=== PATIENT | female | born 1975 | race Caucasian/White ===

== ENCOUNTER 2023-05-22 07:33 | Outpatient (OUT) | payer OTHER, SELFPAY ==
[2023-05-22 07:58] LABS: Estimated Average Glucose 100 mg/dL; Glycohemoglobin A1C 5.1 % (4.5-6.2)
[2023-05-22 08:07] LABS: Basophils Absolute Auto 0.1 10^3/uL (0.0-0.1); Basophils Percent Auto 0.8 % (0.2-2.0); Eosinophils Absolute Auto 0.2 10^3/uL (0.0-0.7); Eosinophils Percent Auto 2.7 % (0.9-7.0); Hematocrit 44.3 % (36.0-48.0); Hemoglobin 14.6 g/dL (12.0-16.0); Immature Granulocytes Abs Auto 0.02 10^3/uL (0.00-0.03); Immature Granulocytes Pct Auto 0.3 % (0.0-0.5); Lymphocytes Absolute Auto 1.6 10^3/uL (1.2-3.8); Lymphocytes Percent Auto 25.7 % (20.5-60.0); Mean Corpuscular Hemoglobin 28.1 pg (26.7-34.0); Mean Corpuscular Volume 85.4 fL (81.0-99.0); Mean Platelet Volume 10.5 fL (9.5-13.5); Monocytes Absolute Auto 0.5 10^3/uL (0.3-0.8); Monocytes Percent Auto 8.1 % (1.7-12.0); Neutrophils Absolute Auto 3.8 10^3/uL (1.4-6.5); Neutrophils Percent Auto 62.4 % (43.0-75.0); Platelet Count 256 10^3/uL (150-450); Red Blood Count 5.19 10^6/uL (4.20-5.40); Red Cell Distribution Width 13.1 % (11.0-15.0)
[2023-05-22 08:21] LABS: Alanine Aminotransferase 18 U/L (14-59); Albumin Globulin Ratio 1.1; Albumin Level 3.7 g/dL (3.4-5.0); Alkaline Phosphatase 66 U/L (46-116); Anion Gap 11.2; Aspartate Amino Transferase 11 U/L (15-37); BUN Creatinine Ratio 17.8; Bilirubin Total 0.5 mg/dL (0.2-1.0); Calcium 8.6 mg/dL (8.5-10.1); Chloride 102 mmol/L (98-107); Estimated GFR (African America >60 (>=60); Estimated GFR (Non-African Ame >60 (>=60); Free T3 2.89 pg/mL (2.18-3.98); Globulin 3.4 g/dL; Glucose 102 mg/dL (74-106); Potassium 4.2 mmol/L (3.5-5.1); Sodium 139 mmol/L (136-145); Thyroid Stimulating Hormone 1.684 uIU/mL (0.358-3.740); Total Protein 7.1 g/dL (6.4-8.2)
== END 2023-05-22 07:34 | disposition home or self-care (01) ==
LOC: LAB 07:36
PROVIDERS: PCP Family Medicine; Visit Provider Family Medicine
DX: R53.83 Other fatigue (principal)
CPT/HCPCS: 36415; 80053; 83036; 84436; 84443; 84481; 85025

== ENCOUNTER 2024-07-08 16:03 | Outpatient (OUT) | payer OTHER, SELFPAY ==
[2024-07-08 16:20] LABS: Basophils Absolute Auto 0.1 10^3/uL (0.0-0.1); Basophils Percent Auto 1.1 % (0.2-2.0); Eosinophils Absolute Auto 0.1 10^3/uL (0.0-0.7); Eosinophils Percent Auto 1.4 % (0.9-7.0); Hematocrit 42.7 % (36.0-48.0); Immature Granulocytes Abs Auto 0.01 10^3/uL (0.00-0.03); Immature Granulocytes Pct Auto 0.2 % (0.0-0.5); Lymphocytes Absolute Auto 1.6 10^3/uL (1.2-3.8); Lymphocytes Percent Auto 24.3 % (20.5-60.0); Mean Corpuscular HGB Conc 32.8 g/dL (29.9-35.2); Mean Corpuscular Hemoglobin 28.9 pg (26.7-34.0); Mean Platelet Volume 10.8 fL (9.5-13.5); Monocytes Absolute Auto 0.4 10^3/uL (0.3-0.8); Monocytes Percent Auto 6.7 % (1.7-12.0); Neutrophils Absolute Auto 4.3 10^3/uL (1.4-6.5); Neutrophils Percent Auto 66.3 % (43.0-75.0); Platelet Count 267 10^3/uL (150-450); Red Blood Count 4.85 10^6/uL (4.20-5.40); Red Cell Distribution Width 13.1 % (11.0-15.0); White Blood Count 6.5 10^3/uL (4.0-11.0)
[2024-07-08 16:47] LABS: Free T3 2.04 pg/mL (2.18-3.98); Thyroid Stimulating Hormone 1.233 uIU/mL (0.358-3.740)
== END 2024-07-08 16:04 | disposition home or self-care (01) ==
LOC: LAB 16:03
PROVIDERS: PCP Family Medicine; Visit Provider Family Medicine
DX: R53.83 Other fatigue (principal)
CPT/HCPCS: 36415; 83540; 84436; 84443; 84481; 85025

== ENCOUNTER 2024-07-09 15:58 | Outpatient (OUT) | payer OTHER, SELFPAY ==
--- NOTE | 2024-07-09 16:04 | US_ITS ---
The [address] [address] Patient Name: NATALIIA RAY MRN: [id number] date: 1975 Sex: F Assigned Patient Location: US Current Patient Location: US Accession/Order Number: [id number] Exam Date: 07/09/2024 16:10 Report Date: 07/09/2024 17:10 At the request of: ISIDORO TRUJILLO Procedure: US venous doppler UE LT GI EXAM: US venous doppler UE LT HISTORY: LEFT ARM PAIN M79.602 COMPARISON: None. TECHNIQUE: Sonographic evaluation of the deep venous system of the left upper extremity was performed utilizing B-mode, color Doppler, and spectral imaging. FINDINGS: The internal jugular vein shows normal flow without filling defects. Normal cardiac pulsations are seen. The subclavian vein also showed normal flow and respiratory phasicity. No filling defects are identified. The axillary, brachial, basilic, and cephalic veins all appear patent and are normally compressible. The ulnar and radial veins also showed normal flow and compressibility. Additional findings: None. US/US venous doppler UE LT IMPRESSION: No evidence of deep venous thrombosis of the left upper extremity. Electronically authenticated by: EPHRAIM ROBLES Date: 07/09/2024 17:10
== END 2024-07-09 15:59 | disposition home or self-care (01) ==
LOC: US 15:58
PROVIDERS: PCP Family Medicine; Visit Provider Family Medicine
DX: M79.602 Pain in left arm (principal)
CPT/HCPCS: 93971

== ENCOUNTER 2024-08-05 10:35 | Outpatient (OUT) | payer OTHER, SELFPAY ==
--- OUTSIDE RECORDS SUMMARY | 2024-08-05 10:58 | XMS_ITS | CCD ---
Author Organization [facility] Care Team Providers Care Moving Worker Name Role Phone HARVEY VICTOR Unavailable Unavailable HOY ., DR CHAUDHRY Attending Unavailable HOY ., DR CHAUDHRY Admitting Unavailable HOY ., DR CHAUDHRY Primary Care Unavailable HOY ., DR CHAUDHRY Consulting Unavailable HOY ., DR CHAUDHRY Attending Unavailable HOY ., DR CHAUDHRY Admitting Unavailable HOY ., DR CHAUDHRY Primary Care Unavailable HOY ., DR CHAUDHRY Consulting Unavailable HOY ., DR CHAUDHRY Admitting Unavailable HOY ., DR CHAUDHRY Primary Care Unavailable HOY ., DR CHAUDHRY Attending Unavailable HOY ., DR CHAUDHRY Consulting Unavailable HOY ., DR CHAUDHRY Admitting Unavailable HOY ., DR CHAUDHRY Primary Care Unavailable HOY ., DR CHAUDHRY Consulting Unavailable HOY ., DR CHAUDHRY Attending Unavailable NAYE OCONNOR Consulting Unavailable HOY ., DR CHAUDHRY Admitting Unavailable HOY ., DR CHAUDHRY Primary Care Unavailable HOY ., DR CHAUDHRY Attending Unavailable HOY ., DR CHAUDHRY Consulting Unavailable HOY ., DR CHUADHRY Consulting Unavailable HOY ., DR CHAUDHRY Admitting Unavailable HOY ., DR CHAUDHRY Primary Care Unavailable HOY ., DR CHAUDHRY Attending Unavailable ALLI WEST Consulting Unavailable Isidoro Rojas Primary Care Physician Kati Cobb Unavailable Unavailable ANANT BRANDON Admitting Unavailable ANANT BRANDON Attending Unavailable MD Isidoro Rojas Primary Care Provider [phone] DO Karyn Johnson Attending Provider DO Bryson Robbins Attending Provider [phone] MD Isidoro Rojas Primary Care Provider [phone] DO Bryson Robbins Attending Provider MD Isidoro Rojas Primary Care Provider [phone] DO Bryson Robbins Attending Provider [phone] Bozena, Bryson Attending Unavailable Itzkowitz, Bryson Admitting Unavailable Hoy, Isidoro M Primary Care Unavailable Itzkowitz, Bryson Attending Unavailable Itzkowitz, Bryson Admitting Unavailable Hoy, Isidoro M Primary Care Unavailable Itzkowitz, Bryson Attending Unavailable Itzkowitz, Bryson Admitting Unavailable Hoy, Isidoro M Primary Care Unavailable Itzkowitz, Bryson Attending Unavailable Hoy, Isidoro M Primary Care Unavailable Itzkowitz, Bryson Admitting Unavailable Hoy, Isidoro M Primary Care Unavailable Itzkomiles, Bryson Attending Unavailable Itzkowitz, Bryson Admitting Unavailable Hoy, Isidoro M Primary Care Unavailable Alex Karyn Admitting Unavailable Karyn Johnson Attending Unavailable Hoy, Isidoro M Primary Care Unavailable Itzkowitz, Bryson Attending Unavailable Itzkowitz, Bryson Admitting Unavailable Hoy, Isidoro M Primary Care Unavailable Itzkomiles, Bryson Attending Unavailable Itzkomarissatz, Bryson Admitting Unavailable ITZLLOYD, BRYSON H Attending Unavailable TELLO CHURCH Attending Unavailable TELLO CHURCH Attending Unavailable KARYN JOHNSON E Attending Unavailable ITZLLOYD, BRYSON H Attending Unavailable Allergies Allergy Classification Reported Allergen(s) Allergy Type Date of Onset Reaction(s) Facility (8 sources) SUMAtriptan; Translations: [SUMATRIPTAN] Drug Allergy 1 AOF, SOB, Trouble breathing [facility] (2 sources) Plasmin; Translations: [Imitrex] Drug Allergy [facility] Medications Current Medications Medication Drug Class(es) Dates Sig (Normalized) Sig (Original) acetaminophen 325 mg / butalbital 50 mg / caffeine 40 mg oral capsule (7 sources) Barbiturate, Central Nervous System Stimulant, Methylxanthine Start: 10-02-2018 take 1 tablet by mouth three times daily Butalbital-Acetam inophen-Caff Active 1 TAB PO Three times daily October 02, 2018 1:00am cetirizine hydrochloride 10 mg oral tablet (1 source) Histamine-1 Receptor Antagonist Start: 02-24-2016 take 10 mg by mouth once daily Zyrtec 10 mg, Oral, Daily, Refills(s) 0, Allergy symptoms Start Date: 02/24/16 Status: Ordered cycloSPORINE 0.5 mg/ml ophthalmic suspension (4 sources) Calcineurin Inhibitor Immunosuppressant Start: 10-02-2018 take 1 drop(s) into the eye(s) every twelve hours Cyclosporine (Restasis) 0.05 % Dropperette Active 1 DROPS EYE-BOTH October 02, 2018 1:00am Start: 02-24-2016 take 1 drop(s) into the eye(s) twice daily Restasis 1 drop(s), Eye-Both, BID, Refill(s) 0, Dry eyes Start Date: 02/24/16 Status: Ordered Cyclosporine (Restasis) 0.05 % Dropperette (4 sources) Start: 10-02-2018 take 1 drop(s) into the eye(s) every twelve hours Cyclosporine (Restasis) 0.05 % Dropperette Active 1 DROPS EYE-BOTH October 02, 2018 12:00am Start: 10-02-2018 take 1 drop(s) into the eye(s) every twelve hours Cyclosporine (Restasis) 0.05 % Dropperette Active 1 DROPS EYE-BOTH October 02, 2018 1:00am diphenhydrAMINE hydrochloride 25 mg oral capsule (4 sources) Histamine-1 Receptor Antagonist Start: 03-21-2023 take 1 capsule by mouth once daily at bedtime Diphenhydramine Hcl (Benadryl) 25 mg Capsule Active 25 MG PO Daily at bedtime March 21, 2023 12:00am eluxadoline 100 mg oral tablet (8 sources) mu-Opioid Receptor Agonist Start: 02-23-2016 take 1 tablet by mouth twice daily Eluxadoline (Viberzi) 100 mg Tablet Active 100 MG PO Twice daily October 02, 2018 1:00am escitalopram 10 mg oral tablet (4 sources) Serotonin Reuptake Inhibitor Start: 03-21-2023 take 10 mg by mouth once daily at bedtime Escitalopram Oxalate Active 10 MG PO Daily at bedtime March 21, 2023 12:00am ibuprofen 600 mg oral tablet (10 sources) Nonsteroidal Anti-inflammatory Drug Start: 04-03-2023 Ibuprofen Active 600 MG PO EVERY 4-6 HOURS 16 3 April 03, 2023 12:00am do not exceed 4 doses in a 24 hour period Start: 10-10-2018 End: 03-21-2023 take 600 mg by mouth every six hours Ibuprofen Discontinued 600 MG PO Q6H October 10, 2018 1:00am March 21, 2023 4:59pm levothyroxine sodium 0.075 mg oral tablet (5 sources) l-Thyroxine Start: 03-21-2023 take 1 tablet by mouth once daily in the morning Levothyroxine (Synthroid) 75 mcg tablet Active 75 MCG PO Every morning March 21, 2023 12:00am Start: 02-23-2016 take 1 tablet by thu th once daily Synthroid 25 mcg(0.025 mg) Tab 25 microgram = 1 tab(s), Oral, Daily, Refills(s) 0, Thyroid Start Date: 02/23/16 Status: Ordered liothyronine sodium 0.005 mg oral tablet (4 sources) l-Triiodothyronine Start: 03-21-2023 take 5 ug by mouth once daily in the morning Liothyronine Active 5 MCG PO Every morning March 21, 2023 12:00am Completed/Discontinued Medications Medication Drug Class(es) Dates Sig (Normalized) Sig (Original) acetaminophen 325 mg / HYDROcodone bitartrate 5 mg oral tablet (7 sources) Opioid Agonist Start: 10-10-2018 End: 03-21-2023 take 1 tablet by mouth every four to six hours Hydrocodone-Acetam inophen ([place]) 5-325 mg tablet Discontinued 1 TAB PO EVERY 4-6 HOURS 30 October 10, 2018 March 21, 2023 4:59pm ascorbic acid 500 mg oral tablet (7 sources) Vitamin C Start: 10-02-2018 End: 03-21-2023 Ascorbic Acid (Vitamin C) (Vitamin C) 500 mg Tablet Discontinued 500 GM PO Daily October 02, 2018 1:00am March 21, 2023 4:58pm biotin 1 mg chewable tablet (7 sources) Start: 10-02-2018 End: 03-21-2023 take 1000 ug by mouth once daily Biotin Discontinued 1000 MCG PO Daily October 02, 2018 1:00am March 21, 2023 4:58pm docusate sodium 100 mg oral capsule (7 sources) Start: 10-10-2018 End: 03-21-2023 take 1 capsule by mouth twice daily Docusate Sodium (Colace) 100 mg capsule Discontinued 100 MG PO Twice daily 60 October 10, 2018 8:23am March 21, 2023 4:59pm rizatriptan 10 mg oral tablet (7 sources) Serotonin-1b and Serotonin-1d Receptor Agonist Start: 10-02-2018 End: 03-21-2023 Rizatriptan Discontinued 10 MG PO As Directed October 02, 2018 1:00am March 21, 2023 4:59pm topiramate (7 sources) Start: 10-02-2018 End: 03-21-2023 take 1 capsule by mouth once daily at bedtime Topiramate (Trokendi Xr) 50 mg Capsule,Extended Release 24hr Discontinued 50 MG PO Daily at bedtime October 02, 2018 12:00am March 21, 2023 3:59pm Start: 10-02-2018 End: 03-21-2023 take 1 capsule by mouth once daily at bedtime Topiramate (Trokendi Xr) 50 mg Capsule,Extended Release 24hr Discontinued 50 MG PO Daily at bedtime October 02, 2018 1:00am March 21, 2023 4:59pm Start: 10-02-2018 take 1 capsule by mo [facility] once daily at bedtime Topiramate (Trokendi Xr) 50 mg Capsule,Extended Release 24hr Active 50 MG PO Daily at bedtime October 02, 2018 1:00am Problems Active Problems Problem Classification Problem Date Documented Date Episodic/Chronic Endometriosis (7 sources) Endometriosis (clinical); Translations: [Endometriosis, unspecified] 10-10-2018 Chronic Fluid and electrolyte disorders (2 sources) Dehydration; Translations: [Hypokalemia] Onset: 10-02-2022 Episodic Headache; including migraine (2 sources) Migraine, unspecified, not intractable, without status migrainosus; Translations: [Migraine] Onset: 10-02-2022 01-22-2014 Chronic Headache; including migraine (3 sources) Headache; including migraine; Translations: [HEADACHE UNSPECIFIED] Onset: 09-27-2022 Malaise and fatigue (1 source) Chronic fatigue, unspecified; Translations: [CHRONIC FATIGUE UNSPECIFIED] Onset: 11-27-2022 Chronic Menopausal disorders (1 source) Hormone replacement therapy; Translations: [HORMONE REPLACEMENT THERAPY] Onset: 10-02-2022 Episodic Nervous system congenital anomalies (4 sources) Other specified congenital malformations of brain; Translations: [OTH SPEC CONGENITAL MALFORM BRAIN] Onset: 03-09-2022 Chronic Other aftercare (1 source) Other chcf (current) drug therapy; Translations: [OTH SHELTER CURRENT DRUG THERAPY] Onset: 10-02-2022 Episodic Other upper respiratory infections (1 source) Acute pharyngitis, unspecified; Translations: [ACUTE PHARYNGITIS UNSPECIFIED] Onset: 10-02-2022 Episodic Thyroid disorders (5 sources) Hypothyroidism, unspecified; Translations: [HYPOTHYROIDISM UNSPECIFIED] Onset: 10-02-2022 Chronic Unclassified (1 source) CONTACT W/AND (SUSP) EXPOS COVID-19; Translations: [CONTACT W/AND (SUSP) EXPOS COVID-19] Onset: 10-02-2022 Unclassified (1 source) Unspecified lump in the right breast, unspecified quadrant; Translations: [Unspecified lump in the right breast, unspecified quadrant] Onset: 03-15-2023 Unclassified (1 source) Unspecified lump in the right breast, upper outer quadrant; Translations: [Unspecified lump in the right breast, upper outer quadrant] Onset: 03-09-2023 Past or Other Problems Problem Classification Problem Date Documented Da te Episodic/Chronic Malaise and fatigue (4 sources) Other fatigue; Translations: [OTHER FATIGUE] Onset: 01-12-2022 Episodic Nonmalignant breast conditions (13 sources) Breast lump; Translations: [Unspecified lump in the right breast, unspecified quadrant] Onset: 03-09-2023 03-01-2023 Episodic Other screening for suspected conditions (not mental disorders or infectious disease) (1 source) Other abnormal and inconclusive findings on diagnostic imaging of breast; Translations: [Other abnormal and inconclusive findings on diagnostic imaging of breast] Onset: 02-28-2023 Episodic Results Test Name Value Interpretation Reference Range Facility MM screening mammo BI w/CADo n 02-25-2024 MM screening mammo BI w/CAD [address] [place] [address] Mammography Report Signed Patient: Mary Granados MR#: [id number] 498 : 1975 Acct:[id number] Age/Sex: 48 / F ADM Date: 02/25/24 Loc: [place] Room: Type: [facility] Attending Dr: Bryson Robbins DO Copies to: MD Bryson Cuevas DO Ordering Provider: Bryson Robbins DO Date of Service: 02/25/24 MM/MM screening mammo BI w/CAD: SCREENING BILATERAL Screening Full Field digital mammogram with 3-D imaging. Full field digital CC and MLO imaging performed. CAD utilized. COMPARISON: 09/24/2023 right breast HISTORY: Annual screening BREAST COMPOSITION: Scattered fibroglandular densities of the breast parenchyma identified BREAST CALCIFICATIONS: Benign calcifications present. VASCULAR CALCIFICATIONS: None ARCHITECTURAL DISTORTION: None BREAST NODULE: None AXILLARY LYMPH NODES: Normal POSTSURGICAL CHANGES: Stable right lumpectomy changes MM/MM screening mammo BI w/CAD IMPRESSION: No mammographic evidence of malignancy. Routine follow-up recommended in one year. RESULT CODE: 2 Benign Findings(s) DENSITY CODE: 2 (approximately 25-50% glandular) FOLLOW UP: 1YR THE FALSE-NEGATIVE RATE OF MAMMOGRAPHY IS APPROXIMATELY 10%. IMAGING OF A PALPABLE ABNORMALITY MUST BE BASED ON CLINICAL GROUNDS. PATIENT WAS ENTERED INTO A REMINDER SYSTEM WITH A TARGET DUE DATE FOR THE NEXT MAMMOGRAM. Impression dictated by: Francisco Javier Sellers M.D.02/25/2024 10:50 AM Dictation Location: [facility] Transcribed By: [facility] 02/25/24 1050 Dictated By: Francisco Javier Sellers DO 02/25/24 1043 Signed By: 02/25/24 1050 Normal [facility] MM diagnostic mammo RT w/CAD on 09-24-2023 MM diagnostic mammo RT w/CAD [facility] Main [address] [address] Mammography Report Signed Patient: Mary Granados MR#: [id number] : 1975 Acct:[id number] Age/Sex: 48 / F ADM Date: 09/24/23 Loc: [place] Room: Type: [facility] Attending Dr: Bryson Robbins DO Copies to: MD Bryson Cuevas DO Ordering Provider: Bryson Robbins DO Date of Service: 09/24/23 MM/MM diagnostic mammo RT w/CAD: Follow up right excisiona biopsy DIAGNOSTIC RIGHT MAMMOGRAM - FULL FIELD DIGITAL WITH TOMOSYNTHESIS CLINICAL DATA: Follow-up benign biopsy of right breast Tomosynthesis mediolateral, Craniocaudal and mediolateral oblique views of the right breast were obtained using low-dose digital technique. Comparison is made to prior studies from 03/30/2023, 02/28/2023, 02/23/2023, and 02/09/2022. This examination was reviewed with the aid of CAD. Scattered fibroglandular tissue is present. Surgical clips are present in the upper slightly lateral aspect of the right breast. Benign-appearing lymph nodes are noted along the chest wall. There are no dominant masses, typically malignant calcifications or architectural distortion. There has been no significant interval change. MM/MM diagnostic mammo RT w/CAD IMPRESSION: NO MAMMOGRAPHIC EVIDENCE OF MALIGNANCY. ROUTINE FOLLOW-UP IS RECOMMENDED IN ONE YEAR. RESULT CODE: 2 Benign Findings(s) DENSITY CODE: 2 (approximately 25-50% glandular) FOLLOW UP: 1YR The false-negative rate of mammography is approximately 10-percent. Management of a palpable abnormality must be based on clinical grounds. Impression dictated by: Sher Garcia M.D.09/24/2023 2:15 PM Dictation Location: [facility] Transcribed By: NEGAR 09/24/23 1415 Dictated By: Sher Garcia II, MD 09/24/23 1410 Signed By: 09/24/23 141 Normal [facility] Nadeem 04-03-2023 L ---- Specimen: [id number] Received: 04/03/23 Status: TERRANCE Cami Num: [id number] Spec Type: Surgical Subm Dr: Bryson Robbins DO Tissues: A Breast Biopsy/Mass Not Requiring Micro Eval of Margins (RT BRST MASS) Procedures: S 100/2, HE/15, Gross/Micro L4, CALPONIN/2 Age/ Patient Sex Location Account Attending Physician Mary Granados 47/F [place] [id number] Bryson Robbins DO SPEC NUM: [id number] RECD: 04/03/23 STATUS: TERRANCE ALMANZA NUM: [id number] AGUSTIN: 04/03/[address]: Bryson Robbins DO ENTERED: 04/03/[address]: SPEC TYPE: Surgical DEPT: S ENTERED BY: [id number] RECV BY: [id number] ORDERED: S 100/2, HE/15, Gross/Micro L4, CALPONIN/2 ORDERED: S 100/2, HE/15, Gross/Micro L4, CALPONIN/2 Pathological Diagnosis Right breast mass, excisional biopsy: - Benign fibroglandular breast tissue, consisting of dense proliferations of adenosis like lobular ductal acinar units among dense collagenous stroma with varying presence of adipocytes, compatible with features of mammary hematoma - There is variable and occasionally moderate expansion of the lobular adenosis units, including rare tubular adenosis like changes - P63 and S100 immunostains are also applied to 2 different tissue blocks, and with findings also supporting the above interpretation, and also can exclude the possibility of microglandular adenosis - Focal mild post biopsy change and fibrosis - No evidence of malignancy or any atypical epithelial hyperplasia identified Clinical Information Right breast mass, anterior green, inferior blue, lateral orange, medial yellow, posterior black, superior red Specimen: [id number] Received: 04/03/23 Status: TERRANCE Almanza Num: [id number] Spec Type: Surgical Subm Dr: Bryson Robbins, Tissues: A Breast Biopsy/Mass Not Requiring Micro Eval of Margins (RT BRST MASS) Procedures: S 100/2, HE/15, Gross/Micro L4, CALPONIN/2 Patient: Mary Granados [id number] ([facility]) Specimen: [id number] Received: 04/03/23 (Continued) Signed (signature on file) Amanda Nix MD 04/09/23 1455 Specimen: [id number] Received: 04/03/23 Status: TERRANCE Almanza Num: [id number] Spec Type: Surgical Subm Dr: Bryson Robbins, Tissues: A Breast Biopsy/Mass Not Requiring Micro Eval of Margins (RT BRST MASS) Procedures: S 100/2, HE/15, Gross/Micro L4, CALPONIN/2 Patient: Mary Granados [id number] (Continued) Specimen: [id number] Received: 04/03/23 (Continued) Gross Description Received fresh labeled with the patient's name, date of and right breast mass with one radioactive seed is a previously inked and oriented portion of fibrofatty breast tissue measuring 4.2 cm from medial to lateral, 3.2 cm from superior to inferior and 2.0 cm from anterior to posterior. The specimen is sectioned from medial to lateral into eight levels. A biopsy clip is identified between levels two and three. A localization seed is identified within level four. The cut surface is predominantly yellow, lobular fat interspersed with ortiz-white fibrous tissue. No discrete biopsy cavity or lesion is identified grossly. Entirely submitted in 13 cassettes as follows: A1 - Level one A2 - Level two A3-A4 - Level three A5-A6 - Level four A7-A8 - Level five A9-A10 - Level six A11-A12 - Level seven A13 - Level eight Time of excision: 8:07 AM 04/03/2023, time in formalin: 9:29 AM 04/03/2023, time out of formalin: 6 PM 04/03/2023. Cold Ischemic Time: 1.37 Formalin Fixation Time: 8.52 Type of Fixative: 10% Neutral Buffered Formalin Microscopic Description 13 H E slides reviewed. The microscopic examination confirms the diagnosis. CPT Codes 71216 73416 x 2 16484 x 2 Specimen: [id number] Received: 08/29/23-1343 Sta (more content not included)... Normal [facility] MM surgical specimen RTon MM surgical specimen RT [place] [id number] Mammography Report Signed Patient: Mary Granados MR#: [id number] 498 : 1975 Acct:[id number] Age/Sex: 47 / F ADM Date: 04/03/23 Loc: [place] Room: Type: [facility] Attending Dr: Bryson Robbins DO Copies to: MD Bryson Cuevas DO Ordering Provider: Bryson Robbins DO Date of Service: 04/03/23 MM/MM surgical specimen RT: RT BREAST SPECIMEN IN OR WITH CLIP/SEED CLINICAL INFORMATION: [Right] breast lumpectomy. SPECIMEN RADIOGRAPH: A single radiograph of the [right] breast specimen showed a metallic marking clip and radioiodine seed within the specimen. The images were reviewed by the attending surgeon during the procedure. Impression dictated by: Yogesh Stroud Jr., Ruben04/03/2023 11:32 AM Dictation Location: [place] [address] Transcribed By: [facility] 04/03/23 113 Dictated By: Yogesh Stroud Jr, DO 04/03/23 113 Signed By: 04/03/23 1132 Normal [facility] US breast needle loc RTon US breast needle loc RT [address] [address] Ultrasound Report Signed Patient: Mary Granados MR#: [id number] 498 : 1975 Acct:[id number] Age/Sex: 47 / F ADM Date: 03/19/23 Loc: [place] Room: Type: PRE [facility] Attending Dr: Bryson Robbins DO Ordering Provider: Bryson Robbins DO Date of Service: 03/30/23 US/US breast needle loc RT: RT BREAST SEED LOC ([id number]) MM/MM diagnostic mammo RT w/CAD: POST U/S SEED LOC Copies to: Bryson Robbins DO ULTRASOUND GUIDED RADIOIODINE SEED LOCALIZATION OF THE RIGHT BREAST: CLINICAL DATA: Excisional biopsy right breast PROCEDURE: Informed consent was obtained. Following sterile preparation and local anesthetics a needle containing of 0.142 ?Ci of iodine 125 was placed under the ultrasonographic guidance. Following confirmation of the tip of the needle position an Iodine seed was deployed. Adjacent to the needle entry the skin was marked 1 SEED to indicate the seed localization. The patient tolerated the procedure well and left the department in stable condition. US/US breast needle loc RT IMPRESSION: STATUS POST RADIOIODINE SEED LOCALIZATION OF THE RIGHT BREAST. POSTPROCEDURE MAMMOGRAMS: Craniocaudal and mediolateral oblique views of the right breast were performed using low dose digital technique and compared to the previous right breast mammograms dated 03/09/2023. A small radioiodine seed is noted adjacent to a metallic marking clip within the central/upper aspect of the right breast. IMPRESSION: TECHNICALLY SUCCESSFUL ULTRASOUND GUIDED SEED LOCALIZATION OF THE RIGHT BREAST. RESULT CODE: NL Impression dictated by: Yogesh Stroud Jr., D.O.03/30/2023 12:13 PM [facility]ictation [facility]: Ce LimFay Castillo Transcribed By: NEGAR 03/30/231212 Dictated By: Yogesh Stroud Jr, DO 03/30/23 1104 Signed By: 03/30/23 121 Normal [facility] [place] 03-09-2023 L ---- Specimen: [id number] Received: 03/09/23 Status: TERRANCE Almanza Num: [id number] Spec Type: Surgical Subm Dr: Yogesh Stroud Jr, DO Tissues: A BREAST CORE NO CALCS (BRST CORE RT) Procedures: HE/2, Gross/Micro L4 Age/ Patient Sex Location Account Attending Physician Mary Granados 47/F [place] [id number] Bryson Robbins DO SPEC NUM: [id number] RECD: 03/09/23-1254 STATUS: TERRANCE ALMANZA NUM: [id number] AGUSTIN: 03/09/23-[address] [facility] DR: Yogesh Stroud Jr, ENTERED: 03/09/23-1256 [facility] DR: DO REMY Webb TYPE: Surgical DEPT: S ENTERED BY: [id number] RECV BY: [id number] ORDERED: HE/2, Gross/Micro L4 ORDERED: HE/2, Gross/Micro L4 Pathological Diagnosis Breast, right, 11-12:00, 8-9 cm from nipple, core needle biopsy: - Fragments of fibroadenoma - Negative for malignancy Clinical Information Right breast mass at 11?12:00, 8-9 cm from nipple, next appointment on 03/15/2023 Gross Description Received in formalin labeled with the patient's name, date of and right breast is a 2.1 x 2.1 x 0.5 cm aggregate of cores of fibrofatty breast tissue. Entirely submitted in one cassette labeled A1. Time of excision: 11:20 AM 03/09/2023, time in formalin: 11:30 AM 03/09/2023, time out of formalin: 6 PM 03/11/2023. Cold Ischemia and Fixation Time meets the requirements specified in the latest version of the ASCO/CAP guidelines: Yes. Cold Ischemic Time: 0.17 Formalin Fixation Time: 54.50 Specimen: [id number] Received: 03/09/23 Status: TERRANCE Almanza Num: [id number] Spec Type: Surgical Subm Dr: Yogesh Stroud Jr, DO Tissues: A BREAST CORE NO CALCS (BRST CORE RT) Procedures: HE/2, Gross/Micro L4 Patient: Mary Granados [id number] (Continued) Specimen: [id number] Received: 03/09/23 (Continued) Signed (signature on file) Guerrero Murphy MD 03/14/23 1304 Specimen: [id number] Received: 03/09/23 Status: TERRANCE Almanza Num: [id number] Spec Type: Surgical Subm Dr: Yogesh Stroud Jr, DO Tissues: A BREAST CORE NO CALCS (BRST CORE RT) Procedures: HE/2, Gross/Micro L4 Patient: Mary Granados [id number] (Continued) Specimen: [id number] Received: 03/09/23 (Continued) Microscopic Description Two H E slides reviewed. The microscopic examination confirms the diagnosis. CPT Codes 53349 Specimen: [id number] Received: 03/09/23 Status: TERRANCE Almanza Num: [id number] Spec Type: Surgical Subm Dr: Yogesh Stroud Jr, DO Tissues: A BREAST CORE NO CALCS (BRST CORE RT) Procedures: HE/2, Gross/Micro L4 Patient: Mary Granados [id number] (Continued) Signed (signature on file) Guerrero Murphy MD 03/14/23 1304 Normal [facility] MM biopsy RT vac assist ster eoon 03-09-2023 MM biopsy RT vac assist stereo [facility] Main [address] [address] [address] Mammography Report Signed with Don Patient: Mary Granados MR#: [id number] 498 : 1975 Acct:[id number] Age/Sex: 47 / F ADM Date: 03/09/23 Loc: [place] Room: Type: [facility] Attending Dr: Bryson Robbins DO Copies to: MD Bryson Cuevas DO Ordering Provider: Bryson Robbins DO Date of Service: 03/09/23 MM/MM biopsy RT vac assist stereo: RT BREAST ASYMMETRY ([id number]) MM/MM post biopsy RT w/CAD: POST BX WITH CLIP ADDENDUM 1 Addendum for pathology: Thomas guided biopsy right breast 11 to 12:00 position 8 to 9 cm from the nipple: Fragments of fibroadenoma. Negative for malignancy. Pathology is discordant with imaging. Excisional biopsy should BE considered. If no intervention is performed, diagnostic mammography and ultrasound in 6 months is recommended. Impression dictated by: Yogesh Stroud Jr., D.O.03/14/2023 3:19 PM Dictation Location: [place] [address] Addendum Dictated By: Yogesh Stroud Jr, DO Addendum Signed By: 03/14/231518 Addendum Cosigned By: DD/ /28/1517 TD/TT: 03/14/2304/28/1519 Thomas guided RIGHT BREAST BIOPSY WITH VACUUM ASSISTED NEEDLE AND MARKING CLIP PLACEMENT: CLINICAL INDICATION: Architectural distortion right breast TECHNIQUE AND FINDINGS: The procedure, associated risks, benefits were discussed with the patient and written, informed consent was obtained., imaging was performed and the coordinates of the lesion were calculated. Following sterile preparation and local anesthetization with lidocaine, an 9-gauge Qritiqr vacuum assisted core biopsy needle was advanced into the breast. Documentation of the needle position was performed both before and after firing of the needle. Multiple core biopsy specimens were obtained of the area of concern. Before the needle was removed, a marking clip was placed. The postbiopsy stereotactic image confirmed clip deployment. Please note that the patient had a vasovagal episode during the procedure with relatively quick recovery. MM/MM post biopsy RT w/CAD IMPRESSION: TECHNICALLY SUCCESSFUL RIGHT BREAST STEREOTACTIC BIOPSY ENUMERATED ABOVE. IMPRESSION: Successful thomas guided right breast biopsy of architectural distortion. DIAGNOSTIC MAMMOGRAMS: Craniocaudal and lateral views of the right breast were performed post stereotactic biopsy using low dose digital technique. Comparison is made to the previous mammograms dated 02/28/2023. A marking clip is noted without evidence of migration. IMPRESSION: Successful thomas guided biopsy right breast. RESULT CODE: NL Impression dictated by: Yogesh Stroud Jr., D.OJessica03/09/2023 11:51 AM Dictation Location: [facility] Transcribed By: [facility] 03/09/23 1151 Dictated By: Yogesh Stroud Jr, DO 03/09/23 1148 Signed By: 03/09/23 1151 Normal [facility] MM special view RT w/CADon 0 02-28-2023 MM special view RT w/CAD [facility] Main [place] [address] [place] [address] Ultrasound Report Signed Patient: Mary Granados MR#: [id number] 498 : 1975 Acct:[id number] Age/Sex: 47 / F ADM Date: 02/28/23 Loc: [place] Room: Type: [facility] Attending Dr: Karyn Johnson DO Ordering Provider: Karyn Johnson DO Date of Service: 02/28/23 MM/MM special view RT w/CAD: R92.8 ([id number]) US/US breast RT limited: R92.8 Copies to: Karyn Johnson DO REVISED DOCUMENT - CORRECTION TO LATERALITY CLINICAL DATA: Callback architectural distortion right breast RightDIAGNOSTIC MAMMOGRAM - WITH TOMOSYNTHESIS AND CAD , rightLIMITED BREAST ULTRASOUND COMPARISON:Mammograms dating back to 2019. Tomosynthesis imaging was obtained using low-dose digital technique. This examination was reviewed with the aid of CAD. Additional ultrasound imaging was also obtained. Mammogram: The right breast is composed of scattered fibroglandular densities. The previous identified asymmetry with architectural distortion partially persists on today's study. This is likely at the 11:00 position of the RIGHT breast based on thomas imaging. No definite correlate is seen on the CC view. Ultrasound: At the 11:00 position of the right breast approximately 4 to 5 cm from the nipple, a hypoechoic mass is seen with angular margins measuring 1.7 x 1.3 x 0.6 cm. Additional scanning of the axilla demonstrates no suspicious lymph nodes. US/US breast RT limited IMPRESSION: AN AREA OF ARCHITECTURAL DISTORTION IS NOTED INVOLVING THE SUPERIOR ASPECT OF THE RIGHT BREAST ON THE MAMMOGRAPHIC STUDY WHICH APPEARS TO REPRESENT A HYPOECHOIC MASS WITH SINISTER FEATURES AT THE 11:00 POSITION OF THE RIGHT BREAST 4 TO 5 CM FROM THE NIPPLE. GIVEN THE DIFFICULTY OF SAME THIS MASS BY ULTRASOUND, THOMAS GUIDED BIOPSY IS RECOMMENDED. Findings were discussed with the patient shortly after imaging. RESULT CODE: 4b Suspicious Abnormality - Biopsy Intermediate Suspicion DENSITY CODE: 2 (approximately 25-50% glandular) FOLLOW UP: BIO The false-negative rate of mammography is approximately 10-percent. Management of a palpable abnormality must be based on clinical grounds. Impression dictated by: Yogesh Stroud Jr., D.O.03/01/2023 12:38 PM Dictation Location: [facility] Tech: Meghan Garcia Transcribed By: NEGAR 03/01/23 1238 Dictated By: Yogesh Stroud Jr, DO 02/28/23 0946 Signed By: 03/01/23 1238 Normal [facility] T3 Freeon 01-27-2023 Free T3 [Mass/Vol] 3.0 pg/mL Invalid Interpretation Code 2.0-4.4 [facility] Comment on above: Result Comment: Perf ormed at: [facility] [address] [id number] PhD Good Hernadez Performed By: #### 2 499199, 4840226, 22774702, 7124642, 2021180, 7691163, 61644807, 8928731, 595419687, 9943905, 5620933, 7879866, 7872992, 526872793 ####[facility] [address] [place] [address] Auto Diffon 01-25-2023 Basophils/100 WBC (Bld) 0.7 % Normal 0.0-2.0 [facility] Comment on above: Order Comment: Order Added by Discern Expert. Performed By: #### 2 220260, 2170220, 05949390, 3366977, 1606587, 5067018, 03251580, 1766959, 819476598, 3078426, 2246920, 0312958, 9200421, 885678376 #### [facility] [address] [place] [address] Basophils/Leukocytes Auto (Bld) [Pure # fraction] 0.0 E9/L Normal 0.0-0.2 [facility] Comment on above: Order Comment: Order Added by Discern Expert. Performed By: #### 2 307418, 1787378, 59953728, 8936776, 8781516, 6207868, 63501127, 6080935, 812938642, 4085060, 1853623, 9529246, 3282514, 414328456 #### [facility] [address] [place] [address] Eosinophils/100 WBC (Bld) 1.4 % Normal 0.0-8.0 [facility] Comment on above: Order Comment: Order Added by Discern Expert. Performed By: #### 2 787320, 3449082, 99201687, 9466831, 3397993, 2373097, 06099798, 4222191, 973553700, 3899084, 3399095, 5405432, 9852317, 207814161 #### [facility] [address] [place] [address] Eosinophils/Leukocyt es Auto (Bld) [Pure # fraction] 0.1 E9/L Normal 0.0-0.5 [facility] Comment on above: Order Comment: Order Added by Discern Expert. Performed By: #### 2 504259, 2995793, 73383834, 4351579, 3407294, 9308130, 72229703, 0856986, 491862102, 9443758, 2851012, 6610516, 2501893, 073515134 #### [facility] [address] [place] [address] Lymphocytes/100 WBC (Bld) 24.1 % Normal 14.0-50.0 [facility] Comment on above: Order Comment: Order Added by Discern Expert. Performed By: #### 2 997431, 1091231, 72612316, 7611663, 0224450, 9384371, 49315005, 5072034, 622720471, 8201825, 1991679, 5269339, 4581105, 202986486 #### [facility] [address] [place] [address] Lymphocytes/Leukocyt es Auto (Bld) [Pure # fraction] 1.6 E9/L Normal 1.0-4.0 [facility] Comment on above: Order Comment: Order Added by Discern Expert. Performed By: #### 2 480413, 7088708, 65512745, 9222522, 3401789, 7310033, 98382645, 4190797, 075967047, 7234623, 9619206, 3231292, 3764174, 805156054 #### [facility] [address] [place] [address] Monocytes/100 WBC (Bld) 6.3 % Normal 4.0-14.0 [facility] Comment on above: Order Comment: Order Added by Discern Expert. Performed By: #### 2 508730, 7364902, 54617004, 1804193, 0185534, 4455492, 71154138, 1548637, 546284852, 6532439, 7577259, 7986121, 0777328, 044079453 #### [facility] [address] [place] [address] Monocytes/Leukocytes Auto (Bld) [Pure # fraction] 0.4 E9/L Normal 0.2-1.0 [facility] Comment on above: Order Comment: Order Added by Discern Expert. Performed By: #### 2 616542, 5325164, 57386402, 7924390, 6464607, 1825440, 58608659, 5648893, 787979631, 8792480, 0032493, 9648461, 8977113, 389723822 #### [facility] [address] [place] [address] Neutrophils/100 WBC (Bld) 67.5 % Normal 36.0-75.0 [facility] Comment on above: Order Comment: Order Added by Discern Expert. Performed By: #### 2 640210, 3686546, 75343475, 9504569, 5457267, 4489316, 85175988, 2288437, 114101456, 8406467, 6876170, 4475804, 3446031, 713693659 #### [facility] [address] [place] [address] Neutrophils/Leukocyt es Auto (Bld) [Pure # fraction] 4.4 E9/L Normal 2.0-7.5 [facility] Comment on above: Order Comment: Order Added by Discern Expert. Performed By: #### 2 295283, 8540724, 45270106, 8759524, 4190772, 9426121, 51345025, 4887670, 934528310, 2855494, 9819439, 5181753, 8988020, 940663837 #### [facility] [address] [place] [address] CBC w/ Auto Diffon 3 Erythrocyte distribution width (RBC) [Ratio] 13.2 % Normal 10.9-14.2 [facility] Comment on above: Performed By: #### 2 562523, 7737007, 03744198, 4716572, 8716247, 6806987, 40830020, 2359408, 282972080, 3474425, 2775733, 6407465, 2364195, 680121487 #### [facility] [address] [place] [address] Hematocrit (Bld) [Volume fraction] 43.7 % Normal 34.0-46.0 [facility] Comment on above: Performed By: #### 2 644008, 0057742, 00470832, 7114863, 7690607, 2381598, 79540768, 7856990, 680170584, 4816111, 5569372, 7243423, 6996430, 717955991 #### [facility] [address] [place] [address] Hemoglobin (Bld) [Mass/Vol] 14.7 g/dL Normal 12.0-16.0 [facility] Comment on above: Performed By: #### 2 511411, 4825327, 91517090, 9857818, 1599202, 6372421, 92222179, 0813220, 855099616, 7541203, 1898648, 4311265, 8039867, 485029604 #### [facility] [address] [place] [address] MCH (RBC) [Entitic mass] 28.3 pg Normal 27.0-34.0 [facility] Comment on above: Performed By: #### 2 621836, 4176614, 47931533, 5843268, 1461504, 2128870, 24977326, 6677375, 653617389, 8094887, 3730137, 0777714, 4604123, 510357743 #### [facility] [address] [place] [address] MCHC (RBC) [Mass/Vol] 33.7 g/dL Normal 31.4-36.0 [facility] Comment on above: Performed By: #### 2 852521, 0546371, 99462973, 0925176, 6164427, 7644068, 13167601, 8755077, 121496554, 8505394, 2918886, 0351871, 7946051, 928540446 #### [facility] [address] [place] [address] MCV (RBC) [Entitic vol] 83.9 fL Normal 80.0-100.0 [facility] Comment on above: Performed By: #### 2 136221, 3305406, 03168685, 3921248, 0177596, 4212282, 99966379, 9324119, 708566413, 8455086, 2575866, 7367679, 7409920, 878818513 #### [facility] [address] [place] [address] Platelet mean volume (Bld) [Entitic vol] 9.1 fL Normal 6.4-10.8 [facility] Comment on above: Performed By: #### 2 997344, 8664350, 23206039, 7084492, 7099427, 8225035, 04157934, 7423835, 748919640, 7890246, 4847532, 1287242, 6156184, 990437546 #### [facility] [address] [place] [address] Platelets (Bld) [#/Vol] 256.0 E9/L Normal 150.0-500.0 [facility] Comment on above: Performed By: #### 2 829515, 6201211, 93044467, 0428504, 3129453, 8988314, 14121524, 1787142, 329631571, 1758389, 8573251, 4982480, 7621393, 823813042 #### [facility] [address] [place] [address] RBC (Bld) [#/Vol] 5.2 E12/L Normal 4.3-5.9 [facility] Comment on above: Performed By: #### 2 695023, 2111842, 02962609, 7373453, 7043608, 2336738, 25574768, 3788655, 411630772, 8226870, 6154529, 0175336, 6319844, 185946904 #### [facility] [address] [place] [address] WBC corrected for nucl RBC Auto (Bld) [#/Vol] 6.5 E9/L Normal 4.0-11.0 [facility] Comment on above: Performed By: #### 2 496237, 9454036, 45140563, 8865885, 3854163, 5266246, 10146525, 1519127, 231940028, 5463674, 9564279, 5371588, 3049815, 148638650 #### [facility] [address] [place] [address] CHEMISTRYOrdered By: SYSTEM SYSTEM on 01-25-2023 25-hydroxyvitamin D3 [Mass/Vol] 34.0 ng/mL Normal 30.0 - 100.0 ng/mL [facility] Remisol Albumin [Mass/Vol] 4.2 g/dL Normal 3.3 - 5.0 gm/dL [facility] Albumin/Globulin [Mass ratio] 1.3 {ratio} Normal 1.1 - 2.2 [facility] ALP [Catalytic activity/Vol] 50 [iU]/d Normal 21 - 98 Int._Unit/L [facility] ALT No additional P-5'-P [Catalytic activity/Vol] 12 [iU]/d Normal 6 - 46 Int._Unit/L [facility] Anion gap [Moles/Vol] 10 mmol/L Normal 6 - 16 mEq/L [facility] AST [Catalytic activity/Vol] 16 [iU]/d Normal 5 - 43 Int._Unit/L [facility] Bilirubin [Mass/Vol] 0.7 mg/dL Normal 0.0 - 1 .1 mg/dL [facility] Calcium [Mass/Vol] 9.3 mg/dL Normal 8.9 - 11. 1 mg/dL [facility] Chloride [Moles/Vol] 105 mmol/L Normal 101 - 1 11 mmol/L [facility] CO2 [Moles/Vol] 26 mmol/L Normal 21 - 31 mmol/L [facility] Cobalamin (Vitamin B12) [Mass/Vol] 150 pg/mL Normal 50 - 1500 pg/mL [facility] Creatinine [Mass/Vol] 0.9 mg/dL Normal 0.5 - 1.3 mg/dL [facility] Ferritin [Mass/Vol] 44 ng/mL Normal 11 - 307 ng/mL [facility] Folate [Mass/Vol] 13.1 ng/mL Normal >=6.7ng/mL [facility] Re misol Free T4 [Mass/Vol] 1.00 ng/dL Normal 0.58 - 1. 64 ng/dL [facility] GFR/1.73 sq M.predicted among non-blacks MDRD (S/P/Bld) [Vol rate/Area] 80 mL/min/1.73 m2 Normal >=59mL/min/1 .73 m2 [facility] Chem S Globulin (S) [Mass/Vol] 3.2 g/dL Normal 1.4 - 4.0 gm/dL [facility] Glucose [Mass/Vol] 95 mg/dL Normal 55 - 199 mg/dL [facility] Iron [Mass/Vol] 86 ug/dL Normal 35 - 153 mcg/dL [facility] Iron binding capacity [Mass/Vol] 341 ug/dL Normal 250 - 400 mcg/dL [facility] Potassium [Moles/Vol] 3.8 mmol/L Normal 3.5 - 5.3 mmol/L [facility] Protein [Mass/Vol] 7.4 g/dL Normal 6.0 - 7.8 gm/dL [facility] Sodium [Moles/Vol] 137 mmol/L Normal 135 - 145 mmol/L [facility] Transferrin [Mass/Vol] 244 mg/dL Normal 200 - 370 mg/dL [facility] TSH Qn 0.75 m[IU]/L Normal 0.34 - 5.60 mcIU/mL [facility] Urea nitrogen [Mass/Vol] 13 mg/dL Normal 5 - 21 mg/dL [facility] Urea nitrogen/Creatinine [Mass ratio] 14 mg/mg Normal 10 - 20 [facility] CHEMISTRYOrdered By: Quin Felix on 01-25-2023 HbA1c (Bld) [Mass fraction] 5.3 % Normal <=5.9% [facility] CMPon 01-25-2023 Albumin [Mass/Vol] 4.2 g/dL Normal 3.3-5.0 [facility] Comment on above: Performed By: #### 2 552647, 9371624, 00997066, 3351251, 2753942, 1383685, 43823842, 2514991, 198384245, 5986869, 4957773, 0778987, 8122503, 599008810 #### [facility] [address] [place] [address] Albumin/Globulin (S) [Mass conc ratio] 1.3 Normal 1.1-2.2 [facility] Comment on above: Performed By: #### 2 930799, 3366102, 56228518, 7383366, 7313548, 9583696, 20216406, 8557268, 408336217, 5946767, 0310948, 4987455, 0931924, 887726447 #### [facility] [address] [place] [address] ALP [Catalytic activity/Vol] 50 Int._Unit/L Normal 21-98 [facility] Comment on above: Performed By: #### 2 581705, 5229250, 12878606, 7364818, 0781804, 3928802, 75603610, 6137852, 836882569, 8856352, 5255298, 6726394, 0260417, 505384872 #### [facility] [address] [place] [address] ALT No additional P-5'-P [Catalytic activity/Vol] 12 Int._Unit/L Normal 6-46 [facility] Comment on above: Performed By: #### 2 584398, 2738709, 77034661, 1367433, 8593991, 4374878, 82594503, 9917505, 015853788, 7993764, 7011984, 6220839, 4295082, 055188680 #### [facility] [address] [place] [address] Anion gap [Moles/Vol] 10 mmol/L Normal 6-16 [facility] Comment on above: Performed By: #### 2 760210, 5771967, 83251148, 7416696, 3344484, 9318205, 64327868, 3646735, 269499554, 1145695, 2876397, 2392148, 7371720, 791163031 #### [facility] [address] [place] [address] AST [Catalytic activity/Vol] 16 Int._Unit/L Normal 5-43 [facility] Comment on above: Performed By: #### 2 753889, 9552922, 55484536, 9595568, 3217334, 4637086, 02562305, 1016228, 959006269, 1180705, 3756697, 0315542, 2518126, 925950858 #### [facility] [address] [place] [address] Bilirubin [Mass/Vol] 0.7 mg/dL Normal 0.0-1.1 [facility] Comment on above: Performed By: #### 2 752080, 5178339, 35404421, 0384722, 0647581, 7253361, 90324927, 5807214, 649292496, 0112249, 4081349, 2623988, 9310156, 215993219 #### [facility] [address] [place] [address] Calcium [Mass/Vol] 9.3 mg/dL Normal 8.9-11.1 [facility] Comment on above: Performed By: #### 2 917996, 0890043, 02431810, 0500397, 5800462, 4440803, 99249196, 7755130, 718086653, 2238467, 9864048, 3753321, 9707536, 333351113 #### [facility] [address] [place] [address] Chloride [Moles/Vol] 105 mmol/L Normal 101-111 [facility] Comment on above: Performed By: #### 2 064979, 3714289, 99961863, 3995157, 4799279, 5643168, 43979121, 2961982, 824559961, 4213927, 1111390, 1729188, 5598642, 948171466 #### [facility] [address] [place] [address] CO2 [Moles/Vol] 26 mmol/L Normal 21-31 [facility] Comment on above: Performed By: #### 2 101368, 0126370, 05553942, 6685260, 7035242, 0083499, 60159042, 7403068, 861512087, 4295304, 4537928, 4956861, 4361648, 818202852 #### [facility] [address] [place] [address] Creatinine [Mass/Vol] 0.9 mg/dL Normal 0.5-1.3 [facility] Comment on above: Performed By: #### 2 544972, 2511546, 31100202, 3754562, 0640475, 7919560, 01154198, 4151250, 459058228, 5684781, 1481151, 6601617, 3494161, 462425384 #### [facility] [address] [place] [address] Globulin (S) [Mass/Vol] 3.2 g/dL Normal 1.4-4.0 [facility] Comment on above: Performed By: #### 2 652590, 5993201, 76938949, 0068391, 2948610, 6656261, 19923850, 1512047, 307112452, 1614125, 8421566, 0069410, 9445060, 524505264 #### [facility] [address] [place] [address] Glucose [Mass/Vol] 95 mg/dL Normal 55-199 [facility] Comment on above: Result Comment: If t his glucose result represents a fasting glucose, interpretation should refer to the following reference range: 55-99 mg/dL Performed By: #### 2 832796, 8276812, 28041088, 9665275, 9018953, 5057146, 52681092, 6012854, 726889393, 0054397, 7991455, 8403885, 1326567, 087837292 #### [facility] [address] [place] [address] Potassium [Moles/Vol] 3.8 mmol/L Normal 3.5-5.3 [facility] Comment on above: Performed By: #### 2 988230, 7232853, 67378859, 8718287, 1723379, 5236596, 01682730, 9475510, 803304911, 3923349, 3453486, 2533923, 0846774, 272022685 #### [facility] [address] [place] [address] Protein [Mass/Vol] 7.4 g/dL Normal 6.0-7.8 [facility] Comment on above: Performed By: #### 2 354769, 9375282, 96050402, 4996984, 8158837, 4805891, 89711919, 1897932, 678984269, 9548744, 0827964, 2441900, 6463948, 849236304 #### [facility] [address] [place] [address] Sodium [Moles/Vol] 137 mmol/L Normal 135-145 [facility] Comment on above: Performed By: #### 2 359025, 8746373, 78520523, 8674834, 8219592, 2219748, 86216467, 7497746, 905388133, 3747144, 8193286, 2210793, 1067457, 938400578 #### [facility] [address] [place] [address] Urea nitrogen [Mass/Vol] 13 mg/dL Normal 5-21 [facility] Comment on above: Performed By: #### 2 343011, 1403563, 95443778, 1140808, 6989643, 4368699, 61605244, 6906176, 918751438, 7414198, 8966698, 0090041, 9618065, 699082843 #### [facility] [address] [place] [address] Urea nitrogen/Creatinine [Mass ratio] 14 No Units Normal 10-20 [facility] Comment on above: Performed By: #### 2 604199, 6757590, 29413109, 7500607, 0388492, 6821975, 22035714, 7314237, 265353311, 8403668, 8569404, 9419073, 7995879, 034463048 #### [facility] [address] [place] [address] Consent for Treatmenton 01-05 Consent for Treatment [id number]: 127 Normal [facility] Ferritinon 01-25-2023 Ferritin [Mass/Vol] 44 ng/mL Normal 11-307 [facility] Comment on above: Result Comment: NORM ALS MEN <30 YRS 16-132 ng/mL MEN >30 YRS 8-338 ng/mL WOMEN (PREMEN) 6-104 ng/mL WOMEN (POSTMEN) 12-210 ng/mL Performed By: #### 2 862853, 2945307, 67011274, 2628291, 6794652, 8396868, 48527900, 1621292, 304995258, 4742890, 0261118, 6257324, 3249613, 108239144 ####[facility] [address] [place] [address] Folateon 01-25-2023 Folate [Mass/Vol] 13.1 ng/mL Normal >=6.7 [facility] Comment on above: Performed By: #### 2 129068, 5452316, 59330747, 7213327, 7609650, 6484227, 65980111, 1483796, 955055487, 9380467, 5314965, 8492370, 4063025, 000078486 ####[facility] [address] [place] [address] Free T4on 01-25-2023 Free T4 [Mass/Vol] 1.00 ng/dL Normal 0.58-1.64 [facility] Comment on above: Performed By: #### 2 679808, 5943130, 10459999, 2017685, 3178198, 5754327, 24554157, 1764972, 012088880, 1255965, 3283719, 8506076, 1552092, 663326661 #### [facility] [address] [place] [address] HEMATOLOGYOrdered By: SYSTEM SYSTEM on 01-25-2023 Basophils/100 WBC (Bld) 0.7 % Normal 0.0 - 2.0 % [facility]eAutoSS Basophils/Leukocytes Auto (Bld) [Pure # fraction] 0.0 E9/L Normal 0.0 - 0.2 E9/L [facility]eAuto[facility] Eosinophils/100 WBC (Bld) 1.4 % Normal 0.0 - 8.0 % [facility]eAuto[facility] Eosinophils/Leukocyt es Auto (Bld) [Pure # fraction] 0.1 E9/L Normal 0.0 - 0.5 E9/L [facility]eAuto[facility] Lymphocytes/100 WBC (Bld) 24.1 % Normal 14.0 - 50.0 % [facility] Lymphocytes/Leukocyt es Auto (Bld) [Pure # fraction] 1.6 E9/L Normal 1.0 - 4.0 E9/L [facility] Monocytes/100 WBC (Bld) 6.3 % Normal 4.0 - 14.0 % [facility] Monocytes/Leukocytes Auto (Bld) [Pure # fraction] 0.4 E9/L Normal 0.2 - 1.0 E9/L [facility] Neutrophils/100 WBC (Bld) 67.5 % Normal 36.0 - 75.0 % [facility] Neutrophils/Leukocyt es Auto (Bld) [Pure # fraction] 4.4 E9/L Normal 2.0 - 7.5 E9/L [facility] HEMATOLOGYOrdered By: Abelardo Rothman on 01-25-2023 Erythrocyte distribution width (RBC) [Ratio] 13.2 % Normal 10.9 - 14.2 % [facility] Hematocrit (Bld) [Volume fraction] 43.7 % Normal 34.0 - 46.0 % [facility] Hemoglobin (Bld) [Mass/Vol] 14.7 g/dL Normal 12.0 - 16.0 gm/dL [facility] MCH (RBC) [Entitic mass] 28.3 pg Normal 27.0 - 34.0 pg [facility] MCHC (RBC) [Mass/Vol] 33.7 g/dL Normal 31.4 - 36.0 gm/dL [facility] MCV (RBC) [Entitic vol] 83.9 fL Normal 80.0 - 100.0 fL [facility] Platelet mean volume (Bld) [Entitic vol] 9.1 fL Normal 6.4 - 10.8 fL [facility] HemeAutoSS Platelets (Bld) [#/Vol] 256.0 E9/L Normal 150.0 - 500.0 E9/L [facility] RBC (Bld) [#/Vol] 5.2 E12/L Normal 4.3 - 5.9 E12/L [facility] WBC corrected for nucl RBC Auto (Bld) [#/Vol] 6.5 E9/L Normal 4.0 - 11.0 E9/L [facility] [id number] 01-25-2023 HbA1c (Bld) [Mass fraction] 5.3 % Normal <=5.9 [facility] Comment on above: Performed By: #### 2 [id number], [id number], 91863528, 0088622, 1408684, 3480775, 95531657, 3071463, 453511508, 3058901, 8097797, 8898969, 1412163, [id number] ####[facility] [id number] [place] [address] Ironon 01-25-2023 Iron [Mass/Vol] 86 microgram/dL Normal 35-153 [facility] Comment on above: Performed By: #### 2 577827, 4361511, 29328804, 1439430, 9992260, 5489153, 75659883, 3535520, 572660525, 6763490, 5900679, 7581599, 7374219, [id number] #### [facility] [address] [place] [address] Physician Orderon 01-25-2023 Physician Order [id number] :[id number] Normal [facility] TIBC Calculatedon 01-25-2023 Iron binding capacity [Mass/Vol] 341 microgram/dL Normal 250-400 [facility] Comment on above: Performed By: #### 2 537442, 8484207, 20004544, 1039390, 6604325, 4938320, 20864992, 9566258, 838272759, 0362179, 4007532, 9626777, 7058293, [id number] #### [facility] [address] [place] [address] Transferrin [Mass/Vol] 244 mg/dL Normal 200-370 [facility] Comment on above: Performed By: #### 2 914395, 9065768, 04921405, 0167615, 4791719, 5155189, 36167284, 5674834, 094039856, 7163368, 9333615, 5735962, 7189340, [id number] #### [facility] [address] [place] [address] TSHon 01-25-2023 TSH Qn 0.75 m[IU]/L Normal 0.34-5.60 [facility] Comment on above: Performed By: #### 2 391180, 1060560, 76788527, 8645242, 5782529, 9569799, 85821032, 6381967, 535319756, 4090033, 2048060, 8500329, 6936770, [id number] #### [facility] [address] [place] [address] Vit B12on 01-25-2023 Cobalamin (Vitamin B12) [Mass/Vol] 150 pg/mL Normal 50-1500 [facility] Comment on above: Performed By: #### 2 346456, 4648783, 39892613, 7665142, 1142579, 3039618, 17479181, 9117508, 239329291, 1198719, 4802621, 9848990, 1408605, [id number] ####[facility] [id number] [place] [address] Vitamin D 25 Hydroxyon 01-25 25-hydroxyvitamin D3 [Mass/Vol] 34.0 ng/mL Normal 30.0-100.0 [facility] Comment on above: Result Comment: Vit agudelo D deficiency has been defined as a level of serum 25-OH vitamin D less than 20 ng/mL (1,2) by the [employer] of [employer] and an Endocrine Society practice guideline. The Endocrine Society further defined vitamin D insufficiency as a level between 21 and 29 ng/mL (2). 1. IOM ([place] of Medicine). 2010. Dietary reference intakes for calcium and D. [place]: The National Academies Press. 2. Sherry MF, Dereck MAHAN, Rip HYDE, et al. Evaluation, treatment, and prevention of vitamin D deficiency: an Endocrine Society clinical practice guideline. JCEM. 2010; 96 (7):1911-30. Performed By: #### 2 793795, 3831655, 25044157, 1511626, 5392050, 9720649, 54483888, 2640942, 420367359, 1507995, 0125178, 2726648, 8923291, [id number] ####[facility] [address] [place] [address] eGFRon 01-25-2023 GFR/1.73 sq M.predicted among non-blacks MDRD (S/P/Bld) [Vol rate/Area] 80 mL/min/1.73 m2 Normal >=59 [facility] Comment on above: Order Comment: Order added by Discern Expert. Result Comment: Instructional Designer jamaal kidney disease could be indicated at eGFR's of less than 60 mL/min/1.73m2. Kidney failure is indicated at less than 15 mL/min/1.73m2. Performed By: #### 2 282068, 7619440, 23807641, 8758278, 4412065, 2030128, 03508617, 3683538, 356541466, 1055460, 7540331, 6909101, 1474219, [id number] #### [facility] [address] [place] [address] CBC AUTO DIFFon 11-23-2022 BASO # 0.1 103/ul Normal 0.0-0.1 [facility] Comment on above: Performed By: #### C BC #### [facility] [address] [place], [place] [address] Dr. Riddhi Nix Basophils/100 WBC (Bld) 1.1 % Normal 0.2-2.0 [facility] Comment on above: Performed By: #### C BC #### [facility] [address] [place] [address] Dr. Riddhi Nix EO # 0.1 103/ul Normal 0.0-0.7 [facility] Comment on above: Performed By: #### C BC #### [facility] [address] [place] [address] Dr. Riddhi Nix Eosinophils/100 WBC (Bld) 2.5 % Normal 0.9-7.0 [facility] Comment on above: Performed By: #### C BC #### [facility] [address] [place] [address] Dr. Riddhi Nix Erythrocyte distribution width (RBC) [Ratio] 13.4 % Normal 11.0-15.0 [facility] Comment on above: Performed By: #### C BC #### [facility] [address] [place] [address] Dr. Riddhi Nix Hematocrit (Bld) [Volume fraction] 44.3 % Normal 36.0-48.0 [facility] Comment on above: Performed By: #### C BC #### [facility] [address] [place] [address] Dr. Riddhi Nix Hemoglobin (Bld) [Mass/Vol] 14.6 g/dL Normal 12.0-16.0 [facility] Comment on above: Performed By: #### C BC #### [facility] [address] [place] [address] Dr. Riddhi Nix IG # 0.01 10e3/ul Normal 0.00-0.03 [facility] Comment on above: Performed By: #### C BC #### [facility] [address] [place] [address] Dr. Riddhi Nix IG % 0.2 % Normal 0.0-0.5 [facility] Comment on above: Performed By: #### C BC #### [facility] [address] [place] [address] Dr. Riddhi Nix LYMPH # 1.6 103/ul Normal 1.2-3.8 [facility] Comment on above: Performed By: #### C BC #### [facility] [address] [place] [address] Dr. Riddhi Nix Lymphocytes/100 WBC (Bld) 28.3 % Normal 20.5-60.0 [facility] Comment on above: Performed By: #### C BC #### [facility] [address] [place] [address] Dr. Riddhi Nix MANUAL DIFF REQ NO Normal [facility] Comment on above: Performed By: #### C BC #### [facility] [address] [place] [address] Dr. Riddhi Nix MCH (RBC) [Entitic mass] 28.1 pg Normal 26.7-34.0 [facility] Comment on above: Performed By: #### C BC #### [facility] [address] [place] [address] Dr. Riddhi Nix MCHC (RBC) [Mass/Vol] 33.0 g/dL Normal 29.9-35.2 [facility] Comment on above: Performed By: #### C BC #### [facility] [address] [place] [address] Dr. Riddhi Nix MCV (RBC) [Entitic vol] 85.2 fL Normal 81.0-99.0 [facility] Comment on above: Performed By: #### C BC #### [facility] [address] [place] [address] Dr. Riddhi Nix MONO # 0.4 103/ul Normal 0.3-0.8 [facility] Comment on above: Performed By: #### C BC #### [facility] [address] [place] [address] Dr. Riddhi Nix Monocytes/100 WBC (Bld) 7.4 % Normal 1.7-12.0 [facility] Comment on above: Performed By: #### C BC #### [facility] [address] [place] [address] Dr. Riddhi Nix NEUT # 3.4 103/ul Normal 1.4-6.5 [facility] Comment on above: Performed By: #### C BC #### [facility] [address] [place] [address] Dr. Riddhi Nix Neutrophils/100 WBC (Bld) 60.5 % Normal 43.0-75.0 [facility] Comment on above: Performed By: #### C BC #### [facility] [address] [place] [address] Dr. Riddhi Nix Platelet mean volume (Bld) [Entitic vol] 10.6 fL Normal 9.5-13.5 [facility] Comment on above: Performed By: #### C BC #### [facility] [address] [place] [address] Dr. Riddhi Nix PLT 242 103/ul Normal 150-450 [facility] Comment on above: Performed By: #### C BC #### [facility] [address] [place] [address] Dr. Riddhi Nix RBC 5.20 106/ul Normal 4.20-5.40 [facility] Comment on above: Performed By: #### C BC #### [facility] [address] [place] [address] Dr. Riddhi Nix WBC 5.7 103/ul Normal 4.0-11.0 [facility] Comment on above: Performed By: #### C BC #### [facility] [address] [place] [address] Dr. Riddhi Nix FREE T3on 11-23-2022 FREE T3 3.40 pg/mlL Normal 2.18-3.98 [facility] Comment on above: Performed By: #### S EDR #### [facility] [address] [place] [address] Dr. Riddhi Nix T4on 11-23-2022 T4 [Mass/Vol] 8.40 ug/dL Normal 4.80-13.90 [facility] Comment on above: Performed By: #### S EDR #### [facility] [address] [place] [address] Dr. Riddhi Nix TSHon 11-23-2022 TSH 0.665 uIU/mL Normal 0.358-3.740 [facility] Comment on above: Performed By: #### S EDR #### [facility] [address] [place] [address] Dr. Riddhi Nix AMYLASEon 09-28-2022 Amylase [Catalytic activity/Vol] 44 U/L Normal 25-115 [facility] Comment on above: Performed By: #### L IPA, ANTWON, CMP #### [facility] [address] [place] [address] Dr. Riddhi Nix CBC AUTO DIFFon 09-28-2022 BASO # 0.0 103/ul Normal 0.0-0.1 [facility] Comment on above: Performed By: #### L IPA, ANTWON, CMP #### [facility] [address] [place] [address] Dr. Riddhi Nix Basophils/100 WBC (Bld) 0.3 % Normal 0.2-2.0 [facility] Comment on above: Performed By: #### L IPA, ANTWON, CMP #### [facility] [address] [place] [address] Dr. Riddhi Nix EO # 0.0 103/ul Normal 0.0-0.7 [facility] Comment on above: Performed By: #### L IPA ANTWON, CMP #### [facility] [address] [place] [address] Dr. Riddhi Nix Eosinophils/100 WBC (Bld) 0.1 % Critically low 0.9-7.0 [facility] Comment on above: Performed By: #### L IPA ANTWON, CMP #### [facility] [address] [place] [address] Dr. Riddhi Nix Erythrocyte distribution width (RBC) [Ratio] 13.4 % Normal 11.0-15.0 [facility] Comment on above: Performed By: #### L IPA, ANTWON, CMP #### [facility] [address] [place] [address] Dr. Riddhi Nix Hematocrit (Bld) [Volume fraction] 39.4 % Normal 36.0-48.0 [facility] Comment on above: Performed By: #### L IPA, ANTWON, CMP #### [facility] [address] [place] [address] Dr. Riddhi Nix Hemoglobin (Bld) [Mass/Vol] 12.8 g/dL Normal 12.0-16.0 [facility] Comment on above: Performed By: #### L ANTWON ZELAYA, CMP #### [facility] [address] [place] [address] [address] Riddhi Nix IG # 0.06 10e3/ul Critically high 0.00-0.03 [facility] Comment on above: Performed By: #### L ANTWON ZELAYA, CMP #### [facility] [address] [place] [address] [address] Riddhi Nix IG % 0.5 % Normal 0.0-0.5 [facility] Comment on above: Performed By: #### L ANTWON ZELAYA, CMP #### [facility] [address] [place] [address] Dr. Riddhi Nix LYMPH # 1.3 103/ul Normal 1.2-3.8 [facility] Comment on above: Performed By: #### L ANTWON ZELAYA, CMP #### [facility] [address] [place] [address] Dr. Riddhi Nix Lymphocytes/100 WBC (Bld) 11.1 % Critically low 20.5-60.0 [facility] Comment on above: Performed By: #### L ANTWON ZELAYA, CMP #### [facility] [address] [place] [address] Dr. Riddhi Nix MANUAL DIFF REQ NO Normal [facility] Comment on above: Performed By: #### L ANTWON ZELAYA, CMP #### [facility] [address] [place] [address] Dr. Riddhi Nix MCH (RBC) [Entitic mass] 27.9 pg Normal 26.7-34.0 [facility] Comment on above: Performed By: #### L ANTWON ZELAYA, CMP #### [facility] [address] [place] [address] Dr. Riddhi Nix MCHC (RBC) [Mass/Vol] 32.5 g/dL Normal 29.9-35.2 [facility] Comment on above: Performed By: #### L ANTWON ZELAYA, CMP #### [facility] [address] [address] [address] Riddhi Nix MCV (RBC) [Entitic vol] 85.8 fL Normal 81.0-99.0 [facility] Comment on above: Performed By: #### L ANTWON ZELAYA, CMP #### [facility] [address] [place] [address] Dr. Riddhi Nix MONO # 0.7 103/ul Normal 0.3-0.8 [facility] Comment on above: Performed By: #### L ANTWON ZELAYA, CMP #### [facility] [address] [place] [address] Dr. Riddhi Nix Monocytes/100 WBC (Bld) 6.2 % Normal 1.7-12.0 [facility] Comment on above: Performed By: #### L NATHALIE ANTWON, CMP #### [facility] [address] [place] [address] Dr. Riddhi Nix NEUT # 9.7 103/ul Critically high 1.4-6.5 [facility] Comment on above: Performed By: #### L NATHALIE ANTWON, CMP #### [facility] [address] [place] [address] Dr. Riddhi Nix Neutrophils/100 WBC (Bld) 81.8 % Critically high 43.0-75.0 [facility] Comment on above: Performed By: #### L ANTWON ZELAYA, CMP #### [facility] [address] [place] [address] Dr. Riddhi Nix Platelet mean volume (Bld) [Entitic vol] 11.0 fL Normal 9.5-13.5 [facility] Comment on above: Performed By: #### L NATHALIE ANTWON, CMP #### [facility] [address] [place] [address] Dr. Riddhi Nix PLT 202 103/ul Normal 150-450 [facility] Comment on above: Performed By: #### L IPA ANTWON, CMP #### [facility] [address] [place] [address] Dr. Riddhi Nix RBC 4.59 106/ul Normal 4.20-5.40 [facility] Comment on above: Performed By: #### L IPA, ANTWON, CMP #### [facility] [address] [place] [address] Dr. Riddhi Nix WBC 11.9 103/ul Critically high 4.0-11.0 [facility] Comment on above: Performed By: #### L ANTWON ZELAYA, CMP #### [facility] [address] [place] [address] Dr. Riddhi Nix LIPASEon 09-28-2022 Lipase [Catalytic activity/Vol] 54.0 U/L Critically low 73.0-393.0 [facility] Comment on above: Performed By: #### L ANTWON ZELAYA, CMP #### [facility] [address] [place] [address] Dr. Riddhi Nix PROF 14(COMP METB)on 023 Albumin [Mass/Vol] 3.0 g/dL Critically low 3.4-5.0 [facility] Comment on above: Performed By: #### L ANTWON ZELAYA, CMP #### [facility] [address] [place] [address] Dr. Riddhi Nix Albumin/Globulin [Mass ratio] 0.9 {ratio} Normal [facility] Comment on above: Performed By: #### L ANTWON ZELAYA, CMP #### [facility] [address] [place] [address] Dr. Riddhi Nix ALP [Catalytic activity/Vol] 56 U/L Normal 46-116 [facility] Comment on above: Performed By: #### L ANTWON ZELAYA, CMP #### [facility] [address] [place] [address] Dr. Riddhi Nix ALT [Catalytic activity/Vol] 17 U/L Normal 14-59 [facility] Comment on above: Performed By: #### L ANTWON ZELAYA, CMP #### [facility] [address] [place] [address] Dr. Riddhi Nix Anion gap [Moles/Vol] 11.0 mmol/L Normal [facility] Comment on above: Performed By: #### L ANTWON ZELAYA, CMP #### [facility] [address] [place] [address] Dr. Riddhi Nix AST [Catalytic activity/Vol] 16 U/L Normal 15-37 [facility] Comment on above: Performed By: #### L ANTWON ZELAYA, CMP #### [facility] [address] [address] [address] Riddhi Nix Bilirubin [Mass/Vol] 0.5 mg/dL Normal 0.2-1.0 [facility] Comment on above: Performed By: #### L ANTWON ZELAYA, CMP #### [facility] [address] [place] [address] Dr. Riddhi Nix Calcium [Mass/Vol] 8.1 mg/dL Critically low 8.5-10.1 [facility] Comment on above: Performed By: #### L ANTWON ZELAYA, CMP #### [facility] [address] [place] [address] Dr. Riddhi Nix Chloride [Moles/Vol] 107 mmol/L Normal 98-107 [facility] Comment on above: Performed By: #### L ANTWON ZELAYA, CMP #### [facility] [address] [place] [address] Dr. Riddhi Nix CO2 [Moles/Vol] 25.1 mmol/L Normal 21.0-32.0 [facility] Comment on above: Performed By: #### L ANTWON ZELAYA, CMP #### [facility] [address] [place] [address] Dr. Riddhi Nix Creatinine [Mass/Vol] 0.79 mg/dL Normal 0.55-1.02 [facility] Comment on above: Performed By: #### L ANTWON ZELAYA, CMP #### [facility] [address] [place] [address] Dr. Riddhi Nix EGFR-AF CROATIAN >60 Normal >=60 [facility] Comment on above: Performed By: #### L ANTWON ZELAYA, CMP #### [facility] [address] [place] [address] Dr. Riddhi Nix EGFR-NON AF CROATIAN >60 Normal >=60 [facility] Comment on above: Performed By: #### L ANTWON ZELAYA, CMP #### [facility] [address] [address] [address] Riddhi Nix Globulin (S) [Mass/Vol] 3.2 g/dL Normal [facility] Comment on above: Performed By: #### L ANTWON ZELAYA, CMP #### [facility] [address] [place] [address] Dr. Riddhi Nix Glucose [Mass/Vol] 128 mg/dL Critically high 74-106 [facility] Comment on above: Performed By: #### L ANTWON ZELAYA, CMP #### [facility] [address] [place] [address] Dr. Riddhi Nix Potassium [Moles/Vol] 3.1 mmol/L Critically low 3.5-5.1 [facility] Comment on above: Performed By: #### L ANTWON ZELAYA, CMP #### [facility] [address] [place] [address] Dr. Riddhi Nix Protein [Mass/Vol] 6.2 g/dL Critically low 6.4-8.2 [facility] Comment on above: Performed By: #### L ANTWON ZELAYA, CMP #### [facility] [address] [place] [address] Dr. Riddhi Nix Sodium [Moles/Vol] 140 mmol/L Normal 136-145 [facility] Comment on above: Performed By: #### L ANTWON ZELAYA, CMP #### [facility] [address] [place] [address] Dr. Riddhi Nix Urea nitrogen [Mass/Vol] 6.0 mg/dL Critically low 7.0-18.0 [facility] Comment on above: Performed By: #### L ANTWON ZELAYA, CMP #### [facility] [address] [place] [address] Dr. Riddhi Nix Urea nitrogen/Creatinine [Mass ratio] 7.6 mg/mg Normal [facility] Comment on above: Performed By: #### L ANTWON ZELAYA, CMP #### [facility] [address] [place] [address] Dr. Riddhi Nix SED RATE [facility] 2022 SED RATE 11 mm/hr Normal <=20 [facility] Comment on above: Performed By: #### L IPA, ANTWON, CMP #### [facility] [address] [place] [address] Dr. Riddhi Nix AMMONIAon 09-27-2022 Ammonia (P) [Moles/Vol] 29 umol/L Normal 11-32 [facility] Comment on above: Performed By: #### L IPA ANTWON, CMP #### [facility] [address] [place] [address] Dr. Riddhi Nix AMYLASEon 09-27-2022 Amylase [Catalytic activity/Vol] 57 U/L Normal 25-115 [facility] Comment on above: Performed By: #### C MPANTWON, LIPA #### [facility] [address] [place] [address] Dr. Riddhi Nix CBC AUTO DIFFon 09-27-2022 BASO # 0.1 103/ul Normal 0.0-0.1 [facility] Comment on above: Performed By: #### L IPA ANTWON, CMP #### [facility] [address] [place] [address] Dr. Riddhi Nix Basophils/100 WBC (Bld) 0.4 % Normal 0.2-2.0 [facility] Comment on above: Performed By: #### L NATHALIE ANTWON, CMP #### [facility] [address] [place] [address] Dr. Riddhi Nix EO # 0.0 103/ul Normal 0.0-0.7 [facility] Comment on above: Performed By: #### L IPA ANTWON, CMP #### [facility] [address] [place] [address] Dr. Riddhi Nix Eosinophils/100 WBC (Bld) 0.0 % Critically low 0.9-7.0 [facility] Comment on above: Performed By: #### L IPA ANTWON, CMP #### [facility] [address] [place] [address] Dr. Riddhi Nix Erythrocyte distribution width (RBC) [Ratio] 13.2 % Normal 11.0-15.0 [facility] Comment on above: Performed By: #### L IPA ANTWON, CMP #### [facility] [address] [address] [address] Riddhi Nix Hematocrit (Bld) [Volume fraction] 41.2 % Normal 36.0-48.0 [facility] Comment on above: Performed By: #### L IPA, ANTWON, CMP #### [facility] [address] [address] [address] Riddhi Nix Hemoglobin (Bld) [Mass/Vol] 13.9 g/dL Normal 12.0-16.0 [facility] Comment on above: Performed By: #### L IPA, ANTWON, CMP #### [facility] [address] [place] [address] Dr. Riddhi Nix IG # 0.05 10e3/ul Critically high 0.00-0.03 [facility] Comment on above: Performed By: #### L NATHALIE ANTWON, CMP #### [facility] [address] [place] [address] Dr. Riddhi Nix IG % 0.4 % Normal 0.0-0.5 [facility] Comment on above: Performed By: #### L NATHALIE ANTWON, CMP #### [facility] [address] [address] [address] Riddhi Nix LYMPH # 0.9 103/ul Critically low 1.2-3.8 [facility] Comment on above: Performed By: #### L ANTWON ZELAYA, CMP #### [facility] [address] [address] [address] Riddhi Nix Lymphocytes/100 WBC (Bld) 6.7 % Critically low 20.5-60.0 [facility] Comment on above: Performed By: #### L IPA ANTWON, CMP #### [facility] [address] [address] [address] Riddhi Nix MANUAL DIFF REQ NO Normal [facility] Comment on above: Performed By: #### L IPA, ANTWON, CMP #### [facility] [address] [place] [address] Dr. Riddhi Nix MCH (RBC) [Entitic mass] 28.4 pg Normal 26.7-34.0 [facility] Comment on above: Performed By: #### L ANTWON ZELAYA, CMP #### [facility] [address] [place] [address] Dr. Riddhi Nix MCHC (RBC) [Mass/Vol] 33.7 g/dL Normal 29.9-35.2 [facility] Comment on above: Performed By: #### L ANTWON ZELAYA, CMP #### [facility] [address] [place] [address] Dr. Riddhi Nix MCV (RBC) [Entitic vol] 84.3 fL Normal 81.0-99.0 [facility] Comment on above: Performed By: #### L ANTWON ZELAYA, CMP #### [facility] [address] [place] [address] Dr. Riddhi Nix MONO # 0.6 103/ul Normal 0.3-0.8 [facility] Comment on above: Performed By: #### L ANTWON ZELAYA, CMP #### [facility] [address] [place] [address] Dr. Riddhi Nix Monocytes/100 WBC (Bld) 4.6 % Normal 1.7-12.0 [facility] Comment on above: Performed By: #### L ANTWON ZELAYA, CMP #### [facility] [address] [place] [address] Dr. Riddhi Nix NEUT # 12.3 103/ul Critically high 1.4-6.5 [facility] Comment on above: Performed By: #### L ANTWON ZELAYA, CMP #### [facility] [address] [place] [address] Dr. Riddhi Nix Neutrophils/100 WBC (Bld) 87.9 % Critically high 43.0-75.0 [facility] Comment on above: Performed By: #### L ANTWON ZELAYA, CMP #### [facility] [address] [place] [address] Dr. Riddhi Nix Platelet mean volume (Bld) [Entitic vol] 10.6 fL Normal 9.5-13.5 [facility] Comment on above: Performed By: #### L ANTWON ZELAYA, CMP #### [facility] [address], [place] [address] Dr. Riddhi Nix PLT 224 103/ul Normal 150-450 [facility] Comment on above: Performed By: #### L ANTWON ZELAYA CMP #### [facility] [address], [place] [address] Dr. Riddhi Nix RBC 4.89 106/ul Normal 4.20-5.40 [facility] Comment on above: Performed By: #### L ANTWON ZELAYA CMP #### [facility] [address], [place] [address] Dr. Riddhi Nix WBC 13.9 103/ul Critically high 4.0-11.0 The [facility] Comment on above: Performed By: #### L ANTWON ZELAYA CMP #### [facility] [address], [place] [address] HEAD WO CONon 09-27-2022 CT HEAD WO CON EXAMINATION: CT HEAD WO CON HISTORY: HEADACHE , new-onset COMPARISON: None. TECHNIQUE: CT examination of the head without IV contrast. Sagittal and coronal reconstructions were obtained. Dose reduction techniques were achieved by using automated exposure control and/or adjustment of mA and/or kV according to patient size and/or use of iterative reconstruction technique. FINDINGS: The ventricles are not enlarged, the lateral ventricles are symmetric and the third ventricles in the midline. The sylvian fissures and cortical sulci are unremarkable. There is no evidence of an intracranial hemorrhage, mass lesion or apparent acute infarct. No abnormality is seen in the deep white matter. The cerebellum and visualized brainstem are intact. The paranasal sinuses are clear as visualized. The middle ears are aerated. The mastoid sinuses are clear. There is no apparent acute skull fracture. IMPRESSION: There is no evidence of an intracranial hemorrhage, mass lesion or apparent acute infarct. The visualized paranasal sinuses are clear. There is no apparent acute skull fracture. Direct comparison with a previous CT scan may be helpful in confirming the chronicity of these findings. The patient had an MRI study of the brain from 03/09/2022 which was interpreted as essentially negative. Electronically authenticated by: NAYE OCONNOR Date: 2022-09-27 19:34 Normal [facility] CULTURE BLOODon 09-27-2022 Microscopic examination of blood, culture Culture Observations: NO GROWTH AT 5 DAYS. Normal [facility] Comment on above: Performed By: #### L ANTWON ZELAYA CMP #### [facility] [address] [place] [address] Dr. Riddhi Nix Microscopic examination of blood, culture Culture Observations: NO GROWTH AT 5 DAYS. Normal [facility] Comment on above: Performed By: #### L ANTWON ZELAYA CMP #### [facility] [address] [place] [address] Dr. Riddhi Nix CULTURE URINEon 09-27-2022 CULTURE URINE Culture Observations : NO GROWTH. Normal [facility] Comment on above: Performed By: #### L ANTWON ZELAYA CMP #### [facility] [address] [place] [address] Dr. Riddhi Nix Covid-19 PCR ([facility])on 09-07 SARS-CoV-2 (COVID-19) RNA LORE+probe Ql (Unsp spec) Not detected Normal NOT DETECTED [facility] Comment on above: Result Comment: When diagnostic testing is negative, the possibility of a false negative should be considered in the context of a patient's recent exposures and the presence of clinical signs and symptoms consistent with SARS-CoV-2. This test is not yet approved or cleared by the [place] FDA. When there are no FDA-approved or cleared tests available, and other criteria are met, FDA can make tests available under an emergency access mechanism called an Emergency Use Authorization (EUA). The EUA for this test is supported by the [place] of Health and Human Service's declaration that circumstances exist to justify the emergency use of in vitro diagnostics for the detection and/or diagnosis of the virus that causes COVID-19. This EUA will remain in effect for the duration of the COVID-19 declaration justifying emergency of IVDs, unless it is terminated or revoked by the FDA (after which the test may no longer be used). Performed By: #### L ANTWON ZELAYA, CMP #### [facility] [address] [place] [address] Dr. Riddhi Nix INFLUENZA A AND B AGon 09-27 INFLUANEGH SEE BELOW Normal [facility] Comment on above: Result Comment: Nega tive for Flu A protein angiten. Infection due to Flu A cannot be ruled out. Flu A angiten in the sample may be below the detection limit of the test. Performed By: #### L ANTWON ZELAYA, CMP #### [facility] [address] [place] [address] Dr. Riddhi Nix [facility] SEE BELOW Normal [facility] Comment on above: Result Comment: Nega tive for Flu B protein antigen. Infection due to Flu B cannot be ruled out. Flu B antigen in the sample may be below the detection limit of the test. Performed By: #### L ANTWON ZELAYA, CMP #### [facility] [address] [place] [address] Dr. Riddhi Nix INFLUENZA A AG Negative Normal NEGATIVE SEE COMMENT [facility] Comment on above: Performed By: #### L ANTWON ZELAYA, CMP #### [facility] [address] [place] [address] Dr. Riddhi Nix INFLUENZA B AG Negative Normal NEGATIVE SEE COMMENT [facility] Comment on above: Performed By: #### L ANTWON ZELAYA, CMP #### [facility] [address] [place] [address] Dr. Riddhi Nix LACTATE/LACTIC ACIDon 2022 Lactate [Moles/Vol] 0.8 mmol/L Normal 0.4-1.9 [facility] Comment on above: Performed By: #### L ANTWON ZELAYA, CMP #### [facility] [address] [place] [address] Dr. Riddhi Nix LIPASEon 09-27-2022 Lipase [Catalytic activity/Vol] 52.0 U/L Critically low 73.0-393.0 [facility] Comment on above: Performed By: #### C ANTWON LIZAMA, LIPA #### [facility] [address] [place] [address] Dr. Riddhi Nix PROF 14(COMP METB)on 023 Albumin [Mass/Vol] 3.7 g/dL Normal 3.4-5.0 [facility] Comment on above: Performed By: #### C ANTWON LIZAMA, LIPA #### [facility] [address] [place] [address] Dr. Riddhi Nix Albumin/Globulin [Mass ratio] 1.1 {ratio} Normal [facility] Comment on above: Performed By: #### C ANTWON LIZAMA, LIPA #### [facility] [address] [place] [address] Dr. Riddhi Nix ALP [Catalytic activity/Vol] 63 U/L Normal 46-116 [facility] Comment on above: Performed By: #### C ALDA ANTWON, LIPA #### [facility] [address] [place] [address] Dr. Riddhi Nix ALT [Catalytic activity/Vol] 20 U/L Normal 14-59 [facility] Comment on above: Performed By: #### C ANTWON LIZAMA, LIPA #### [facility] [address] [place] [address] Dr. Riddhi Nix Anion gap [Moles/Vol] 12.1 mmol/L Normal [facility] Comment on above: Performed By: #### C ALDA ANTWON, LIPA #### [facility] [address] [place] [address] Dr. Riddhi Nix AST [Catalytic activity/Vol] 19 U/L Normal 15-37 [facility] Comment on above: Performed By: #### C ANTWON LIZAMA, LIPA #### [facility] [address] [place] [address] Dr. Riddhi Nix Bilirubin [Mass/Vol] 0.5 mg/dL Normal 0.2-1.0 [facility] Comment on above: Performed By: #### C ALDA ANTWON, LIPA #### [facility] [address] [place] [address] Dr. Riddhi Nix Calcium [Mass/Vol] 8.5 mg/dL Normal 8.5-10.[address] [facility] Comment on above: Performed By: #### C ALDA ANTWON, LIPA #### [facility] [address] [place] [address] Dr. Riddhi Nix Chloride [Moles/Vol] 103 mmol/L Normal 98-107 [facility] Comment on above: Performed By: #### C ALDA ANTWON, LIPA #### [facility] [address] [place] [address] [address] Riddhi Nix CO2 [Moles/Vol] 25.1 mmol/L Normal 21.0-32.0 [facility] Comment on above: Performed By: #### C MP, ANTWON, LIPA #### [facility] [address] [place] [address] [address] Riddhi Nix Creatinine [Mass/Vol] 0.87 mg/dL Normal 0.55-1.02 [facility] Comment on above: Performed By: #### C MP, ANTWON, LIPA #### [facility] [address] [place] [address] [address] Riddhi Nix EGFR-AF CROATIAN >60 Normal >=60 [facility] Comment on above: Performed By: #### C MP, ANTWON, LIPA #### [facility] [address] [place] [address] [address] Riddhi Nix EGFR-NON AF CROATIAN >60 Normal >=60 [facility] Comment on above: Performed By: #### C MP, ANTWON, LIPA #### [facility] [address] [place] [address] [address] Riddhi Nix Globulin (S) [Mass/Vol] 3.5 g/dL Normal [facility] Comment on above: Performed By: #### C MP, ANTWON, LIPA #### [facility] [address] [place] [address] [address] Riddhi Nix Glucose [Mass/Vol] 103 mg/dL Normal 74-[address] [facility] Comment on above: Performed By: #### C MP, ANTWON, LIPA #### [facility] [address] [place] [address] [address] Riddhi Nix Potassium [Moles/Vol] 3.2 mmol/L Critically low 3.5-5.1 [facility] Comment on above: Performed By: #### C MP, ANTWON, LIPA #### [facility] [address] [place] [address] [address] Riddhi Nix Protein [Mass/Vol] 7.2 g/dL Normal 6.4-8.[address] [facility] Comment on above: Performed By: #### C MP, ANTWON, LIPA #### [facility] [address] [place] [address] Dr. Riddhi Nix Sodium [Moles/Vol] 137 mmol/L Normal 136-[address] [facility] Comment on above: Performed By: #### C MP, ANTWON, LIPA #### [facility] [address] [place] [address] Dr. Riddhi Nix Urea nitrogen [Mass/Vol] 8.0 mg/dL Normal 7.0-18.0 [facility] Comment on above: Performed By: #### C MP ANTWON, LIPA #### [facility] [address] [place] [address] Dr. Riddhi Nix Urea nitrogen/Creatinine [Mass ratio] 9.2 mg/mg Normal [facility] Comment on above: Performed By: #### C ANTWON LIZAMA, LIPA #### [facility] [address] [place] [address] Dr. Riddhi Nix SED RATE [facility] 2022 SED RATE 16 mm/hr Normal <=20 [facility] Comment on above: Performed By: #### S EDR #### [facility] [address] [place] [address] Dr. Riddhi Nix UA RANDOM W/MICROSCOPICon BACTERIA NONE SEEN Normal NONE SEEN [facility] Comment on above: Performed By: #### U AMIC #### [facility] [address] [place] [address] Dr. Riddhi Nix Bilirubin Ql (U) Negative Normal NEGATIVE [facility] Comment on above: Performed By: #### U AMIC #### [facility] [address] [place] [address] Dr. Riddhi Nix CAST NONE SEEN Normal NONE SEEN [facility] Comment on above: Performed By: #### U AMIC #### [facility] [address] [place] [address] Dr. Riddhi Nix Clarity (U) CLEAR Normal CLEAR [facility] Comment on above: Performed By: #### U AMIC #### [facility] [address] [place] [address] [address] Riddhi Nix Color (U) LT. YELLOW Normal YELLOW [facility] Comment on above: Performed By: #### U AMIC #### [facility] [address] [place] [address] [address] Riddhi Nix Crystals LM Nom (Urine sed) NONE SEEN Normal NONE SEEN [facility] Comment on above: Performed By: #### U AMIC #### [facility] [address] [place] [address] [address] Riddhi Nix Epithelial cells LM Ql (Urine sed) FEW Abnormal NONE SEEN /RARE [facility] Comment on above: Performed By: #### U AMIC #### [facility] [address] [place] [address] [address] Riddhi Nix Glucose Ql (U) Negative Normal NEGATIVE [facility] Comment on above: Performed By: #### U AMIC #### [facility] [address] [place] [address] [address] Riddhi Nix Hemoglobin Ql (U) Negative Normal NEGATIVE [facility] Comment on above: Performed By: #### U AMIC #### [facility] [address] [place] [address] [address] Riddhi Nix Ketones Ql (U) 15 mg/dl Abnormal NEGATIVE [facility] Comment on above: Performed By: #### U AMIC #### [facility] [address] [place] [address] [address] Riddhi Nix LEUKOCYTES Negative Normal NEGATIVE [facility] Comment on above: Performed By: #### U AMIC #### [facility] [address] [place] [address] [address] Riddhi Nix MUCOUS NONE SEEN Normal NONE SEEN [facility] Comment on above: Performed By: #### U AMIC #### [facility] [address] [place] [address] Dr. Riddhi Nix Nitrite Ql (U) Negative Normal NEGATIVE [facility] Comment on above: Performed By: #### U AMIC #### [facility] [address] [place] [address] [address] Riddhi Nix pH (U) 6.0 [pH] Normal 5-9 [facility] Comment on above: Performed By: #### U AMIC #### [facility] [address] [place] [address] Dr. Riddhi Nix RBC NONE SEEN Abnormal 0-2 [facility] Comment on above: Performed By: #### U AMIC #### [facility] [address] [place] [address] Dr. Riddhi Nix SPEC GRAVITY <=1.005 Abnormal 1.005-<=1.02 5 [facility] Comment on above: Performed By: #### U AMIC #### [facility] [address] [place] [address] Dr. Riddhi Nix UA PROTEIN Negative Normal NEGATIVE/ TRACE [facility] Comment on above: Performed By: #### U AMIC #### [facility] [address] [place] [address] Dr. Riddhi Nix Urobilinogen Qn (U) 0.2 {Shankar'U}/dL Normal 0.2 - 1. 0 [facility] Comment on above: Performed By: #### U AMIC #### [facility] [address] [place] [address] Dr. Riddhi Nix WBC NONE SEEN Normal NONE SEEN [facility] Comment on above: Performed By: #### U AMIC #### [facility] [address] [place] [address] Dr. Riddhi Nix FREE T3on 07-15-2022 FREE T3 2.43 pg/mlL Normal 2.18-3.98 [facility] Comment on above: Performed By: #### L ANTWON ZELAYA, CMP #### [facility] [address] [place] [address] Dr. Riddhi Nix T4on 07-15-2022 T4 [Mass/Vol] 7.80 ug/dL Normal 4.80-13.90 [facility] Comment on above: Performed By: #### L ANTWON ZELAYA, CMP #### [facility] [address] [place] [address] Dr. Riddhi Nix TSHon 07-15-2022 TSH 0.811 uIU/mL Normal 0.358-3.740 [facility] Comment on above: Performed By: #### L ANTWON ZELAYA, CMP #### [facility] [address] [place] [address] [address] [facility] CBC AUTO DIFFon 03-23-2022 BASO # 0.1 103/ul Normal 0.0-0.1 [facility] Comment on above: Performed By: #### L ANTWON ZELAYA, CMP #### [facility] [address] [place] [address] Dr. Riddhi Nix Basophils/100 WBC (Bld) 1.0 % Normal 0.2-2.0 [facility] Comment on above: Performed By: #### L ANTWON ZELAYA, CMP #### [facility] [address] [place] [address] Dr. Riddhi Nix EO # 0.2 103/ul Normal 0.0-0.7 [facility] Comment on above: Performed By: #### L ANTWON ZELAYA, CMP #### [facility] [address] [place] [address] Dr. Riddhi Nix Eosinophils/100 WBC (Bld) 3.3 % Normal 0.9-7.0 [facility] Comment on above: Performed By: #### L ANTWON ZELAYA, CMP #### [facility] [address] [place] [address] Dr. Riddhi Nix Erythrocyte distribution width (RBC) [Ratio] 13.3 % Normal 11.0-15.0 [facility] Comment on above: Performed By: #### L ANTWON ZELAYA, CMP #### [facility] [address] [place] [address] Dr. Riddhi Nix Hematocrit (Bld) [Volume fraction] 46.2 % Normal 36.0-48.0 [facility] Comment on above: Performed By: #### L ANTWON ZELAYA, CMP #### [facility] [address] [place] [address] Dr. Riddhi Nix Hemoglobin (Bld) [Mass/Vol] 15.0 g/dL Normal 12.0-16.0 [facility] Comment on above: Performed By: #### L ANTWON ZELAYA, CMP #### [facility] [address] [place] [address] Dr. Riddhi Nix IG # 0.01 10e3/ul Normal 0.00-0.03 [facility] Comment on above: Performed By: #### L IPA ANTWON, CMP #### [facility] [address] [place] [address] Dr. Riddhi Nix IG % 0.2 % Normal 0.0-0.5 [facility] Comment on above: Performed By: #### L ANTWON ZELAYA, CMP #### [facility] [address] [place] [address] Dr. Riddhi Nix LYMPH # 1.6 103/ul Normal 1.2-3.8 [facility] Comment on above: Performed By: #### L ANTWON ZELAYA, CMP #### [facility] [address] [place] [address] Dr. Riddhi Nix Lymphocytes/100 WBC (Bld) 32.2 % Normal 20.5-60.0 [facility] Comment on above: Performed By: #### L ANTWON ZELAYA, CMP #### [facility] [address] [place] [address] Dr. Riddhi Nix MCH (RBC) [Entitic mass] 28.4 pg Normal 26.7-34.0 [facility] Comment on above: Performed By: #### L ANTWON ZELAYA, CMP #### [facility] [address] [place] [address] Dr. Riddhi Nix MCHC (RBC) [Mass/Vol] 32.5 g/dL Normal 29.9-35.2 [facility] Comment on above: Performed By: #### L ANTWON ZELAYA, CMP #### [facility] [address] [place] [address] Dr. Riddhi Nix MCV (RBC) [Entitic vol] 87.3 fL Normal 81.0-99.0 [facility] Comment on above: Performed By: #### L ANTWON ZELAYA, CMP #### [facility] [address] [place] [address] Dr. Riddhi Nix MONO # 0.4 103/ul Normal 0.3-0.8 [facility] Comment on above: Performed By: #### L ANTWON ZELAYA, CMP #### [facility] [address] [place] [address] Dr. Riddhi Nix Monocytes/100 WBC (Bld) 7.5 % Normal 1.7-12.0 [facility] Comment on above: Performed By: #### L ANTWON ZELAYA, CMP #### [facility] [address] [place] [address] Dr. Riddhi Nix NEUT # 2.9 103/ul Normal 1.4-6.5 [facility] Comment on above: Performed By: #### L ANTWON ZELAYA, CMP #### [facility] [address] [place] [address] Dr. Riddhi Nix Neutrophils/100 WBC (Bld) 55.8 % Normal 43.0-75.0 [facility] Comment on above: Performed By: #### L ANTWON ZELAYA, CMP #### [facility] [address] [place] [address] Dr. Riddhi Nix Platelet mean volume (Bld) [Entitic vol] 11.7 fL Normal 9.5-13.5 [facility] Comment on above: Performed By: #### L ANTWON ZELAYA, CMP #### [facility] [address] [place] [address] Dr. Riddhi Nix PLT 265 103/ul Normal 150-450 [facility] Comment on above: Performed By: #### L ANTWON ZELAYA, CMP #### [facility] [address] [place] [address] Dr. Riddhi Nix RBC 5.29 106/ul Normal 4.20-5.40 [facility] Comment on above: Performed By: #### L ANTWON ZELAYA, CMP #### [facility] [address] [place] [address] Dr. Riddhi Nix WBC 5.1 103/ul Normal 4.0-11.0 [facility] Comment on above: Performed By: #### L IPA, ANTWON, CMP #### [facility] [address] [place] [address] [address] Riddhi Nix [facility] PROFILEon 022 Albumin [Mass/Vol] 4.2 g/dL Normal 3.4-5.0 [facility] Comment on above: Performed By: #### H FPF #### [facility] [address] [address] [address] Riddhi Nix Albumin/Globulin [Mass ratio] 1.2 {ratio} Normal [facility] Comment on above: Performed By: #### H FPF #### [facility] [address] [address] [address] Riddhi Nix ALP [Catalytic activity/Vol] 57 U/L Normal 46-116 [facility] Comment on above: Performed By: #### H FPF #### [facility] [address] [place] [address] Dr. Riddhi Nix ALT [Catalytic activity/Vol] 10 U/L Critically low 14-59 [facility] Comment on above: Performed By: #### H FPF #### [facility] [address] [address] [address] Riddhi Nix AST [Catalytic activity/Vol] 11 U/L Critically low 15-37 [facility] Comment on above: Performed By: #### H FPF #### [facility] [address] [address] [address] Riddhi Nix Bilirubin [Mass/Vol] 0.5 mg/dL Normal 0.2-1.0 [facility] Comment on above: Performed By: #### H FPF #### [facility] [address] [address] [address] Riddhi Nix Calcium [Mass/Vol] 8.5 mg/dL Normal 8.5-10.[address] [facility] Comment on above: Performed By: #### H FPF #### [facility] [address] [address] [address] Riddhi Nix Chloride [Moles/Vol] 107 mmol/L Normal 98-107 [facility] Comment on above: Performed By: #### H FPF #### [facility] [address] [address] [address] Riddhi Nix CHOL-HDL RATIO NORM SEE BELOW Normal [facility] Comment on above: Result Comment: 3.3 - 4.4 LOW RISK 4.4 - 7.1 AVERAGE RISK 7.1 - 11.0 MODERATE RISK >11.0 HIGH RISK Performed By: #### H FPF #### [facility] [address] [address] [address] Riddhi Nix Cholesterol [Mass/Vol] 166 mg/dL Normal <=200 [facility] Comment on above: Performed By: #### H FPF #### [facility] [address] [address] [address] Riddhi Nix Cholesterol in HDL [Mass/Vol] 47 mg/dL Normal 40-60 [facility] Comment on above: Performed By: #### H FPF #### [facility] [address] [address] [address] Riddhi Nix Cholesterol in LDL [Mass/Vol] 106.6 mg/dL Normal [facility] Comment on above: Performed By: #### H FPF #### [facility] [address] [address] [address] Riddhi Nix Cholesterol.total/Ch olesterol in HDL [Mass ratio] 3.5 {ratio} Normal [facility] Comment on above: Performed By: #### H FPF #### [facility] [address] [address] [address] Riddhi Nix CO2 [Moles/Vol] 21.7 mmol/L Normal 21.0-32.0 [facility] Comment on above: Performed By: #### H FPF #### [facility] [address] [address] [address] Riddhi Nix Creatinine [Mass/Vol] 1.10 mg/dL Critically high 0.55-1.02 [facility] Comment on above: Performed By: #### H FPF #### [facility] [address] [address] [address] Riddhi Nix Globulin (S) [Mass/Vol] 3.4 g/dL Normal [facility] Comment on above: Performed By: #### H FPF #### [facility] [address] [address] [address] Riddhi Nix Glucose [Mass/Vol] 94 mg/dL Normal 74-[address] [facility] Comment on above: Performed By: #### H FPF #### [facility] [address] [address] [address] Riddhi Nix HDL NORMAL > or = 60 mg/dl - LO W CARDIOVASCULAR RISK <40 mg/dl - HIGH CARDIOVASCULAR RISK Normal [facility] Comment on above: Performed By: #### H FPF #### [facility] [address] [address] [address] Riddhi Nix LDL CALC NORMAL SEE BELOW Normal [facility] Comment on above: Result Comment: <100 mg/dl OPTIMAL 100 - 129 mg/dl NEAR OR ABOVE OPTIMAL 130 - 159 mg/dl BORDERLINE HIGH 160 - 189 mg/dl HIGH >190 mg/dl VERY HIGH Performed By: #### H FPF #### [facility] [address] [address] [address] Riddhi Nix Potassium [Moles/Vol] 3.7 mmol/L Normal 3.5-5.1 [facility] Comment on above: Performed By: #### H FPF #### [facility] [address] [address] [address] Riddhi Nix Protein [Mass/Vol] 7.6 g/dL Normal 6.4-8.[address] [facility] Comment on above: Performed By: #### H FPF #### [facility] [address] [address] [address] Riddhi Nix Sodium [Moles/Vol] 140 mmol/L Normal 136-[address] [facility] [facility] Comment on above: Performed By: #### H FPF #### [facility] [address] [address] [address] Riddhi Nix Triglyceride [Mass/Vol] 62 mg/dL Normal <=150 [facility] Comment on above: Performed By: #### H FPF #### [facility] [address] [address] [address] Riddhi Nix TSH 4.611 uIU/mL Critically high 0.358-3.740 [facility] Comment on above: Performed By: #### H FPF #### [facility] [address] [address] [address] Riddhi Nix Urea nitrogen [Mass/Vol] 15.0 mg/dL Normal 7.0-18.0 [facility] Comment on above: Performed By: #### H FPF #### [facility] [address] [address] [address] Riddhi Nix Urea nitrogen/Creatinine [Mass ratio] 13.6 mg/mg Normal [facility] Comment on above: Performed By: #### H FPF #### [facility] [address] [address] [address] Riddhi Nix VLDL CALC 12.4 mg/dL Normal [facility] Comment on above: Performed By: #### H FPF #### [facility] [address] [address] [address] Riddhi Nix MRI BRAIN WO W CONon 08-04-2 022 MRI BRAIN WO W CON EXAM: MRI BRAIN WO W CON HISTORY: Congenital anomaly of brain headaches, cerebellar ectopia COMPARISON: Brain MRI 01/20/2019 TECHNIQUE: Multiplanar, multisequence MR imaging of the head was performed prior to and following administration of 13 mL Dotarem contrast intravenously. FINDINGS: No restricted diffusion. No acute hemorrhage, mass effect, midline shift or extra-axial fluid collection. No ventriculomegaly. Expected flow voids are noted within the intracranial internal carotid, vertebral and basilar arteries. The cerebellopontine angles and internal auditory canals are unremarkable. The pituitary gland and midline structures are unremarkable. Bone marrow signal is within normal limits. The orbits and globes are unremarkable. Mild mucosal thickening is seen within the inferior maxillary sinuses. Mastoid air cells are unremarkable in signal. No abnormal enhancement. There is a developmental venous anomaly within the right cerebellar hemisphere. Cerebellar tonsils extend 1 mm below the level of the foramen magnum, unchanged. IMPRESSION: 1. Slightly low lying cerebral tonsils extending 1 mm below the level of the foramen magnum. 2. Right cerebellar hemisphere developmental venous anomaly. 3. No focal intraparenchymal signal abnormality, mass effect or interval change. Electronically authenticated by: ALLI WEST Date: 2022-03-09 15:53 Normal [facility] T4 LABCORPon 01-13-2022 T4 [Mass/Vol] 6.1 ug/dL Normal 4.5-12.0 [facility] Comment on above: Performed By: #### L ANTWON ZELAYA, CMP #### [facility] [address] [place] [address] Dr. Riddhi Nix CBC AUTO DIFFon 01-12-2022 BASO # 0.1 103/ul Normal 0.0-0.1 [facility] Comment on above: Performed By: #### L ANTWON ZELAYA, CMP #### [facility] [address] [place] [address] Dr. Riddhi Nix Basophils/100 WBC (Bld) 1.2 % Normal 0.2-2.0 [facility] Comment on above: Performed By: #### L ANTWON ZELAYA, CMP #### [facility] [address] [place] [address] Dr. Riddhi Nix EO # 0.1 103/ul Normal 0.0-0.7 [facility] Comment on above: Performed By: #### L ANTWON ZELAYA, CMP #### [facility] [address] [place] [address] Dr. Riddhi Nix Eosinophils/100 WBC (Bld) 2.3 % Normal 0.9-7.0 [facility] Comment on above: Performed By: #### L ANTWON ZELAYA, CMP #### [facility] [address] [place] [address] Dr. Riddhi Nix Erythrocyte distribution width (RBC) [Ratio] 13.1 % Normal 11.0-15.0 [facility] Comment on above: Performed By: #### L ANTWON ZELAYA, CMP #### [facility] [address] [place] [address] Dr. Riddhi Nix Hematocrit (Bld) [Volume fraction] 42.4 % Normal 36.0-48.0 [facility] Comment on above: Performed By: #### L ANTWON ZELAYA, CMP #### [facility] [address] [address] [address] Riddhi Nix Hemoglobin (Bld) [Mass/Vol] 13.6 g/dL Normal 12.0-16.0 [facility] Comment on above: Performed By: #### L IPA, ANTWON, CMP #### [facility] [address] [address] [address] Riddhi Nix IG # 0.01 10e3/ul Normal 0.00-0.03 [facility] Comment on above: Performed By: #### L IPA, ANTWON, CMP #### [facility] [address] [address] [address] Riddhi Nix IG % 0.2 % Normal 0.0-0.5 [facility] Comment on above: Performed By: #### L IPA, ANTWON, CMP #### [facility] [address] [address] [address] Riddhi Nix LYMPH # 1.3 103/ul Normal 1.2-3.8 [facility] Comment on above: Performed By: #### L IPA, ANTWON, CMP #### [facility] [address] [address] [address] Riddhi Nix Lymphocytes/100 WBC (Bld) 26.2 % Normal 20.5-60.0 [facility] Comment on above: Performed By: #### L IPA ANTWON, CMP #### [facility] [address] [address] [address] Riddhi Nix MANUAL DIFF REQ NO Normal [facility] Comment on above: Performed By: #### L IPA, ANTWON, CMP #### [facility] [address] [address] [address] Riddhi Nix MCH (RBC) [Entitic mass] 28.1 pg Normal 26.7-34.0 [facility] Comment on above: Performed By: #### L IPA, ANTWON, CMP #### [facility] [address] [address] [address] Riddhi Nix MCHC (RBC) [Mass/Vol] 32.1 g/dL Normal 29.9-35.2 [facility] Comment on above: Performed By: #### L IPAANTWON, CMP #### [facility] [address] [place] [address] Dr. Riddhi Nix MCV (RBC) [Entitic vol] 87.6 fL Normal 81.0-99.0 [facility] Comment on above: Performed By: #### L IPA ANTWON, CMP #### [facility] [address] [place] [address] Dr. Riddhi Nix MONO # 0.4 103/ul Normal 0.3-0.8 [facility] Comment on above: Performed By: #### L IPA ANTWON, CMP #### [facility] [address] [place] [address] Dr. Riddhi Nix Monocytes/100 WBC (Bld) 8.1 % Normal 1.7-12.0 [facility] Comment on above: Performed By: #### L IPA ANTWON, CMP #### [facility] [address] [place] [address] Dr. Riddhi Nix NEUT # 3.0 103/ul Normal 1.4-6.5 [facility] Comment on above: Performed By: #### L ANTWON ZELAYA, CMP #### [facility] [address] [place] [address] Dr. Riddhi Nix Neutrophils/100 WBC (Bld) 62.0 % Normal 43.0-75.0 [facility] Comment on above: Performed By: #### L NATHALIE ANTWON, CMP #### [facility] [address] [place] [address] Dr. Riddhi Nix Platelet mean volume (Bld) [Entitic vol] 11.5 fL Normal 9.5-13.5 [facility] Comment on above: Performed By: #### L IPA ANTWON, CMP #### [facility] [address] [place] [address] Dr. Riddhi Nix PLT 231 103/ul Normal 150-450 [facility] Comment on above: Performed By: #### L IPA ANTWON, CMP #### [facility] [address] [place] [address] Dr. Riddhi Nix RBC 4.84 106/ul Normal 4.20-5.40 [facility] Comment on above: Performed By: #### L ANTWON ZELAYA, CMP #### [facility] [address] [place] [address] Dr. Riddhi Nix WBC 4.8 103/ul Normal 4.0-11.0 [facility] Comment on above: Performed By: #### L ANTWON ZELAYA, CMP #### [facility] [address] [place] [address] Dr. Riddhi Nix FREE T3on 01-12-2022 FREE T3 2.73 pg/mlL Normal 2.18-3.98 [facility] Comment on above: Performed By: #### L ANTWON ZELAYA, CMP #### [facility] [address] [place] [address] Dr. Riddhi Nix TSHon 01-12-2022 TSH 1.528 uIU/mL Normal 0.358-3.740 [facility] Comment on above: Performed By: #### L ANTWON ZELAYA, CMP #### [facility] [address] [place] [address] Dr. Riddhi Nix TSH RANGE SEE BELOW Normal [facility] Comment on above: Result Comment: <0.3 4 UIU/ml HYPERTHYROID 0.34-5.60 UIU/ml EUTHYROID >5.60 UIU/ml HYPOTHYROID Performed By: #### L ANTWON ZELAYA, CMP #### [facility] [address] [place] [address] Dr. Riddhi Nix CNOVon 12-13-2017 CNOV Office Visit (ENDOAL) Florence GRANADOS ([id number]) 1975 FDate Time Provider Department12/13/17 9:00 AM HARVEY VICTOR During your visit today, we recorded the following information about you: Pulse Blood pressure Weight Height 77/minute 134/81 75.8 kg 1.626 Harvey Alford 12/13/2017 11:01 AM SignedReason for Consultation:1) Hashimotos thyroid disease2) nodular goiterReferring Physician: Dr Iniguez final recommendations will be communicated back to the requesting physicianby way of shared Medical record or letter via US mail.HISTORY OF PRESENT ILLNESS;Ms. Granados is a 42 year old female presenting as a new patient to me, follow upto our department regarding Mary's thyroid disease and hx of nodulargoiter. She was following with Dr Fischer previously. She was initiallydiagnosed with a hypothyroidsim around 2009. Was taking levothyroxine 50mcg/day- but stopped taking it 2 years ago. Also has hx of nodular goiter [id number]. FNA at that time was benign. Size stable Mother had hx of thyroidectomy(nodular goiter). She went for blood work prior to this visit- here to reviewthese results. Severity, modifying factors, context and associated signs andsymptoms are as follows:? Thyroid pain: no? Mass effect: None? Energy: ++ fatigue? Sleep: Normal sleep pattern? Temperature Intolerance: Cold Intolerance? 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 GI: hx of IBS- diarrhea at times, then sometimes constipation? Weight: increased, 15 lbs or so.? Eyes: Normal? Memory: Good? Diaphoresis: Not significant? Skin: no issues.? Neuro: negative? Radiological imaging with contrast dyes within the last 3 months? no? History of radiation exposure to head or neck area? noPAST MEDICAL HISTORYDiagnosis Date- Endometriosis- Mary thyroiditis- Migraines- Seasonal allergiesPAST SURGICAL HISTORYProcedure Laterality Date- PAST SURGICAL HISTORY OF 1998 DANTX 10 weeks after delivery for residual placenta. patient has amenorrheasince then- PAST SURGICAL HISTORY OF 2003 - PAST SURGICAL HISTORY OF Laparoscopic procedures for endometriosisFAMILY HISTORYProblem Relation Age of Onset- Thyroid Mother Hypothyroidism and goiter.- Thyroid Maternal Grandmother HyperthyroidismSocial History Marital status: Spouse name: Years of education: Number of children: 3Occupational HistoryOccupation Employer CommentHome makerSocial History Main Topics Smoking status: Never Smoker Alcohol use: No Drug use: NoCurrent Outpatient Prescriptions:amoxicilli n (POLYMOX, AMOXIL) 500 mg capsule Take 2 capsules by mouth every 12hours. Disp: Rfl: 0Omeprazole (PRILOSEC) 40 mg capsule Take 1 capsule by mouth twice daily. Disp:Rfl: 0clarithromycin (BIAXIN) 500 mg tab Take by mouth every 12 hours. Disp: Rfl: 0eluxadoline (VIBERZI) 100 mg tab Take 100 mg by mouth twice daily. Disp: Rfl:0levothyroxine (SYNTHROID) 50 mcg tablet Take 1 tablet by mouth once daily.Disp: 90 tablet Rfl: 3cetirizine hcl(ZYRTEC 10 MG CAP) Take one(1) tablet daily. Disp: Rfl: 0No current facility-administered medications for this visit.Allergies As of Date: 12/13/2017Allergen Noted ReactionIMITREX [SUMATRIPTAN] 07/12/2011 Shortness of BreathFully Assessed 03/15/2016REVIEW OF SYSTEMS:General: 15 lbs increaseCardiovascular: denies chest pain, heart palpitations or orthopneaResp: denies wheezing, productive cough or exertional dyspneaPHYSICAL EXAM:BP 134/81 Pulse 77 Ht 162.6 cm (5' 4 ) Wt 75.8 kg (167 lb 3.2 oz) BMI 28.70 kg/m?GENERAL: Alert, no distress, cooperativeSKIN: Skin color, texture, turgor normal. No rashes or lesions.HEAD/SINUSES: No significant findingsEYES: sclera non-icteric, EOM's intact, no lid lag or stare.LUNGS: Lungs clear to auscultation, Good diaphragmatic excursionCARDIAC: Normal S1 and S2; no rubs, murmurs, or gallopsABDOMEN: Normal abdominal examEXTREMITIES: Normal exam of the extremitiesNEURO: AAO x 3, no focal deficits.The remainder of the physical exam is noncontributory.DATA:No components found for: DICYZY5Otei T4Date Value Ref Range Rkhcog6805/26/2016 1.4 0.7 - 1.8 ng/dL Final No components found for: [id number] Value Ref Range Fbovsa2205/26/2016 2.870 0.400 - 5.500 uU/mL FinalComment:If the patient is , TSH reference range varies by gestational period:First Trimester 0.1-2.5 uU/mLSecond Trimester 0.2-3.0 uU/mLThird Trimester 0.3-3.0 uU/mL Free T3Date Value Ref Range Owqjgo8305/26/2016 2.7 1.8 - 4.6 pg/mL Final No results found for: MICROSOMABRADIOLOGY:US Thyroid 02/2016:RESULT:The right thyroid lobe measures 4.5 x 1.8 x 1.7 cm. ?The left thyroidlobe measures 5.5 x 1.8 x 2.0 cm. ?The isthmus measures 4 mm in APdimension.The gland is of heterogeneous echotexture and hypervascular similar tothe prior examination.A hypoechoic area of solid heterogeneity has been measured within thesuperior right gland spanning 2.0 x 1.0 x 1.2 cm, previously 3.0 x 1.2 x1.7 cm). ?Tiny cystic nodule within the mid right gland seen on the priorstudy is not visualized on today's examination.A similar hypoechoic solid area of heterogeneity within the inferior leftgland measures 1.2 x 0.5 x 0.5 cm, stable.IMPRESSION:HETERO GENEOUS HYPERVASCULAR GLAND CONSISTENT WITH THYROIDITIS. ?THERE ARENO FOCAL NODULES IDENTIFIED.FNA 12/22/2009FINAL DIAGNOSISA. THYROID LEFT, FINE NEEDLE ASPIRATENegative for malignant cells.Mary's Thyroiditis.B. LYMPH NODE, FINE NEEDLE ASPIRATENegative for malignant cells.Benign lymphoid sample.ASSESSMENT:Ms. Granados is a 42 year old female presenting as a new patient to me, follow upto our center regarding hypothyroidsim and nodular goiter.RECOMMENDATIONS:1 ) hypothyroidsim: TSH/T4 are normal at this time- has had borderline elevatedTSH in the past and did take levothyroxine at that time, however did not reallyfeel any better at that point. I don't believe her symptoms would improve withthyroid hormone supplementation - I encouraged her to see functional medicinewho may be able to help her.2) nodular goiter: Reviewed U/S (report) with patient- nodules are stable insize over the year and she has normal (benign) FNA in the past which isreassuring.I spent 25 minutes in this visit, with more than 50% of the time devoted topatient counseling.Nick Maddox Provider: SELF [200]Allergies As of Date: 12/13/2017 Noted Allergy ReactionIMITREX (SUMATRIPTAN) 07/12/2011 12 - Shortness of BreathDate Reviewed: 12/13/2017Reviewed by: Yvette Lynn Ma - Fully AssessedReason for Visit: Follow Up [171]Primary Visit Diagnosis:Multiple thyroid nodules [E04.2] Other Visit Diagnosis:Elevated TSH [R94.6]Order(s):CONSULT TO FUNCTIONAL MEDICINE [5977695] Order #: [id number]: 1 COMP METABOLIC PANEL [SQCMP] Order #: [id number] FUTURE TSH BLD [SQTSH] Order #: [id number] FUTURE T4 FREE/FREE THYROX [SQFT4] Order #: [id number] FUTURE THYROID PEROXIDASE ANTIBODY BLOOD [SQMICRO] Order #: [id number] FUTUREPrescriptions as of 12/13/2017 Sig: MULTIVITAMIN ORAL Take 1 tablet by mouth once d* ELUXADOLINE 100 MG TABLET Take 100 mg by mouth twice da* * ZYRTEC 10 MG CAPSULE Take one(1) tablet daily.Problem List As Of Date 12/13/2017 Noted Resolved Multiple thyroid nodules [E04.2] INVALID FOR* Mary's disease [E06.3] INVALID FOR*Medications Discontinued During This Encounter levothyroxine (SYNTHROID) 50 mcg tab* 90 t* 3 03/15/2016 12/13/2017 Class: [facility] Route: ORAL Sig: Take 1 tablet by mouth once daily. Disc: Course of therapy completed clarithromycin (BIAXIN) 500 mg tab 0 03/15/2016 12/13/2017 Class: Historical Med Route: ORAL Sig: Take by mouth every 12 hours. Disc: Course of therapy completed Omeprazole (PRILOSEC) 40 mg capsule 0 03/15/2016 12/13/2017 Class: Historical Med Route: ORAL Sig: Take 1 capsule by mouth twice daily. Disc: Course of therapy completed amoxicillin (POLYMOX, AMOXIL) 500 mg* 0 03/15/2016 12/13/2017 Class: Historical Med Route: ORAL Sig: Take 2 capsules by mouth every 12 hours. Disc: Course of therapy completed RESTASIS 0.05 % ophthalmic emulsion 12/07/2017 12/13/2017 Class: Historical Med Route: BOTH EYES Sig: Use 1 Drop in both eyes once daily. Disc: Course of therapy completedDisposition: Return if symptoms worsen or fail to improve.Follow-up and Disposition History RecordedEncounter Number: [id number] Status:Closed by HARVEY VICTOR DO on 12/13/17 Normal [facility] PROGRESSon 12-12-2017 PROGRESS HNO ID: [id number]: Harvey Victor LService: (none)Author Type: PhysicianType: Progress NotesFiled: 12/13/2017 11:01 AMNote Text:Reason for Consultation:1) Hashimotos thyroid disease2) nodular goiterReferring Physician: Dr Iniguez final recommendations will be communicated back to the requestingphysician by way of shared Medical record or letter via US mail.HISTORY OF PRESENT ILLNESS;Ms. Granados is a 42 year old female presenting as a new patient to me,follow up to our department regarding Mary's thyroid disease and hxof nodular goiter. She was following with Dr Fischer previously. She wasinitially diagnosed with a hypothyroidsim around 2009. Was takinglevothyroxine 50 mcg/day- but stopped taking it 2 years ago. Also has hxof nodular goiter in 2009. FNA at that time was benign. Size stableMother had hx of thyroidectomy (nodular goiter). She went for blood workprior to this visit- here to review these results. Severity, modifyingfactors, context and associated signs and symptoms are as follows:? Thyroid pain: no? Mass effect: None? Energy: ++ fatigue? Sleep: Normal sleep pattern? Temperature Intolerance: Cold Intolerance? 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 GI: hx of IBS- diarrhea at times, then sometimes constipation? Weight: increased, 15 lbs or so.? Eyes: Normal? Memory: Good? Diaphoresis: Not significant? Skin: no issues.? Neuro: negative? Radiological imaging with contrast dyes within the last 3 months? no? History of radiation exposure to head or neck area? noPAST MEDICAL HISTORYDiagnosis Date- Endometriosis- Mary thyroiditis- Migraines- Seasonal allergiesPAST SURGICAL HISTORYProcedure Laterality Date- PAST SURGICAL HISTORY OF 1998 DANDC 10 weeks after delivery for residual placenta. patient has amenorrheasince then- PAST SURGICAL HISTORY OF 2003 - PAST SURGICAL HISTORY OF Laparoscopic procedures for endometriosisFAMILY HISTORYProblem Relation Age of Onset- Thyroid Mother Hypothyroidism and goiter.- Thyroid Maternal Grandmother HyperthyroidismSocial History Marital status: Spouse name: Years of education: Number of children: 3Occupational HistoryOccupation Employer CommentHome makerSocial History Main Topics Smoking status: Never Smoker Alcohol use: No Drug use: NoCurrent Outpatient Prescriptions:amoxicilli n (POLYMOX, AMOXIL) 500 mg capsule Take 2 capsules by mouthevery 12 hours. Disp: Rfl: 0Omeprazole (PRILOSEC) 40 mg capsule Take 1 capsule by mouth twice daily.Disp: Rfl: 0clarithromycin (BIAXIN) 500 mg tab Take by mouth every 12 hours. Disp:Rfl: 0eluxadoline (VIBERZI) 100 mg tab Take 100 mg by mouth twice daily. Disp:Rfl: 0levothyroxine (SYNTHROID) 50 mcg tablet Take 1 tablet by mouth once daily.Disp: 90 tablet Rfl: 3cetirizine hcl(ZYRTEC 10 MG CAP) Take one(1) tablet daily. Disp: Rfl: 0No current facility-administered medications for this visit.Allergies As of Date: 12/13/2017Allergen Noted ReactionIMITREX [SUMATRIPTAN] 07/12/2011 Shortness of BreathFully Assessed 03/15/2016REVIEW OF SYSTEMS:General: 15 lbs increaseCardiovascular: denies chest pain, heart palpitations or orthopneaResp: denies wheezing, productive cough or exertional dyspneaPHYSICAL EXAM:BP 134/81 Pulse 77 Ht 162.6 cm (5' 4 ) Wt 75.8 kg (167 lb 3.2 oz) BMI 28.70 kg/m?GENERAL: Alert, no distress, cooperativeSKIN: Skin color, texture, turgor normal. No rashes or lesions.HEAD/SINUSES: No significant findingsEYES: sclera non-icteric, EOM's intact, no lid lag or stare.LUNGS: Lungs clear to auscultation, Good diaphragmatic excursionCARDIAC: Normal S1 and S2; no rubs, murmurs, or gallopsABDOMEN: Normal abdominal examEXTREMITIES: Normal exam of the extremitiesNEURO: AAO x 3, no focal deficits.The remainder of the physical exam is noncontributory.DATA:No components found for: [id number] T4Date Value Ref Range Tjwbok4205/26/2016 1.4 0.7 - 1.8 ng/dL Final No components found for: [id number] Value Ref Range Susdxd1105/26/2016 2.870 0.400 - 5.500 uU/mL FinalComment:If the patient is , TSH reference range varies by gestationalperiod:First Trimester 0.1-2.5 uU/mLSecond Trimester 0.2-3.0 uU/mLThird Trimester 0.3-3.0 uU/mL Free T3Date Value Ref Range Izumvm9105/26/2016 2.7 1.8 - 4.6 pg/mL Final No results found for: MICROSOMABRADIOLOGY:US Thyroid 02/2016:RESULT:The right thyroid lobe measures 4.5 x 1.8 x 1.7 cm. ?The left thyroidlobe measures 5.5 x 1.8 x 2.0 cm. ?The isthmus measures 4 mm in APdimension.The gland is of heterogeneous echotexture and hypervascular similar tothe prior examination.A hypoechoic area of solid heterogeneity has been measured within thesuperior right gland spanning 2.0 x 1.0 x 1.2 cm, previously 3.0 x 1.2 x1.7 cm). ?Tiny cystic nodule within the mid right gland seen on the priorstudy is not visualized on today's examination.A similar hypoechoic solid area of heterogeneity within the inferior leftgland measures 1.2 x 0.5 x 0.5 cm, stable.IMPRESSION:HETERO GENEOUS HYPERVASCULAR GLAND CONSISTENT WITH THYROIDITIS. ?THERE ARENO FOCAL NODULES IDENTIFIED.FNA 12/22/2009FINAL DIAGNOSISA. THYROID LEFT, FINE NEEDLE ASPIRATENegative for malignant cells.Mary's Thyroiditis.B. LYMPH NODE, FINE NEEDLE ASPIRATENegative for malignant cells.Benign lymphoid sample.ASSESSMENT:Ms. Granados is a 42 year old female presenting as a new patient to me,follow up to our center regarding hypothyroidsim and nodular goiter.RECOMMENDATIONS:1 ) hypothyroidsim: TSH/T4 are normal at this time- has had borderlineelevated TSH in the past and did take levothyroxine at that time, howeverdid not really feel any better at that point. I don't believe hersymptoms would improve with thyroid hormone supplementation - I encouragedher to see functional medicine who may be able to help her.2) nodular goiter: Reviewed U/S (report) with patient- nodules are stablein size over the year and she has normal (benign) FNA in the past which isreassuring.I spent 25 minutes in this visit, with more than 50% of the time devotedto patient counseling.Harvey Victor, DO Normal [facility] Vital Signs Date Time Vital Sign Value Performing Clinician Kali castaneda 04-03-2023 10:27-0400 Diastolic blood pressure 83 mm[Hg] MD Isidoro Rojas Work Phone: [facility] 04-03-2023 10:27-0400 Heart rate 75 /min MD Isidoro Rojas Work Phone: [facility] 04-03-2023 10:27-0400 Respiratory rate 16 /min MD Isidoro Rojas Work Phone: [facility] 04-03-2023 10:27-0400 SaO2% (BldA) [Mass fraction] 100 % MD Isidoro Rojas Work Phone: [facility] 04-03-2023 10:27-0400 Systolic blood pressure 126 mm[Hg] MD Isidoro Rojas Work Phone: [facility] 04-03-2023 09:52-0400 Body temperature 98.4 [degF] MD Isidoro Rojas Work Phone: [facility] 04-03-2023 09:22-0400 Inhaled oxygen flow rate 8 L/min MD Isidoro Rojas Work Phone: [facility] 04-03-2023 08:28-0400 Body height 162.56 cm MD Isidoro Rojas Work Phone: [facility] 04-03-2023 08:28-0400 Body mass index (BMI) [Ratio] 28.4 kg/m2 MD Isidoro Rojas Work Phone: [facility] 04-03-2023 08:28-0400 Body weight 75.2 kg MD Isidoro Rojas Work Phone: [facility] 03-09-2023 11:00-0400 Body temperature 98.4 [degF] MD Isidoro Rojas Work Phone: [facility] 03-09-2023 11:00-0400 Diastolic blood pressure 85 mm[Hg] MD Isidoro Rojas Work Phone: [facility] 03-09-2023 11:00-0400 Heart rate 85 /min MD Isidoro Rojas Work Phone: [facility] 03-09-2023 11:00-0400 Respiratory rate 20 /min MD Isidoro Rojas Work Phone: [facility] 03-09-2023 11:00-0400 SaO2% (BldA) [Mass fraction] 98 % MD Isidoro Rojas Work Phone: [facility] 03-09-2023 11:00-0400 Systolic blood pressure 127 mm[Hg] MD Isidoro Rojas Work Phone: [facility] Encounters Encounter Date Encounter Type Care Provider Facility Start: 03-13-2024 End: 03-13-2024 ambulatory BRYSON ROBBINS Not Available Start: 03-05-2024 End: 03-05-2024 ambulatory KARYN JOHNSON Not Available Start: 02-25-2024 End: 02-25-2024 Patient encounter procedure MD Isidoro Rojas Work Phone: [facility] Work Phone: Start: 02-25-2024 End: 02-25-2024 ambulatory MD Isidoro Rojas Work Phone: [facility] Work Phone: Start: 02-15-2024 End: 02-15-2024 ambulatory TELLO D DOLCE Not Available Start: 01-30-2024 End: 01-30-2024 ambulatory TELLO D DOLCE Not Available Start: 10-10-2023 End: 10-10-2023 ambulatory BRYSON VALLEJOJIMBO Not Available Start: 09-24-2023 End: 09-24-2023 Patient encounter procedure MD Isidoro Rojas Work Phone: [facility] Work Phone: Start: 09-24-2023 End: 09-24-2023 ambulatory MD Isidoro Rojas Work Phone: [facility] Work Phone: Start: 04-03-2023 End: 04-03-2023 Admission to same day surgery center MD Isidoro Rojas Work Phone: [facility] [place] Start: 04-03-2023 End: 04-03-2023 ambulatory MD Isidoro Rojas Work Phone: [facility] Work Phone: Start: 03-21-2023 End: 03-21-2023 Patient encounter procedure MD Isidoro Rojas Work Phone: [facility] Work Phone: Start: 03-21-2023 End: 03-21-2023 ambulatory MD Isidoro Rojas Work Phone: [facility] Work Phone: Start: 03-15-2023 End: 03-15-2023 Patient encounter procedure MD Isidoro Rojas Work Phone: [facility] Work Phone: Start: 03-15-2023 End: 03-15-2023 ambulatory MD Isidoro Rojas Work Phone: [facility] Work Phone: Start: 03-09-2023 End: 03-09-2023 Admission to same day surgery center MD Isidoro Rojas Work Phone: [facility] [facility] Work Phone: Start: 03-09-2023 End: 03-09-2023 ambulatory Bryson Robbins Facility:[facility] Start: 03-01-2023 End: 03-01-2023 Patient encounter procedure MD Isidoro Rojas Work Phone: [facility] Work Phone: Start: 03-01-2023 End: 03-01-2023 ambulatory MD Isidoro Rojas Work Phone: [facility] Work Phone: Start: 02-28-2023 End: 02-28-2023 Patient encounter procedure MD Isidoro Rojas Work Phone: [facility] Work Phone: Start: 02-28-2023 End: 02-28-2023 ambulatory Isidoro Rojas Facility:[facility] Start: 02-23-2023 End: 02-23-2023 ambulatory MD Isidoro Rojas Work Phone: [facility] Work Phone: Start: 02-23-2023 End: 02-23-2023 Patient encounter procedure MD [facility] Start: 01-25-2023 End: 01-26-2023 ambulatory ANANT BRANDON [place] [place]: 01-25-2023 End: 01-25-2023 Patient encounter procedure ANANTJAVAN BRANDON [facility] Start: 11-23-2022 End: 04-21-[address] ISIDORO ROJAS . Facility: Start: 09-27-2022 End: 09-28-[address] ISIDORO ROJAS . Facility:[facility] Start: 07-15-2022 End: 07-16-[address] ISIDORO ROJAS . Facility:[facility] Start: 03-23-2022 End: 03-24-[address] ISIDORO ROJAS . Facility:[facility] Start: 03-09-2022 End: 03-10-[address] ISIDORO ROJAS . Facility:[facility] Start: 01-12-2022 End: 01-13-[address] ISIDORO ROJAS . Facility:[facility] Start: 12-13-2017 End: 12-13-2017 Ambulatory HARVEY VICTOR [facility] Procedures Date Procedure Procedure Detail Performing Clinician Start: 02-25-2024 Screening mammography of bilateral breasts MD Isidoro Rojas Work Phone: Start: 09-24-2023 Mammography of right breast MD Isidoro Rojas Work Phone: Start: 04-03-2023 Lumpectomy of right breast MD Isidoro payne Work Phone: Start: 03-30-2023 Mammography of right breast MD Isidoro Rojas Work Phone: Start: 03-30-2023 Ultrasonography guided needle localization of lesion of right breast MD Isidoro Rojas Work Phone: Start: 03-09-2023 Mammography of right breast MD Isidoro Rojas Work Phone: Start: 03-09-2023 Vacuum assisted biopsy of right breast with mammographic guidance MD Isidoro Rojas Work Phone: Start: 02-28-2023 Mammography of right breast MD Isidoro Rojas Work Phone: Start: 02-28-2023 Ultrasonography of right breast MD Isidoro Rojas Work Phone: Start: 02-23-2023 Screening mammography of bilateral breasts MD Isidoro Rojas Work Phone: H/O: hysterectomy S/P laparoscop ic hysterectomy MD Isidoro Rojas Work Phone: Hysterectomy ANANT CARABIN Jaw sx ANANT CARABIN Plan of Treatment Date Care Activity Detail Author Start: 04-03-2023 End: 04-03-2023 [facility] Start: 04-03-2023 Mammography of right breast specimen MM surgical specimen RT [facility] Start: 04-03-2023 MG Breast specimen - right Views [facility] Patient referral [facility] Work Phone: Immunizations Immunization Date Immunization Notes Care Provider Fa cili 08-26-2021 COVID-19 mRNA Comirnatkerry (Pfizer) MD Isidoro Rojas Work Phone: [facility] 10-08-2020 COVID-19 mRNA Comirnatkerry (Pfizer) MD Isidoro Rojas Work Phone: [facility] 09-17-2020 COVID-19 mRNA Comirnatkerry (Pfizer) MD Isidoro Rojas Work Phone: [facility] Payers Date Payer Category Payer Self-pay [id number] 1975 Unknown [id number] 2.16.84 [id number] 1975 Unknown [id number] 2.16.84 0.1.933258.3.579.2.593 1975 Unknown [id number] 2.16.84 0.1.204190.3.579.2.593 1975 Unknown [id number] 2.16.84 0.1.044944.3.579.2.593 1975 Unknown [id number] 2.16.84 0.1.510032.3.579.2.593 1975 Unknown [id number] 2.16.8 40.1.057655.3.579.2.727 1975 Unknown [id number] 2.16.84 0.1.252544.3.579.2.1259 1975 Unknown [id number] 2.16.84 0.1.447173.3.579.2.1259 1975 Unknown [id number] 2.16.84 0.1.817656.3.579.2.1259 1976 Unknown [id number] 2.16.84 0.1.201074.3.579.2.1259 1975 Unknown [id number] 2.16.84 0.1.191635.3.579.2.1259 1959 Self-pay [id number] 1959 Unknown [id number] Medicaid [facility] [id number] pending sale to [employer] [id number] Unknown [id number] 2.16.84 0.1.566303.3.579.2.593 Unknown [id number] 2.16.8 40.1.450869.3.579.2.531 Unknown [id number] 2.16.8 40.1.917468.3.579.2.531 Unknown [id number] 2.16.8 40.1.395839.3.579.2.531 Unknown [id number] 2.16.8 40.1.188201.3.579.2.531 Unknown [id number] 2.16.8 40.1.344214.3.579.2.531 Unknown [id number] 2.16.8 40.1.422519.3.579.2.531 Unknown [id number] 2.16.8 40.1.856733.3.579.2.531 Unknown [id number] 2.16.8 40.1.082333.3.579.2.531 Social History Date Type Detail Facility Tobacco smoking status [facility] Sex Assigned At Female [facility] Start: 10-09-2018 End: 04-03-2023 Tobacco smoking status KSIS Never smoked tobacco (finding) [facility] Start: 1975 Sex Assigned At Female F [facility] Goals Date Patient Goal Desired Activity /State Evaluation + Plan note 01-25-2023 Note Date & Type Note Facility 01-25-2023 Evaluation + Plan note Diagnostic Tests PendingT3 Free 01/25/23 [facility] Evaluation note Note Date & Type Note Facility Evaluation note No assessment information availjane silverman [facility] Work Phone: Evaluation note Note Date & Type Note Facility Evaluation note Diagnosis Onset Date Breast mass, right acute Breast mass, right acute [facility] Work Phone: Hospital course Narrative Note Date & Type Note Facility Hospital course Narrative No data available for this section [facility] Hospital Discharge instructions Note Date & Type Note Facility Hospital Discharge instructions No data available for this section [facility] Hospital Discharge instructions Note Date & Type Note [facility] Hospital Discharge instructions Additional Instructions DISCHARGE INSTRUCTIONS FOR GENERAL SURGERY YOUR ACTIVITY MAY INCLUDE: No restrictions on activities I recommend wearing your bra for support throughout the day, it is not necessary to sleep with it WOUND CARE/INCISION CARE: The sutures are underneath the skin and will dissolve by themselves. The incisions are covered with surgical glue, there is no need for additional Band-Aids It is safe to get the wounds wet with soap and water in the shower, no hot tubs or tub baths -Is it common to feel pulling or sharp sticking sensations in the area of incision, these sensations are a part of the normal healing process. -If you develop fever, increasing pain, redness, or swelling around the incision, please notify our office MEDICATION -Resume all previous medications that you were taking for problems unrelated to your surgery, unless informed otherwise. If there are any problems with this, please call the original prescribing doctor. If you have any other questions regarding medications, please call our office. -Over the counter medications such as Acetaminophen, Ibuprofen, Naproxen, and others may be used as directed for pain unless a prescription was provided. [facility] Work Phone: Progress note Note Date & Type Note Facility Progress note No data available for this section [facility] Summary Purpose Family History No Family History Records Found Relationship Condition Age at Onset Recorded Date/T anastasia Not Specified No pertinent family history Unknown Advance Directives No Advanced Directives Records Found Advance Directive Response Recorded Date/ Time Advance Directives No September 12:21pm Advance Directive Response Recorded Date/ Time Advance Directives No September 11:21am Chief Complaint and Reason for Visit Chief Complaint Screening Chief Complaint Screening R92.8 Abnormal Mammogram Chief Complaint Screening R92.8 Abnormal Mammogram lump rt breast Abnormal Mammogram Reason for Visit Breast mass, right Breast mass, right Chief Complaint Screening R92.8 Abnormal Mammogram lump rt breast Abnormal Mammogram Right Breast Mass Reason for Visit Breast mass, right Breast mass, right Chief Complaint Screening R92.8 Abnormal Mammogram lump rt breast Abnormal Mammogram Right Breast Mass Right Breast Mass Reason for Visit Breast mass, right Breast mass, right Chief Complaint N63.11 Additional Source Comments INFORMATION SOURCE (unrecogn ized section and content) DATE CREATED AUTHOR 01/23/2018 [facility] DATE CREATED AUTHOR AUTHOR'S ORGANIZ ATION 11/27/2022 [facility] DATE CREATED AUTHOR AUTHOR'S ORGANIZ ATION 01/27/2023 [facility] DATE CREATED AUTHOR AUTHOR'S ORGANIZ ATION 02/27/2024 [facility] DATE CREATED AUTHOR AUTHOR'S ORGANIZ ATION 03/15/2024 [facility] EPIC Patient Care team informatio n (unrecognized section and content) Team Status: Active Member Role Status Justina Rojas MD Primary Care Provider Active Team Status: Inactive Member Role Status Justina Rojas MD Primary Care Provider Active Karyn Johnson DO Attending Provider Active Team Status: Inactive Member Role Status Justina Rojas MD Primary Care Provider Active Bryson Robbins DO Attending Provider Active Team Status: Inactive Member Role Status Justina Rojas MD Primary Care Provider Active Start: September 24, 2023 End: September 24, 2023 Bryson Robbins DO Attending Provider Active Start: September 24, 2023 End: September 24, 2023 Team Status: Inactive Member Role Status Justina Rojas MD Primary Care Provider Active Start: February 25, 2024 End: February 25, 2024 Bryson Robbins DO Attending Provider Active Start: February 25, 2024 End: February 25, 2024 Goals (unrecognized section and content) Goals may be documented in a n alternate section FOR RECORDS PERTAINING TO PATIENTS WHO ARE OR HAVE BEEN ENROLLED IN A CHEMICAL DEPENDENCY/SUBSTANCEABUSE PROGRAM, SOME INFORMATION MAY BE OMITTED. This clinical summary was aggregated from multiple sources. Caution should be exercised in using it in the provision of clinical care. This summary normalizes information from multiple sources, and as a consequence, information in this document may materially change the coding, format and clinical context of patient data. In addition, data may be omitted in some cases. CLINICAL DECISIONS SHOULD BE BASED ON THE PRIMARY CLINICAL RECORDS. [facility] provides no warranty or guarantee of the accuracy or completeness of information in this document.
[2024-08-05 11:43] LABS: Free T3 3.92 pg/mL (2.18-3.98); Thyroid Stimulating Hormone 0.075 uIU/mL (0.358-3.740)
== END 2024-08-05 10:36 | disposition home or self-care (01) ==
LOC: LAB 10:37
PROVIDERS: PCP Family Medicine; Visit Provider Family Medicine
DX: R53.83 Other fatigue (principal)
CPT/HCPCS: 36415; 84436; 84443; 84481

== ENCOUNTER 2024-12-04 16:47 | Outpatient (OUT) | payer OTHER, SELFPAY ==
[2024-12-04 17:34] LABS: Free T4 1.13 ng/dL (0.76-1.46)
[2024-12-04 17:37] LABS: Thyroid Stimulating Hormone 0.048 uIU/mL (0.358-3.740)
== END 2024-12-04 16:48 | disposition home or self-care (01) ==
LOC: LAB 16:49
PROVIDERS: PCP Family Medicine; Visit Provider Family Medicine
DX: G43.909 Migraine, unspecified, not intractable, without status migrainosus (principal); R53.83 Other fatigue
CPT/HCPCS: 36415; 84439; 84443

== ENCOUNTER 2025-01-28 08:59 | Outpatient (OUT) | payer OTHER, SELFPAY ==
--- OUTSIDE RECORDS SUMMARY | 2025-01-28 09:04 | XMS_ITS | Encounter Summary ---
Author Organization [facility] Address [address] [place] [address] Care Team Providers Care Central Supply Aide Name Role Phone Harish Rojas MD Primary Care Provider [phone] Encounter Details Date Type Department Care Team ([facility] Contact Info) Description 03/30/2023 External Result Encounter [facility] External Department Unsolicited Bryson Seals, DO [address] [facility] [address] [place] [address] Social History Tobacco Use Types Packs/Day Years Used Date Smoking Tobacco: Never Smokeless Tobacco: Never Alcohol Use Standard Drinks/Week Comments Never 0 (1 standard drink = 0.6 oz pur e alcohol) Comments Unknown Sex and Gender Information Value Date Recorded Sex Assigned at Not on file Legal Sex Female 7:11 PM EDT Gender Identity Not on file Sexual Orientation Not on file COVID-19 Exposure Response Date Recorded In the last 10 days, have yo u been in contact with someone who was confirmed or suspected to have Coronavirus/COVID-19? No / Unsure 03/15/2023 3:37 PM EDT documented as of this encounter Plan of Treatment Upcoming Encounters Date Type Department Care Team (Late Contact Info) Description 03/10/2025 11:45 AM EDT Office Visit [facility] [address] [facility] [address] [place] [phone] Karyn Johnson, DO [address] [facility] [address] [place] [address] documented as of this encounter Procedures Procedure Name Priority Date/Time Associated Diagnosis Comments BI US GUIDED BREAST LOCALIZATION AND BIOPSY RIGHT 03/30/2023 11:04 AM EDT documented in this encounter Results * Right US-guided breast localization and biopsy (03/30/2023 11:04 AM EDT) Anatomical Region Laterality Modality Breast Right Ultrasound 03/30/2023 11:0 4 AM EDT Impressions 03/30/2023 1:57 PM EDT STATUS POST RADIOIODINE SEED LOCALIZATION OF THE [...] NL Impression dictated by: Yogesh Stroud Jr., D.OJessica03/30/2023 12:13 PM Dictation Location: [facility] Tech: Cethelma Castillo Transcribed By: NEGAR 03/30/23 1213 Dictated By: Yogesh Stroud Jr, DO 03/30/23 1104 Signed By: <Electronically signed by Yogesh Stroud Jr, DO in OV> 03/30/23 1213 Narrative 03/30/2023 1:57 PM EDT [facility] [place] [address] Ultrasound Report Signed Patient: Mary Granados MR#: [id number] : 1975 Acct:[id number] Age/Sex: 47 / F ADM Date: 03/19/23 Loc: PR Room: Type: [facility] Attending Dr: Bryson Seals DO Ordering Provider: Bryson Seals DO Date of Service: 03/30/23 US/US breast needle loc RT: RT BREAST SEED LOC ([id number]) MM/MM diagnostic mammo RT w/CAD: POST U/S SEED LOC Copies to: Bryson Seals DO ULTRASOUND GUIDED RADIOIODINE SEED LOCALIZATION OF THE RIGHT BREAST: CLINICAL DATA: Excisional biopsy right breast PROCEDURE: Informed consent was obtained. Following sterile preparation and local anesthetics a needle containing of 0.142 Ci of iodine 125 was placed under the ultrasonographic guidance. Following confirmation of the tip of the needle position an Iodine seed was deployed. Adjacent to the needle entry the skin was marked 1 SEED to indicate the seed localization. The patient tolerated the procedure well and left the department in stable condition. US/US breast needle loc RT Procedure Note Radiology, Radiologist, MD - 04/02/2023 [facility] [address] [place] [address] [place] [address] Ultrasound Report Signed Patient: Mary Granados CMR#: [id number] : 1975Acct:[id number] Age/Sex: 47 / FADM Date: 03/19/23 Loc: [place] Room:Type: [facility] Attending Dr: Bryson Seals DO Ordering Provider: Bryson Seals DO Date of Service: 03/30/23 US/US breast needle loc RT: RT BREAST SEED LOC ([id number]) MM/MM diagnostic mammo RT w/CAD: POST U/S SEED LOC Copies to: Bryson Seals DO ULTRASOUND GUIDED RADIOIODINE SEED LOCALIZATION OF THE RIGHT BREAST: CLINICAL DATA: Excisional biopsy right breast PROCEDURE: Informed consent was obtained. Following sterile preparation and localanesthetics a needle containing of 0.142 Ci of iodine 125 was placed under theultrasonographic guidance. Following confirmation of the tip of the needle position an Iodine seed wasdeployed. Adjacent to the needle entry the skin was marked 1 SEED to indicate the seed localization.The patient tolerated the procedure well and left the department in stable condition. US/US breast needle loc RT IMPRESSION: STATUS POST RADIOIODINE SEED LOCALIZATION OF THE RIGHT BREAST. POSTPROCEDURE MAMMOGRAMS: Craniocaudal and mediolateral oblique views of the right breast wereperformed using low dose digital technique and compared to the previous right breast mammogramsdated 03/09/2023. A small radioiodine seed is noted adjacent to a metallic marking clip within thecentral/upper aspect of the right breast. IMPRESSION: TECHNICALLY SUCCESSFUL ULTRASOUND GUIDED SEED LOCALIZATION OF THE RIGHTBREAST. RESULT CODE: NL Impression dictated by: Yogesh Stroud Jr., D.OJessica03/30/2023 12:13 PM Dictation Location: [facility] Tech: Ce Lim; Therese Anna Transcribed By: NEGAR 03/30/23 1213 Dictated By: Yogesh Stroud Jr, DO 03/30/23 1104 Signed By: <Electronically signed by Yogesh Stroud Jr, DO inOV> 03/30/23 1213 us Bryson Seals DO IMG US PROCEDURES Edited Result - Final documented in this encounter Visit Diagnoses Not on filedocumented in this encounter Care Teams Central Supply Aide Relationship Specialty Start Date End Date Harish Rojas MD PCP - General Family Medicine 02/21/23 documented as of this encounter
--- OUTSIDE RECORDS SUMMARY | 2025-01-28 09:04 | XMS_ITS | Encounter Summary ---
Author Organization [facility] Address [address] [place] [address] Care Team Providers Care Community Health Nurse Supervisor Name Role Phone Harish Rojas MD Primary Care Provider [phone] Encounter Details Date Type Department Care Team (Late Contact Info) Description 02/25/2024 External Result Encounter [facility] External Department Unsolicited Bryson Seals, DO [address] [facility] [address] [place] [address] Social History Tobacco Use Types Packs/Day Years Used Date Smoking Tobacco: Never Smokeless Tobacco: Never Alcohol Use Standard Drinks/Week Comments Never 0 (1 standard drink = 0.6 oz pur e alcohol) Comments Unknown Sex and Gender Information Value Date Recorded Sex Assigned at Not on file Legal Sex Female 7:11 PM EDT Gender Identity Not on file Sexual Orientation Not on file documented as of this encounter Plan of Treatment Upcoming Encounters Date Type Department Care Team (Late st Contact Info) Description 03/10/2025 11:45 AM EDT Office Visit [facility] [address] [email or web address] [place] [phone] Karyn Johnson, DO [address] [facility] [address] [place] [address] documented as of this encounter Procedures Procedure Name Priority Date/Time Associated Diagnosis Comments BI MAMMOGRAM SCREENING TOMOSYNTHESIS BILATERAL 02/25/2024 10:43 AM EDT documented in this encounter Results * Bilateral screening mammogram with tomosynthesis (02/25/2024 10:43 AM EDT) Anatomical Region Laterality Modality Breast Bilateral Mammography 02/25/2024 10:4 3 AM EDT Impressions 02/25/2024 10:53 AM EDT No mammographic evidence of malignancy. Routine follow-up [...] Javier Sellers M.D.02/25/2024 10:50 AM Dictation Location: [facility] Transcribed By: [facility] 02/25/24 1050 Dictated By: Francisco Javier Sellers DO 02/25/24 1043 Signed By: <Electronically signed by Francisco Javier Sellers DO in OV> 02/25/24 1050 Narrative 02/25/2024 10:53 AM EDT [facility] [address] [place] [address] [place] [address] Mammography Report Signed Patient: Mary Granados MR#: [id number] : 1975 Acct:[id number] Age/Sex: 48 / F ADM Date: 02/25/24 Loc: [place] Room: Type: [facility] Attending Dr: Bryson Seals DO Copies to: MD Bryson Cuevas DO Ordering Provider: Bryson Seals DO Date of Service: 02/25/24 MM/MM screening [...] lumpectomy changes MM/MM screening mammo BI w/CAD Procedure Note Radiology, Radiologist, MD - 02/25/2024 [facility] [address] [place] [address] [place], [place] [phone] Mammography Report Signed Patient: Mary Granados CMR#: [id number] : 1975Acct:[id number] Age/Sex: 48 / FADM Date: 02/25/24 Loc: [place] Room:Type: [facility] Attending Dr: Bryson Seals DO Copies to: MD Bryson Cuevas DO Ordering Provider: Bryson Seals DO Date of Service: 02/25/24 MM/MM screening mammo BI w/CAD: SCREENING BILATERAL Screening Full Field digital mammogram with 3-D imaging. Full field digital CC and MLO imaging performed. CAD utilized. COMPARISON: 09/24/2023 right breast HISTORY: Annual screening BREAST COMPOSITION: Scattered fibroglandular densities of the breastparenchyma identified BREAST CALCIFICATIONS: Benign calcifications present. VASCULAR CALCIFICATIONS: None ARCHITECTURAL DISTORTION: None BREAST NODULE: None AXILLARY LYMPH NODES: Normal POSTSURGICAL CHANGES: Stable right lumpectomy changes MM/MM screening mammo BI w/CAD IMPRESSION: No mammographic evidence of malignancy. Routine follow-up recommended inone year. RESULT CODE: 2 Benign Findings(s) DENSITY CODE: 2 (approximately 25-50% glandular) FOLLOW UP: 1YR THE FALSE-NEGATIVE RATE OF MAMMOGRAPHY IS APPROXIMATELY 10%. IMAGING OF A PALPABLE ABNORMALITY MUST BE BASED ON CLINICAL GROUNDS. PATIENT WAS ENTERED INTO A REMINDER SYSTEM WITH A TARGET DUE DATE FOR THENEXT MAMMOGRAM. Impression dictated by: Francisco Javier Sellers M.D.02/25/2024 10:50 AM Dictation Location: [facility] Transcribed By: [facility] 02/25/24 1050 Dictated By: Francisco Javier Sellers DO 02/25/24 1043 Signed By: <Electronically signed by Francisco Javier Sellers DO in OV> 02/25/24 1050 us Bryson Seals DO IMG BI PROCEDURES Final R esult documented in this encounter Visit Diagnoses Not on filedocumented in this encounter Care Teams Community Health Nurse Supervisor Relationship Specialty Start Date End Date Harish Rojas MD PCP - General Family Medicine 02/21/23 documented as of this encounter
--- OUTSIDE RECORDS SUMMARY | 2025-01-28 09:04 | XMS_ITS | Encounter Summary ---
Author Organization [facility] Address [address] [place] [address] Care Team Providers Care Director Informatics Name Role Phone Harish Rojas MD Primary Care Provider [phone] Encounter Details Date Type Department Care Team ([facility] Contact Info) Description 04/03/2023 External Result Encounter [facility] External Department Unsolicited Bryson Seals, DO [address] [facility] [address] [place] [address] Social History Tobacco Use Types [...] suspected to have Coronavirus/COVID-19? No / Unsure 04/04/2023 8:36 AM EDT documented as of this encounter Plan of Treatment Upcoming Encounters Date Type Department Care Team (Late Contact Info) Description 03/10/2025 11:45 AM EDT Office Visit [facility] [address] [facility] [address] [place] [phone] Karyn Johnson, DO [address] [facility] [address] [place] [address] documented as of this encounter Procedures Procedure Name Priority Date/Time Associated Diagnosis Comments BI MAMMOGRAM DIAGNOSTIC RIGHT 04/03/2023 11:32 AM EDT documented in this encounter Results * Right diagnostic mammogram (04/03/2023 11:32 AM EDT) Anatomical Region Laterality Modality Breast Right Mammography 04/03/2023 11:3 2 AM EDT Narrative 04/04/2023 9:23 AM EDT [place] [id number] Mammography Report Signed Patient: Mary Granados MR#: [id number] : 1975 Acct:[id number] Age/Sex: 47 / F ADM Date: 04/03/23 Loc: [place] Room: Type: [facility] Attending Dr: Bryson Seals DO Copies to: MD Bryson Cuevas DO Ordering Provider: Bryson Seals DO Date of Service: 04/03/23 MM/MM surgical specimen RT: RT BREAST SPECIMEN IN OR WITH CLIP/SEED CLINICAL INFORMATION: [Right] breast lumpectomy. SPECIMEN RADIOGRAPH: A single radiograph of the [right] breast specimen showed a metallic marking clip and radioiodine seed within the specimen. The images were reviewed by the attending surgeon during the procedure. Impression dictated by: Yogesh Stroud Jr., D.OJessica04/03/2023 11:32 AM Dictation Location: [place] [address] Transcribed By: [facility] 04/03/23 1132 Dictated By: Yogesh Stroud Jr, DO 04/03/23 1132 Signed By: <Electronically signed by Yogesh Stroud Jr, DO in OV> 04/03/23 1132 Procedure Note Radiology, Radiologist, - 04/04/[address] [address] Mammography Report Signed Patient: Mary Granados CMR#: [id number] : 1975Acct:[id number] Age/Sex: 47 / FADM Date: 04/03/23 Loc: [place] Room:Type: [facility] Attending Dr: Bryson Seals DO Copies to: MD Bryson Cuevas DO Ordering Provider: Bryson Seals DO Date of Service: 04/03/23 MM/MM surgical specimen RT: RT BREAST SPECIMENIN OR WITH CLIP/SEED CLINICAL INFORMATION: [Right] breast lumpectomy. SPECIMEN RADIOGRAPH: A single radiograph of the [right] breast specimen showed a metallicmarking clip and radioiodine seed within the specimen. The images were reviewed by the attending surgeon during the procedure. Impression dictated by: Yogesh Stroud Jr., D.OJessica04/03/2023 11:32 AM Dictation Location: [place] [address] Transcribed By: [facility] 04/03/23 1132 Dictated By: Yogesh Stroud Jr, DO 04/03/23 1132 Signed By: <Electronically signed by Yogesh Stroud Jr, DO inOV> 04/03/23 1132 Bryson Seals DO IMG BI PROCEDURES Final R esult documented in this encounter Visit Diagnoses Not on filedocumented in this encounter Care Teams Director Informatics Relationship Specialty Start Date End Date Harish Rojas MD PCP - General Family Medicine 02/21/23 documented as of this encounter
--- OUTSIDE RECORDS SUMMARY | 2025-01-28 09:05 | XMS_ITS | Encounter Summary ---
Author Organization [facility] Address [address] [place] [address] Care Team Providers Care Crab Picker Name Role Phone Harish Rojas MD Primary Care Provider [phone] Encounter Details Date Type Department Care Team (Late st Contact Info) Description 03/09/[address] [facility] [address] [facility] [address] [place] [address] Bryson Seals, DO [address] [facility] 150 [place] [address] Social History Tobacco Use Types Packs/Day Years Used Date Smoking Tobacco: Never Assessed Comments Unknown Sex and Gender Information Value Date Recorded Sex Assigned at Not on file Legal Sex Female 7:11 PM EDT Gender Identity Not on file Sexual Orientation Not on file documented as of this encounter Plan of Treatment Upcoming Encounters Date Type Department Care Team (Late st Contact Info) Description 03/10/2025 11:45 AM EDT Office Visit [facility] [address] [facility] [address] [place] [address] Karyn Johnson, DO [address] [facility] [address] [place] [address] documented as of this encounter Visit Diagnoses Not on filedocumented in this encounter Care Teams Crab Picker Relationship Specialty Start Date End Date Harish Rojas MD PCP - General Family Medicine 02/21/23 documented as of this encounter
--- OUTSIDE RECORDS SUMMARY | 2025-01-28 09:05 | XMS_ITS | Encounter Summary ---
Author Organization [facility] Address [address] [place] [address] Care Team Providers Care Splicer Helper Name Role Phone Harish Rojas MD Primary Care Provider [phone] Encounter Details Date Type Department Care Team (Late Contact Info) Description 03/15/[address] [facility] [address] [facility] 150 [place] [phone] Bryson Seals, DO [address] [facility] 150 [place] [address] Social History Tobacco Use Types Packs/Day Years [...] Office Visit [facility] [address] [facility] [address] [facility] 210 [place] [address] Karyn Johnson, DO [address] [facility] 210 [place] [address] documented as of this encounter Visit Diagnoses Not on filedocumented in this encounter Care Teams Splicer Helper Relationship Specialty Start Date End Date Harish Rojas MD PCP - General Family Medicine 02/21/23 documented as of this encounter
--- OUTSIDE RECORDS SUMMARY | 2025-01-28 09:05 | XMS_ITS | Encounter Summary ---
Author Organization [facility] Address [address] [place] [address] Care Team Providers Care Timber Management Technician Name Role Phone Harish Rojas MD Primary Care Provider [phone] Encounter Details Date Type Department Care Team (Late st Contact Info) Description 02/23/2023 External Result Encounter [facility] External Department Unsolicited Karyn Johnson, DO [address] [facility] [address] [facility] [address] [place] [address] Social History Tobacco Use Types Packs/Day Years [...] Office Visit [facility] [address] [place] [phone] Karyn Johnson, DO [address] [place] [address] documented as of this encounter Procedures Procedure Name Priority Date/Time Associated Diagnosis Comments BI MAMMOGRAM SCREENING BILATERAL 02/23/2023 2:01 PM EDT documented in this encounter Results * Bilateral screening mammogram (02/23/2023 2:01 PM EDT) Anatomical Region Laterality Modality Breast Bilateral Mammography 02/23/2023 2:01 PM EDT Impressions 02/23/2023 2:30 PM EDT There appears be an area of architectural distortion seen involving the superior aspect of the right breast, posterior depth on MLO view. This appears to have been previously evaluated in 2020 but appears to have progressed architectural distortion. SPOT COMPRESSION/TRUE LATERAL VIEWS, POSSIBLE ULTRASOUND ARE RECOMMENDED. RESULT CODE: 0 Incomplete: Needs Additional Imaging Evaluation DENSITY CODE: 2 (approximately 25-50% glandular) FOLLOW UP: ADD The false-negative rate of mammography is approximately 10-percent. Management of a palpable abnormality must be based on clinical grounds. Patient was entered into a reminder system with a target due date for the next mammogram. Impression dictated by: Yogesh Stroud Jr., DJessicaOJessica02/23/2023 2:11 PM Dictation Location: [facility] Transcribed By: NEGAR 02/23/23 1411 Dictated By: Yogesh Stroud Jr, DO 02/23/23 1401 Signed By: <Electronically signed by Yogesh Stroud Jr, DO in OV> 02/23/23 1411 Narrative 02/23/2023 2:30 PM EDT [facility] [place] [address] Mammography Report Signed Patient: Mary Granados MR#: [id number] : 1975 Acct:[id number] Age/Sex: 47 / F ADM Date: 02/23/23 Loc: [place] Room: Type: [facility] Attending Dr: Karyn Johnson DO Copies to: MD Karyn Cuevas DO Ordering Provider: Karyn Johnson DO Date of Service: 02/23/23 MM/MM screening mammo BI w/CAD: SCREENING CLINICAL DATA: Screening for malignancy. SCREENING MAMMOGRAM - FULL FIELD DIGITAL WITH TOMOSYNTHESIS AND CAD COMPARISON:Mammograms dating back to 2019 Tomosynthesis craniocaudal and mediolateral oblique views of both breasts were obtained using low- dose digital technique. This examination was reviewed with the aid of CAD. The breast tissue is composed of scattered fibroglandular densities. There appears be an area of architectural distortion seen involving the superior aspect of the right breast, posterior depth on MLO view. This appears to have been previously evaluated in 2020 but appears to have progressed architectural distortion. MM/MM screening mammo BI w/CAD Procedure Note Radiology, Radiologist, - 02/23/2023 [facility] Main [place] [address] [place] [address] Mammography Report Signed Patient: Mary Granados CMR#: [id number] : 1975Acct:[id number] Age/Sex: 47 / FADM Date: 02/23/23 Loc: [place] Room:Type: [facility] Attending Dr: Karyn Johnson DO Copies to: MD Karyn Cuevas DO Ordering Provider: Karyn Johnson DO Date of Service: 02/23/23 MM/MM screening mammo BI w/CAD: SCREENING CLINICAL DATA: Screening for malignancy. SCREENING MAMMOGRAM - FULL FIELD DIGITAL WITH TOMOSYNTHESIS AND CAD COMPARISON:Mammograms dating back to 2019 Tomosynthesis craniocaudal and mediolateral oblique views of both breastswere obtained using low- dose digital technique. This examination was reviewed with the aid ofCAD. The breast tissue is composed of scattered fibroglandular densities. Thereappears be an area of architectural distortion seen involving the superior aspect of the rightbreast, posterior depth on MLO view. This appears to have been previously evaluated in 2020 butappears to have progressed architectural distortion. MM/MM screening mammo BI w/CAD IMPRESSION: There appears be an area of architectural distortion seen involving thesuperior aspect of the right breast, posterior depth on MLO view. This appears to have been previouslyevaluated in 2020 but appears to have progressed architectural distortion. SPOT COMPRESSION/TRUELATERAL VIEWS, POSSIBLE ULTRASOUND ARE RECOMMENDED. RESULT CODE: 0 Incomplete: Needs Additional Imaging Evaluation DENSITY CODE: 2 (approximately 25-50% glandular) FOLLOW UP: ADD The false-negative rate of mammography is approximately 10-percent. Management of a palpable abnormality must be based on clinical grounds. Patient was entered into a reminder system with a target due date for thenext mammogram. Impression dictated by: Yogesh Stroud Jr., D.OJessica02/23/2023 2:11 PM Dictation Location: [facility] Transcribed By: NEGAR 02/23/23 1411 Dictated By: Yogesh Stroud Jr, DO 02/23/23 1401 Signed By: <Electronically signed by Yogesh Stroud Jr, DO inOV> 02/23/23 1411 us Karyn Johnson DO IMG BI PROCEDURES Final Res ult documented in this encounter Visit Diagnoses Not on filedocumented in this encounter Care Teams Timber Management Technician Relationship Specialty Start Date End Date Harish Rojas MD PCP - General Family Medicine 02/21/23 documented as of this encounter
--- OUTSIDE RECORDS SUMMARY | 2025-01-28 09:05 | XMS_ITS | Clinical Summary ---
Author Organization [facility] Healthcare Address [address] [place] [address] Care Team Providers Care Clinical Supervisor Name Role Phone Harish Rojas MD Primary Care Provider [phone] Allergies Active Allergy Reactions Criticality Noted Date Comments Diclofenac Other 03/13/2024 Sumatriptan Shortness of breath High 07/12/2011 Other Reaction(s): dyspnea, SOB Other Reaction(s): dyspnea Medications Cytomel 5 MCG tablet 1 (one) time each day at the same time. Active Synthroid 75 MCG tablet 11/26/2022 Active Viberzi 100 MG tablet every 12 (twelve) hours. Active Restasis 0.05 % ophthalmic emulsion 12/26/2022 Active diphenhydrAMINE (BENADryl) 25 MG tablet Take by mouth. Active Relpax 40 MG tablet 1 (one) time each day at the same time Active butalbital-acet aminophen-caffe ine (Esgic) 50-325-40 MG capsule TAKE 1 CAPSULE BY MOUTH EVERY 6 HOURS NEEDED 08/22/2023 Active Wellbutrin XL 150 MG 24 hr tablet 1 (one) time each day at the same time 11/19/2023 Active Trokendi XR 200 MG capsule sustained-relea se 24 hr 01/29/2024 Active amoxicillin-cla vulanate (Augmentin) 875-125 MG tablet Take 1 tablet by mouth every 12 (twelve) hours 03/10/2024 Active ibuprofen 600 MG tablet EVERY 4-6 HOURS 04/03/2023 Active Active Problems Problem Noted Date Diagnosed Date Screening mammogram for high-risk patient 2023 Disorder of tendon of left shoulder region 03/19 Endometriosis of uterus 03/19/2023 Mass of upper outer quadrant of right breast Tear of left rotator cuff 03/17/2021 Abnormal mammogram 02/10/2021 Deep dyspareunia 08/29/2018 Dysmenorrhea 08/29/2018 Endometriosis 08/29/2018 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 Multiple thyroid nodules 08/08/2012 Immunizations Immunization Administration Dates Next Due Influenza, recombinant, quad rivalent, injectable, preservative free 05/15/2021 Moderna SARS-CoV-2 Vaccination 08/25/2020 Pfizer Purple Cap SARS-CoV-2 Vaccination 021,09/16/2020 Family History Medical History Relation Name Comments Hypertension Father Kenny Diabetes Mother Liudmila Hypertension Mother Liudmila Breast cancer Neg Hx Colon cancer Neg Hx Ovarian cancer Neg Hx Relation Name Status Comments Father Kenny Alive Mother Liudmila Alive Sister 2 Alive Social History Tobacco Use Types Packs/Day Years Used Date Smoking Tobacco: Never Smokeless Tobacco: Never Tobacco Cessation:Counseling Given: Not Answered Alcohol Use Standard Drinks/Week Comments Never 0 (1 standard drink = 0.6 oz pur e alcohol) Comments Unknown Sex and Gender Information Value Date Recorded Sex Assigned at Not on file Legal Sex Female 7:11 PM EDT Gender Identity Not on file Sexual Orientation Not on file Last Filed Vital Signs Vital Sign Reading Time Taken Comments Blood Pressure 118/80 03/13/2024 9:07 AM EDT Pulse 76 02/15/2024 9:58 AM EDT Temperature - - Respiratory Rate - - Oxygen Saturation - - Inhaled Oxygen Concentration - - Weight 73.9 kg (163 lb) 03/13/2024 9:07 AM EDT Height 162.6 cm (5' 4 ) 03/13/2024 9:07 AM EDT Body Mass Index 27.98 03/13/2024 9:07 AM EDT Plan of Treatment Upcoming Encounters Date Type Department Care Team (Late st Contact Info) Description 03/10/2025 11:45 AM EDT Office Visit [facility] [address] [place] [address] Karyn Johnson DO [address] [place] [address] Health Maintenance Due Date Last Done Comments CT Colonography 1975 Colonoscopy 1975 Colorectal Cancer Screening 1975 FIT-DNA 1975 FIT 1975 FOBT 1975 Sigmoidoscopy 1975 Mammogram 02/24/2025 02/25/2024, 09/06, 04/03/2023, Additional history exists Influenza Vaccine (Season Ended) 2025 05/15/20 21 Pap Smear 02/21/2026 02/21/2023 Cervical Cancer Screening 03/05/2029 HPV/Cotest 03/05/2029 03/05/2024, 02/03, 09/14/2021, Additional history exists Procedures Procedure Name Priority Date/Time Associated Diagnosis Comments THINPREP IMAGING PAP W/REFL HPV MRNA E6/E7 Routine 03/05/2024 12:00 AM EDT Encounter for screening for malignant neoplasm of vagina BI MAMMOGRAM SCREENING TOMOSYNTHESIS BILATERAL 02/25/2024 10:43 AM EDT THINPREP TIS PAP W/REFL HPV MRNA E6/E7 Routine 02/21/2023 3:51 PM EDT Vaginal Pap smear from Last 3 Months or Most Recently Relevant to Health Maintenance Results * THINPREP IMAGING PAP W/REFL HPV MRNA E6/E7 (03/05/2024 12:00 AM EDT) CLINICAL INFORMATION [facility] Comment:Hysterectomy LMP [facility] Comment:None given PREV. PAP [facility] Comment:None given PREV. BX [facility] Comment:None given SOURCE [facility] Comment:Vagina STATEMENT OF ADEQUACY [facility] Comment: Satisfactory for evaluation. Endocervical/transformation zone component absent. INTERPRETATION/RESUL T [facility] Comment: Cytology Results: Negative for intraepithelial lesion or malignancy. COMMENT [facility] Comment: This Pap test has been evaluated with computer assisted technology. SENIOR REVENUE ACCOUNTANT [facility] Comment: EMILY VELASQUEZ(ASCP) CT screening location: [facility], [address] [place] [address], [place] [address]. (ALWAYS MESSAGE) [facility] Comment: EXPLANATORY NOTE: The Pap is a screening test for cervical cancer. It is not a diagnostic test and is subject to false negative and false positive results. It is most reliable when a satisfactory sample, regularly obtained, is submitted with relevant clinical findings and history, and when the Pap result is evaluated along with historic and current clinical information. Swab Vaginal structure / Unknown 03/05/2024 03/06/2024 4:15 AM EDT Narrative Resulting Agency Comment Performing Organization Information Site ID: [id number] Name: [facility] Address: [address] [place] [address], [address] [place] [id number] Director: Werner Hines MD us Karyn Johnson DO LAB CYTOLOGY ORDERABLES Fin al Result [facility] * Bilateral screening mammogram with tomosynthesis (02/25/2024 [...] Javier Sellers M.D.02/25/2024 10:50 AM Dictation Location: [facility] Transcribed By: [facility] 02/25/24 1050 Dictated By: Francisco Javier Sellers DO 02/25/24 1043 Signed By: <Electronically signed by Francisco Javier Sellers DO in OV> 02/25/24 1050 Narrative 02/25/2024 10:53 AM EDT [facility] Main [place] [address] [place], [place] [id number] Mammography Report Signed Patient: Mary Granados MR#: [id number] 498 : 1975 Acct:[id number] Age/Sex: 48 / F ADM Date: 02/25/24 Loc: [place] Room: Type: [facility] CLI Attending Dr: Bryson Seals DO Copies to: [...] Procedure Note Radiology, Radiologist, MD - 02/25/2024 [facility] Main [place] [address] [place] [address] Mammography Report Signed Patient: Mary Granados CMR#: [id number] : 1975Acct:[id number] Age/Sex: 48 / FADM Date: 02/25/24 Loc: [place] [facility] Attending Dr: Bryson Seals DO Copies to: [...] Javier Sellers M.D.02/25/2024 10:50 AM Dictation Location: [facility] Transcribed By: [facility] 02/25/24 1050 Dictated By: Francisco Javier Sellers DO 02/25/24 1043 Signed By: <Electronically signed by Francisco Javier Sellers DO in OV> 02/25/24 1050 Bryson Seals DO IMG BI PROCEDURES Final R esult * THINPREP TIS PAP W/REFL HPV MRNA E6/E7 (02/21/2023 3:51 PM EDT) CLINICAL INFORMATION [facility] Comment:None given LMP [facility] Comment:HYST PREV. PAP [facility] Comment:2021 PREV. BX [facility] Comment:NONE GIVEN SOURCE [facility] Comment:Vagina STATEMENT OF ADEQUACY [facility] Comment:SATISFACTORY FOR MELANIA LUATION INTERPRETATION/RESUL T [facility] Comment: Cytology Results: Negative for intraepithelial lesion or malignancy. SENIOR REVENUE ACCOUNTANT [facility] Comment: LLT, CT(ASCP) CT screening location: [place] [address]. REVIEW SENIOR REVENUE ACCOUNTANT [facility] Comment: Reference Range: ZL, CT(ASCP) CT screening location: [place] [address]. (ALWAYS MESSAGE) [facility] Comment: EXPLANATORY NOTE: The Pap is a screening test for cervical cancer. It is not a diagnostic test and is subject to false negative and false positive results. It is most reliable when a satisfactory sample, regularly obtained, is submitted with relevant clinical findings and history, and when the Pap result is evaluated along with historic and current clinical information. Other 02/21/2023 3:51 PM EDT 02/22/2023 4:41 AM EDT Narrative Resulting Agency Comment Performing Organization Information Site ID: [id number] Name: [facility] Address: [address] [place], [place] [address] , [address] [place] [address] Director: Werner Hines MD us Karyn Johnson DO LAB CYTOLOGY ORDERABLES Fin al Result [facility] from Last 3 Months or Most Recently Relevant to Health Maintenance Insurance [employer] Care Teams Clinical Supervisor Relationship Specialty Start Date End Date Harish Rojas MD PCP - General Family Medicine 02/21/23
--- OUTSIDE RECORDS SUMMARY | 2025-01-28 09:05 | XMS_ITS | Encounter Summary ---
Author Organization [facility] Address [address] [place] [place] [address] Care Team Providers Care Stair Builder Name Role Phone Harish Rojas MD Primary Care Provider [phone] Encounter Details Date Type Department Care Team (Late st Contact Info) Description 02/28/2023 External Result Encounter [facility] External Department Unsolicited Karyn Johnson, DO [address] [facility] [address] [facility] [address] [place] [address] Social History Tobacco Use Types Packs/Day Years [...] OB [address] [place] [phone] Karyn Johnson, DO [address] [place] [address] documented as of this encounter Procedures Procedure Name Priority Date/Time Associated Diagnosis Comments BI MAMMOGRAM DIAGNOSTIC RIGHT 02/28/2023 9:46 AM EDT documented in this encounter Results * Right diagnostic mammogram (02/28/2023 9:46 AM EDT) Anatomical Region Laterality Modality Breast Right Mammography 02/28/2023 9:46 AM EDT Impressions 02/28/2023 10:03 AM EDT AN AREA OF ARCHITECTURAL DISTORTION IS NOTED INVOLVING THE SUPERIOR ASPECT OF THE RIGHT BREAST ON THE MAMMOGRAPHIC STUDY WHICH APPEARS TO REPRESENT A HYPOECHOIC MASS WITH SINISTER FEATURES AT THE 11:00 POSITION OF THE RIGHT BREAST 4 TO 5 CM FROM THE NIPPLE. GIVEN THE DIFFICULTY OF SAME THIS MASS BY ULTRASOUND, SHILO GUIDED BIOPSY IS RECOMMENDED. Findings were discussed with the patient shortly after imaging. RESULT CODE: 4b Suspicious Abnormality - Biopsy Intermediate Suspicion DENSITY CODE: 2 (approximately 25-50% glandular) FOLLOW UP: BIO The false-negative rate of mammography is approximately 10-percent. Management of a palpable abnormality must be based on clinical grounds. Impression dictated by: Yogesh Stroud Jr., D.O.03/01/2023 12:38 PM Dictation Location: [facility] Tech: Meghan Garcia Transcribed By: PWS 03/01/23 1238 Dictated By: Yogesh Stroud Jr, DO 02/28/23 0946 Signed By: <Electronically signed by Yogesh Stroud Jr, DO in OV> 03/01/23 1238 Narrative 02/28/2023 10:03 AM EDT [facility] [place] [address] Ultrasound Report Signed Patient: Mary Granados MR#: [id number] : 1975 Acct:[id number] Age/Sex: 47 / F ADM Date: 02/28/23 Loc: [place] Room: Type: [facility] Attending Dr: Karyn Johnson DO Ordering Provider: Karyn Johnson DO Date of Service: 02/28/23 MM/MM special view RT w/CAD: R92.8 ([id number]) US/US breast RT limited: R92.8 Copies to: [...] position of the RIGHT breast based on shilo imaging. No definite correlate is seen on the CC view. Ultrasound: At the 11:00 position of the right breast approximately 4 to 5 cm from the nipple, a hypoechoic mass is seen with angular margins measuring 1.7 x 1.3 x 0.6 cm. Additional scanning of the axilla demonstrates no suspicious lymph nodes. US/US breast RT limited Procedure Note Radiology, Radiologist, - 03/06/2023 [facility] Main [employer] [address] [place] [address] Ultrasound Report Signed Patient: Mary Granados CMR#: [id number] : 1975Acct:[id number] Age/Sex: 47 / FADM Date: 02/28/23 Loc: [place] Room:Type: [facility] Attending Dr: Karyn Johnson DO Ordering Provider: Karyn Johnson DO Date of Service: 02/28/23 MM/MM special view RT w/CAD: R92.8 ([id number]) US/US breast RT limited: R92.8 Copies to: Karyn Johnson DO REVISED DOCUMENT - CORRECTION TO LATERALITY CLINICAL DATA: Callback architectural distortion right breast RightDIAGNOSTIC MAMMOGRAM - WITH TOMOSYNTHESIS AND CAD , rightLIMITEDBREAST ULTRASOUND COMPARISON:Mammograms dating back to 2019. Tomosynthesis imaging was obtained using low-dose digital technique.This examination was reviewed with the aid of CAD. Additional ultrasound imaging was also obtained. Mammogram: The right breast is composed of scattered fibroglandular densities. Theprevious identified asymmetry with architectural distortion partially persists on today'sstudy. This is likely at the 11:00 position of the RIGHT breast based on shilo imaging. No definitecorrelate is seen on the CC view. Ultrasound: At the 11:00 position of the right breast approximately 4 to 5 cm from thenipple, a hypoechoic mass is seen with angular margins measuring 1.7 x 1.3 x 0.6 cm. Additionalscanning of the axilla demonstrates no suspicious lymph nodes. US/US breast RT limited IMPRESSION: AN AREA OF ARCHITECTURAL DISTORTION IS NOTED INVOLVING THE SUPERIOR ASPECTOF THE RIGHT BREAST ON THE MAMMOGRAPHIC STUDY WHICH APPEARS TO REPRESENT A HYPOECHOIC MASS WITHSINISTER FEATURES AT THE 11:00 POSITION OF THE RIGHT BREAST 4 TO 5 CM FROM THE NIPPLE. GIVEN THEDIFFICULTY OF SAME THIS MASS BY ULTRASOUND, SHILO GUIDED BIOPSY IS RECOMMENDED. Findings were discussedwith the patient shortly after imaging. RESULT CODE: 4b Suspicious Abnormality - Biopsy Intermediate Suspicion DENSITY CODE: 2 (approximately 25-50% glandular) FOLLOW UP: BIO The false-negative rate of mammography is approximately 10-percent. Management of a palpable abnormality must be based on clinical grounds. Impression dictated by: Yogesh Stroud Jr., D.OJessica03/01/2023 12:38 PM Dictation Location: [facility] Tech: Meghan Garcia Transcribed By: NEGAR 03/01/23 1238 Dictated By: Yogesh Stroud Jr, DO 02/28/23 0946 Signed By: <Electronically signed by Yogesh Stroud Jr, DO inOV> 03/01/23 1238 us Karyn Johnson DO IMG BI PROCEDURES Edited Re sult - Final documented in this encounter Visit Diagnoses Not on filedocumented in this encounter Care Teams Stair Builder Relationship Specialty Start Date End Date Harish Rojas MD PCP - General Family Medicine 02/21/23 documented as of this encounter
--- OUTSIDE RECORDS SUMMARY | 2025-01-28 09:05 | XMS_ITS | Encounter Summary ---
Author Organization [facility] Address [address] [place] [address] Care Team Providers Care Varnisher Apprentice Name Role Phone Harish Rojas MD Primary Care Provider [phone] Encounter Details Date Type Department Care Team (Late st Contact Info) Description 03/09/2023 External Result Encounter [facility] External Department Unsolicited Bryson Seals, DO [address] [facility] [address] [place] [address] Social History Tobacco Use Types Packs/Day Years [...] OB [address] [place] [address] Karyn Johnson, DO [address] [place] [address] documented as of this encounter Procedures Procedure Name Priority Date/Time Associated Diagnosis Comments BI MAMMOGRAM DIAGNOSTIC RIGHT 03/09/2023 11:48 AM EDT documented in this encounter Results * Right diagnostic mammogram (03/09/2023 11:48 AM EDT) Anatomical Region Laterality Modality Breast Right Mammography 03/09/2023 11:4 8 AM EDT Impressions 03/20/2023 4:48 PM EDT TECHNICALLY SUCCESSFUL RIGHT BREAST STEREOTACTIC BIOPSY ENUMERATED [...] NL Impression dictated by: Yogesh Stroud Jr., D.O.03/09/2023 11:51 AM Dictation Location: [facility] Transcribed By: [facility] 03/09/23 1151 Dictated By: Yogesh Stroud Jr, DO 03/09/23 1148 Signed By: <Electronically signed by Yogesh Stroud Jr, DO in OV> 03/09/23 1151 Narrative 03/20/2023 4:48 PM EDT [facility] [address] Mammography Report Signed with Addenda Patient: Mary Granados MR#: [id number] : 1975 Acct:[id number] Age/Sex: 47 / F ADM Date: 03/09/23 Loc: [place] Room: Type: [facility] Attending Dr: Bryson Seals DO Copies to: MD Bryson Cuevas DO Ordering Provider: Bryson Seals DO Date of Service: 03/09/23 MM/MM biopsy RT vac assist stereo: RT BREAST ASYMMETRY ([id number]) MM/MM post biopsy RT w/CAD: POST BX [...] Stroud Jr., D.O.03/14/2023 3:19 PM Dictation Location: [place] [address] Addendum Dictated By: Yogesh Stroud Jr, DO Addendum Signed By: <Electronically signed by Yogesh Stroud Jr, DO in OV> 03/14/231518 Addendum Cosigned By: DD/ /28/1517 TD/TT: [...] and local anesthetization with lidocaine, an 9-gauge [employer] vacuum assisted core biopsy needle was advanced [...] quick recovery. MM/MM post biopsy RT w/CAD Procedure Note Radiology, Radiologist, - 03/20/2023 [facility] Main [place] [address] [place] [address] Mammography Report Signed with Addenda Patient: Mary Granados CMR#: [id number] : 1975Acct:[id number] Age/Sex: 47 / FADM Date: 03/09/23 Loc: [place] Room:Type: [facility] Attending Dr: Bryson Seals DO Copies to: MD Bryson Cuevas DO Ordering Provider: Bryson Seals DO Date of Service: 03/09/23 MM/MM biopsy RT vac assist stereo: RT BREASTASYMMETRY ([id number]) MM/MM post biopsy RT w/CAD: POST BX WITH CLIP ADDENDUM 1 Addendum for pathology: Thomas guided biopsy right breast 11 to 12:00 position 8 to 9 cm from thenipple: Fragments of fibroadenoma. Negative for malignancy. Pathology is discordant with imaging. Excisional biopsy should BEconsidered. If no intervention is performed, diagnostic mammography and ultrasound in 6 months isrecommended. Impression dictated by: Yogesh Stroud Jr., D.O.03/14/2023 3:19 PM Dictation Location: [place] [address] Addendum Dictated By: Yogesh Stroud Jr, DO Addendum Signed By: <Electronically signed by Jr Ralph DO in OV> 03/14/231518 Addendum Cosigned By: DD/ /28/1517 TD/TT: 03/14/2304/28/1519 Thomas guided RIGHT BREAST BIOPSY WITH VACUUM ASSISTED NEEDLE AND MARKINGCLIP PLACEMENT: CLINICAL INDICATION: Architectural distortion right breast TECHNIQUE AND FINDINGS: The procedure, associated risks, benefits werediscussed with the patient and written, informed consent was obtained., imaging was performed and thecoordinates of the lesion were calculated. Following sterile preparation and local anesthetizationwith lidocaine, an 9-gauge [employer] vacuum assisted core biopsy needle was advanced into the breast.Documentation of the needle position was performed both before and after firing of the needle.Multiple core biopsy specimens were obtained of the area of concern. Before the needle was removed, amarking clip was placed. The postbiopsy stereotactic image confirmed clip deployment. Please note that the patient had a vasovagal episode during the procedurewith relatively quick recovery. MM/MM post biopsy RT w/CAD IMPRESSION: TECHNICALLY SUCCESSFUL RIGHT BREAST STEREOTACTIC BIOPSY ENUMERATEDABOVE. IMPRESSION: Successful thomas guided right breast biopsy of architectural distortion. DIAGNOSTIC MAMMOGRAMS: Craniocaudal and lateral views of the right breastwere performed post stereotactic biopsy using low dose digital technique. Comparison is made to the previous mammograms dated 02/28/2023. A markingclip is noted without evidence of migration. IMPRESSION: Successful thomas guided biopsy right breast. RESULT CODE: NL Impression dictated by: Yogesh Stroud Jr., D.O.03/09/2023 11:51 AM Dictation Location: [facility] Transcribed By: [facility] 03/09/23 1151 Dictated By: Yogesh Stroud Jr, DO 03/09/23 1148 Signed By: <Electronically signed by Yogesh Stroud Jr, DO inOV> 03/09/23 1151 Bryson Seals DO IMG BI PROCEDURES Edited Result - Final documented in this encounter Visit Diagnoses Not on filedocumented in this encounter Care Teams Varnisher Apprentice Relationship Specialty Start Date End Date Harish Rojas MD PCP - General Family Medicine 02/21/23 documented as of this encounter
--- OUTSIDE RECORDS SUMMARY | 2025-01-28 09:05 | XMS_ITS | Encounter Summary ---
Author Organization [facility] Address [address] [place] [address] Care Team Providers Care Timber Inspector Name Role Phone Harish Rojas MD Primary Care Provider [phone] Encounter Details Date Type Department Care Team ([facility] Contact Info) Description 01/30/2024 Abstract [facility] [address] [place] [phone] Omar Castro, DPM FACFAS [address] [place] [address] Social History Tobacco Use Types Packs/Day Years [...] Office Visit [facility] OB [address] [facility] [address] [place] [phone] Karyn Johnson DO [address] [facility] [address] [place], [place] [phone] documented as of this encounter Visit Diagnoses Not on filedocumented in this encounter Care Teams Timber Inspector Relationship Specialty Start Date End Date Harish Rojas MD PCP - General Family Medicine 02/21/23 documented as of this encounter
--- OUTSIDE RECORDS SUMMARY | 2025-01-28 09:05 | XMS_ITS | Encounter Summary ---
Author Organization [facility] Address [address] [place] [address] Care Team Providers Care Shank Pinner Name Role Phone Harish Rojas MD Primary Care Provider [phone] Encounter Details Date Type Department Care Team (Late Contact Info) Description 03/12/[address] [facility] [address] [facility] [address] [place] [id number] Bryson Seals, DO [address] [facility] [address] [place] [address] Social History Tobacco Use Types Packs/Day Years [...] Office Visit [facility] OB [address] [facility] [address] [place] [address] Karyn Johnson, DO [address] [facility] [address] [place] [address] documented as of this encounter Visit Diagnoses Not on filedocumented in this encounter Care Teams Shank Pinner Relationship Specialty Start Date End Date Harish Rojas MD PCP - General Family Medicine 02/21/23 documented as of this encounter
[2025-01-28 10:33] LABS: Alanine Aminotransferase 21 U/L (14-59); Albumin Globulin Ratio 1.1; Albumin Level 3.7 g/dL (3.4-5.0); Alkaline Phosphatase 71 U/L (46-116); Anion Gap 11.4; Aspartate Amino Transferase 12 U/L (15-37); BUN Creatinine Ratio 16.3; Bilirubin Total 0.5 mg/dL (0.2-1.0); Carbon Dioxide 25.5 mmol/L (21.0-32.0); Chloride 109 mmol/L (98-107); Estimated GFR (African America >60 (>=60 mL/min/1.73m^2); Estimated GFR (Non-African Ame 57 (>=60 mL/min/1.73m^2); Free T3 2.93 pg/mL (2.18-3.98); Globulin 3.4 g/dL; Glucose 101 mg/dL (74-106); Potassium 3.9 mmol/L (3.5-5.1); Sodium 142 mmol/L (136-145); Thyroid Stimulating Hormone 0.026 uIU/mL (0.358-3.740); Total Protein 7.1 g/dL (6.4-8.2)
[2025-01-29 04:07] LABS: Insulin 7.9 uIU/mL (2.6-24.9)
== END 2025-01-28 09:00 | disposition home or self-care (01) ==
LOC: LAB 09:02
PROVIDERS: PCP Family Medicine; Visit Provider Family Medicine
DX: I11.0 Hypertensive heart disease with heart failure (principal); D64.9 Anemia, unspecified; R53.83 Other fatigue
CPT/HCPCS: 36415; 80053; 83525; 83540; 83880; 84436; 84443; 84481

== ENCOUNTER 2025-04-22 11:22 | Outpatient (OUT) | payer OTHER, SELFPAY ==
--- OUTSIDE RECORDS SUMMARY | 2025-03-10 06:00 | XMS_ITS ---
Author Organization [facility] in [place] Address [address] [place] [address] Care Team Providers Care Lead Embedded Software Engineer Name Role Phone Jose Antonio Rojas Primary Care Provider Allergies Allergen (clinical drug ingredient) Drug/Non Drug Allergy documented on EMR Reaction Allergy Type Onset Date Status sumatriptan Imitrex wheezing Drug Allergy Activ e Diclofenac abd pain Drug Allergy Active levofloxacin levoFLOXacin Insomnida Drug Allergy A ctive REASON FOR VISIT Adipex f/u- 3rd script- no side effects Medications Medication SIG (Take, Route, Frequency, Duration) Notes Start Date End Date Status Restasis 0.05 % Ophthalmic for 30 Days Active Trokendi XR 200 mg TAKE 1 CAPSULE DAILY Active Synthroid 100 MCG 1 tablet Oral Once a day for 90 days Active Viberzi 100 MG 1 tablet Oral Twice a day for 90 days 12/04/2024 Active Wellbutrin XL 300 MG 1 tablet in the mor steven Orally Once a day for 90 days 11/19/2023 Active Relpax 40 MG 1 tablet Orally at o nset of migraine; may repeat at 2hrs if needed- max 2 per day for 30 days Active Adipex-P 37.5 MG 1 tablet before jessica kfast Orally Once a day 03/10/2025 Active Liothyronine Sodium 5 MCG 2 tablet on an empty stomach Orally Once a day for 90 days Active Csjnqccocs-THON-Yusitqrx 50-325-40 MG TAKE 1 CAPSULE BY MOUTH EVERY 6 HOURS NEEDED for 30 12/04/2024 Active Social History Tobacco Use: Social History Observation Description Date Details (start date - stop date) Never Smoker NA - NA Tobacco Use/Smoking Question Answer Notes Patient is a nonsmoker Vital Signs Weight 157.4 lbs 03/10/2025 Height 64 in 03/10/2025 Blood pressure systolic 138 mm Hg 03/10/20 25 Blood pressure diastolic 72 mm Hg 025 BMI 27.01 kg/m2 03/10/2025 Encounters Encounter Location Date Provider Diagnosis [facility] [address] [place] [address] 03/10/2025 Jose Antonio Rojas Benign essential hypertension I10 Assessments Encounter Date Diagnosis (ICD Code) Assessment Notes Treatment Notes Treatment Clinical Notes Section Notes 03/10/2025 Benign essential hypertension (ICD-10 - I10) Plan Of Treatment Medication Medication Name Sig Start Date Stop Date Notes Adipex-P 37.5 MG 1 tablet before jessica kfast Orally Once a day 03/10/2025 Next Appt Details Provider Name:Jose Antonio Rojas, 04:15:00 PM, [address] [place], [address], Progress Notes * Mary RAY CDOB:[birth year] (49 yo F)Acc No.[id number]:03/10/2025 Progress Note Patient: Mary LAYTON Provider: Florence Rojas ([facility])MD :1975 A ge:49 Y S ex:Female Date:03/10/2025 Address:[facility] [id number] Check In:09:54 AM ESTCheck O ut:10:13 AM EST Subjective: * Chief Complaints: * A dipex f/u- 3rd script- no side effects * HPI: G eneral: Dosin weell with diet and excercise plan. * ROS: E ENT: hearing changes d enies. v isual changes d enies.?non-healing mouth sores d enies. s wollen glands or neck lumps d enies. h oarseness d enies. s ore throat d enies. d ifficulty swallowing d enies. n ose bleeds d enies. n jacinta congestion d enies. e ar ache d enies. e ar discharge?denies. r inging in ears d enies. l ight sensitivity d enies. e ye pain d enies. b lurring d enies. e ye irritation d enies. d ouble vision d enies.?vision loss d enies. G eneral/Constitutional: Sweats: D enies. F atigue d enies. S leep problems d enies. A norexia d enies. M alaise d enies. W eight loss d enies.?Fatigue or Weakness d enies. F ever or Chills d enies. C ardiovascular: Shortness of Breath w/lying flat d enies. L ightheadedness/dizziness d enies. C hest tightness/ heavy pressure d enies. S welling of legs, ankles, or feet d enies. W aking up with shortness of breath d enies. C hest pain denies. P alpitations d enies. W eight gain d enies. R espiratory: Chronic or frequent cough d enies. C oughing up blood?denies. D ifficulty breathing d enies. P roductive cough d enies. S noring?denies. S hortness of breath that awakens from sleep (PND) d enies. C hest pain d enies. S putum production d enies. W heezing d enies. M usculoskeletal: Joint pain d enies. J oint Fluid d enies. B ack pain d enies. K nee pain d enies. N audrey pain d enies. J oint Stiffness d enies. M uscle cramps d enies. W eakness of muscles d enies. A rthritis d enies. M uscle aches d enies. P ain in shoulder(s) d enies. S wollen joints d enies. * Active Problem List J30.9 Allergic rhinitis, u nspecified Modified On:11/22/2022W/U Status:confirmed G43.909 Migraine headache Modified On:07/25/2023W/U Status:confirmed I10 Benign essential hyp ertension Modified On:08/22/2023U Status:confirmed E03.9 Hypothyroidism Modified On:07/11/2023 Status:confirmed F41.9 Anxiety disorder Modified On:11/22/2022 Status:confirmed E04.2 Multiple thyroid nod ules Modified On:11/22/2022 Status:confirmed E06.3 Mary's thyroidi tis Modified On:11/22/2022 Status:confirmed L30.9 Chronic eczema Modified On:11/22/2022 Status:confirmed K58.9 Irritable bowel synd lore (IBS) Modified On:11/22/2022 Status:confirmed 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 M other: alive. S ister(s): alive. S on(s): alive. D aughter(s): alive. 2 sister(s) . 2 son(s) , 1 daughter(s) - healthy. . * Social History: T obacco Use: T obacco Use/Smoking P atient is a n onsmoker * Medications: T akingAdipex-P(Phentermine HCl) 37.5 MG Tablet 1 tablet before breakfast Orally Once a day Qbypilnvjy-EQLH-Rrypvrgk 50-325-40 MG Capsule TAKE 1 CAPSULE BY MOUTH EVERY 6 HOURS NEEDED Liothyronine Sodium 5 MCG Tablet 2 tablet on an empty stomach Orally Once a day Relpax(Eletriptan Hydrobromide) 40 MG Tablet 1 tablet Orally at onset of migraine; may repeat at 2hrs if needed- max 2 per day Restasis(cycloSPORINE) 0.05 % Emulsion Ophthalmic Synthroid(Levothyroxine Sodium) 100 MCG Tablet 1 tablet Oral Once a day Trokendi XR(Topiramate ER) 200 mg Capsule Extended Release 24 Hour TAKE 1 CAPSULE DAILY Viberzi(Eluxadoline) 100 MG Tablet 1 tablet Oral Twice a day Wellbutrin XL(buPROPion HCl ER (XL)) 300 MG Tablet Extended Release 24 Hour 1 tablet in the morning Orally Once a day Medication List reviewed and reconciled with the patientTaking Adipex-P(Phentermine HCl) 37.5 MG Tablet 1 tablet before breakfast Orally Once a day Taking Daifcnxpqb-PSWV-Apssmnuo 50-325-40 MG Capsule TAKE 1 CAPSULE BY MOUTH EVERY 6 HOURS NEEDED Taking Liothyronine Sodium 5 MCG Tablet 2 tablet on an empty stomach Orally Once a day Taking Relpax(Eletriptan Hydrobromide) 40 MG Tablet 1 tablet Orally at onset of migraine; may repeat at 2hrs if needed- max 2 per day Taking Restasis(cycloSPORINE) 0.05 % Emulsion Ophthalmic Taking Synthroid(Levothyroxine Sodium) 100 MCG Tablet 1 tablet Oral Once a day Taking Trokendi XR(Topiramate ER) 200 mg Capsule Extended Release 24 Hour TAKE 1 CAPSULE DAILY Taking Viberzi(Eluxadoline) 100 MG Tablet 1 tablet Oral Twice a day Taking Wellbutrin XL(buPROPion HCl ER (XL)) 300 MG Tablet Extended Release 24 Hour 1 tablet in the morning Orally Once a day Medication List reviewed and reconciled with the patient * Allergies: I mitrex: wheezingDiclofenac: abd pain - Criticality LowlevoFLOXacin: Insomnidano[Allergies Verified] Objective: * Vitals: W t:157.4lbs, Ht: 64 in, BP:138/72mm Hg, BMI:27.01Index, Wt-k.4 kg. * Examination: P hysical Exam: GENERAL: w ell developed, well nourished, in no acute distress. HEAD: n ormocephalic/atraumatic. EYES: p upils equal, round and reactive to light, conjunctivae and sclerae normal. EARS: n o deformity or lesion of external ear, canals and TM appear normal bilaterally, TM's intact, not inflamed with normal light reflex, hearing grossly normal to conversational speech. NOSE: n o deformity, discharge, inflammation, or lesions.? MOUTH: m ucous membranes moist, normal oropharynx and posterior pharynx without lesions or exudates, tongue normal, dentition normal. NECK: n audrey supple, no masses or palpable cervical nodes, trachea midline, thyroid without nodules, masses, tenderness, or enlargement. CHEST: n o chest wall deformity, no chest wall tenderness.? LUNGS: n ormal respiratory effort and clear to auscultation, no wheezes, rales, or rhonchi, good air exchange. CARDIO: r egular rate and rhythm, normal S1 and S2, nor murmur, rub, or gallop. PULSES: n ormal capillary refill. ABDOMEN: s oft, non-distended, non-tender, no masses. MUSCULOSKELETAL: n o deformity or scoliosis noted, normal range of motion, joints normal, no erythema, edema, effusion, or ecchymosis. EXTREMITY: n o clubbing, cyanosis, edema, or deformity with normal ROM in both upper and lower bilateral extremities. NEUROLOGIC: g rossly normal. SKIN: n o rashes, ulcerations, or suspicious lesions. LYMPH NODES: n o cervical adenopathy, nodes normal. MENTAL STATUS: a lert and oriented x3, normal mood and affect. Assessment: * Assessment: 1. B enign essential hypertension - I10 (Primary) Plan: * Treatment: * Procedure Codes: * Preventive Medicine: Screenings/Counseling: B VT ACTION PLAN Above Normal BMI Follow-up D ietary management education, guidance, and counseling * * Sign off status: Completed Visit Status: C HK (Check Out) true * Provider: Florence Rojas ([facility])MD Date: 0 03/10/2025 Generated for Chey angel/Autumn/eTransmitting on: 0 04/14/2025 12:25 PM EDT History and Physical Notes * HPI (History of Present Illness) Category Sub-Category Detail Notes Category Not es General Dosin weell wit h diet and excercise plan Examination Category Sub-Category Detail Notes Category Not es Physical Exam GENERAL: well developed, well nourished, in no acute distress HEAD: normocephalic/atraum atic EYES: pupils equal, round and reactive to light, conjunctivae and sclerae normal EARS: no deformity or lesi on of external ear, canals and TM appear normal bilaterally, TM's intact, not inflamed with normal light reflex, hearing grossly normal to conversational speech NOSE: no deformity, discha rge, inflammation, or lesions MOUTH: mucous membranes yeimi st, normal oropharynx and posterior pharynx without lesions or exudates, tongue normal, dentition normal NECK: neck supple, no mass es or palpable cervical nodes, trachea midline, thyroid without nodules, masses, tenderness, or enlargement CHEST: no chest wall deform ity, no chest wall tenderness LUNGS: normal respiratory e ffort and clear to auscultation, no wheezes, rales, or rhonchi, good air exchange CARDIO: regular rate and rhy thm, normal S1 and S2, nor murmur, rub, or gallop PULSES: normal capillary ref ill ABDOMEN: soft, non-distended, non-tender, no masses RECTAL: MUSCULOSKELETAL: no deformity or scol iosis noted, normal range of motion, joints normal, no erythema, edema, effusion, or ecchymosis EXTREMITY: no clubbing, cyanosi s, edema, or deformity with normal ROM in both upper and lower bilateral extremities NEUROLOGIC: grossly normal SKIN: no rashes, ulceratio ns, or suspicious lesions LYMPH NODES: no cervical adenopat hy, nodes normal MENTAL STATUS: alert and oriented x 3, normal mood and affect
--- OUTSIDE RECORDS SUMMARY | 2025-03-24 16:32 | XMS_ITS ---
Author Organization [facility] in [place] Address [address] [place] [address] Care Team Providers Care Sheet Metal Duct Worker Supervisor Name Role Phone Jose Antonio Rojas Primary Care Provider [phone] REASON FOR VISIT lab results Encounters Encounter Location Date Provider Diagnosis [facility] [address] [place] [address] 03/24/2025 Jose Antonio Crystal Plan Of Treatment Next Appt Details Provider Name:Jose Antonio Rojas, 04:15:00 PM, [address] [place], [address], Progress Notes * Mary RAY CDOB:[birth year] (49 yo F)Acc No.[id number]:03/24/2025 Patient: Mary LAYTON :1975 A ge:49 Y S ex:Female Address:[address], [place], [address] * true * Date: Generated for Printi ng/Faxing/eTransmitting on: 0 04/14/2025 12:25 PM EDT
--- OUTSIDE RECORDS SUMMARY | 2025-03-25 10:00 | XMS_ITS ---
Author Organization The [facility] in [place] Address [address] [place] [address] Care Team Providers Care Payroll Tax Analyst Name Role Phone Jose Antonio Rojas Primary Care Provider [phone] Allergies Allergen (clinical drug ingredient) Drug/Non Drug Allergy documented on EMR Reaction Allergy Type Onset Date Status sumatriptan Imitrex wheezing Drug Allergy Activ e Diclofenac abd pain Drug Allergy Active levofloxacin levoFLOXacin Insomnida Drug Allergy A ctive REASON FOR VISIT Abdominal pain, Not Feeling Well, Abnormal Labs Medications Medication SIG (Take, Route, Frequency, Duration) Notes Start Date End Date Status Restasis 0.05 % Ophthalmic for 30 Days Active Relpax 40 MG 1 tablet Orally at o nset of migraine; may repeat at 2hrs if needed- max 2 per day for 30 days Active Protonix 40 MG 1 tablet Orally Once a day for 30 days 03/25/2025 Active Hyoscyamine Sulfate 0.125 MG 1-2 tabs SL SL every 4 hrs PRN abd pain 03/25/2025 Active Liothyronine Sodium 5 MCG 2 tablet on an empty stomach Orally Once a day for 90 days Active Yhujlivscr-ZQUB-Tfgpohsi 50-325-40 MG TAKE 1 CAPSULE BY MOUTH EVERY 6 HOURS NEEDED for 30 12/04/2024 Active Trokendi XR 200 mg TAKE 1 CAPSULE DAILY Active Adipex-P 37.5 MG 1 tablet before jessica kfast Orally Once a day 03/10/2025 Active Viberzi 100 MG 1 tablet Oral Twice a day for 90 days 12/04/2024 Active Wellbutrin XL 300 MG 1 tablet in the mor steven Orally Once a day for 90 days 11/19/2023 Active Synthroid 100 MCG 1 tablet Oral Once a day for 90 days Active Social History Tobacco Use: Social History Observation Description Date Details (start date - stop date) Never Smoker NA - NA Tobacco Use/Smoking Question Answer Notes Patient is a nonsmoker AUDIT-C (Standard) Question Answer Notes Did you have a drink containing alcohol in the p ast year? No Points 0 Interpretation Negative Problems Problem Type SNOMED Code ICD Code Onset Dates Problem Status W/U Status Risk Notes Problem Gastritis (9161024) Gastritis (K29.70) Active confirmed Vital Signs Weight 158.0 lbs 03/25/2025 Height 64 in 03/25/2025 Blood pressure systolic 140 mm Hg 03/25/20 Blood pressure diastolic 80 mm Hg 025 BMI 27.12 kg/m2 03/25/2025 Encounters Encounter Location Date Provider Diagnosis [facility] [address] [place] [address] 03/25/2025 Jose Antonio Rojas Gastritis K29.70 Assessments Encounter Date Diagnosis (ICD Code) Assessment Notes Treatment Notes Treatment Clinical Notes Section Notes 03/25/2025 Gastritis (ICD-10 - K29.70) Plan Of Treatment Medication Medication Name Sig Start Date Stop Date Notes Protonix 40 MG 1 tablet Orally Once a day for 30 days 03/25/2025 Hyoscyamine Sulfate 0.125 MG 1-2 tabs SL SL every 4 hrs PRN abd pain 03/25/2025 Pending Test Test Name Order Date CULTURE, STOOL 03/25/2025 C DIFF TOX PCR STOOL 03/25/2025 Next Appt Details Provider Name:Jose Antonio Rojas, 04:15:00 PM, [address] [place], [address], Progress Notes * Mary RAY CDOB:[birth year] (49 yo F)Acc No.[id number]:03/25/2025 Progress Note Patient: Mary LAYTON Provider: Florence Rojas ([facility])MD :1975 A ge:49 Y S ex:Female Date:03/25/2025 Address:[address] [place] [address] [address], [place], [id number] Check In:01:59 PM ESTCheck O ut:02:38 PM EST Subjective: * Chief Complaints: * A bdominal pain, Not Feeling Well, Abnormal Labs * HPI: G eneral: abd pain -0 sgtarted 4-5 day ago - felt like her IBS over gatito weekend f eels more bloated than normal - and couldnt eat - + diarrhea -no blood - watery no unusual foods - stil on meds -. * Active Problem List J30.9 Allergic rhinitis, u nspecified Modified On:11/22/2022 Status:confirmed G43.909 Migraine headache Modified On:07/25/2023 Status:confirmed I10 Benign essential hyp ertension Modified On:08/22/2023 Status:confirmed E03.9 Hypothyroidism Modified On:07/11/2023 Status:confirmed F41.9 Anxiety disorder Modified On:11/22/2022 Status:confirmed E04.2 Multiple thyroid nod ules Modified On:11/22/2022U Status:confirmed E06.3 Mary's thyroidi tis Modified On:11/22/2022U Status:confirmed L30.9 Chronic eczema Modified On:11/22/2022U Status:confirmed K58.9 Irritable bowel synd lore (IBS) Modified On:11/22/2022U Status:confirmed 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 N o P oints 0 I nterpretation N egative * Medications: T akingAdipex-P(Phentermine HCl) 37.5 MG Tablet 1 tablet before breakfast Orally Once a day Ofgixwsowl-CPRS-Cesdxako 50-325-40 MG Capsule TAKE 1 CAPSULE BY [...] before breakfast Orally Once a day Taking Orzkptoeji-YSPG-Qdmgrrtt 50-325-40 MG Capsule TAKE 1 CAPSULE BY [...] LowlevoFLOXacin: Insomnidano[Allergies Verified] Objective: * Vitals: W t:158.0lbs, Ht: 64 in, BP:140/80mm Hg, BMI:27.12Index, Wt-k.67 kg. * Examination: A bdomen Exam:: E pigastric area iwht sig tendnerness. Assessment: * Assessment: Leighton mendez - K29.70 (Primary) Plan: * Treatment: * Procedure Codes: * * Sign off status: Completed Visit Status: C HK (Check Out) true * Provider: Florence Rojas ([facility])MD Date: 0 03/25/2025 Generated for Chey angel/Autumn/Trenasmitting on: 0 04/14/2025 12:25 PM EDT History and Physical Notes * HPI (History of Present Illness) Category Sub-Category Detail Notes Category Not es General abd pain -0 sgtarted 4-5 day ago - felt like her IBS over gatito weekend feels more bloated than normal - and couldnt eat - + diarrhea -no blood - watery no unusual foods - stil on meds - Examination Category Sub-Category Detail Notes Category Not es Abdomen Exam: Epigastric are a iwht sig tendnerness
--- OUTSIDE RECORDS SUMMARY | 2025-03-25 10:00 | XMS_ITS ---
Author Organization [facility] in [place] Address [address] [place] [address] Care Team Providers Care Catering Attendant Name Role Phone Jose Antonio Rojas Primary Care Provider [phone] Allergies Allergen (clinical drug ingredient) Drug/Non Drug [...] Once a day for 90 days Active Xvcmvoemqo-VKKG-Iujjglfp 50-325-40 MG TAKE 1 CAPSULE BY MOUTH [...] Status W/U Status Risk Notes Problem Gastritis (2651945) Gastritis (K29.70) Active confirmed Vital Signs Blood pressure systolic 140 mm Hg 03/25/20 25 Blood pressure diastolic 80 mm Hg 025 Height 64 in 03/25/2025 Weight 158.0 lbs 03/25/2025 BMI 27.12 kg/m2 03/25/2025 Encounters Encounter Location Date Provider Diagnosis [facility] [address] [place] [address] 03/25/2025 Jose Antonio Rojas Gastritis K29.70 Assessments [...] Next Appt Details Provider Name:Jose Antonio Rojas, 11:15:00 AM, [address] [place], [address], Progress Notes * Mary RAY CDOB:[birth year] (49 yo F)Acc No.[id number]:03/25/2025 Progress Note Patient: Mary LAYTON Provider: Florence Rojas ([facility])MD :1975 A ge:49 Y S ex:Female Date:03/25/2025 Address:[address] [place] [address] [address], [place], [id number] Check In:01:59 PM ESTCheck O ut:02:38 PM [...] is a n onsmoker D rug/Alcohol: A KEIKO-C (Standard) D id you have a drink containing alcohol in the past year? N o P oints 0 I nterpretation N egative * Medications: T akingAdipex-P(Phentermine HCl) 37.5 MG Tablet 1 tablet before breakfast Orally Once a day Trgtpudvwf-QPOM-Lvsqriub 50-325-40 MG Capsule TAKE 1 CAPSULE BY [...] before breakfast Orally Once a day Taking Wsdezrgjrz-BGFR-Pcylyors 50-325-40 MG Capsule TAKE 1 CAPSULE BY [...] (Check Out) true * Provider: Florence Rojas ([facility])MD Date: 0 03/25/2025 Generated for Chey angel/Autumn/Trenasmitting on: 0 04/16/2025 10:22 AM EDT History and Physical Notes * HPI [...]
--- OUTSIDE RECORDS SUMMARY | 2025-03-31 04:07 | XMS_ITS ---
Author Organization [facility] in [place] Address [address] [place] [address] Care Team Providers Care Photoengraving Proofer Apprentice Name Role Phone Jose Antonio Rojas Primary Care Provider [phone] REASON FOR VISIT Stool Encounters Encounter Location Date Provider Diagnosis [facility] [address] [place] [address] 03/31/2025 Jose Antonio Rojas Plan Of Treatment Next Appt Details Provider Name:Jose Antonio Rojas, 11:15:00 AM, [address] [place], [address], Progress Notes * Mary RAY CDOB:[birth year] (49 yo F)Acc No.[id number]:03/31/2025 Patient: Mayr LAYTON :1975 A ge:49 Y S ex:Female Address:[address], [place], [address] * true * Date: Generated for Printi ng/Faxing/eTransmitting on: 0 04/16/2025 10:21 AM EDT
--- OUTSIDE RECORDS SUMMARY | 2025-03-31 04:07 | XMS_ITS ---
Author Organization The [facility] in [place] Address [address] [place] [address] Care Team Providers Care Pharmacy Technician Assistant Name Role Phone Jose Antonio Rojas Primary Care Provider REASON FOR VISIT Stool Encounters Encounter Location Date Provider Diagnosis [facility] [address] [place] [address] 03/31/2025 Jose Antonio Rojas Plan Of Treatment Next Appt Details Provider Name:Jose Antonio Rojas, 04:15:00 PM, [address] [place], [address], Progress Notes * Mary RAY CDOB:[birth year] (49 yo F)Acc No.[id number]:03/31/2025 Patient: Mary LAYTON :1975 A ge:49 Y S ex:Female Address:[address], [place], [address] * true * Date: Generated for Printi ng/Faxing/eTransmitting on: 0 04/14/2025 12:25 PM EDT
--- OUTSIDE RECORDS SUMMARY | 2025-04-09 12:51 | XMS_ITS ---
Author Organization The [facility] in [place] Address [address] [place] [address] Care Team Providers Care Detasseling Crew Supervisor Name Role Phone Jose Antonio Rojas Primary Care Provider [phone] REASON FOR VISIT rf pantoprazole Medications Medication SIG (Take, Route, Fr equency, Duration) Notes Start Date End Date Status Protonix 40 MG 1 tablet Orally Once a day for 90 days 03/25/2025 Active Encounters Encounter Location Date Provider Diagnosis [facility] [address] [place] [address] 04/09/2025 Jose Antonio Rojas Gastritis K29.70 Assessments Encounter Date Diagnosis (ICD Code) Assessment Notes Treatment Notes Treatment Clinical Notes Section Notes 04/09/2025 Gastritis (ICD-10 - K29.70) Plan Of Treatment Medication Medication Name Sig Start Date Stop Date Notes Protonix 40 MG 1 tablet Orally Once a day for 90 days 03/07 Next Appt Details Provider Name:Jose Antonio Rojas, 04:15:00 PM, [address] [place], [address], Progress Notes * Mary RAY CDOB:[birth year] (49 yo F)Acc No.[id number]:04/09/2025 Patient: Dago CARBALLOMary CARLOS :1975 A ge:49 Y S ex:Female Address:[address], [place], [address] * Refills Refill Protonix Tablet Delayed Release, 40 MG, Orally, 90 Tablet, 1 tablet, Once a day, 90 days, Refills=3 * true * Date: Generated for Chey angel/Autumn/Emerita on: 0 04/14/2025 12:25 PM EDT
--- OUTSIDE RECORDS SUMMARY | 2025-04-09 12:51 | XMS_ITS ---
Author Organization The [facility] in [place] Address [address] [place] [address] Care Team Providers Care Payroll Accountant Name Role Phone Jose Antonio Rojas Primary Care Provider [phone] REASON FOR VISIT rf pantoprazole Medications Medication SIG (Take, Route, Fr equency, Duration) Notes Start Date End Date Status Protonix 40 MG 1 tablet Orally Once a day for 90 days 03/25/2025 Active Encounters Encounter Location Date Provider Diagnosis [facility] [address] [place] [address] 04/09/2025 Jose Antonio Rojas Gastritis K29.70 Assessments Encounter Date Diagnosis (ICD Code) Assessment Notes Treatment Notes Treatment Clinical Notes Section Notes 04/09/2025 Gastritis (ICD-10 - K29.70) Plan Of Treatment Medication Medication Name Sig Start Date Stop Date Notes Protonix 40 MG 1 tablet Orally Once a day for 90 days 03/07 Next Appt Details Provider Name:Jose Antonio Rojas, 11:15:00 AM, [address] [place], [address], Progress Notes * Mary RAY CDOB:[birth year] (49 yo F)Acc No.[id number]:04/09/2025 Patient: Dago CARBALLOMary CARLOS :1975 A ge:49 Y S ex:Female Address:[address], [place], [address] * Refills Refill Protonix Tablet Delayed Release, 40 MG, Orally, 90 Tablet, 1 tablet, Once a day, 90 days, Refills=3 * true * Date: Generated for Chey angel/Autumn/Emerita on: 0 04/16/2025 10:20 AM EDT
--- OUTSIDE RECORDS SUMMARY | 2025-04-14 09:03 | XMS_ITS ---
Author Organization The [facility] in [place] Address [address] [place] [address] Care Team Providers Care Colliery Clerk Name Role Phone Jose Antonio Rojas Primary Care Provider REASON FOR VISIT repeat labs Encounters Encounter Location Date Provider Diagnosis [facility] [address] [place] [address] 04/14/2025 Jose Antonio Rojas Benign essential hypertension I10 and Fatigue R53.83 Assessments Encounter Date Diagnosis (ICD Code) Assessment Notes Treatment Notes Treatment Clinical Notes Section Notes 04/14/2025 Benign essential hypertension (ICD-10 - I10) 04/14/2025 Fatigue (ICD-10 - R53.83) Plan Of Treatment Pending Test Test Name Order Date COMPREHENSIVE METABOLIC PROFILE WITH GFR 04/14/2025 THYROID PANEL (T4/TSH/FREE T3) 5 Next Appt Details Provider Name:Jose Antonio Rojas, 11:15:00 AM, [address] [place], [address], Progress Notes * Mary RAY CDOB:[birth year] (49 yo F)Acc No.[id number]:04/14/2025 Patient: Dago Mary VERGARA :1975 A ge:49 Y S ex:Female Address:[address], [place], [address] Subjective: * Chief Complaints: * R epeat labs * Medical History: * Surgical History: * Hospitalization/Major Diagno stic Procedure: * Medications: Objective: * Vitals: * Physical Examination: Assessment: * Assessment: 1. B enign essential hypertension - I10 (Primary) 2 . F atigue - R53.83? Plan: * Treatment: 2. F atigue L AB: COMPREHENSIVE METABOLIC PROFILE WITH GFR L AB: THYROID PANEL (T4/TSH/FREE T3) * Procedure Codes: * true * Date: Generated for Chey angel/Autumn/eTransmitting on: 0 04/22/2025 11:27 AM EDT
--- OUTSIDE RECORDS SUMMARY | 2025-04-14 09:03 | XMS_ITS ---
Author Organization The [facility] in [place] Address [address] [place] [address] Care Team Providers Care Mergers And Acquisitions Consultant Name Role Phone Jose Antonio Rojas Primary Care Provider REASON FOR VISIT repeat labs Encounters Encounter Location Date Provider Diagnosis [facility] [address] [place] [address] 04/14/2025 Jose Antonio Rojas Benign essential hypertension [...] Name:Jose Antonio Rojas, 11:15:00 AM, [address] [place], [address], Progress Notes * Mary RAY CDOB:[birth year] (49 yo F)Acc No.[id number]:04/14/2025 Patient: Dago Mary VERGARA :1975 A ge:49 Y S ex:Female Address:[address], [place], [address] Subjective: * Chief Complaints: * R epeat [...] Date: Generated for Chey angel/Autumn/eTransmitting on: 0 04/16/2025 10:21 AM EDT
--- OUTSIDE RECORDS SUMMARY | 2025-04-14 12:25 | XMS_ITS | Encounter Summary ---
Author Organization [facility] Address [address] [place] [address] Care Team Providers Care Bait Maker Name Role Phone Harish Rojas MD Primary Care Provider [phone] Encounter Details Date Type Department Care Team (Late Contact Info) Description 04/03/2023 External Result Encounter [facility] External Department Unsolicited Bryson Seals, DO [address] [facility] [address] [place] [address] Social History Tobacco Use Types [...] Department Care Team (Late Contact Info) Description 03/17/2026 1:45 PM EDT Office Visit [place] [address] [facility] [address] [place] [address] Karyn Johnson, [address] [facility] [address] [place] [address] documented as of this encounter Procedures Procedure Name Priority Date/Time Associated Diagnosis Comments BI MAMMOGRAM DIAGNOSTIC RIGHT 04/03/2023 11:32 AM EDT documented in this encounter Results * Right diagnostic mammogram (04/03/2023 11:32 AM EDT) Anatomical Region Laterality Modality Breast Right Mammography 04/03/2023 11:3 2 AM EDT Narrative 04/04/2023 9:23 AM EDT [place] [id number] Mammography Report Signed Patient: Mary Granados MR#: [id number] : 1975 Acct:[id number] Age/Sex: 47 / F ADM Date: 04/03/23 Loc: [place] Room: Type: [facility] Attending Dr: Bryson Seals DO Copies to: [...] procedure. Impression dictated by: Yogesh Stroud Jr., D.O.04/03/2023 11:32 AM Dictation Location: [place] [address] Transcribed By: [facility] 04/03/23 1132 Dictated By: Yogesh Stroud Jr, DO 04/03/23 1132 Signed By: <Electronically signed by Yogesh Stroud Jr, DO in OV> 04/03/23 1132 Procedure Note Radiology, Radiologist, MD - 04/04/[address] [address] Mammography Report Signed Patient: Mary Granados CMR#: [id number] : 1975Acct:[id number] Age/Sex: 47 / FADM Date: 04/03/23 Loc: [place] Room:Type: [facility] Attending Dr: Bryson Seals DO Copies to: [...] Stroud Jr., D.OJessica04/03/2023 11:32 AM Dictation Location: [place] [address] Transcribed By: [facility] 04/03/23 1132 Dictated By: Yogesh Stroud Jr, DO 04/03/23 1132 Signed By: <Electronically signed by Yogesh Stroud Jr, DO inOV> 04/03/23 1132 us Bryson Seals DO IMG BI PROCEDURES Final R esult documented in this encounter Visit Diagnoses Not on filedocumented in this encounter Care Teams Bait Maker Relationship Specialty Start Date End Date Harish Rojas MD PCP - General Family Medicine 02/21/23 documented as of this encounter
--- OUTSIDE RECORDS SUMMARY | 2025-04-14 12:25 | XMS_ITS | Clinical Summary ---
Author Organization [facility] Address [address] [place] [address] Care Team Providers Care Talent Buyer Name Role Phone Harish Rojas MD Primary Care Provider [phone] Allergies Active Allergy Reactions Criticality Noted Date [...] capsule sustained-relea se 24 hr 01/29/2024 Active ibuprofen 600 MG tablet EVERY 4-6 HOURS 04/03/2023 Active Active Problems Problem Noted Date Diagnosed Date Screening mammogram for high-risk patient 2023 Disorder of tendon of left shoulder region 03/19 Endometriosis of uterus 03/19/2023 Mass of upper outer quadrant of right breast 08/ Tear of left rotator cuff 03/17/2021 Abnormal mammogram 02/10/2021 Deep dyspareunia 08/29/2018 Dysmenorrhea 08/29/2018 Endometriosis 08/29/2018 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 Multiple thyroid nodules 08/08/2012 Encounters Date Type Department Care Team Description 03/10/2025 11:45 AM EDT Office Visit [facility] [address] [place] [address] Karyn Johnson, Encounter for gynecological examination without abnormal finding; Encounter for screening for malignant neoplasm of vagina; Encounter for screening mammogram for breast cancer 03/10/2025 Bamboo flowsheet [facility] [place] [address] [place] [address] Karyn Johnson DO 03/10/2025 Travel from Last 3 Months Immunizations Immunization Administration Dates Next Due Influenza, [...] = 0.6 oz pur e alcohol) Comments No Sex and Gender Information Value Date Recorded Sex Assigned at Not on file Legal Sex Female 7:11 PM EDT Gender Identity Not on file Sexual Orientation Not on file Last Filed Vital Signs Vital Sign Reading Time Taken Comments Blood Pressure 120/84 03/10/2025 12:07 PM EDT Pulse 76 02/15/2024 9:58 AM EDT Temperature - - Respiratory Rate - - Oxygen Saturation - - Inhaled Oxygen Concentration - - Weight 71.2 kg (157 lb) 03/10/2025 12:07 PM EDT Height 162.6 cm (5' 4 ) 03/10/2025 12:07 PM EDT Body Mass Index 26.95 03/10/2025 12:07 PM EDT Plan of Treatment Upcoming Encounters Date Type Department Care Team (Late st Contact Info) Description 03/17/2026 1:45 PM EDT Office Visit [place] [address] [place] [address] Karyn Johnson DO [address] [place] [address] Health Maintenance Due Date Last Done Comments CT Colonography 1975 Colonoscopy 1975 Colorectal Cancer Screening 1975 FIT-DNA 1975 FIT 1975 FOBT 1975 Sigmoidoscopy 1975 Influenza Vaccine (#1) 2025 06/03/2024, 2020 Pap Smear 02/21/2026 02/21/2023 Mammogram 02/25/2026 02/25/2025, 02/04, 09/24/2023, Additional history exists Cervical Cancer Screening 03/05/2029 HPV/Cotest 03/05/2029 03/05/2024, 02/03, 09/14/2021, Additional history exists Procedures Procedure Name Priority Date/Time Associated Diagnosis Comments IGP, RFX APTIMA HPV ASCU Routine 03/10/2025 12:00 AM EDT Encounter for screening for malignant neoplasm of vagina BI MAMMOGRAM SCREENING TOMOSYNTHESIS BILATERAL Routine 02/25/2025 4:11 PM EDT Encounter for screening mammogram for breast cancer THINPREP IMAGING PAP W/REFL HPV MRNA E6/E7 Routine 03/05/2024 12:00 AM EDT Encounter for screening for malignant neoplasm of vagina THINPREP TIS PAP W/REFL HPV MRNA E6/E7 Routine 02/21/2023 3:51 PM EDT Vaginal Pap smear from Last 3 Months or Most Recently Relevant to Health Maintenance Results * IGP, RFX APTIMA HPV ASCU (03/10/2025 12:00 AM EDT) Diagnosis: Comment [facility] Comment: NEGATIVE FOR INTRAEPITHELIAL LESION OR MALIGNANCY. THIS SPECIMEN WAS RESCREENED PART OF OUR RESEARCH ASSOCIATE POLICY PROGRAM. Specimen Adequacy: Comment [facility] Comment: Satisfactory for evaluation. No endocervical cells are present. This is consistent with a history of hysterectomy. Clinician Provided ICD10: Comment [facility] Comment:Z12.72 Performed By: Comment [facility] Comment:Roberta monaco, Director Marketing Communications (ASCP) QC Reviewed By: Comment [facility] Comment:Belkis Glez, Cytol ogist (ASC) Cyto Comments . [facility] Note: Comment [facility] Comment: The Pap smear is a screening test designed to aid in the detection of premalignant and malignant conditions of the uterine cervix. It is not a diagnostic procedure and should not be used as the sole means of detecting cervical cancer. Both false-positive and false-negative reports do occur. Test Methodology: Comment [facility] Comment: This liquid based ThinPrep(R) pap test was screened with the use of an image guided system. . Comment [facility] Comment: The HPV DNA reflex criteria were not met with this specimen result therefore, no HPV testing was performed. 03/10/2025 03/11/2025 Narrative [facility] - 03/13/2025 3:07 PM EDT Performed at: [address] [place] [id number] Coal Cager: Padmini Schulte MD, Phone: [phone] Specimen Comment: [id number] Specimen Comment: No. of containers..01 ThinPrep Vial us Karyn Johnson DO LAB BLOOD ORDERABLES Final Result [facility] * Bilateral screening mammogram with tomosynthesis (02/25/2025 4:11 PM EDT) Anatomical Region Laterality Modality Breast Bilateral Mammography 02/25/2025 4:11 PM EDT Impressions 02/25/2025 4:15 PM EDT NO MAMMOGRAPHIC EVIDENCE OF MALIGNANCY. ROUTINE FOLLOW-UP IS RECOMMENDED IN ONE YEAR. RESULT CODE: 1 Negative DENSITY CODE: 2 (approximately 25-50% glandular) There are scattered areas of fibroglandular density. FOLLOW UP: 1YR The false-negative rate of mammography is approximately 10-percent. Management of a palpable abnormality must be based on clinical grounds. Patient was entered into a reminder system with a target due date for the next mammogram. Impression dictated by: Bhavin Paredes M.D. 02/25/2025 4:12 PM Dictation Location: [facility] Dictated By: Bhavin Paredes MD 02/25/25 1611 Signed By: <Electronically signed by Bhavin Paredes MD in OV> 02/25/25 1612 Narrative 02/25/2025 4:15 PM EDT [facility] [address] [place] [address] Mammography Report Signed Patient: Mary Granados MR#: [id number] : 1975 Acct:[id number] Age/Sex: 49 / F Adm Date: 02/25/25 Loc: ID Room: Type: [facility] Attending Dr: Karyn Johnson DO Ordering Provider: Karyn Johnson DO Date of Service: 02/25/25 Procedure(s): MM screening mammo BI w/CAD Accession Number(s): ([id number]) MM/MM screening mammo BI w/CAD: screening Copies to: MD Karyn Cuevas DO CLINICAL DATA: Screening for malignancy. SCREENING MAMMOGRAM - FULL FIELD DIGITAL WITH TOMOSYNTHESIS AND CAD COMPARISON:Priors dating back to 2023 Tomosynthesis craniocaudal and mediolateral oblique views of both breasts were obtained using low- dose digital technique. This examination was reviewed with the aid of CAD. The breast tissue is composed of scattered fibroglandular densities. There are no dominant masses, typically malignant calcifications or architectural distortion. There has been no significant interval change. MM/MM screening mammo BI w/CAD Procedure Note Radiology, Radiologist, - 02/25/2025 [facility] [address] [place] [address] Mammography Report Signed Patient: Mary Granados CMR#: [id number] : 1975Acct:[id number] Age/Sex: 49 / FAdm Date: 02/25/25 Loc: ID Room:Type: [facility] Attending Dr: Karyn Johnson DO Ordering Provider: Karyn Johnson DO Date of Service: 02/25/25 Procedure(s): MM screening mammo BI w/CAD Accession Number(s): ([id number]) MM/MM screening mammo BI w/CAD:screening Copies to: MD Karyn Cuevas DO CLINICAL DATA: Screening for malignancy. SCREENING MAMMOGRAM - FULL FIELD DIGITAL WITH TOMOSYNTHESIS AND CAD COMPARISON:Priors dating back to 2023 Tomosynthesis craniocaudal and mediolateral oblique views of both breastswere obtained using low- dose digital technique. This examination was reviewed with the aid ofCAD. The breast tissue is composed of scattered fibroglandular densities.There are no dominant masses, typically malignant calcifications or architectural distortion. There hasbeen no significant interval change. MM/MM screening mammo BI w/CAD IMPRESSION: NO MAMMOGRAPHIC EVIDENCE OF MALIGNANCY. ROUTINE FOLLOW-UP IS RECOMMENDED IN ONE YEAR. RESULT CODE: 1 Negative DENSITY CODE: 2 (approximately 25-50% glandular) There are scattered areasof fibroglandular density. FOLLOW UP: 1YR The false-negative rate of mammography is approximately 10-percent. Management of a palpable abnormality must be based on clinical grounds. Patient was entered into a reminder system with a target due date for thenext mammogram. Impression dictated by: Bhavin Paredes M.D. 02/25/2025 4:12 PM Dictation Location: [facility] Dictated By: Bhavin Paredes MD 02/25/25 1611 Signed By: <Electronically signed by Bhavin Paredes MD in OV> 02/25/25 1612 us Karyn Johnson DO IMG BI PROCEDURES Final Res ult * THINPREP IMAGING PAP W/REFL HPV MRNA [...] has been evaluated with computer assisted technology. GEAR STRAIGHTENER [facility] Comment: JEH, CT(ASCP) CT screening location: [place] [address]. (ALWAYS MESSAGE) [facility] Comment: EXPLANATORY NOTE: The [...] Performing Organization Information Site ID: [id number] Name: [facility] Address: [address] [place] [address], [address] [place] [phone] Director: Werner Hines MD Karyn Johnson DO LAB CYTOLOGY ORDERABLES Fin al Result Performing Organization Address City/State/[facility] Co de Phone Number [facility] * THINPREP TIS PAP W/REFL HPV MRNA E6/E7 (02/21/2023 3:51 PM EDT) CLINICAL INFORMATION [facility] Comment:None given LMP [facility] Comment:HYST PREV. PAP [facility] Comment:2021 PREV. BX [facility] Comment:NONE GIVEN SOURCE [facility] Comment:Vagina STATEMENT OF ADEQUACY [facility] Comment:SATISFACTORY FOR MELANIA LUATION INTERPRETATION/RESUL T [facility] Comment: Cytology Results: Negative for intraepithelial lesion or malignancy. GEAR STRAIGHTENER [facility] Comment: LLT, CT(ASCP) CT screening location: [facility] [place], [address], [place] [address]. REVIEW GEAR STRAIGHTENER [facility] Comment: Reference Range: ZL, CT(ASCP) CT screening location: [facility] [place], [address] [place] [address], [place] [address]. (ALWAYS MESSAGE) [facility] Comment: EXPLANATORY NOTE: The [...] Performing Organization Information Site ID: [id number] Name: [facility] Address: [address] [place] [address], [address] [place] [phone] Director: Werner Hines MD Karyn Johnson DO LAB CYTOLOGY ORDERABLES Fin al Result [facility] from Last 3 Months or Most Recently Relevant to Health Maintenance Insurance [employer] Care Teams Talent Buyer Relationship Specialty Start Date End Date Harish Rojas MD PCP - General Family Medicine 02/21/23
--- OUTSIDE RECORDS SUMMARY | 2025-04-14 12:25 | XMS_ITS | Encounter Summary ---
Author Organization [facility] Address [address] [place] [address] Care Team Providers Care Pouncing Machine Operator Name Role Phone Harish Rojas MD Primary Care Provider [phone] Encounter Details Date Type Department Care Team (Late st Contact Info) Description 02/25/2024 External Result Encounter [facility] External Department Unsolicited Bryson Seals, DO [address] [facility] [address] [place] [address] Social History Tobacco Use Types Packs/Day Years [...] EDT Office Visit [place] [address] [facility] [address] [place] [address] Karyn Johnson DO [address] [facility] [address] [place] [address] documented as of this encounter [...] Javier Sellers M.D.02/25/2024 10:50 AM Dictation Location: [facility] Transcribed By: [facility] 02/25/24 1050 Dictated By: Francisco Javier Sellers DO 02/25/24 1043 Signed By: <Electronically signed by Francisco Javier Sellers DO in OV> 02/25/24 1050 Narrative 02/25/2024 10:53 AM EDT [facility] [place] [address] [place] [address] Mammography Report Signed Patient: Mary Granados MR#: [id number] : 1975 Acct:[id number] Age/Sex: 48 / F ADM Date: 02/25/24 Loc: [place] Room: Type: [facility] Attending Dr: [...] BI w/CAD Procedure Note Radiology, Radiologist, - 02/25/2024 [facility] [place] [address] [place], [place] [id number] Mammography Report Signed Patient: Mary Granados CMR#: [id number] : 1975Acct:[id number] Age/Sex: 48 / FADM Date: 02/25/24 Loc: [place] Room:Type: [facility] Attending Dr: Bryson [...] Javier Sellers M.D.02/25/2024 10:50 AM Dictation Location: [facility] Transcribed By: [facility] 02/25/24 1050 Dictated By: Francisco Javier Sellers DO 02/25/24 1043 Signed By: <Electronically signed by Francisco Javier Sellers DO in OV> 02/25/24 1050 us Bryson Seals DO IMG BI PROCEDURES Final R esult documented in this encounter Visit Diagnoses Not on filedocumented in this encounter Care Teams Pouncing Machine Operator Relationship Specialty Start Date End Date Harish Rojas MD PCP - General Family Medicine 02/21/23 documented as of this encounter
--- OUTSIDE RECORDS SUMMARY | 2025-04-14 12:25 | XMS_ITS | Encounter Summary ---
Author Organization [facility] Address [address] [place] [address] Care Team Providers Care Order Builder Name Role Phone Harish Rojas MD Primary Care Provider [phone] Encounter Details Date Type Department Care Team (Late Contact Info) Description 03/30/2023 External Result Encounter [facility] External Department Unsolicited Bryson Seals, DO [address] [facility] [address] [place] [address] Social History Tobacco Use Types [...] EDT Office Visit [place] [address] [facility] [address] [place] [address] Karyn Johnson DO [address] [facility] [address] [place] [address] documented as of this encounter [...] Stroud Jr., D.OJessica03/30/2023 12:13 PM Dictation Location: [facility] Tech: Ce Farooq Castillo Transcribed By: NEGAR 03/30/23 1213 Dictated By: Yogesh Stroud Jr, DO 03/30/23 1104 Signed By: <Electronically signed by Yogesh Stroud Jr, DO in OV> 03/30/23 1213 Narrative 03/30/2023 1:57 PM EDT [facility] [place] [address] [place] [address] Ultrasound Report Signed Patient: Mary Granados MR#: [id number] : 1975 Acct:[id number] Age/Sex: 47 / F ADM Date: 03/19/23 Loc: [place] Room: Type: [facility] Attending Dr: Bryson Seals DO Ordering Provider: Bryson Seals DO Date of Service: 03/30/23 US/US breast needle loc RT: RT BREAST SEED LOC ([id number]) MM/MM diagnostic mammo RT w/CAD: POST U/S [...] Procedure Note Radiology, Radiologist, MD - 04/02/2023 [facility] [place] [address] [place] [address] Ultrasound Report Signed Patient: Mary Granados CMR#: [id number] : 1975Acct:[id number] Age/Sex: 47 / FADM Date: 03/19/23 Loc: [place] Room:Type: [facility] Attending Dr: Bryson Seals DO Ordering Provider: Bryson Seals DO Date of Service: 03/30/23 US/US breast needle loc RT: RT BREAST SEED LOC ([id number]) MM/MM diagnostic mammo RT w/CAD: POST U/S [...] Stroud Jr., D.O.03/30/2023 12:13 PM Dictation Location: [facility] Tech: Ce Lim; Therese Anna Transcribed By: NEGAR 03/30/23 1213 Dictated By: Yogesh Stroud Jr, DO 03/30/23 1104 Signed By: <Electronically signed by Yogesh Stroud Jr, DO inOV> 03/30/23 1213 us Bryson Seals DO IMG US PROCEDURES Edited Result - Final documented in this encounter Visit Diagnoses Not on filedocumented in this encounter Care Teams Order Builder Relationship Specialty Start Date End Date Harish Rjoas MD PCP - General Family Medicine 02/21/23 documented as of this encounter
--- OUTSIDE RECORDS SUMMARY | 2025-04-14 12:26 | XMS_ITS | Clinical Summary ---
Author Organization [facility] Address [address] [place] [address] Care Team Providers Care Petroleum Sampler Name Role Phone Harish Rojas MD Primary Care Provider [phone] Allergies Active Allergy Reactions Criticality Noted Date Comments Sumatriptan Shortness of Breath 07/12/2011 Medications cetirizine hcl(ZYRTEC 10 MG CAP) Take one(1) tablet daily. 0 12/17/2009 Active eluxadoline (VIBERZI) 100 mg tab Take 100 mg by mouth twice daily. 0 03/15/2016 Active MULTIVITAMIN ORALIndications: Multiple thyroid nodules Take 1 tablet by mouth once daily. 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 Relation Status Comments Maternal Grandmother Mother Social History Tobacco Use Types Packs/Day Years Used Date Smoking Tobacco: Never Smokeless Tobacco: Never Alcohol Use Standard Drinks/Week Comments No 0 (1 standard drink = 0.6 oz pur e alcohol) Area Deprivation Index Answer Date Augustine rded National Score (1-100), lower number is lower ri sk Not on file 07/12/2020 State Score (1-10), lower number is lower risk N ot on file 07/12/2020 Data from: https://www.neighborhoodatlas.medicine.[facility].edu/. 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 file Not on file Not on file Last Filed Vital Signs Vital Sign Reading Time Taken Comments Blood Pressure 134/81 12/13/2017 9:18 AM EDT Pulse 77 12/13/2017 9:18 AM EDT Temperature - - Respiratory Rate - - Oxygen Saturation - - Inhaled Oxygen Concentration - - Weight 75.8 kg (167 lb 3.2 oz) 12/13/2017 9:18 A M EDT Height 162.6 cm (5' 4 ) 12/13/2017 9:18 AM EDT Body Mass Index 28.7 12/13/2017 9:18 AM EDT Plan of Treatment Health Maintenance Due Date Last Done Comments Anxiety Screening 1994 Depression Screening 1994 HIV Screening 1994 Hepatitis C Screening 1994 DTaP,Tdap,Td Vaccine (1 - Tdap) 1995 Hepatitis B Vaccine (1 of 3 - 19+ 3-dose series) 05/31 Cervical Cancer Screening [address] Colonography 2021 Cologuard (FIT-DNA) 2021 Colonoscopy 2021 Colorectal Cancer Screening 2021 Diabetes Screening 2021 12/17/2009 Fecal Occult Blood 2021 Lipid Screening 2021 Sigmoidoscopy 2021 Influenza Vaccine (#1) 2025 Procedures Procedure Name Priority Date/Time Associated Diagnosis Comments COMPREHENSIVE METABOLIC PANEL Routine 12/17/2009 12:06 PM EDT Fatigue from Last 3 Months or Most Recently Relevant to Health Maintenance Results * COMP METABOLIC PANEL (12/17/2009 12:06 PM EDT) Protein, Total 7.3 6.0 - 8.4 g/dL [facility] Albumin 4.8 3.5 - 5.0 g/dL [facility] Calcium 9.9 8.5 - 10.5 mg/dL [facility] Bilirubin, Total 0.8 0.0 - 1.5 mg/dL [facility] Alkaline Phosphatase 51 40 - 150 U/L [facility] AST 17 7 - 40 U/L [facility] Glucose 84 65 - 100 mg/dL [facility] BUN 10 8 - 25 mg/dL [facility] Creatinine 0.89 0.70 - 1.40 mg/dL [facility] Sodium 138 132 - 148 mmol/L [facility] Potassium 4.1 3.5 - 5.0 mmol/L [facility] Chloride 104 98 - 110 mmol/L [facility] CO2 24 23 - 32 mmol/L [facility] Anion Gap 10 0 - 15 mmol/L [facility] ALT 10 0 - 45 U/L [facility] eGFR- >60 [facility] eGFR-All Other Races >60 . [facility] Comment: eGFR (Estimated GFR) Units of measure: mL/min/1.73 meters squared eGFR is derived from the reexpressed MDRD Study equation using the following parameters: serum creatinine, age, gender and race. The creatinine assay has been calibrated to be traceable to IDMS. An eGFR <60 mL/min/1.73m2 for >3 months is consistent with chronic kidney disease. Refer to KDOQI guidelines for clinical interpretation. Blood specimen (specimen) BLOOD SPECIMEN / Unknown 12/17/2009 12:06 PM EDT us Mala Mojica MD LABORATORY Final Result [facility] [address] [facility] [place] [address] from Last 3 Months or Most Recently Relevant to Health Maintenance Insurance [facility] PPO Care Teams Petroleum Sampler Relationship Specialty Start Date End Date Harish Rojas MD PCP - General 11/30/09
--- OUTSIDE RECORDS SUMMARY | 2025-04-14 12:26 | XMS_ITS | Encounter Summary ---
Author Organization [facility] Address [address] [place] [address] Care Team Providers Care Activities Volunteer Name Role Phone Harish Rojas MD Primary Care Provider [phone] Encounter Details Date Type Department Care Team ([facility] Contact Info) Description 03/12/2023 Abstract [facility] [address] [facility] [address] [place] [address] Bryson Seals, DO [address] [facility] [address] [place] [address] Social History Tobacco Use Types [...] EDT Office Visit [place] [address] [place] [address] Karyn Johnson DO [address] [facility] [address] [place] [address] documented as of this encounter Visit Diagnoses Not on filedocumented in this encounter Care Teams Activities Volunteer Relationship Specialty Start Date End Date Harish Rojas MD PCP - General Family Medicine 02/21/23 documented as of this encounter
--- OUTSIDE RECORDS SUMMARY | 2025-04-14 12:26 | XMS_ITS | Encounter Summary ---
Author Organization [facility] Address [address] [place] [address] Care Team Providers Care Spring Bender Name Role Phone Harish Rojas MD Primary Care Provider [phone] Encounter Details Date Type Department Care Team (Late st Contact Info) Description 03/09/2023 External Result Encounter [facility] External Department Unsolicited Bryson Seals, DO [address] [facility] [address] [place] [address] Social History Tobacco Use Types Packs/Day Years [...] EDT Office Visit [place] [address] [place] [phone] Karyn Johnson, [address] [place] [address] documented as of this encounter Procedures Procedure [...] breast. RESULT CODE: NL Impression dictated by: Florence Small Jr..OJessica03/09/2023 11:51 AM Dictation Location: [facility] Transcribed By: [facility] 03/09/23 1151 Dictated By: Yogesh Stroud Jr, DO 03/09/23 1148 Signed By: <Electronically signed by Yogesh Stroud Jr, DO in OV> 03/09/23 1151 Narrative 03/20/2023 4:48 PM EDT [facility] Main [place] [address] [place] [address] Mammography Report Signed with Addenda Patient: Mary Granados MR#: [id number] : 1975 Acct:[id number] Age/Sex: 47 / F ADM Date: 03/09/23 Loc: [place] Room: Type: [facility] Attending Dr: Bryson Seals DO Copies to: MD Bryson Cuevas DO Ordering Provider: Bryson Seals DO Date of Service: 03/09/23 MM/MM biopsy RT vac assist stereo: RT BREAST ASYMMETRY ([id number]) MM/MM post biopsy RT w/CAD: POST BX [...] is recommended. Impression dictated by: Yogesh Stroud Jr. D.O.03/14/2023 3:19 PM Dictation Location: [place] [address] Addendum Dictated By: Yogesh Stroud Jr, DO [...] and local anesthetization with lidocaine, an 9-gauge Frictionless Commerce vacuum assisted core biopsy needle was advanced [...] w/CAD Procedure Note Radiology, Radiologist, - 03/20/2023 [facility] [place] [address] Mammography Report Signed with Addenda Patient: Mary Granados CMR#: [id number] : 1975Acct:[id number] Age/Sex: 47 / FADM Date: 03/09/23 Loc: [place] Room:Type: [facility] Attending Dr: Bryson Seals DO Copies to: MD Bryson Cuevas DO Ordering Provider: Bryson Seals DO Date of Service: 03/09/23 MM/MM biopsy RT vac assist stereo: RT BREASTASYMMETRY ([id number]) MM/MM post biopsy RT w/CAD: POST BX WITH CLIP ADDENDUM 1 Addendum for pathology: Thomas guided biopsy right breast 11 to 12:00 position 8 to 9 cm from thenipple: Fragments of fibroadenoma. Negative for malignancy. Pathology is discordant with imaging. Excisional biopsy should BEconsidered. If no intervention is performed, diagnostic mammography and ultrasound in 6 months isrecommended. Impression dictated by: Paradise Small Jr.OJessica03/14/2023 3:19 PM Dictation Location: [place] [address] Addendum Dictated By: Yogehs Stroud Jr, DO Addendum Signed By: <Electronically [...] preparation and local anesthetizationwith lidocaine, an 9-gauge Frictionless Commerce vacuum assisted core biopsy needle was advanced [...] breast. RESULT CODE: NL Impression dictated by: Florence Small Jr..Marino03/09/2023 11:51 AM Dictation Location: [facility] Transcribed By: NEGAR 03/09/23 1151 Dictated By: Yogesh Stroud Jr, DO 03/09/23 1148 Signed By: <Electronically signed by Yogesh Stroud Jr, DO inOV> 03/09/23 1151 Bryson Seals DO IMG BI PROCEDURES Edited Result - Final documented in this encounter Visit Diagnoses Not on filedocumented in this encounter Care Teams Spring Bender Relationship Specialty Start Date End Date Harish Rojas MD PCP - General Family Medicine 02/21/23 documented as of this encounter
--- OUTSIDE RECORDS SUMMARY | 2025-04-14 12:26 | XMS_ITS | Encounter Summary ---
Author Organization [facility] Address [address] [place] [address] Care Team Providers Care Instructional Developer Name Role Phone Harish Rojas MD Primary Care Provider [phone] Source Comments In the event this information is protected by the Federal Confidentiality of Alcohol and Drug AbusePatient Records regulations: The Federal rules restrict any use of the information to criminally investigate or prosecute any alcohol or drug abuse patient.[facility] Encounter Details Date Type Department Care Team (Late st Contact Info) Description 11/04/2017 Patient Msg Endocrinology [address] [place], [place] [phone] Harvey Victor, DO [address] [place] [address] RE: Appointment Cancellation Request Social History Tobacco Use Types Packs/Day Years Used Date Smoking Tobacco: Never Alcohol Use Standard Drinks/Week Comments No 0 (1 standard drink = 0.6 oz pur e alcohol) Comments No Sex and Gender Information Value Date Recorded Sex Assigned at Not on file Legal Sex Female 8:29 AM EST Gender Identity Not on file Sexual Orientation Not on file 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 Answer Date of Assessment Author No 02/25/2015 6:35 PM EDT Gi Fowler MA * Are you blind or do you have serious difficulty seeing, even when wearing glasses? Answer Date of Assessment Author No 02/25/2015 6:35 PM EDT Gi Fowler MA * Do you have serious difficulty walking or climbing stairs? Answer Date of Assessment Author No 02/25/2015 6:35 PM EDT Gi Fowler MA * Do you have difficulty dressing or bathing? Answer Date of Assessment Author No 02/25/2015 6:35 PM EDT Gi Fowler MA * Because of a physical, mental, or emotional condition, do you have difficulty doing errands alone such as visiting a doctor's office or shopping? Answer Date of Assessment Author No 02/25/2015 6:35 PM LUT Gi Fowler MA documented as of this encounter Mental Status * Because of a physical, mental, or emotional condition, do you have serious difficulty concentrating, remembering, or making decisions? Answer Entry Date Author No 02/25/2015 6:35 PM Gi Warren MA documented in this encounter Plan of Treatment Not on file documented as of this encounter Visit Diagnoses Not on filedocumented in this encounter Care Teams Instructional Developer Relationship Specialty Start Date End Date Harish Rojas MD PCP - General 11/30/09 documented as of this encounter
--- OUTSIDE RECORDS SUMMARY | 2025-04-14 12:26 | XMS_ITS | Encounter Summary ---
Author Organization [facility] Address [address] [place] [address] Care Team Providers Care Industrial Paramedic Name Role Phone Harish Rojas MD Primary Care Provider [phone] Encounter Details Date Type Department Care Team (Late st Contact Info) Description 02/28/2023 External Result Encounter [facility] External Department Unsolicited Karyn Johnson DO [address] [place] [address] Social History Tobacco Use Types Packs/Day Years [...] EDT Office Visit [place] [address] [place] [address] Karyn Johnson DO [address] [place] [address] documented as of this encounter Procedures Procedure [...] Stroud Jr., D.OJessica03/01/2023 12:38 PM Dictation Location: [facility] Tech: Meghan Flacogwenirma; Lyly Garcia Transcribed By: PWS 03/01/23 1238 Dictated By: Yogesh Stroud Jr, DO 02/28/23 0946 Signed By: <Electronically signed by Yogesh Stroud Jr, DO in OV> 03/01/23 1238 Narrative 02/28/2023 10:03 AM EDT [facility] Main [place] [address] [place] [address] Ultrasound Report Signed Patient: Mary Granados MR#: [id number] : 1975 Acct:[id number] Age/Sex: 47 / F ADM Date: 02/28/23 Loc: [place] Room: Type: [facility] Attending Dr: Karyn Johnson DO Ordering Provider: Karyn Johnson DO Date of Service: 02/28/23 MM/MM special view RT w/CAD: R92.8 ([id number]) US/US breast RT limited: R92.8 Copies to: [...] limited Procedure Note Radiology, Radiologist, - 03/06/2023 [facility] Main [place] [address] [place] [address] Ultrasound Report Signed Patient: Mary Granados CMR#: [id number] : 1975Acct:[id number] Age/Sex: 47 / FADM Date: 02/28/23 Loc: [place] Room:Type: [facility] Attending Dr: Karyn Johnson DO Ordering Provider: Karyn Johnson DO Date of Service: 02/28/23 MM/MM special view RT w/CAD: R92.8 ([id number]) US/US breast RT limited: R92.8 Copies to: [...] Stroud Jr., D.O.03/01/2023 12:38 PM Dictation Location: [facility] Tech: Meghan Garcia Transcribed By: NEGAR 03/01/23 1238 Dictated By: Yogesh Stroud Jr, DO 02/28/23 0946 Signed By: <Electronically signed by Yogesh Stroud Jr DO inOV> 03/01/23 1238 Karyn Johnson DO IMG BI PROCEDURES Edited Re sult - Final documented in this encounter Visit Diagnoses Not on filedocumented in this encounter Care Teams Industrial Paramedic Relationship Specialty Start Date End Date Harish Rojas MD PCP - General Family Medicine 02/21/23 documented as of this encounter
--- OUTSIDE RECORDS SUMMARY | 2025-04-14 12:26 | XMS_ITS | Encounter Summary ---
Author Organization [facility] Address [address] [place] [address] Care Team Providers Care Neuropsychology Division Chief Name Role Phone Harish Rojas MD Primary Care Provider [phone] Encounter Details Date Type Department Care Team (Late st Contact Info) Description 02/23/2023 External Result Encounter [facility] External Department Unsolicited Karyn Johnson, DO [address] [place] [address] Social History Tobacco Use Types Packs/Day Years [...] [place] [address] [place] [address] Karyn Johnson DO [address] [place] [address] documented as of this encounter Procedures Procedure [...] Stroud Jr., D.OJessica02/23/2023 2:11 PM Dictation Location: [facility] Transcribed By: NEGAR 02/23/23 1411 Dictated By: Yogesh Stroud Jr, DO 02/23/23 1401 Signed By: <Electronically signed by Yogesh Stroud Jr, DO in OV> 02/23/23 1411 Narrative 02/23/2023 2:30 PM EDT [place] [address] Mammography Report Signed Patient: Mary Granados MR#: [id number] : 1975 Acct:[id number] Age/Sex: 47 / F ADM Date: 02/23/23 Loc: [place] Room: Type: [facility] Attending Dr: Karyn Johnson DO Copies to: [...] w/CAD Procedure Note Radiology, Radiologist, - 02/23/2023 [place] [address] Mammography Report Signed Patient: Mary Granados CMR#: [id number] : 1975Acct:[id number] Age/Sex: 47 / FADM Date: 02/23/23 Loc: [place] Room:Type: [facility] Attending Dr: Karyn Johnson DO Copies to: [...] Stroud Jr., D.OJessica02/23/2023 2:11 PM Dictation Location: [facility] Transcribed By: NEGAR 02/23/23 1411 Dictated By: Yogesh Stroud Jr, DO 02/23/23 1401 Signed By: <Electronically signed by Yogesh Stroud Jr, DO inOV> 02/23/23 1411 us Karyn Johnson DO IMG BI PROCEDURES Final Res ult documented in this encounter Visit Diagnoses Not on filedocumented in this encounter Care Teams Neuropsychology Division Chief Relationship Specialty Start Date End Date Harish Rojas MD PCP - General Family Medicine 02/21/23 documented as of this encounter
--- OUTSIDE RECORDS SUMMARY | 2025-04-14 12:26 | XMS_ITS | Encounter Summary ---
Author Organization [facility] Address [address] [place] [address] Care Team Providers Care Mechanotherapist Name Role Phone Harish Rojas MD Primary Care Provider [phone] Encounter Details Date Type Department Care Team ([facility] Contact Info) Description 03/15/2023 Abstract [facility] [address] [facility] [address] [place] [address] Bryson Seals, DO [address] [facility] [address] [place] [address] Social History Tobacco Use Types [...] EDT Office Visit [place] [address] [place] [address] Karyn Johnson DO [address] [place] [address] documented as of this encounter Visit Diagnoses Not on filedocumented in this encounter Care Teams Mechanotherapist Relationship Specialty Start Date End Date Harish Rojas MD PCP - General Family Medicine 02/21/23 documented as of this encounter
--- OUTSIDE RECORDS SUMMARY | 2025-04-14 12:26 | XMS_ITS | Encounter Summary ---
Author Organization [facility] Address [address] [place] [address] Care Team Providers Care Ethics Instructor Name Role Phone Harish Rojas MD Primary Care Provider [phone] Source Comments In the event this information is protected by the Federal Confidentiality of Alcohol and Drug AbusePatient Records regulations: The Federal rules restrict any use of the information to criminally investigate or prosecute any alcohol or drug abuse patient.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
--- OUTSIDE RECORDS SUMMARY | 2025-04-14 12:26 | XMS_ITS | Encounter Summary ---
Author Organization [facility] Address [address] [place] [address] Care Team Providers Care Smocker Name Role Phone Harish Rojas MD Primary Care Provider [phone] Encounter Details Date Type Department Care Team ([facility] Contact Info) Description 01/30/2024 Abstract [facility] [address] [place] [phone] Omar Castro, DPM FACFAS [address] [place] [address] Social History Tobacco Use Types Packs/Day Years [...] Description 03/17/2026 1:45 PM EDT Office [place] [address] [place] [address] Karyn Johnson DO [address] [place] [address] documented as of this encounter Visit Diagnoses Not on filedocumented in this encounter Care Teams Smocker Relationship Specialty Start Date End Date Harish Rojas MD PCP - General Family Medicine 02/21/23 documented as of this encounter
--- OUTSIDE RECORDS SUMMARY | 2025-04-14 12:26 | XMS_ITS | Encounter Summary ---
Author Organization [facility] Address [address] [place] [address] Care Team Providers Care Car Framer Name Role Phone Harish Rojas MD Primary Care Provider [phone] Encounter Details Date Type Department Care Team (Late Contact Info) Description 03/09/2023 Abstract [facility] [address] [facility] [address] [place] [address] Bryson Seals DO [address] [facility] [address] [place] [address] Social History Tobacco Use Types [...] Office Visit [place] [address] [facility] [address] [place] [address] Karyn Johnson DO [address] [facility] [address] [place] [address] documented as of this encounter Visit Diagnoses Not on filedocumented in this encounter Care Teams Car Framer Relationship Specialty Start Date End Date Harish Rojas MD PCP - General Family Medicine 7/19/23 documented as of this encounter
--- OUTSIDE RECORDS SUMMARY | 2025-04-14 12:30 | XMS_ITS | CCD ---
Author Organization [facility] CliniSyvt Care Team Providers Care Scientific Linguist Name Role Phone HARVEY VICTOR Unavailable Unavailable [...] CHAUDHRY Consulting Unavailable HOY ., DR CHAUDHRY Consulting Unavailable HOY ., DR CHAUDHRY Admrut Unavailable HOY ., DR CHAUDHRY Primary Care Unavailable HOY ., DR CHAUDHRY Attending Unavailable ALLI WEST Consulting Unavailable Isidoro Rojas Primary Care Physician Kati Cobb Unavailable Unavailable MARTINEZN ANANT Admitting Unavailable ALEKSANDR, ANANT Attending Unavailable MD Isidoro Rojas Primary Care Provider [phone] DO Karyn Johnson Attending Provider DO Bryson Seals Attending Provider [phone] MD Isidoro Rojas Primary Care Provider [phone] DO Bryson Seals Attending Provider [phone] MD Isidoro Rojas Primary Care Provider [phone] DO Bryson Seals Attending Provider [phone] Isidoro Rojas MD Primary Care Provider [phone] Karyn Johnson DO Attending Provider Isidoro Rojas MD Primary Care Provider [phone] KARYN JOHNSON E Attending Unavailable Aram Varela DO Emergency Provider [phone] Isidoro Rojas Primary Care Unavailable Karyn Johnson Attending Unavailable Karyn Johnson Admitting Unavailable Aram Varela Admitting Unavailable Isidoro Rojas Primary Care Unavailable Aram Varela Attending Unavailable Allergies Allergy Classification Reported Allergen(s) Allergy Type Date of Onset Reaction(s) Facility (11 sources) SUMAtriptan; Translations: [SUMATRIPTAN] Drug Allergy 1 Shortness of breath [facility] Repository (2 sources) Plasmin; Translations: [Imitrex] Drug Allergy [facility] Repository (3 sources) Diclofenac Drug Allergy 4 Other [facility] Medications Current Medications Medication Drug Class(es) Dates Sig (Normalized) Sig (Original) acetaminophen 325 mg / butalbital 50 mg / caffeine 40 mg oral capsule (12 sources) Barbiturate, Central Nervous System Stimulant, Methylxanthine Start: 08-22-2023 take 1 capsule by mouth every six hours as needed butalbital-aceta minophen-caffein e (Esgic) 50-325-40 MG capsule TAKE 1 CAPSULE BY MOUTH EVERY 6 HOURS NEEDED 08/22/2023 Active Start: 10-02-2018 take 1 tablet by thu th three times daily as needed for headache amoxicillin 875 mg / clavulanate 125 mg oral tablet (3 sources) Penicillin-class Antibacterial Start: 03-10-2024 End: 03-10-2025 take 1 tablet by mouth every twelve hours amoxicillin-clavulanate (Augmentin) 875-125 MG tablet Take 1 tablet by mouth every 12 (twelve) hours 03/10/2024 03/10/2025 Discontinued 24 hr buPROPion hydrochloride 150 mg extended release oral tablet (3 sources) Aminoketone Start: 11-19-2023 Wellbutrin XL 150 MG 24 hr tablet 1 (one) time each day at the same time 11/19/2023 Active cetirizine hydrochloride 10 mg oral tablet (1 source) Histamine-1 Receptor Antagonist Start: 02-24-2016 take 10 mg by mouth once daily Zyrtec 10 mg, Oral, Daily, Refills(s) 0, Allergy symptoms Start Date: 02/24/16 Status: Ordered cycloSPORINE 0.5 mg/ml ophthalmic suspension (9 sources) Calcineurin Inhibitor Immunosuppressant Start: 12-26-2022 Restasis 0.05 % ophthalmic emulsion 12/26/2022 Active Start: 10-02-2018 take 1 drop(s) into the eye(s) every twelve hours Start: 10-02-2018 take 1 drop(s) into the [...] 1:00am diphenhydrAMINE hydrochloride 25 mg oral capsule (9 sources) Histamine-1 Receptor Antagonist Start: 03-21-2023 take 1 capsule by mouth once daily at bedtime as needed diphenhydrAMINE (BENADryl) 25 MG tablet Take by mouth. Active eletriptan 40 mg oral tablet (3 sources) Serotonin-1b and Serotonin-1d Receptor Agonist Relpax 40 MG tablet 1 (one) time each day at the same time Active eluxadoline 100 mg oral tablet (13 sources) mu-Opioid Receptor Agonist Start: 02-23-2016 take 1 tablet by mouth twice daily Viberzi 100 MG t ablet every 12 (twelve) hours. Active escitalopram 10 mg oral tablet (6 sources) Serotonin Reuptake Inhibitor Start: 03-21-2023 take 1 tablet by mouth once daily at bedtime ibuprofen 600 mg oral tablet (17 sources) Nonsteroidal Anti-inflammatory Drug Start: 04-03-2023 ibuprofen 600 MG tablet EVERY 4-6 HOURS 04/03/2023 Active Start: 04-03-2023 take 4 tablets by mo [facility] every twenty-four hours for pain Start: 10-10-2018 End: 03-21-2023 take 1 tablet by mouth every six hours as needed for pain Ibuprofen 600 mg tablet Discontinued 600 MG PO Q6H as needed for pain October 10, 2018 1:00am March 21, 2023 4:59pm levothyroxine sodium 0.075 m g oral tablet (10 sources) l-Thyroxine Start: 11-26-2022 take 1 tablet by thu th once daily in the morning Start: 02-23-2016 take 1 tablet by thu th once daily Synthroid 25 mcg(0.025 mg) Tab 25 microgram = 1 tab(s), Oral, Daily, Refills(s) 0, Thyroid Start Date: 02/23/16 Status: Ordered liothyronine sodium 0.005 mg oral tablet (9 sources) l-Triiodothyronine Start: 03-21-2023 take 1 tablet by mouth once daily in the morning 24 hr topiramate 200 mg extended release oral capsule (12 sources) Start: 01-29-2024 Trokendi XR 20 0 MG capsule sustained-relea se 24 hr 01/29/2024 Active Start: 10-02-2018 End: 03-21-2023 take 1 capsule by mouth once daily at bedtime Topiramate (Trokendi Xr) 50 mg Capsule,Extended Release 24hr Discontinued 50 MG PO Daily at bedtime October 02, 2018 1:00am March 21, 2023 4:59pm Start: 10-02-2018 End: 03-21-2023 take 1 capsule [...] 02, 2018 1:00am March 21, 2023 4:59pm Completed/Discontinued Medications Medication Drug Class(es) Dates Sig (Normalized) Sig (Original) acetaminophen 325 mg / HYDROcodone bitartrate 5 mg oral tablet (9 sources) Opioid Agonist Start: 10-10-2018 End: 03-21-2023 take 1 tablet by mouth every four to six hours as needed for pain Hydrocodone-Acetam inophen ([place]) 5-325 mg tablet Discontinued 1 TAB PO EVERY 4-6 HOURS as needed for pain 30 7 October 10, 2018 March 21, 2023 4:59pm ascorbic acid 500 mg oral tablet (9 sources) Vitamin C Start: 10-02-2018 End: 03-21-2023 Ascorbic Acid (Vitamin C) (Vitamin C) 500 mg Tablet Discontinued 500 GM PO Daily October 02, 2018 1:00am March 21, 2023 4:58pm biotin 1 mg chewable tablet (9 sources) Start: 10-02-2018 End: 03-21-2023 take 1 tablet by mouth once daily Biotin 1,000 mcg Tablet,Chewable Discontinued 1000 MCG PO Daily October 02, 2018 1:00am March 21, 2023 4:58pm docusate sodium 100 mg oral capsule (9 sources) Start: 10-10-2018 End: 03-21-2023 take 1 capsule by mouth twice daily as needed for constipation Docusate Sodium (Colace) 100 mg capsule Discontinued 100 MG PO Twice daily as needed for constipation 60 October 10, 2018 8:23am March 21, 2023 4:59pm rizatriptan 10 mg oral tablet (9 sources) Serotonin-1b and Serotonin-1d Receptor Agonist Start: 10-02-2018 End: 03-21-2023 Rizatriptan 10 mg Tablet Discontinued 10 MG PO As Directed October 02, 2018 1:00am March 21, 2023 4:59pm Problems Active Problems Problem Classification Problem Date Documented Date Episodic/Chronic Endometriosis (15 sources) Endometriosis (clinical); Translations: [Endometriosis, unspecified] Onset: 08-29-2018 10-10-2018 Chronic Comment on above: Problem List clean-u p per request of Phys. 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 EHR Cmte Other aftercare (1 source) Other intermediate designer (current) drug therapy; Translations: [OTH MCFP CURRENT DRUG THERAPY] Onset: 10-02-2022 Episodic Other female genital disorders (3 sources) Deep pain on intercourse; Translations: [Deep dyspareunia] Onset: 08-29-2018 03-19-2023 Chronic Other screening for suspected conditions (not mental disorders or infectious disease) (11 sources) Mammography abnormal; Translations: [Other abnormal and inconclusive findings on diagnostic imaging of breast] Onset: 02-10-2021 03-19-2023 Episodic Other upper respiratory infections (1 source) Acute pharyngitis, unspecified; Translations: [ACUTE PHARYNGITIS UNSPECIFIED] Onset: 10-02-2022 Episodic Thyroid disorders (11 sources) Hypothyroidism, unspecified; Translations: [Mary thyroiditis] Onset: 08-08-2012 Chronic Unclassified (1 source) CONTACT W/AND (SUSP) EXPOS COVID-19; Translations: [CONTACT W/AND (SUSP) EXPOS COVID-19] Onset: 10-02-2022 Past or Other Problems Problem Classification Problem Date Documented Da te Episodic/Chronic Malaise and fatigue (4 sources) Other fatigue; Translations: [OTHER FATIGUE] Onset: 01-12-2022 Episodic Other connective tissue disease (3 sources) Disorder of tendon of left shoulder; Translations: [Unspecified disorder of synovium and tendon, left shoulder] Onset: 03-19-2023 03-19-2023 Episodic Other connective tissue disease (3 sources) Tear of left rotator cuff; Translations: [Unspecified rotator cuff tear or rupture of left shoulder, not specified as traumatic] Onset: 03-17-2021 03-19-2023 Episodic Results Test Name Value Interpretation Reference Range Facility ECG 12 lead ECGon 03-24-2025 ECG 12 lead ECG [facility] [place] [address] Electrocardiograph Report Signed Patient: Mary Granados MR#: [id number] : 1975 Acct:[id number] Age/Sex: 49 / F ADM Date: 03/24/25 Loc: ER Room: Type: [facility] ER Attending Dr: Ordering Provider: Aram Varela DO Date of Service: 03/24/25 ECG/ECG 12 lead ECG: Abdominal Pain Copies to: Test Reason : Blood Pressure : 139/90 mmHG Vent. Rate : 87 BPM Atrial Rate : 87 BPM P-R Int : 166 ms QRS Dur : 88 ms QT Int : 368 ms P-R-T Axes : 52 -12 37 degrees QTcB Int : 442 ms Normal sinus rhythm Minimal voltage criteria for LVH, may be normal variant Cannot rule out Anterior infarct , age undetermined Abnormal ECG No previous ECGs available Confirmed by ARAM VARELA DO ([id number]) on 03/26/2025 10:15:58 PM Referred By: Electronically Signed By: ARAM VARELA DO Transcribed By: MUS Signed By Aram Varela DO 2214 Normal [facility] MM screening mammo BI w/CADo n 02-25-2025 MM screening mammo BI w/CAD [facility] [address] [place], [place] [id number] Mammography Report Signed Patient: Mary Granados MR#: [id number] : 1975 Acct:[id number] Age/Sex: 49 / F Adm Date: 02/25/25 Loc: [place] Room: Type: [facility] Attending Dr: Karyn Johnson DO Ordering Provider: Karyn Johnson DO Date of Service: 02/25/25 Procedure(s): MM screening mammo BI w/CAD Accession Number(s): ([id number]) MM/MM screening mammo BI w/CAD: screening Copies [...] Paredes M.D. 02/25/2025 4:12 PM Dictation Location: [facility] Dictated By: Bhavin Paredes MD 02/25/25 161 Signed By: 02/25/25 1612 Normal [facility] Mammography reportOrdered By : Bhavin Paredes on 02-25-2025 Diagnostic imaging study [facility] [address] [place] [address] Mammography Report Signed Patient: Mary Granados MR#: [id number] : 1975 Acct:[id number] Age/Sex: 49 / F Adm Date: 5 Loc: [place] Room: Type: [facility] Attending Dr: Karyn Johnson DO Ordering Provider: Karyn Johnson DO Date of Service: 02/25/25 Procedure(s): MM screening mammo BI w/CAD Accession Number(s): ([id number]) MM/MM screening mammo BI w/CAD: screening Copies to: MD Karyn Cuevas DO~ CLINICAL DATA: Screening for malignancy. SCREENING MAMMOGRAM - FULL FIELD DIGITAL WITH TOMOSYNTHESIS AND CAD COMPARISON:Priors dating back to 2023 Tomosynthesis craniocaudal and mediolateral oblique views of both breasts were obtained using low-dose digital technique. This examination [...] Paredes M.D. 02/25/2025 4:12 PM Dictation Location: [facility] Dictated By: Bhavin Paredes MD 02/25/251610 Signed By: 02/25/25 161 [facility] Work Phone: T3 Freeon 01-27-2023 Free T3 [Mass/Vol] 3.0 pg/mL Invalid Interpretation Code 2.0-4.4 [facility] Comment on above: Result Comment: Perf ormed at: [facility] [address] [place], [place] [id number] PhD Good Hernadez Performed By: #### 2 887158, 8604953, 79822735, 2912808, 6014371, 5074929, 72228593, 9817558, 977966168, 2296668, 3726998, 2683319, 7367949, 186374573 ####[facility] [address] [place] [address] Auto Diffon 01-25-2023 Basophils/100 WBC (Bld) 0.7 % Normal 0.0-2.0 [facility] Comment on above: Order Comment: Order Added by Discern Expert. Performed By: #### 2 581831, 4742226, 54836826, 7211250, 7256788, 4502181, 29202039, 0367290, 333036353, 8858331, 7141956, 6530320, 3516212, 236728428 #### [facility] [address] [place] [address] Basophils/Leukocytes Auto (Bld) [Pure # fraction] 0.0 E9/L Normal 0.0-0.2 [facility] Comment on above: Order Comment: Order Added by Discern Expert. Performed By: #### 2 114349, 2696316, 05342691, 2745983, 1874538, 0902334, 69234006, 0361911, 249329652, 0309344, 4633922, 4413631, 4887820, 482043295 #### [facility] [address] [place] [address] Eosinophils/100 WBC (Bld) 1.4 % Normal 0.0-8.0 [facility] Comment on above: Order Comment: Order Added by Discern Expert. Performed By: #### 2 855389, 6967293, 29269943, 8056134, 0914724, 4682545, 10575284, 5089171, 191135120, 8677117, 4790883, 9970660, 0380691, 419936343 #### [facility] [address] [place] [address] Eosinophils/Leukocyt es Auto (Bld) [Pure # fraction] 0.1 E9/L Normal 0.0-0.5 [facility] Comment on above: Order Comment: Order Added by Discern Expert. Performed By: #### 2 637424, 3745687, 24614855, 2253445, 9853146, 4934400, 32134376, 4740227, 034746442, 3981842, 8755333, 1771733, 1936523, 042746051 #### [facility] [address] [place] [address] Lymphocytes/100 WBC (Bld) 24.1 % Normal 14.0-50.0 [facility] Comment on above: Order Comment: Order Added by Discern Expert. Performed By: #### 2 933168, 2128619, 53181116, 3213512, 5519059, 2151084, 72745889, 2334973, 652477526, 5076366, 9219362, 8278364, 5896022, 645908373 #### [facility] [address] [place] [address] Lymphocytes/Leukocyt es Auto (Bld) [Pure # fraction] 1.6 E9/L Normal 1.0-4.0 [facility] Comment on above: Order Comment: Order Added by Discern Expert. Performed By: #### 2 070736, 6548562, 90689625, 6478568, 7721004, 8273715, 93890831, 1247971, 855086433, 3093476, 1485820, 6884187, 3995424, 268687843 #### [facility] [address] [place] [address] Monocytes/100 WBC (Bld) 6.3 % Normal 4.0-14.0 [facility] Comment on above: Order Comment: Order Added by Discern Expert. Performed By: #### 2 722333, 3417227, 54679138, 2532448, 5307046, 4315433, 46885137, 0188439, 587792619, 7132644, 9988040, 6966462, 3340180, 129866966 #### [facility] [address] [place] [address] Monocytes/Leukocytes Auto (Bld) [Pure # fraction] 0.4 E9/L Normal 0.2-1.0 [facility] Comment on above: Order Comment: Order Added by Discern Expert. Performed By: #### 2 843081, 3665153, 87389529, 0785946, 5088111, 9116144, 51083327, 0181869, 399867920, 2599844, 3475023, 7590291, 0167366, 323776845 #### [facility] [address] [place] [address] Neutrophils/100 WBC (Bld) 67.5 % Normal 36.0-75.0 [facility] Comment on above: Order Comment: Order Added by Discern Expert. Performed By: #### 2 080274, 1229909, 67998766, 7928879, 7683159, 5322010, 63094813, 1667681, 052381263, 7804505, 9700308, 1746190, 6157608, 569967295 #### [facility] [address] [place] [address] Neutrophils/Leukocyt es Auto (Bld) [Pure # fraction] 4.4 E9/L Normal 2.0-7.5 [facility] Comment on above: Order Comment: Order Added by Discern Expert. Performed By: #### 2 025396, 0990689, 62390381, 2014123, 8327084, 8310569, 43802763, 6705194, 235522868, 4399511, 9681734, 9335183, 2941338, 921895124 #### [facility] [address] [place] [address] CBC w/ Auto Diffon 3 Erythrocyte distribution width (RBC) [Ratio] 13.2 % Normal 10.9-14.2 [facility] Comment on above: Performed By: #### 2 190166, 8394069, 59753130, 7375127, 3944475, 1048011, 40788557, 7688899, 095971806, 3890931, 5582072, 3122160, 0385071, 112363062 #### [facility] [address] [place] [address] Hematocrit (Bld) [Volume fraction] 43.7 % Normal 34.0-46.0 [facility] Comment on above: Performed By: #### 2 712437, 4031439, 25825493, 4974188, 6024872, 5275150, 17680377, 1053983, 893964274, 0155392, 7002528, 0512222, 1221652, 708674203 #### [facility] [address] [place] [address] Hemoglobin (Bld) [Mass/Vol] 14.7 g/dL Normal 12.0-16.0 [facility] Comment on above: Performed By: #### 2 064780, 6952231, 65871285, 1084347, 0353900, 0295864, 95910480, 8617217, 081165138, 6252658, 4624043, 5634758, 5525177, 587283946 #### [facility] [address] [place] [address] MCH (RBC) [Entitic mass] 28.3 pg Normal 27.0-34.0 [facility] Comment on above: Performed By: #### 2 937337, 5963587, 08668450, 7683273, 4618116, 5849327, 58210488, 8339633, 298838719, 1500897, 1338780, 2417115, 8497065, 290197057 #### [facility] [address] [place] [address] MCHC (RBC) [Mass/Vol] 33.7 g/dL Normal 31.4-36.0 [facility] Comment on above: Performed By: #### 2 870170, 0864532, 86518813, 7645351, 4067523, 3142500, 28932270, 1225082, 328148446, 2564317, 2978455, 2478597, 6529015, 557729240 #### [facility] [address] [place] [address] MCV (RBC) [Entitic vol] 83.9 fL Normal 80.0-100.0 [facility] Comment on above: Performed By: #### 2 858624, 3447952, 73865232, 8330611, 7319969, 0428455, 93718599, 3896000, 245257417, 6244824, 8760393, 4558776, 1086808, 022216371 #### [facility] [address] [place] [address] Platelet mean volume (Bld) [Entitic vol] 9.1 fL Normal 6.4-10.8 [facility] Comment on above: Performed By: #### 2 846166, 4682173, 07216169, 2174750, 5063644, 2886878, 16401451, 2027395, 270516078, 2426339, 5223535, 6392299, 4742572, 208546625 #### [facility] [address] [place] [address] Platelets (Bld) [#/Vol] 256.0 E9/L Normal 150.0-500.0 [facility] Comment on above: Performed By: #### 2 740378, 5881120, 20779133, 1622911, 2747035, 3411200, 95198268, 7950315, 926145627, 8164372, 5968464, 6419048, 0548331, 698920740 #### [facility] [address] [place] [address] RBC (Bld) [#/Vol] 5.2 E12/L Normal 4.3-5.9 [facility] Comment on above: Performed By: #### 2 344530, 6978215, 56899688, 1477464, 3548073, 4650936, 64959525, 1126641, 840727201, 4869097, 0996286, 2286141, 0790625, 454596628 #### [facility] [address] [place] [address] WBC corrected for nucl RBC Auto (Bld) [#/Vol] 6.5 E9/L Normal 4.0-11.0 [facility] Comment on above: Performed By: #### 2 233478, 7218611, 67701079, 6351816, 2542715, 0089301, 50018536, 2970879, 678716935, 1762591, 9793784, 8336507, 4097749, 623282206 #### [facility] [address] [place] [address] CHEMISTRYOrdered By: SYSTEM SYSTEM on 01-25-2023 25-hydroxyvitamin [...] 3.2 g/dL Normal 1.4 - 4.0 gm/dL [facility] Remisol Glucose [Mass/Vol] 95 mg/dL Normal 55 [...] 244 mg/dL Normal 200 - 370 mg/dL [facility] Remisol TSH Qn 0.75 m[IU]/L Normal 0.34 - 5.60 mcIU/mL [facility] Remisol Urea nitrogen [Mass/Vol] 13 mg/dL Normal 5 - 21 mg/dL [facility] Remisol Urea nitrogen/Creatinine [Mass ratio] 14 mg/mg Normal 10 - 20 [facility] Remisol CHEMISTRYOrdered By: Quin Felix on 01-25-2023 HbA1c (Bld) [Mass fraction] 5.3 % Normal <=5.9% [facility] ChemAutoSS CMPon 01-25-2023 Albumin [Mass/Vol] 4.2 g/dL Normal 3.3-5.0 [facility] Comment on above: Performed By: #### 2 573209, 2757018, 91592397, 2533472, 3215281, 9634057, 64905038, 1973770, 749646111, 8554616, 2245842, 3459952, 6072786, 874305559 #### [facility] [address] [place] [address] Albumin/Globulin (S) [Mass conc ratio] 1.3 Normal 1.1-2.2 [facility] Comment on above: Performed By: #### 2 093102, 2910706, 03813316, 9846119, 5716903, 2894154, 88318607, 4273909, 677186731, 4579364, 2162680, 4246514, 4647771, 918466818 #### [facility] [address] [place] [address] ALP [Catalytic activity/Vol] 50 Int._Unit/L Normal 21-98 [facility] Comment on above: Performed By: #### 2 858983, 8292794, 59605355, 9363069, 8716319, 9010366, 31630484, 1691048, 812129995, 3955898, 6589530, 0992554, 5756534, 875952826 #### [facility] [address] [place] [address] ALT No additional P-5'-P [Catalytic activity/Vol] 12 Int._Unit/L Normal 6-46 [facility] Comment on above: Performed By: #### 2 734376, 3045797, 05866861, 2429969, 5996666, 3417323, 40757422, 4874736, 663672077, 8107219, 2432605, 9949350, 9867866, 986785409 #### [facility] [address] [place] [address] Anion gap [Moles/Vol] 10 mmol/L Normal 6-16 [facility] Comment on above: Performed By: #### 2 563023, 3625246, 97869306, 2852805, 1606831, 2780225, 02440831, 1146886, 663861372, 4817932, 8662397, 8853149, 5746126, 080784613 #### [facility] [address] [place] [address] AST [Catalytic activity/Vol] 16 Int._Unit/L Normal 5-43 [facility] Comment on above: Performed By: #### 2 683605, 8041182, 18492559, 4037452, 1659370, 7340021, 40926971, 5554736, 309976895, 2115760, 4200854, 8599364, 3378064, 831425099 #### [facility] [address] [place] [address] Bilirubin [Mass/Vol] 0.7 mg/dL Normal 0.0-1.1 [facility] Comment on above: Performed By: #### 2 496708, 7158616, 19300717, 0595675, 1285123, 6520662, 18852642, 1954257, 313528444, 4252483, 2314180, 9184455, 3511342, 511809740 #### [facility] [address] [place] [address] Calcium [Mass/Vol] 9.3 mg/dL Normal 8.9-11.1 [facility] Comment on above: Performed By: #### 2 617293, 4854851, 38212732, 5059521, 6678897, 2735868, 61051178, 4983251, 766344366, 5344791, 2613879, 6092850, 3204203, 330314407 #### [facility] [address] [place] [address] Chloride [Moles/Vol] 105 mmol/L Normal 101-111 [facility] Comment on above: Performed By: #### 2 095407, 8687281, 90623915, 1403808, 3155969, 7188140, 38160777, 2186858, 863890503, 8841977, 5305200, 9709584, 8064054, 475936278 #### [facility] [address] [place] [address] CO2 [Moles/Vol] 26 mmol/L Normal 21-31 [facility] Comment on above: Performed By: #### 2 306208, 5323342, 96484547, 4654313, 7199287, 5141736, 81734133, 8636924, 235601532, 9710375, 7022353, 2523328, 3364156, 759846486 #### [facility] [address] [place] [address] Creatinine [Mass/Vol] 0.9 mg/dL Normal 0.5-1.3 [facility] Comment on above: Performed By: #### 2 740440, 7418573, 40670086, 5843955, 4576154, 9416245, 29409215, 8554202, 810879042, 5877554, 9657073, 5124179, 8116796, 019386043 #### [facility] [address] [place] [address] Globulin (S) [Mass/Vol] 3.2 g/dL Normal 1.4-4.0 [facility] Comment on above: Performed By: #### 2 727350, 6305725, 62329004, 8543831, 4747789, 2430807, 88505249, 1058865, 450604291, 9786553, 1892967, 1550720, 5054106, [id number] #### [facility] [address] [place] [address] Glucose [Mass/Vol] 95 mg/dL Normal 55-199 [facility] Comment on above: Result Comment: If t his glucose result represents a fasting glucose, interpretation should refer to the following reference range: 55-99 mg/dL Performed By: #### 2 785833, 8855637, 51579870, 4107312, 6798166, 8311202, 72252005, 1993499, 026348532, 4725957, 5809786, 1482558, 4415422, [id number] #### [facility] [address] [place] [address] Potassium [Moles/Vol] 3.8 mmol/L Normal 3.5-5.3 [facility] Comment on above: Performed By: #### 2 183171, 4394299, 15869625, 8201117, 6571648, 0470192, 25336832, 4270995, 819501337, 9544102, 1374385, 8209329, 3313906, 628968407 #### [facility] [address] [place] [address] Protein [Mass/Vol] 7.4 g/dL Normal 6.0-7.8 [facility] Comment on above: Performed By: #### 2 213069, 0525930, 92758585, 1692179, 6602548, 2816576, 76151594, 9650613, 953338404, 2217656, 4984093, 4418420, 8876589, [id number] #### [facility] [address] [place] [address] Sodium [Moles/Vol] 137 mmol/L Normal 135-145 [facility] Comment on above: Performed By: #### 2 997242, 6713157, 39736368, 6827201, 0949839, 8721976, 28035401, 0557748, 784816468, 8214063, 3749104, 6925887, 7107606, 617760842 #### [facility] [address] [place] [address] Urea nitrogen [Mass/Vol] 13 mg/dL Normal 5-21 [facility] Comment on above: Performed By: #### 2 235852, 5948147, 59635468, 3892704, 9326605, 4701262, 86481292, 6572669, 178411265, 8038782, 1663343, 9462559, 7793127, 344802495 #### [facility] [address] [place] [address] Urea nitrogen/Creatinine [Mass ratio] 14 No Units Normal 10-20 [facility] Comment on above: Performed By: #### 2 087936, 1296033, 83204392, 5251410, 2592921, 3209852, 20482184, 7297876, 163075898, 9503293, 2251310, 4836435, 3178668, 047342943 #### [facility] [address] [place] [address] Consent for Treatmenton 01-05 Consent for Treatment [id number]: 127 Normal [facility] Ferritinon 01-25-2023 Ferritin [Mass/Vol] 44 ng/mL Normal 11-307 [facility] Comment on above: Result Comment: NORM ALS MEN <30 YRS 16-132 ng/mL MEN >30 YRS 8-338 ng/mL WOMEN (PREMEN) 6-104 ng/mL WOMEN (POSTMEN) 12-210 ng/mL Performed By: #### 2 514688, 3053964, 06278869, 4737979, 0256361, 9446118, 99918763, 6589430, 030568287, 7811069, 3518392, 3011317, 7782042, 160939068 ####[facility] [address] [place] [address] Folateon 01-25-2023 Folate [Mass/Vol] 13.1 ng/mL Normal >=6.7 [facility] Comment on above: Performed By: #### 2 077982, 9384137, 70511935, 6145410, 4763281, 6217392, 72952221, 4169763, 992307561, 4447573, 7732748, 2605619, 1445459, 316019267 ####Eric [facility] [address] [place] [address] Free T4on 01-25-2023 Free T4 [Mass/Vol] 1.00 ng/dL Normal 0.58-1.64 [facility] Comment on above: Performed By: #### 2 081867, 9497812, 36954711, 0235985, 9554079, 2641611, 95382024, 0890567, 350246342, 4734691, 8689161, 0290199, 0342538, 096948669 #### [facility] [address] [place] [address] HEMATOLOGYOrdered By: SYSTEM SYSTEM on 01-25-2023 Basophils/100 [...] 13.2 % Normal 10.9 - 14.2 % FT HemeAutoSS Hematocrit (Bld) [Volume fraction] 43.7 % [...] 9.1 fL Normal 6.4 - 10.8 fL [facility]SS Platelets (Bld) [#/Vol] 256.0 E9/L Normal 150.0 - 500.0 E9/L [facility] HemeAutoSS RBC (Bld) [#/Vol] 5.2 E12/L Normal 4.3 - 5.9 E12/L FT [facility] WBC corrected for nucl RBC Auto (Bld) [#/Vol] 6.5 E9/L Normal 4.0 - 11.0 E9/L [facility] EeaU1wgb 01-25-2023 HbA1c (Bld) [Mass fraction] 5.3 % Normal <=5.9 [facility] Comment on above: Performed By: #### 2 624303, 4611180, 38762427, 0738915, 1923684, 8819922, 70555918, 6779622, 129241740, 4050927, 3392132, 1139678, 7305228, 763238653 ####[facility] [address] [place] [address] Ironon 01-25-2023 Iron [Mass/Vol] 86 microgram/dL Normal 35-153 [facility] Comment on above: Performed By: #### 2 468727, 7329358, 38836411, 9392552, 7963841, 3376954, 76759298, 7743076, 049167141, 3920264, 9159652, 6586353, 9296624, [id number] #### [facility] [address] [place] [address] Physician Orderon 01-25-2023 Physician Order [id number] :127 Normal [facility] TIBC Calculatedon 01-25-2023 Iron binding capacity [Mass/Vol] 341 microgram/dL Normal 250-400 [facility] Comment on above: Performed By: #### 2 687978, 8518707, 80966352, 7849772, 8628647, 8873419, 72171040, 2560530, 682842482, 4382681, 8609907, 5650484, 6304607, 033448931 #### [facility] [address] [place] [address] Transferrin [Mass/Vol] 244 mg/dL Normal 200-370 [facility] Comment on above: Performed By: #### 2 833146, 4635203, 80956231, 8834602, 4671332, 7094461, 01600800, 7905516, 295873423, 2176656, 2279463, 9578092, 1346306, 072108129 #### [facility] [address] [place] [address] TSHon 01-25-2023 TSH Qn 0.75 m[IU]/L Normal 0.34-5.60 [facility] Comment on above: Performed By: #### 2 414201, 9115092, 99312359, 4560562, 4202919, 9076037, 98566315, 8740987, 111527157, 2965901, 4100209, 0505931, 7777030, 019635206 #### [facility] [address] [place] [address] Vit B12on 01-25-2023 Cobalamin (Vitamin B12) [Mass/Vol] 150 pg/mL Normal 50-1500 [facility] Comment on above: Performed By: #### 2 595240, 0499620, 13562876, 2001502, 3565513, 6249345, 99314859, 5939510, 236728843, 4287333, 8049123, 0055429, 1274842, 963389201 ####[facility] [address] [place] [address] Vitamin D 25 Hydroxyon 01-25 25-hydroxyvitamin D3 [Mass/Vol] 34.0 ng/mL Normal 30.0-100.0 [facility] Comment on above: Result Comment: Vit agudelo D deficiency has been defined as a level of serum 25-OH vitamin D less than 20 ng/mL (1,2) by the [place] of [employer] and an Endocrine Society practice guideline. The Endocrine Society further defined vitamin D insufficiency as a level between 21 and 29 ng/mL (2). 1. IOM ([place] of Medicine). 2010. Dietary reference intakes for calcium and D. Ferrer [place]: The National Academies Press. 2. Sherry MF, Dereck NC, Rip HYDE, et al. Evaluation, treatment, and prevention of vitamin D deficiency: an Endocrine Society clinical practice guideline. JCEM. 2010; 96 (7):1911-30. Performed By: #### 2 984397, 1745248, 55935027, 0009593, 9636895, 9677037, 27655867, 4885798, 562726771, 7371326, 0015284, 1356782, 5003779, 596127339 ####[facility] [address] [place] [address] eGFRon 01-25-2023 GFR/1.73 sq M.predicted among non-blacks MDRD (S/P/Bld) [Vol rate/Area] 80 mL/min/1.73 m2 Normal >=59 [facility] Comment on above: Order Comment: Order added by Discern Expert. Result Comment: [employer] kidney disease could be indicated at eGFR's of less than 60 mL/min/1.73m2. Kidney failure is indicated at less than 15 mL/min/1.73m2. Performed By: #### 2 431017, 6599240, 98830036, 2920392, 5097305, 6889969, 39647245, 8347049, 360041483, 8094420, 8960102, 1291649, 5302062, 479435983 #### [facility] [address] [place] [address] CBC AUTO DIFFon 11-23-2022 BASO # 0.1 103/ul Normal 0.0-0.1 [facility] Comment on above: Performed By: #### C BC #### [facility] [address] [place] [address] Dr. Riddhi Nix Basophils/100 WBC (Bld) 1.1 % Normal 0.2-2.0 [facility] Comment on above: Performed By: #### C BC #### [facility] [address] [place] [address] Dr. Riddhi Nix EO # 0.1 103/ul Normal 0.0-0.7 [facility] Comment on above: Performed By: #### C BC #### [facility] [address] [place] [address] Dr. Riddhi Nix Eosinophils/100 WBC (Bld) 2.5 % Normal 0.9-7.0 [facility] Comment on above: Performed By: #### C BC #### [facility] [address] [place] [address] Dr. Riddhi Nix Erythrocyte distribution width (RBC) [Ratio] 13.4 % Normal 11.0-15.0 [facility] Comment on above: Performed By: #### C BC #### [facility] [address] [place] [address] Dr. Riddhi Nix Hematocrit (Bld) [Volume fraction] 44.3 % Normal 36.0-48.0 [facility] Comment on above: Performed By: #### C BC #### [facility] [address] [place] [address] Dr. Riddhi Nix Hemoglobin (Bld) [Mass/Vol] 14.6 g/dL Normal 12.0-16.0 [facility] Comment on above: Performed By: #### C BC #### [facility] [address] [place] [address] Dr. Riddhi Nix IG # 0.01 10e3/ul Normal 0.00-0.03 [facility] Comment on above: Performed By: #### C BC #### [facility] [address] [place] [address] Dr. Riddhi Nix IG % 0.2 % Normal 0.0-0.5 [facility] Comment on above: Performed By: #### C BC #### [facility] [address] [place] [address] Dr. Riddhi Nix LYMPH # 1.6 103/ul Normal 1.2-3.8 [facility] Comment on above: Performed By: #### C BC #### [facility] [address] [place] [address] Dr. Riddhi Nix Lymphocytes/100 WBC (Bld) 28.3 % Normal 20.5-60.0 [facility] Comment on above: Performed By: #### C BC #### [facility] [address] [place] [address] Dr. Riddhi Nix MANUAL DIFF REQ NO Normal [facility] Comment on above: Performed By: #### C BC #### [facility] [address] [place] [address] Dr. Riddhi Nix MCH (RBC) [Entitic mass] 28.1 pg Normal 26.7-34.0 [facility] Comment on above: Performed By: #### C BC #### [facility] [address] [place] [address] Dr. Riddhi Nix MCHC (RBC) [Mass/Vol] 33.0 g/dL Normal 29.9-35.2 [facility] Comment on above: Performed By: #### C BC #### [facility] [address] [place] [address] Dr. Riddhi Nix MCV (RBC) [Entitic vol] 85.2 fL Normal 81.0-99.0 [facility] Comment on above: Performed By: #### C BC #### [facility] [address] [place] [address] Dr. Riddhi Nix MONO # 0.4 103/ul Normal 0.3-0.8 [facility] Comment on above: Performed By: #### C BC #### [facility] [address] [place] [address] Dr. Riddhi Nix Monocytes/100 WBC (Bld) 7.4 % Normal 1.7-12.0 [facility] Comment on above: Performed By: #### C BC #### [facility] [address] [place] [address] Dr. Riddhi Nix NEUT # 3.4 103/ul Normal 1.4-6.5 [facility] Comment on above: Performed By: #### C BC #### [facility] [address] [place] [address] Dr. Riddhi Nix Neutrophils/100 WBC (Bld) 60.5 % Normal 43.0-75.0 [facility] Comment on above: Performed By: #### C BC #### [facility] [address] [place] [address] Dr. Riddhi Nix Platelet mean volume (Bld) [Entitic vol] 10.6 fL Normal 9.5-13.5 [facility] Comment on above: Performed By: #### C BC #### [facility] [address] [place] [address] Dr. Riddhi Nix PLT 242 103/ul Normal 150-450 [facility] Comment on above: Performed By: #### C BC #### [facility] [address] [place] [address] Dr. Riddhi Nix RBC 5.20 106/ul Normal 4.20-5.40 [facility] Comment on above: Performed By: #### C BC #### [facility] [address] [place] [address] Dr. Riddhi Nix WBC 5.7 103/ul Normal 4.0-11.0 [facility] Comment on above: Performed By: #### C BC #### [facility] [address] [place] [address] Dr. Riddhi Nix FREE T3on 11-23-2022 FREE T3 3.40 pg/mlL Normal 2.18-3.98 [facility] Comment on above: Performed By: #### S EDR #### [facility] [address] [place] [address] Dr. Riddhi Nix T4on 11-23-2022 T4 [Mass/Vol] 8.40 ug/dL Normal 4.80-13.[address] [facility] Comment on above: Performed By: #### S EDR #### [facility] [address] [place] [address] Dr. Riddhi Nix TSHon 11-23-2022 TSH 0.665 uIU/mL Normal 0.358-3.740 [facility] Comment on above: Performed By: #### S EDR #### [facility] [address] [place] [address] Dr. Riddhi Nix AMYLASEon 09-28-2022 Amylase [Catalytic activity/Vol] 44 U/L Normal 25-115 [facility] Comment on above: Performed By: #### L IPA, ANTWON, CMP #### [facility] [address] [place] [address] Dr. Riddhi Nix CBC AUTO DIFFon 09-28-2022 BASO # 0.0 103/ul Normal 0.0-0.1 [facility] Comment on above: Performed By: #### L IPA, ANTWON, CMP #### [facility] [address] [place] [address] Dr. Riddhi Nix Basophils/100 WBC (Bld) 0.3 % Normal 0.2-2.0 [facility] Comment on above: Performed By: #### L IPA, ANTWON, CMP #### [facility] [address] [place] [address] Dr. Riddhi Nix EO # 0.0 103/ul Normal 0.0-0.7 [facility] Comment on above: Performed By: #### L IPA, ANTWON, CMP #### [facility] [address] [place] [address] Dr. Riddhi Nix Eosinophils/100 WBC (Bld) 0.1 % Critically low 0.9-7.0 [facility] Comment on above: Performed By: #### L ANTWON ZELAYA, CMP #### [facility] [address] [place] [address] Dr. Riddhi Nix Erythrocyte distribution width (RBC) [Ratio] 13.4 % Normal 11.0-15.0 [facility] Comment on above: Performed By: #### L ANTWON ZELAYA, CMP #### [facility] [address] [place] [address] Dr. Riddhi Nix Hematocrit (Bld) [Volume fraction] 39.4 % Normal 36.0-48.0 [facility] Comment on above: Performed By: #### L ANTWON ZELAYA, CMP #### [facility] [address] [place] [address] Dr. Riddhi Nix Hemoglobin (Bld) [Mass/Vol] 12.8 g/dL Normal 12.0-16.0 [facility] Comment on above: Performed By: #### L ANTWON ZELAYA, CMP #### [facility] [address] [place] [address] Dr. Riddhi Nix IG # 0.06 10e3/ul Critically high 0.00-0.03 [facility] Comment on above: Performed By: #### L ANTWON ZELAYA, CMP #### [facility] [address] [place] [address] Dr. Riddhi Nix IG % 0.5 % Normal 0.0-0.5 [facility] Comment on above: Performed By: #### L ANTWON ZELAYA, CMP #### [facility] [address] [place] [address] Dr. Riddhi Nix LYMPH # 1.3 103/ul Normal 1.2-3.8 [facility] Comment on above: Performed By: #### L ANTWON ZELAYA, CMP #### [facility] [address] [place] [address] Dr. Riddhi Nix Lymphocytes/100 WBC (Bld) 11.1 % Critically low 20.5-60.0 [facility] Comment on above: Performed By: #### L IPA, ANTWON, CMP #### [facility] [address] [address] [address] Riddhi Nix MANUAL DIFF REQ NO Normal [facility] Comment on above: Performed By: #### L IPA, ANTWON, CMP #### [facility] [address] [address] [address] Riddhi Nix MCH (RBC) [Entitic mass] 27.9 pg Normal 26.7-34.0 [facility] Comment on above: Performed By: #### L IPA, ANTWON, CMP #### [facility] [address] [address] [address] Riddhi Nix MCHC (RBC) [Mass/Vol] 32.5 g/dL Normal 29.9-35.2 [facility] Comment on above: Performed By: #### L IPA ANTWON, CMP #### [facility] [address] [place] [address] Dr. Riddhi Nix MCV (RBC) [Entitic vol] 85.8 fL Normal 81.0-99.0 [facility] Comment on above: Performed By: #### L IPA ANTWON, CMP #### [facility] [address] [place] [address] Dr. Riddhi Nix MONO # 0.7 103/ul Normal 0.3-0.8 [facility] Comment on above: Performed By: #### L NATHALIE ANTWON, CMP #### [facility] [address] [place] [address] Dr. Riddhi Nix Monocytes/100 WBC (Bld) 6.2 % Normal 1.7-12.0 [facility] Comment on above: Performed By: #### L IPA, ANTWON, CMP #### [facility] [address] [place] [address] Dr. Riddhi Nix NEUT # 9.7 103/ul Critically high 1.4-6.5 [facility] Comment on above: Performed By: #### L IPA, ANTWON, CMP #### [facility] [address] [place] [address] Dr. Riddhi Nix Neutrophils/100 WBC (Bld) 81.8 % Critically high 43.0-75.0 [facility] Comment on above: Performed By: #### L ANTWON ZELAYA, CMP #### [facility] [address] [place] [address] Dr. Riddhi Nix Platelet mean volume (Bld) [Entitic vol] 11.0 fL Normal 9.5-13.5 [facility] Comment on above: Performed By: #### L ANTWON ZELAYA, CMP #### [facility] [address] [place] [address] Dr. Riddhi Nix PLT 202 103/ul Normal 150-450 [facility] Comment on above: Performed By: #### L ANTWON ZELAYA, CMP #### [facility] [address] [place] [address] Dr. Riddhi Nix RBC 4.59 106/ul Normal 4.20-5.40 [facility] Comment on above: Performed By: #### L ANTWON ZELAYA, CMP #### [facility] [address] [place] [address] Dr. Riddhi Nix WBC 11.9 103/ul Critically high 4.0-11.0 [facility] Comment on above: Performed By: #### L ANTWON ZELAYA, CMP #### [facility] [address] [place] [address] Dr. Riddhi Nix LIPASEon 09-28-2022 Lipase [Catalytic activity/Vol] 54.0 U/L Critically low 73.0-393.0 [facility] Comment on above: Performed By: #### L ANTWON ZELAYA, CMP #### [facility] [address] [place] [address] Dr. Riddhi Nix PROF 14(COMP METB)on 023 Albumin [Mass/Vol] 3.0 g/dL Critically low 3.4-5.0 [facility] Comment on above: Performed By: #### L ANTWON ZELAYA, CMP #### [facility] [address] [place] [address] Dr. Riddhi Nix Albumin/Globulin [Mass ratio] 0.9 {ratio} Normal [facility] Comment on above: Performed By: #### L IPA, ANTWON, CMP #### [facility] [address] [address] [address] Riddhi Nix ALP [Catalytic activity/Vol] 56 U/L Normal 46-116 [facility] Comment on above: Performed By: #### L IPA, ANTWON, CMP #### [facility] [address] [address] [address] Riddhi Nix ALT [Catalytic activity/Vol] 17 U/L Normal 14-59 [facility] Comment on above: Performed By: #### L IPA ANTWON, CMP #### [facility] [address] [address] [address] Riddhi Nix Anion gap [Moles/Vol] 11.0 mmol/L Normal [facility] Comment on above: Performed By: #### L NATHALIE ANTWON, CMP #### [facility] [address] [address] [address] Riddhi Nix AST [Catalytic activity/Vol] 16 U/L Normal 15-37 [facility] Comment on above: Performed By: #### L NATHALIE ANTWON, CMP #### [facility] [address] [address] [address] Riddhi Nix Bilirubin [Mass/Vol] 0.5 mg/dL Normal 0.2-1.0 [facility] Comment on above: Performed By: #### L NATHALIE ANTWON, CMP #### [facility] [address] [address] [address] Riddhi Nix Calcium [Mass/Vol] 8.1 mg/dL Critically low 8.5-10.1 Th [facility] Comment on above: Performed By: #### L IPA ANTWON, CMP #### [facility] [address] [address] [address] Riddhi Nix Chloride [Moles/Vol] 107 mmol/L Normal 98-107 [facility] Comment on above: Performed By: #### L IPA ANTWON, CMP #### [facility] [address] [address] [address] Riddhi Nix CO2 [Moles/Vol] 25.1 mmol/L Normal 21.0-32.0 [facility] Comment on above: Performed By: #### L IPA, ANTWON, CMP #### [facility] [address] [address] [address] Riddhi Nix Creatinine [Mass/Vol] 0.79 mg/dL Normal 0.55-1.02 [facility] Comment on above: Performed By: #### L IPA, ANTWON, CMP #### [facility] [address] [address] [address] Riddhi Nix EGFR-AF CYMRO >60 Normal >=60 [facility] Comment on above: Performed By: #### L IPA, ANTWON, CMP #### [facility] [address] [address] [address] Riddhi Nix EGFR-NON AF CYMRO >60 Normal >=60 [facility] Comment on above: Performed By: #### L IPA, ANTWON, CMP #### [facility] [address] [address] [address] Riddhi Nix Globulin (S) [Mass/Vol] 3.2 g/dL Normal [facility] Comment on above: Performed By: #### L IPA, ANTWON, CMP #### [facility] [address] [address] [address] Riddhi Nix Glucose [Mass/Vol] 128 mg/dL Critically high 74-106 T [facility] Comment on above: Performed By: #### L IPA ANTWON, CMP #### [facility] [address] [address] [address] Riddhi Nix Potassium [Moles/Vol] 3.1 mmol/L Critically low 3.5-5.1 [facility] Comment on above: Performed By: #### L IPA ANTWON, CMP #### [facility] [address] [address] [address] Riddhi Nix Protein [Mass/Vol] 6.2 g/dL Critically low 6.4-8.2 Th [facility] Comment on above: Performed By: #### L IPA, ANTWON, CMP #### [facility] [address] [address] [address] Riddhi Nix Sodium [Moles/Vol] 140 mmol/L Normal 136-145 [facility] Comment on above: Performed By: #### L IPAANTWON, CMP #### [facility] [address] [place] [address] Dr. Riddhi Nix Urea nitrogen [Mass/Vol] 6.0 mg/dL Critically low 7.0-18.0 [facility] Comment on above: Performed By: #### L IPA ANTWON, CMP #### [facility] [address] [place] [address] Dr. Riddhi Nix Urea nitrogen/Creatinine [Mass ratio] 7.6 mg/mg Normal [facility] Comment on above: Performed By: #### L ANTWON ZELAYA, CMP #### [facility] [address] [place] [address] Dr. Riddhi Nix SED RATE WESTERGRENon 2022 SED RATE 11 mm/hr Normal <=20 [facility] Comment on above: Performed By: #### L ANTWON ZELAYA, CMP #### [facility] [address] [place] [address] Dr. Riddhi Nix AMMONIAon 09-27-2022 Ammonia (P) [Moles/Vol] 29 umol/L Normal 11-32 [facility] Comment on above: Performed By: #### L NATHALIE ANTWON, CMP #### [facility] [address] [place] [address] Dr. Riddhi Nix AMYLASEon 09-27-2022 Amylase [Catalytic activity/Vol] 57 U/L Normal 25-115 [facility] Comment on above: Performed By: #### C MP, ANTWON, LIPA #### [facility] [address] [place] [address] Dr. Riddhi Nix CBC AUTO DIFFon 09-27-2022 BASO # 0.1 103/ul Normal 0.0-0.1 [facility] Comment on above: Performed By: #### L IPA ANTWON, CMP #### [facility] [address] [place] [address] Dr. Riddhi Nix Basophils/100 WBC (Bld) 0.4 % Normal 0.2-2.0 [facility] Comment on above: Performed By: #### L ANTWON ZELAYA, CMP #### [facility] [address] [place] [address] Dr. Riddhi Nix EO # 0.0 103/ul Normal 0.0-0.7 [facility] Comment on above: Performed By: #### L ANTWON ZELAYA, CMP #### [facility] [address] [place] [address] Dr. Riddhi Nix Eosinophils/100 WBC (Bld) 0.0 % Critically low 0.9-7.0 [facility] Comment on above: Performed By: #### L ANTWON ZELAYA, CMP #### [facility] [address] [place] [address] Dr. Riddhi Nix Erythrocyte distribution width (RBC) [Ratio] 13.2 % Normal 11.0-15.0 [facility] Comment on above: Performed By: #### L ANTWON ZELAYA, CMP #### [facility] [address] [place] [address] Dr. Riddhi Nix Hematocrit (Bld) [Volume fraction] 41.2 % Normal 36.0-48.0 [facility] Comment on above: Performed By: #### L ANTWON ZELAYA, CMP #### [facility] [address] [place] [address] Dr. Riddhi Nix Hemoglobin (Bld) [Mass/Vol] 13.9 g/dL Normal 12.0-16.0 [facility] Comment on above: Performed By: #### L ANTWON ZELAYA, CMP #### [facility] [address] [place] [address] Dr. Riddhi Nix IG # 0.05 10e3/ul Critically high 0.00-0.03 [facility] Comment on above: Performed By: #### L ANTWON EZLAYA, CMP #### [facility] [address] [place] [address] Dr. Riddhi Nix IG % 0.4 % Normal 0.0-0.5 [facility] Comment on above: Performed By: #### L ANTWON ZELAYA, CMP #### [facility] [address] [place] [address] Dr. Riddhi Nix LYMPH # 0.9 103/ul Critically low 1.2-3.8 [facility] Comment on above: Performed By: #### L ANTWON ZELAYA, CMP #### [facility] [address] [place] [address] Dr. Riddhi Nix Lymphocytes/100 WBC (Bld) 6.7 % Critically low 20.5-60.0 [facility] Comment on above: Performed By: #### L ANTWON ZELAYA, CMP #### [facility] [address] [place] [address] Dr. Riddhi Nix MANUAL DIFF REQ NO Normal [facility] Comment on above: Performed By: #### L ANTWON ZELAYA, CMP #### [facility] [address] [place] [address] Dr. Riddhi Nix MCH (RBC) [Entitic mass] 28.4 pg Normal 26.7-34.0 [facility] Comment on above: Performed By: #### L ANTWON ZELAYA, CMP #### [facility] [address] [place] [address] Dr. Riddhi Nix MCHC (RBC) [Mass/Vol] 33.7 g/dL Normal 29.9-35.2 [facility] Comment on above: Performed By: #### L ANTWON ZELAYA, CMP #### [facility] [address] [place] [address] Dr. Riddhi Nix MCV (RBC) [Entitic vol] 84.3 fL Normal 81.0-99.0 [facility] Comment on above: Performed By: #### L ANTWON ZELAYA, CMP #### [facility] [address] [place] [address] Dr. Riddhi Nix MONO # 0.6 103/ul Normal 0.3-0.8 [facility] Comment on above: Performed By: #### L ANTWON ZELAYA, CMP #### [facility] [address] [place] [address] Dr. Riddhi Nix Monocytes/100 WBC (Bld) 4.6 % Normal 1.7-12.0 [facility] Comment on above: Performed By: #### L ANTWON ZELAYA, CMP #### [facility] [address] [place] [address] Dr. Riddhi Nix NEUT # 12.3 103/ul Critically high 1.4-6.5 [facility] Comment on above: Performed By: #### L IPA ANTWON, CMP #### [facility] [address] [place] [address] Dr. Riddhi Nix Neutrophils/100 WBC (Bld) 87.9 % Critically high 43.0-75.0 [facility] Comment on above: Performed By: #### L IPA ANTWON, CMP #### [facility] [address] [place] [address] Dr. Riddhi Nix Platelet mean volume (Bld) [Entitic vol] 10.6 fL Normal 9.5-13.5 [facility] Comment on above: Performed By: #### L NATHALIE ANTWON, CMP #### [facility] [address] [place] [address] Dr. Riddhi Nix PLT 224 103/ul Normal 150-450 [facility] Comment on above: Performed By: #### L IPA ANTWON, CMP #### [facility] [address] [place] [address] Dr. Riddhi Nix RBC 4.89 106/ul Normal 4.20-5.40 [facility] Comment on above: Performed By: #### L NATHALIE ANTWON, CMP #### [facility] [address] [place] [address] Dr. Riddhi Nix WBC 13.9 103/ul Critically high 4.0-11.0 [facility] Comment on above: Performed By: #### L IPA ANTWON, CMP #### [facility] [address] [place] [address] HEAD WO CONon [...] NAYE OCONNOR Date: 2022-09-27 19:34 Normal [facility] CULTURE BLOODon 09-27-2022 Microscopic examination of blood, culture Culture Observations: NO GROWTH AT 5 DAYS. Normal [facility] Comment on above: Performed By: #### L ANTWON ZELAYA CMP #### [facility] [address] [place] [address] Dr. Riddhi Nix Microscopic examination of blood, culture Culture Observations: NO GROWTH AT 5 DAYS. Normal [facility] Comment on above: Performed By: #### L ANTWON ZELAYA CMP #### [facility] [address] [place] [address] Dr. Riddhi Nix CULTURE URINEon 09-27-2022 CULTURE URINE Culture Observations : NO GROWTH. Normal [facility] Comment on above: Performed By: #### L ANTWON ZELAYA CMP #### [facility] [address] [place] [address] Dr. Riddhi Nix [facility] SARS-CoV-2 (COVID-19) RNA LORE+probe Ql (Unsp spec) Not detected Normal NOT DETECTED [facility] Comment on above: Result Comment: When diagnostic [...] for this test is supported by the [place] of Health and Human Service's declaration that [...] By: #### L ANTWON ZELAYA, CMP #### [facility] [address] [place] [address] Dr. Riddhi Nix INFLUENZA A AND B [facility] 09-27 [facility] SEE BELOW Normal [facility] Comment on above: Result Comment: Nega tive for Flu A protein angiten. Infection due to Flu A cannot be ruled out. Flu A angiten in the sample may be below the detection limit of the test. Performed By: #### L ANTWON ZELAYA, CMP #### [facility] [address] [place] [address] Dr. Riddhi Nix INFLUBNEG SEE BELOW Normal [facility] Comment on above: Result Comment: Nega tive for Flu B protein antigen. Infection due to Flu B cannot be ruled out. Flu B antigen in the sample may be below the detection limit of the test. Performed By: #### L ANTWON ZELAYA, CMP #### [facility] [address] [place] [address] Dr. Riddhi Nix INFLUENZA A AG Negative Normal NEGATIVE SEE COMMENT [facility] Comment on above: Performed By: #### L ANTWON ZELAYA, CMP #### [facility] [address] [place] [address] Dr. Riddhi Nix INFLUENZA B AG Negative Normal NEGATIVE SEE COMMENT [facility] Comment on above: Performed By: #### L ANTWON ZELAYA, CMP #### [facility] [address] [place] [address] Dr. Riddhi Nix LACTATE/LACTIC ACIDon 2022 Lactate [Moles/Vol] 0.8 mmol/L Normal 0.4-1.9 [facility] Comment on above: Performed By: #### L IPA, ANTWON, CMP #### [facility] [address] [place] [address] Dr. Riddhi Nix LIPASEon 09-27-2022 Lipase [Catalytic activity/Vol] 52.0 U/L Critically low 73.0-393.0 [facility] Comment on above: Performed By: #### C MP, ANTWON, LIPA #### [facility] [address] [place] [address] Dr. Riddhi Nix PROF 14(COMP METB)on 023 Albumin [Mass/Vol] 3.7 g/dL Normal 3.4-5.0 [facility] Comment on above: Performed By: #### C MP, ANTWON, LIPA #### [facility] [address] [place] [address] Dr. Riddhi Nix Albumin/Globulin [Mass ratio] 1.1 {ratio} Normal [facility] Comment on above: Performed By: #### C MP, ANTWON, LIPA #### [facility] [address] [place] [address] Dr. Riddhi Nix ALP [Catalytic activity/Vol] 63 U/L Normal 46-116 [facility] Comment on above: Performed By: #### C MP, ANTWON, LIPA #### [facility] [address] [place] [address] Dr. Riddhi Nix ALT [Catalytic activity/Vol] 20 U/L Normal 14-59 [facility] Comment on above: Performed By: #### C MP, ANTWON, LIPA #### [facility] [address] [place] [address] Dr. Riddhi Nix Anion gap [Moles/Vol] 12.1 mmol/L Normal [facility] Comment on above: Performed By: #### C MP, ANTWON, LIPA #### [facility] [address] [place] [address] Dr. Riddhi Nix AST [Catalytic activity/Vol] 19 U/L Normal 15-37 [facility] Comment on above: Performed By: #### C MP, ANTWON, LIPA #### [facility] [address] [place] [address] Dr. Riddhi Nix Bilirubin [Mass/Vol] 0.5 mg/dL Normal 0.2-1.0 [facility] Comment on above: Performed By: #### C MP, ANTWON, LIPA #### [facility] [address] [place] [address] Dr. Riddhi Nix Calcium [Mass/Vol] 8.5 mg/dL Normal 8.5-10.1 [facility] Comment on above: Performed By: #### C MP, ANTWON, LIPA #### [facility] [address] [place] [address] Dr. Riddhi Nix Chloride [Moles/Vol] 103 mmol/L Normal 98-107 [facility] Comment on above: Performed By: #### C MP ANTWON, LIPA #### [facility] [address] [place] [address] Dr. Riddhi Nix CO2 [Moles/Vol] 25.1 mmol/L Normal 21.0-32.0 [facility] Comment on above: Performed By: #### C ALDA ANTWON, LIPA #### [facility] [address] [place] [address] Dr. Riddhi Nix Creatinine [Mass/Vol] 0.87 mg/dL Normal 0.55-1.02 [facility] Comment on above: Performed By: #### C MP ANTWON, LIPA #### [facility] [address] [place] [address] Dr. Riddhi Nix EGFR-AF CYMRO >60 Normal >=60 [facility] Comment on above: Performed By: #### C MP, ANTWON, LIPA #### [facility] [address] [place] [address] Dr. Riddhi Nix EGFR-NON AF CYMRO >60 Normal >=60 [facility] Comment on above: Performed By: #### C MP, ANTWON, LIPA #### [facility] [address] [place] [address] Dr. Riddhi Nix Globulin (S) [Mass/Vol] 3.5 g/dL Normal [facility] Comment on above: Performed By: #### C ALDA ANTWON, LIPA #### [facility] [address] [address] [address] Riddhi Nix Glucose [Mass/Vol] 103 mg/dL Normal 74-106 [facility] Comment on above: Performed By: #### C MP ANTWON, LIPA #### [facility] [address] [address] [address] Riddhi Nix Potassium [Moles/Vol] 3.2 mmol/L Critically low 3.5-5.1 [facility] Comment on above: Performed By: #### C ALDA ANTWON, LIPA #### [facility] [address] [place] [address] Dr. Riddhi Nix Protein [Mass/Vol] 7.2 g/dL Normal 6.4-8.2 [facility] Comment on above: Performed By: #### C ALDA ANTWON, LIPA #### [facility] [address] [place] [address] Dr. Riddhi Nix Sodium [Moles/Vol] 137 mmol/L Normal 136-145 [facility] Comment on above: Performed By: #### C ALDA ANTWON, LIPA #### [facility] [address] [place] [address] Dr. Riddhi Nix Urea nitrogen [Mass/Vol] 8.0 mg/dL Normal 7.0-18.0 [facility] Comment on above: Performed By: #### C MP ANTWON, LIPA #### [facility] [address] [place] [address] Dr. Riddhi Nix Urea nitrogen/Creatinine [Mass ratio] 9.2 mg/mg Normal [facility] Comment on above: Performed By: #### C ALDA ANTWON, LIPA #### [facility] [address] [place] [address] Dr. [facility]idd[facility] mm/hr Normal <=20 [facility] Comment on above: Performed By: #### S EDR #### [facility] [address] [address] [address] Riddhi Nix UA RANDOM W/MICROSCOPICon BACTERIA NONE SEEN Normal NONE SEEN [facility] Comment on above: Performed By: #### U AMIC #### [facility] [address] [address] [address] Riddhi Nix Bilirubin Ql (U) Negative Normal NEGATIVE [facility] Comment on above: Performed By: #### U AMIC #### [facility] [address] [address] [address] Riddhi Nix CAST NONE SEEN Normal NONE SEEN [facility] Comment on above: Performed By: #### U AMIC #### [facility] [address] [address] [address] Riddhi Nix Clarity (U) CLEAR Normal CLEAR [facility] Comment on above: Performed By: #### U AMIC #### [facility] [address] [place] [address] Dr. Riddhi Nix Color (U) LT. YELLOW Normal YELLOW [facility] Comment on above: Performed By: #### U AMIC #### [facility] [address] [address] [address] Riddhi Nix Crystals LM Nom (Urine sed) NONE SEEN Normal NONE SEEN [facility] Comment on above: Performed By: #### U AMIC #### [facility] [address] [place] [address] Dr. Riddhi Nix Epithelial cells LM Ql (Urine sed) FEW Abnormal NONE SEEN /RARE [facility] Comment on above: Performed By: #### U AMIC #### [facility] [address] [place] [address] Dr. Riddhi Nix Glucose Ql (U) Negative Normal NEGATIVE [facility] Comment on above: Performed By: #### U AMIC #### [facility] [address] [place] [address] Dr. Riddhi Nix Hemoglobin Ql (U) Negative Normal NEGATIVE [facility] Comment on above: Performed By: #### U AMIC #### [facility] [address] [place] [address] Dr. Riddhi Nix Ketones Ql (U) 15 mg/dl Abnormal NEGATIVE [facility] Comment on above: Performed By: #### U AMIC #### [facility] [address] [place] [address] Dr. Riddhi Nix LEUKOCYTES Negative Normal NEGATIVE [facility] Comment on above: Performed By: #### U AMIC #### [facility] [address] [place] [address] Dr. Riddhi Nix MUCOUS NONE SEEN Normal NONE SEEN [facility] Comment on above: Performed By: #### U AMIC #### [facility] [address] [place] [address] Dr. Riddhi Nix Nitrite Ql (U) Negative Normal NEGATIVE [facility] Comment on above: Performed By: #### U AMIC #### [facility] [address] [place] [address] Dr. Riddhi Nix pH (U) 6.0 [pH] Normal 5-9 [facility] Comment on above: Performed By: #### U AMIC #### [facility] [address] [place] [address] Dr. Riddhi Nix RBC NONE SEEN Abnormal 0-2 [facility] Comment on above: Performed By: #### U AMIC #### [facility] [address] [place] [address] Dr. Riddhi Nix SPEC GRAVITY <=1.005 Abnormal 1.005-<=1.02 5 [facility] Comment on above: Performed By: #### U AMIC #### [facility] [address] [place] [address] Dr. Riddhi Nix UA PROTEIN Negative Normal NEGATIVE/ TRACE [facility] Comment on above: Performed By: #### U AMIC #### [facility] [address] [place] [address] Dr. Riddhi Nix Urobilinogen Qn (U) 0.2 {Shankar'U}/dL Normal 0.2 - 1. 0 [facility] Comment on above: Performed By: #### U AMIC #### [facility] [address] [place] [address] Dr. Riddhi Nix WBC NONE SEEN Normal NONE SEEN [facility] Comment on above: Performed By: #### U AMIC #### [facility] [address] [place] [address] Dr. Riddhi Nix FREE T3on 07-15-2022 FREE T3 2.43 pg/mlL Normal 2.18-3.98 [facility] Comment on above: Performed By: #### L IPA ANTWON, CMP #### [facility] [address] [place] [address] Dr. Riddhi Nix T4on 07-15-2022 T4 [Mass/Vol] 7.80 ug/dL Normal 4.80-13.90 [facility] Comment on above: Performed By: #### L IPA ANTWON, CMP #### [facility] [address] [place] [address] Dr. Riddhi Nix TSHon 07-15-2022 TSH 0.811 uIU/mL Normal 0.358-3.740 [facility] Comment on above: Performed By: #### L IPA, ANTWON, CMP #### [facility] [address] [place] [address] Dr. Riddhi Nix [facility] CBC AUTO DIFFon 03-23-2022 BASO # 0.1 103/ul Normal 0.0-0.1 [facility] Comment on above: Performed By: #### L IPA ANTWON, CMP #### [facility] [address] [place] [address] Dr. Riddhi Nix Basophils/100 WBC (Bld) 1.0 % Normal 0.2-2.0 [facility] Comment on above: Performed By: #### L IPA, ANTWON, CMP #### [facility] [address] [place] [address] Dr. Riddhi Nix EO # 0.2 103/ul Normal 0.0-0.7 [facility] Comment on above: Performed By: #### L IPA, ANTWON, CMP #### [facility] [address] [place] [address] Dr. Riddhi Nix Eosinophils/100 WBC (Bld) 3.3 % Normal 0.9-7.0 [facility] Comment on above: Performed By: #### L ANTWON ZELAYA, CMP #### [facility] [address] [place] [address] Dr. Riddhi Nix Erythrocyte distribution width (RBC) [Ratio] 13.3 % Normal 11.0-15.0 [facility] Comment on above: Performed By: #### L ANTWON ZELAYA, CMP #### [facility] [address] [place] [address] Dr. Riddhi Nix Hematocrit (Bld) [Volume fraction] 46.2 % Normal 36.0-48.0 [facility] Comment on above: Performed By: #### L ANTWON ZELAYA, CMP #### [facility] [address] [place] [address] Dr. Riddhi Nix Hemoglobin (Bld) [Mass/Vol] 15.0 g/dL Normal 12.0-16.0 [facility] Comment on above: Performed By: #### L ANTWON ZELAYA, CMP #### [facility] [address] [place] [address] Dr. Riddhi Nix IG # 0.01 10e3/ul Normal 0.00-0.03 [facility] Comment on above: Performed By: #### L ANTWON ZELAYA, CMP #### [facility] [address] [place] [address] Dr. Riddhi Nix IG % 0.2 % Normal 0.0-0.5 [facility] Comment on above: Performed By: #### L ANTWON ZELAYA, CMP #### [facility] [address] [place] [address] Dr. Riddhi Nix LYMPH # 1.6 103/ul Normal 1.2-3.8 [facility] Comment on above: Performed By: #### L ANTWON ZELAYA, CMP #### [facility] [address] [place] [address] Dr. Riddhi Nix Lymphocytes/100 WBC (Bld) 32.2 % Normal 20.5-60.0 [facility] Comment on above: Performed By: #### L ANTWON ZELAYA, CMP #### [facility] [address] [address] [address] Riddhi Nix MCH (RBC) [Entitic mass] 28.4 pg Normal 26.7-34.0 [facility] Comment on above: Performed By: #### L ANTWON ZELAYA, CMP #### [facility] [address] [place] [address] Dr. Riddhi Nix MCHC (RBC) [Mass/Vol] 32.5 g/dL Normal 29.9-35.2 [facility] Comment on above: Performed By: #### L NATHALIE ANTWON, CMP #### [facility] [address] [place] [address] Dr. Riddhi Nix MCV (RBC) [Entitic vol] 87.3 fL Normal 81.0-99.0 [facility] Comment on above: Performed By: #### L ANTWON ZELAYA, CMP #### [facility] [address] [place] [address] Dr. Riddhi Nix MONO # 0.4 103/ul Normal 0.3-0.8 [facility] Comment on above: Performed By: #### L ANTWON ZELAYA, CMP #### [facility] [address] [place] [address] Dr. Riddhi Nix Monocytes/100 WBC (Bld) 7.5 % Normal 1.7-12.0 [facility] Comment on above: Performed By: #### L ANTWON ZELAYA, CMP #### [facility] [address] [place] [address] Dr. Riddhi Nix NEUT # 2.9 103/ul Normal 1.4-6.5 [facility] Comment on above: Performed By: #### L ANTWON ZELAYA, CMP #### [facility] [address] [place] [address] Dr. Riddhi Nix Neutrophils/100 WBC (Bld) 55.8 % Normal 43.0-75.0 [facility] Comment on above: Performed By: #### L ANTWON ZELAYA, CMP #### [facility] [address] [place] [address] Dr. Riddhi Nix Platelet mean volume (Bld) [Entitic vol] 11.7 fL Normal 9.5-13.5 [facility] Comment on above: Performed By: #### L ANTWON ZELAYA, CMP #### [facility] [address] [place] [address] Dr. Riddhi Nix PLT 265 103/ul Normal 150-450 [facility] Comment on above: Performed By: #### L IPA ANTWON, CMP #### [facility] [address] [place] [address] Dr. Riddhi Nix RBC 5.29 106/ul Normal 4.20-5.40 [facility] Comment on above: Performed By: #### L ANTWON ZELAYA, CMP #### [facility] [address] [place] [address] Dr. Riddhi Nix WBC 5.1 103/ul Normal 4.0-11.0 [facility] Comment on above: Performed By: #### L ANTWON ZELAYA, CMP #### [facility] [address] [place] [address] Dr. Riddhi Nix [facility] PROFILEon 022 Albumin [Mass/Vol] 4.2 g/dL Normal 3.4-5.0 [facility] Comment on above: Performed By: #### H FPF #### [facility] [address] [place] [address] Dr. Riddhi Nix Albumin/Globulin [Mass ratio] 1.2 {ratio} Normal [facility] Comment on above: Performed By: #### H FPF #### [facility] [address] [place] [address] Dr. Riddhi Nix ALP [Catalytic activity/Vol] 57 U/L Normal 46-116 [facility] Comment on above: Performed By: #### H FPF #### [facility] [address] [place] [address] Dr. Riddhi Nix ALT [Catalytic activity/Vol] 10 U/L Critically low 14-59 [facility] Comment on above: Performed By: #### H FPF #### [facility] [address] [place] [address] Dr. Riddhi Nix AST [Catalytic activity/Vol] 11 U/L Critically low 15-37 [facility] Comment on above: Performed By: #### H FPF #### [facility] [address] [address] [address] Riddhi Nix Bilirubin [Mass/Vol] 0.5 mg/dL Normal 0.2-1.0 [facility] Comment on above: Performed By: #### H FPF #### [facility] [address] [address] [address] Riddhi Nix Calcium [Mass/Vol] 8.5 mg/dL Normal 8.5-10.1 [facility] Comment on above: Performed By: #### H FPF #### [facility] [address] [place] [address] Dr. Riddhi Nix Chloride [Moles/Vol] 107 mmol/L Normal 98-107 [facility] Comment on above: Performed By: #### H FPF #### [facility] [address] [place] [address] Dr. Riddhi Nix CHOL-HDL RATIO NORM SEE BELOW Normal [facility] Comment on above: Result Comment: 3.3 - 4.4 LOW RISK 4.4 - 7.1 AVERAGE RISK 7.1 - 11.0 MODERATE RISK >11.0 HIGH RISK Performed By: #### H FPF #### [facility] [address] [place] [address] Dr. Riddhi Nix Cholesterol [Mass/Vol] 166 mg/dL Normal <=200 [facility] Comment on above: Performed By: #### H FPF #### [facility] [address] [place] [address] Dr. Riddhi Nix Cholesterol in HDL [Mass/Vol] 47 mg/dL Normal 40-60 [facility] Comment on above: Performed By: #### H FPF #### [facility] [address] [place] [address] Dr. Riddhi Nix Cholesterol in LDL [Mass/Vol] 106.6 mg/dL Normal [facility] Comment on above: Performed By: #### H FPF #### [facility] [address] [place] [address] Dr. Riddhi Nix Cholesterol.total/Ch olesterol in HDL [Mass ratio] 3.5 {ratio} Normal [facility] Comment on above: Performed By: #### H FPF #### [facility] [address] [address] [address] Riddhi Nix CO2 [Moles/Vol] 21.7 mmol/L Normal 21.0-32.0 [facility] Comment on above: Performed By: #### H FPF #### [facility] [address] [address] [address] Riddhi Nix Creatinine [Mass/Vol] 1.10 mg/dL Critically high 0.55-1.02 [facility] Comment on above: Performed By: #### H FPF #### [facility] [address] [place] [address] Dr. Riddhi Nix Globulin (S) [Mass/Vol] 3.4 g/dL Normal [facility] Comment on above: Performed By: #### H FPF #### [facility] [address] [place] [address] Dr. Riddhi Nix Glucose [Mass/Vol] 94 mg/dL Normal 74-106 [facility] Comment on above: Performed By: #### H FPF #### [facility] [address] [place] [address] Dr. Riddhi Nix HDL NORMAL > or = 60 mg/dl - LO W CARDIOVASCULAR RISK <40 mg/dl - HIGH CARDIOVASCULAR RISK Normal [facility] Comment on above: Performed By: #### H FPF #### [facility] [address] [place] [address] Dr. Riddhi Nix LDL CALC NORMAL SEE BELOW Normal [facility] Comment on above: Result Comment: <100 mg/dl OPTIMAL 100 - 129 mg/dl NEAR OR ABOVE OPTIMAL 130 - 159 mg/dl BORDERLINE HIGH 160 - 189 mg/dl HIGH >190 mg/dl VERY HIGH Performed By: #### H FPF #### [facility] [address] [place] [address] Dr. Riddhi Nix Potassium [Moles/Vol] 3.7 mmol/L Normal 3.5-5.1 [facility] Comment on above: Performed By: #### H FPF #### [facility] [address] [address] [address] Riddhi Nix Protein [Mass/Vol] 7.6 g/dL Normal 6.4-8.2 [facility] Comment on above: Performed By: #### H FPF #### [facility] [address] [address] [address] Riddhi Nix Sodium [Moles/Vol] 140 mmol/L Normal 136-145 [facility] Comment on above: Performed By: #### H FPF #### [facility] [address] [address] [address] Riddhi Nix Triglyceride [Mass/Vol] 62 mg/dL Normal <=150 [facility] Comment on above: Performed By: #### H FPF #### [facility] [address] [address] [address] Riddhi Nix TSH 4.611 uIU/mL Critically high 0.358-3.740 [facility] Comment on above: Performed By: #### H FPF #### [facility] [address] [address] [address] Riddhi Nix Urea nitrogen [Mass/Vol] 15.0 mg/dL Normal 7.0-18.0 [facility] Comment on above: Performed By: #### H FPF #### [facility] [address] [address] [address] Riddhi Nix Urea nitrogen/Creatinine [Mass ratio] 13.6 mg/mg Normal [facility] Comment on above: Performed By: #### H FPF #### [facility] [address] [address] [address] Riddhi Nix VLDL CALC 12.4 mg/dL Normal [facility] Comment on above: Performed By: #### H FPF #### [facility] [address] [address] [address] Riddhi Nix MRI BRAIN WO W CONon 022 MRI BRAIN WO W CON EXAM: [...] ALLI WEST Date: 2022-03-09 15:53 Normal [facility] T4 LABCORPon 01-13-2022 T4 [Mass/Vol] 6.1 ug/dL Normal 4.5-12.0 [facility] Comment on above: Performed By: #### L ANTWON ZELAYA CMP #### [facility] [address] [place] [address] Dr. Riddhi Nix CBC AUTO DIFFon 01-12-2022 BASO # 0.1 103/ul Normal 0.0-0.1 [facility] Comment on above: Performed By: #### L ANTWON ZELAYA CMP #### [facility] [address] [place] [address] Dr. Riddhi Nix Basophils/100 WBC (Bld) 1.2 % Normal 0.2-2.0 [facility] Comment on above: Performed By: #### L ANTWON ZELAYA CMP #### [facility] [address] [place] [address] Dr. Riddhi Nix EO # 0.1 103/ul Normal 0.0-0.7 [facility] Comment on above: Performed By: #### L IPA, ANTWON, CMP #### [facility] [address] [place] [address] Dr. Riddhi Nix Eosinophils/100 WBC (Bld) 2.3 % Normal 0.9-7.0 [facility] Comment on above: Performed By: #### L IPA ANTWON, CMP #### [facility] [address] [place] [address] Dr. Riddhi Nix Erythrocyte distribution width (RBC) [Ratio] 13.1 % Normal 11.0-15.0 [facility] Comment on above: Performed By: #### L IPA ANTWON, CMP #### [facility] [address] [place] [address] Dr. Riddhi Nix Hematocrit (Bld) [Volume fraction] 42.4 % Normal 36.0-48.0 [facility] Comment on above: Performed By: #### L NATHALIE ANTWON, CMP #### [facility] [address] [place] [address] Dr. Riddhi Nix Hemoglobin (Bld) [Mass/Vol] 13.6 g/dL Normal 12.0-16.0 [facility] Comment on above: Performed By: #### L ANTWON ZELAYA, CMP #### [facility] [address] [place] [address] Dr. Riddhi Nix IG # 0.01 10e3/ul Normal 0.00-0.03 [facility] Comment on above: Performed By: #### L ANTWON ZELAYA, CMP #### [facility] [address] [place] [address] Dr. Riddhi Nix IG % 0.2 % Normal 0.0-0.5 [facility] Comment on above: Performed By: #### L NATHALIE ANTWON, CMP #### [facility] [address] [place] [address] Dr. Riddhi Nix LYMPH # 1.3 103/ul Normal 1.2-3.8 [facility] Comment on above: Performed By: #### L IPA ANTWON, CMP #### [facility] [address] [place] [address] Dr. Riddhi Nix Lymphocytes/100 WBC (Bld) 26.2 % Normal 20.5-60.0 [facility] Comment on above: Performed By: #### L ANTWON ZELAYA, CMP #### [facility] [address] [place] [address] Dr. Riddhi Nix MANUAL DIFF REQ NO Normal [facility] Comment on above: Performed By: #### L IPA ANTWON, CMP #### [facility] [address] [place] [address] Dr. Riddhi Nix MCH (RBC) [Entitic mass] 28.1 pg Normal 26.7-34.0 [facility] Comment on above: Performed By: #### L NATHALIE ANTWON, CMP #### [facility] [address] [place] [address] Dr. Riddhi Nix MCHC (RBC) [Mass/Vol] 32.1 g/dL Normal 29.9-35.2 [facility] Comment on above: Performed By: #### L NATHALIE ANTWON, CMP #### [facility] [address] [place] [address] Dr. Riddhi Nix MCV (RBC) [Entitic vol] 87.6 fL Normal 81.0-99.0 [facility] Comment on above: Performed By: #### L ANTWON ZELAYA, CMP #### [facility] [address] [place] [address] Dr. Riddhi Nix MONO # 0.4 103/ul Normal 0.3-0.8 [facility] Comment on above: Performed By: #### L NATHALIE ANTWON, CMP #### [facility] [address] [place] [address] Dr. Riddhi Nix Monocytes/100 WBC (Bld) 8.1 % Normal 1.7-12.0 [facility] Comment on above: Performed By: #### L IPA ANTWON, CMP #### [facility] [address] [place] [address] Dr. Riddhi Nix NEUT # 3.0 103/ul Normal 1.4-6.5 [facility] Comment on above: Performed By: #### L IPA ANTWON, CMP #### [facility] [address] [address] [address] Riddhi Nix Neutrophils/100 WBC (Bld) 62.0 % Normal 43.0-75.0 [facility] Comment on above: Performed By: #### L ANTWON ZELAYA, CMP #### [facility] [address] [place] [address] Dr. Riddhi Nix Platelet mean volume (Bld) [Entitic vol] 11.5 fL Normal 9.5-13.5 [facility] Comment on above: Performed By: #### L ANTWON ZELAYA, CMP #### [facility] [address] [address] [address] Riddhi Nix PLT 231 103/ul Normal 150-450 [facility] Comment on above: Performed By: #### L ANTWON ZELAYA, CMP #### [facility] [address] [place] [address] Dr. Riddhi Nix RBC 4.84 106/ul Normal 4.20-5.40 [facility] Comment on above: Performed By: #### L ANTWON ZELAYA, CMP #### [facility] [address] [place] [address] Dr. Riddhi Nix WBC 4.8 103/ul Normal 4.0-11.0 [facility] Comment on above: Performed By: #### L ANTWON ZELAYA, CMP #### [facility] [address] [place] [address] Dr. iRddhi Nix FREE T3on 01-12-2022 FREE T3 2.73 pg/mlL Normal 2.18-3.98 [facility] Comment on above: Performed By: #### L ANTWON ZELAYA, CMP #### [facility] [address] [place] [address] Dr. Riddhi Nix TSHon 01-12-2022 TSH 1.528 uIU/mL Normal 0.358-3.740 [facility] Comment on above: Performed By: #### L ANTWON ZELAYA, CMP #### [facility] [address] [place] [address] Dr. Riddhi Nix TSH RANGE SEE BELOW Normal [facility] Comment on above: Result Comment: <0.3 4 UIU/ml HYPERTHYROID 0.34-5.60 UIU/ml EUTHYROID >5.60 UIU/ml HYPOTHYROID Performed By: #### L ANTWON ZELAYA CMP #### [facility] [address] [place] [address] Dr. Riddhi MIGUELon 12-13-2017 CNOV Office Visit (ENDOAL) Florence GRANADOS ([id number]) 1975 FDa Time Provider Department12/13/17 9:00 AM HARVEY VICTOR ENDOAL During your visit today, we recorded the [...] ago. Also has hx of nodular goiter [id number]. FNA at that time was benign. Size stable Mother had hx of thyroidectomy(nodular goiter). She went for blood work prior to this visit- here to reviewthese results. Severity, modifying factors, context and associated signs andsymptoms are as follows:? Thyroid pain: no? Mass effect: None? Energy: ++ fatigue? Sleep: Normal sleep pattern? Temperature Intolerance: Cold Intolerance? 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 (shorter [...] physical exam is noncontributory.DATA:No components found for: [id number] T4Date Value Ref Range Bxogbg8405/26/2016 1.4 0.7 - 1.8 ng/dL Final No components found for: [id number] Value Ref Range Fthmzr9105/26/2016 2.870 0.400 - 5.500 uU/mL FinalComment:If the patient is , TSH reference range varies by gestational period:First Trimester 0.1-2.5 uU/mLSecond Trimester 0.2-3.0 uU/mLThird Trimester 0.3-3.0 uU/mL Free T3Date Value Ref Range Ipcrjo1205/26/2016 2.7 1.8 - 4.6 pg/mL Final No [...] than 50% of the time devoted topatient counseling.TERRI Maddoxclarence Provider: SELF [200]Allergies As of Date: 12/13/2017 Noted Allergy ReactionIMITREX (SUMATRIPTAN) 07/12/2011 12 - Shortness of BreathDate Reviewed: 12/13/2017Reviewed by: Yvette Lynn Ma - Fully AssessedReason for Visit: Follow Up [171]Primary Visit Diagnosis:Multiple thyroid nodules [E04.2] Other Visit Diagnosis:Elevated TSH [R94.6]Order(s):CONSULT TO FUNCTIONAL MEDICINE [[id number]] Order #: [id number]: 1 COMP METABOLIC PANEL [SQCMP] Order #: [id number] FUTURE TSH BLD [SQTSH] Order #: [id number] FUTURE T4 FREE/FREE THYROX [SQFT4] Order #: [id number] FUTURE THYROID PEROXIDASE ANTIBODY BLOOD [SQMICRO] Order #: [id number] FUTUREPrescriptions as of 12/13/2017 Sig: MULTIVITAMIN ORAL [...] to improve.Follow-up and Disposition History RecordedEncounter Number: [id number] Status:Closed by HARVEY VICTOR DO on 12/13/17 [facility] PROGRESSon 12-12-2017 PROGRESS HNO ID: [id number]: Harvey Victor LService: (none)Author Type: PhysicianType: Progress [...] Normal sleep pattern? Temperature Intolerance: Cold Intolerance? 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 [...] physical exam is noncontributory.DATA:No components found for: [id number] T4Date Value Ref Range Pdcdaf5105/26/2016 1.4 0.7 - 1.8 ng/dL Final No components found for: [id number] Value Ref Range Dmtpmz9205/26/2016 2.870 0.400 - 5.500 uU/mL FinalComment:If the patient is , TSH reference range varies by gestationalperiod:First Trimester 0.1-2.5 uU/mLSecond Trimester 0.2-3.0 uU/mLThird Trimester 0.3-3.0 uU/mL Free T3Date Value Ref Range Kwybzf5605/26/2016 2.7 1.8 - 4.6 pg/mL Final No [...] Date Time Vital Sign Value Performing Clinician Facility 03-24-2025 21:42-0400 Body height 162.56 cm Isidoro Rojas MD Work Phone: [facility] 03-24-2025 21:42-0400 Body temperature 97.7 [degF] Isidoro Rojas MD Work Phone: [facility] 03-24-2025 21:42-0400 Body weight 71.9 kg Isidoro Rojas MD Work Phone: [facility] 03-24-2025 21:42-0400 Diastolic blood pressure 90 mm[Hg] Isidoro Rojas MD Work Phone: [facility] 03-24-2025 21:42-0400 Heart rate 88 /min Isidoro Rojas MD Work Phone: [facility] 03-24-2025 21:42-0400 Respiratory rate 16 /min Isidoro Rojas MD Work Phone: [facility] 03-24-2025 21:42-0400 SaO2% (BldA) [Mass fraction] 100 % Isidoro Rojas MD Work Phone: [facility] 03-24-2025 21:42-0400 Systolic blood pressure 139 mm[Hg] Isidoro Rojas MD Work Phone: [facility] 03-10-2025 12:07-0400 Body height 162.6 cm Karyn Rinkes DO Work Phone: [facility] 03-10-2025 12:07-0400 Body mass index (BMI) [Ratio] 26.95 kg/m2 Karyn Rinkes DO Work Phone: [facility] 03-10-2025 12:07-0400 Body weight 71.22 kg Karyn Rinkes DO Work Phone: [facility] 03-10-2025 12:07-0400 Diastolic blood pressure 84 mm[Hg] Karyn Rinkes DO Work Phone: [facility] 03-10-2025 12:07-0400 Systolic blood pressure 120 mm[Hg] Karyn Rinkes DO Work Phone: [facility] 04-03-2023 10:27-0400 Diastolic blood pressure 83 mm[Hg] MD Isidoro Rojas Work Phone: [facility] 04-03-2023 10:27-0400 Heart rate 75 /min MD Isidoro Rojas Work Phone: [facility] 04-03-2023 10:27-0400 Respiratory rate 16 /min MD Isidoro Rojas Work Phone: [facility] 04-03-2023 10:27-0400 SaO2% (BldA) [Mass fraction] 100 % MD Isidoro Rojas Work Phone: [facility] 04-03-2023 10:27-0400 Systolic blood pressure 126 mm[Hg] MD Isidoro Rojas Work Phone: [facility] 04-03-2023 09:52-0400 Body temperature 98.4 [degF] MD Isidoro Rojas Work Phone: [facility] 04-03-2023 09:22-0400 Inhaled oxygen flow rate 8 L/min MD Isidoro Rojas Work Phone: [facility] 04-03-2023 08:28-0400 Body height 162.56 cm MD Isidoro Rojas Work Phone: [facility] 04-03-2023 08:28-0400 Body mass index (BMI) [Ratio] 28.4 kg/m2 MD Isidoro Rojas Work Phone: [facility] 04-03-2023 08:28-0400 Body weight 75.2 kg MD Isidoro Rojas Work Phone: [facility] 03-09-2023 11:00-0400 Body temperature 98.4 [degF] MD Isidoro Rojas Work Phone: [facility] 03-09-2023 11:00-0400 Diastolic blood pressure 85 mm[Hg] MD Isidoro Rojas Work Phone: [facility] 03-09-2023 11:00-0400 Heart rate 85 /min MD Isidoro Rojas Work Phone: [facility] 03-09-2023 11:00-0400 Respiratory rate 20 /min MD Isidoro Rojas Work Phone: [facility] 03-09-2023 11:00-0400 SaO2% (BldA) [Mass fraction] 98 % MD Isidoro Rojas Work Phone: [facility] 03-09-2023 11:00-0400 Systolic blood pressure 127 mm[Hg] MD Isidoro Rojas Work Phone: [facility] Encounters Encounter Date Encounter Type Care Provider Facility Start: 03-24-2025 End: 03-24-2025 Emergency department patient visit Isidoor Rojas MD Work Phone: -Emergency Room Work Phone: Start: 03-10-2025 End: 03-10-2025 Bamboo flowsheet Karyn Luis [facility] Limkes [facility] [place] Start: 03-10-2025 End: 03-10-2025 Bamboo flowsheet Karyn E Rinkes DO Work Phone: [facility] [place] Start: 03-10-2025 End: 03-10-2025 Patient encounter status Karyn Luis Carlos Rinkes DO Work Phone: [facility] Start: 03-10-2025 End: 03-10-2025 Periodic preventive med est patient 40-64yrs Karyn Luis Carlos Limkes DO [facility] [place] Comment on above: Encounter for gyneco logical examination without abnormal finding; Encounter for screening for malignant neoplasm of vagina; Encounter for screening mammogram for breast cancer Start: 03-10-2025 End: 03-10-2025 ambulatory KARYN JOHNSON Not Available Start: 02-25-2025 End: 02-25-2025 Patient encounter procedure [facility] Work Phone: Start: 02-25-2025 End: 02-25-2025 ambulatory Isidoro Rojas MD Work Phone: [facility] Work Phone: Start: 02-25-2024 End: 02-25-2024 ambulatory MD Isidoro Rojas Work Phone: [facility] Work Phone: Start: 02-25-2024 End: 02-25-2024 Patient encounter procedure MD Isidoro Rojas Work Phone: [facility] Work Phone: Start: 09-24-2023 End: 09-24-2023 ambulatory MD Isidoro Rojas Work Phone: [facility] Work Phone: Start: 09-24-2023 End: 09-24-2023 Patient encounter procedure MD Isidoro Rojas Work Phone: [facility] Work Phone: Start: 04-03-2023 End: 04-03-2023 Admission to same day surgery center MD Isidoro Rojas Work Phone: [facility] [place] Start: 04-03-2023 End: 04-03-2023 ambulatory MD Isidoro Rojas Work Phone: [facility] Work Phone: Start: 03-21-2023 End: 03-21-2023 ambulatory MD Isidoro Rojas Work Phone: [facility] Work Phone: Start: 03-21-2023 End: 03-21-2023 Patient encounter procedure MD Isidoro Rojas Work Phone: [facility]-Pre-Surgical Testing Work Phone: Start: 03-15-2023 End: 03-15-2023 ambulatory MD Isidoro Rojas Work Phone: [facility] Work Phone: Start: 03-15-2023 End: 03-15-2023 Patient encounter procedure MD Isidoro Rojas Work Phone: [facility] Work Phone: Start: 03-09-2023 End: 03-09-2023 Admission to same day surgery center MD Isidoro Rojas Work Phone: [facility] Work Phone: Start: 03-01-2023 End: 03-01-2023 ambulatory MD Isidoro Rojas Work Phone: [facility] Work Phone: Start: 03-01-2023 End: 03-01-2023 Patient encounter procedure MD Isidoro Rojas Work Phone: [facility] Work Phone: Start: 02-28-2023 End: 02-28-2023 Patient encounter procedure MD Isidoro Rojas Work Phone: [facility] [facility] Work Phone: Start: 02-23-2023 End: 02-23-2023 ambulatory MD Isidoro Rojas Work Phone: [facility] Work Phone: Start: 02-23-2023 End: 02-23-2023 Patient encounter procedure MD Isidoro Rojas Work Phone: [facility] Work Phone: Start: 01-25-2023 End: 01-26-2023 ambulatory ANANT BRANDON Facility:[facility] Start: 01-25-2023 End: 01-25-2023 Patient encounter procedure ANANT BRANDON [facility] Start: 11-23-2022 End: 11-24-[address] ISIDORO ROJAS . Facility: Start: 09-27-2022 End: 09-28-[address] ISIDORO ROJAS . Facility: Start: 07-15-2022 End: 07-16-[address] ISIDORO ROJAS . Facility:[facility] Start: 03-23-2022 End: 08-19-[address] ISIDORO ROJAS . Facility: Start: 03-09-2022 End: 03-10-[address] ISIDORO ROJAS . Facility:[facility] Start: 01-12-2022 End: 01-13-[address] ISIDORO ROJAS . Facility: Start: 12-13-2017 End: 12-13-2017 Ambulatory HARVEY VICTOR [facility] Procedures Date Procedure Procedure Detail Performing Clinician Start: 02-25-2025 End: 02-25-2025 Screening mammography of bilateral breasts Isidoro Rojas MD Work Phone: Start: 02-25-2024 Screening mammograph y of bilateral breasts MD Isidoro Rojas Work Phone: Start: 09-24-2023 Mammography of right breast MD Isidoro Rojas Work Phone: Start: 04-03-2023 Lumpectomy of right breast MD Isidoro Rojas Work Phone: Start: 03-30-2023 Mammography of right breast MD Isidoro Rojas Work Phone: Start: 03-30-2023 Ultrasonography guid ed needle localization of lesion of right breast MD Isidoro Rojas Work Phone: Start: 03-09-2023 Mammography of right breast MD Isidoro Rojas Work Phone: Start: 03-09-2023 Vacuum assisted biop sy of right breast with mammographic guidance MD Isidoro Rojas Work Phone: Start: 02-28-2023 Mammography of right breast MD Isidoro Rojas Work Phone: Start: 02-28-2023 Ultrasonography of r ight breast MD Isidoro Rojas Work Phone: Start: 02-23-2023 Screening mammograph y of bilateral breasts MD Isidoro Rojas Work Phone: Start: 02-21-2023 Microscopic observat ion [Identifier] in Cervix by Cyto stain Karyn Johnson DO Work Phone: H/O: hysterectomy S/P laparoscop ic hysterectomy MD Isidoro Rojas Work Phone: Comment on above: Problem List clean-u p per request of Phys. EHR Cmte Hysterectomy ANANT BRANDON Jaw sx ANANT BRANDON Plan of Treatment Date Care Activity Detail Author Start: 03-05-2029 Screening for malign ant neoplasm of cervix [facility] Start: 03-17-2026 End: 03-17-2026 Patient encounter procedure 03/17/2026 1:45 PM EDT Office [place] [address] [place] [id number] Karyn Johnson, DO [address] [place] [address] [place] Start: 03-10-2026 End: 05-10-2026 DBT Breast - bilateral screening Bilateral screening mammogram with tomosynthesis Imaging Routine Encounter for screening mammogram for breast cancer Expected: 03/10/2026, Expires: 05/10/2026 [facility] Comment on above: Expected: 03/10/2026 , Expires: 05/10/2026 Start: 02-25-2026 Screening for malign ant neoplasm of breast Mammogram [facility] Start: 02-21-2026 Screening for malign ant neoplasm of cervix Pap Smear [facility] Start: 04-06-2025 Influenza vaccination Influenza Vacc ine (#1) [facility] Start: 03-24-2025 Hepatic function panel [facility] Start: 03-24-2025 [facility] Start: 03-10-2025 End: 03-10-2025 Patient encounter procedure 03/10/2025 11:45 AM EDT Office Visit [place] [address] [place] [id number] Karyn Johnson, DO [address] [place] [address] Encounter for gynecological examination without abnormal finding; Encounter for screening for malignant neoplasm of vagina; Encounter for screening mammogram for breast cancer [place] Comment on above: Encounter for gyneco logical examination without abnormal finding; Encounter for screening for malignant neoplasm of vagina; Encounter for screening mammogram for breast cancer Start: 04-03-2023 End: 04-03-2023 [facility] Start: 04-03-2023 Mammography of right breast specimen MM surgical specimen RT [facility] Start: 04-03-2023 MG Breast specimen - right Views [facility] Start: 1975 Screening for malign ant neoplasm of colon [facility] Albumin/Globulin ratio [facility] Anion gap measurement [facility] Basophils [#/volume] in Blood by Automated count [facility] Basophils/100 leukoc ytes in Blood by Automated count [facility] Bilirubin.indirect [Mass/volume] in Serum or Plasma [facility] Eosinophils/100 leukocytes in Blood by Automated count [facility] Erythrocyte distribu tion width [Ratio] by Automated count [facility] Erythrocytes [#/volu me] in Blood [facility] Globulin [Mass/volum e] in Serum [facility] Glomerular filtratio n rate [Volume Rate/Area] in Serum, Plasma or Blood by Creatinine [facility] Hematocrit [Volume Fraction] of Blood [facility] Hemoglobin [Mass/vol ume] in Blood [facility] IGP, RFX APTIMA HPV ASCU IGP, RF X APTIMA HPV ASCU Lab Routine Encounter for screening for malignant neoplasm of vagina Ordered: 03/10/2025 [facility] Work Phone: Comment on above: Ordered: 03/10/2025 Leukocytes [#/volume ] corrected for nucleated erythrocytes in Blood by Automated coun [facility] Leukocytes [#/volume ] in Blood [facility] Lymphocytes [#/volum e] in Blood by Automated count [facility] Lymphocytes/100 leukocytes in Blood by Automated count [facility] MCH [Entitic mass] b y Automated count [facility] MCHC [Mass/volume] b y Automated count [facility] MCV [Entitic volume] by Automated count [facility] Monocytes [#/volume] in Blood by Automated count [facility] Monocytes/100 leukoc ytes in Blood by Automated count [facility] Neutrophils [#/volum e] in Blood by Automated count [facility] Neutrophils/100 leukocytes in Blood by Automated count [facility] Nucleated erythrocyt es [Presence] in Blood by Automated count [facility] Patient referral [facility] Work Phone: Platelet mean volume [Entitic volume] in Blood by Automated count [facility] Platelets [#/volume] in Blood [facility] Immunizations Immunization Date Immunization Notes Care Provider Fa [facility] 06-03-2024 influenza virus vaccine, unspecified formulation Karyn Johnson DO Work Phone: [facility] 08-26-2021 COVID-19 mRNA Comirnaty (Pfizer) MD Isidoro Rojas Work Phone: [facility] 05-15-2021 Seasonal, quadrivale nt, recombinant, injectable influenza vaccine, preservative free Karyn Johnson DO Work Phone: [facility] 10-08-2020 COVID-19 mRNA Comirnaty (Pfizer) MD Isidoro Rojas Work Phone: [facility] 10-07-2020 Pfizer Purple Cap SARS-CoV-2 Vaccination Karyn Rinsenthil DO Work Phone: [facility] 09-17-2020 COVID-19 mRNA Comirnatkerry (Pfizer) MD Isidoro Rojas Work Phone: [facility] 09-16-2020 Pfizer Purple Cap SARS-CoV-2 Vaccination Karyn Rinsenthil DO Work Phone: [facility] 08-25-2020 Moderna SARS-CoV-2 Vaccination Karyn Rinsenthil DO Work Phone: [facility] Payers Date Payer Category Payer Self-pay [id number] 2023 Private Health Insurance [employer] [id number] 1975 Unknown [id number] 1975 Unknown [id number]. 593 1976 Unknown [id number]. 593 1976 Unknown [id number]. 593 1976 Unknown [id number]. 593 1976 Unknown [id number]. 727 1975 Unknown [id number] [id number]. 1259 1959 Self-pay [id number] 1958 Unknown [id number] Medicaid [id number] Unknown [id number] 593 Unknown [id number] 531 Unknown [id number] 531 Social History Date Type Detail Facility Tobacco smoking status [facility] Start: 03-13-2024 Sex Assigned At Female F [facility] Start: 10-09-2018 End: 03-24-2025 Tobacco smoking status VAIS Never smoked tobacco (finding) [facility] Start: 1975 Sex Assigned At Female F [facility] Sex Female (finding) [facility] Start: 03-18-2023 Tobacco use and exposure Smokeless tobacco non-user [facility] Start: 03-04-2025 End: 03-10-2025 Alcoholic beverage intake Lifetime non-drinker (finding) [facility] Start: 03-13-2024 History of Social function [facility] Start: 1975 Sex assigned at Not on file N [facility] Goals Date Patient Goal Desired Activity /State History of Present illness Narrative 03-10-2025 Karyn Johnson, DO - 03/10/2025 11:45 AM EDT Note Date & Type Note Facility 03-10-2025 History of Presen t illness Narrative Images from the original note were not included. Karyn Johnson, [facility] Patient: Mary Granados : 1975 (49 y.o.) Yearly Wellness Exam Date: 03/10/2025 Reason for Visit - Chief Complaint Patient presents with Gynecologic Exam Pt would like to discuss prolapse. Denies bowel/bladder/breast concerns. Pt up to date with mammogram. Denies vaginal bleeding/spotting. Visit Vitals OB Status Hysterectomy Smoking Status Never Allergies Allergen Reactions Sumatriptan Shortness of breath Other Reaction(s): dyspnea, SOB Other Reaction(s): dyspnea Diclofenac Other History of Present Illness, Associated Treatments and Results - OB History Para Term AB Living 3 3 3 0 0 0 SAB IAB Ectopic Multiple Live Births 0 0 0 0 0 # Outcome Date GA Lbr Dennis/2nd Weight Sex Type Anes PTL Lv 3 Term 2 Term 1 Term Obstetric Comments Pap smear 03/05/24 wnl Mammogram 02/25/25 wnl @ [facility] Review of Systems - General: Chills denies. Allergy/Immunology: Rash Denies. ENT: Denies Difficulty swallowing. Endocrine: Denies Cold intolerance denies. Heat intolerance denied. Respiratory: Denies Chest pain denies. Shortness of breath denies. Breast: Denies Bloody nipple discharge denies. Breast lump denies. Cardiovascular: Denies Chest pain. Gastrointestinal: Abdominal pain denies. Blood in stool denies. Hematology: Easy bruising denies. Prolonged bleeding denies. Women Only: Breast lump denies. Vaginal bleeding between periods is denied. Vaginal discharge/itching denied. Genitourinary: Blood in urine denies. Painful urination denies. Incontinence denies. Skin: Hair changes. Neurologic: Seizures denied. Stroke denies. Psychiatric: Anxiety denies. Depressed mood denies. Medication Documentation Review Audit Reviewed by Liz Reyes MA (Aquatic Biologist) on 03/10/25 at 1205 Medication Order Taking? Sig Documenting Provider Last Dose Status Discontinued 03/10/25 1205 pknxwgixwn-nojzuqjfknany-ukpmfuof (Esgic) 50-325-40 MG capsule [id number] No TAKE 1 CAPSULE BY MOUTH EVERY 6 HOURS NEEDED Bryson Seals DO Taking Active Cytomel 5 MCG tablet [id number] No 1 (one) time each day at the same time. Historical Provider, Taking Active diphenhydrAMINE (BENADryl) 25 MG tablet [id number] No Take by mouth. Historical Provider, Taking Active ibuprofen 600 MG tablet [id number] No EVERY 4-6 HOURS Bryson Seals DO Taking Active Relpax 40 MG tablet [id number] No 1 (one) time each day at the same time Bryson Seals DO Taking Active Restasis 0.05 % ophthalmic emulsion [id number] No Historical Provider, Taking Active Synthroid 75 MCG tablet [id number] No Historical Provider, Taking Active Trokendi XR 200 MG capsule sustained-release 24 hr [id number] No Omar Castro DPM FACADALI Taking Active Viberzi 100 MG tablet [id number] No every 12 (twelve) hours. 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18 so my mouth does not open very far Hypothyroid Irritable bowel syndrome with both constipation and diarrhea Migraines PONV (postoperative nausea and vomiting) Retained placenta ([facility]) Past Surgical History: Procedure Laterality Date BI US GUIDED BREAST LOCALIZATION AND BIOPSY RIGHT Right 04/02/2023 BI US GUIDED BREAST LOCALIZATION AND BIOPSY RIGHT SECTION, LOW TRANSVERSE COLONOSCOPY 2016 HYSTERECTOMY 10/09/2018 TLH/BS INCISIONAL BREAST BIOPSY Right 04/03/2023 OTHER SURGICAL HISTORY D&C retained placenta PELVIC LAPAROSCOPY SHOULDER SURGERY Left 04/25/2021 VAGINAL DELIVERY x2 Family History Problem Relation Name Age of Onset Diabetes Mother Liudmila Hypertension Mother Liudmila Hypertension Father Kenny Breast cancer Neg Hx Colon cancer Neg Hx Ovarian cancer Neg Hx Physical Exam - General appearance, mentation, extraocular movements, facial strength and movement, hearing, upper and lower extremity strength and tone, sensation to gross testing, coordination, and gait are normal or at baseline unless noted below. General Examination: GENERAL APPEARANCE: alert oriented well developed, well nourished. HEAD: normocephalic atraumatic. EYES: sclera anicteric. EARS: no obvious hearing deficit. SKIN: warm and dry. HEART: regular rate and rhythm. LUNGS: clear to auscultation bilaterally. CHEST: axillary nodes grossly normal. BREASTS: no masses palpable bilaterally, normal nipples bilaterally. ABDOMEN: soft, nontender, nondistended, no masses palpable. BACK: no costovertebral angle tenderness, no obvious scoliosis/kyphosis. FEMALE GENITOURINARY: normal vaginal mucosa, cervix/uterus surgically absent, ovaries nonpalpable and nontender, very minimal degree of cystocele/rectocele EXTREMITIES: no edema. NEUROLOGIC: alert and oriented. PSYCH: cooperative with exam. Diagnoses and all orders for this visit: Encounter for gynecological examination without abnormal finding Encounter for screening for malignant neoplasm of vagina - IGP, RFX APTIMA HPV ASCU Encounter for screening mammogram for breast cancer - Bilateral screening mammogram with tomosynthesis; Future Pap, pelvic and breast exam completed. Findings of today's exam discussed with the patient. Continue MSBE. Ca/Vit D recommendations reviewed with the patient. The patient is to contact the office with any changes to her gynecological condition. The patient is to return in 1 year or as needed ICD-10-CM 1. Encounter for gynecological examination without abnormal finding Z01.419 2. Encounter for screening for malignant neoplasm of vagina Z12.72 3. Encounter for screening mammogram for breast cancer Z12.31 documented in this encounter [facility] Evaluation + Plan note 01-25-2023 Note Date & Type Note Facility 01-25-2023 Evaluation + Plan note Diagnostic Tests PendingT3 Free 01/25/23 [facility] Evaluation note Note Date & Type Note Facility Evaluation note No assessment information availjane silverman [facility] Work Phone: Evaluation note Note Date & Type Note Facility Evaluation note Diagnosis Onset Date Breast mass, right acute Breast mass, right acute [facility] Work Phone: Evaluation note Note Date & Type Note Facility Evaluation note Diagnosis Encounter for gynecological examination without abnormal finding Encounter for screening for malignant neoplasm of vagina Encounter for screening mammogram for breast cancer documented in this encounter [facility] Hospital course Narrative Note Date & Type Note Facility Hospital course Narrative No data available for this section [facility] Hospital Discharge instructions Note Date & Type Note [facility] Discharge instructions No data available for this section [facility] Hospital Discharge instructions Note Date & Type Note [facility] Discharge instructions Additional Instructions DISCHARGE INSTRUCTIONS [...] for pain unless a prescription was provided. [facility] Work Phone: Progress note Note Date & Type Note Facility Progress note No data available for this section [facility] Reason for referral (narrative) Note Date & Type Note Facility Reason for referral (narrative) No reason for referral information available [facility] Work Phone: Summary Purpose Family History No Family History [...] right Breast mass, right Chief Complaint N63.11 Chief Complaint Admit Date .February 25, 2025 11:0 2am Chief Complaint Admit Date February 25, 2025 11:0 2am Upper abd pain March 24, 2025 9: 18pm Additional Source Comments INFORMATION SOURCE (unrecogn ized section and content) DATE CREATED AUTHOR 01/23/2018 [facility] DATE CREATED AUTHOR AUTHOR'S ORGANIZ ATION 11/27/[address] [facility] DATE CREATED AUTHOR AUTHOR'S ORGANIZ ATION 01/27/2023 [facility] DATE CREATED AUTHOR AUTHOR'S ORGANIZ ATION 03/13/2025 [facility] DATE CREATED AUTHOR AUTHOR'S ORGANIZ ATION 03/28/2025 [facility] Patient Care team informatio n (unrecognized section and content) Team Status: Active Member Role Status Dates Isidoro Rojas MD Primary Care Provider Active Team Status: Inactive Member Role Status Dates Isidoro Rojas MD Primary Care Provider Active Karyn Johnson DO Attending Provider Active Team Status: Inactive Member Role Status Dates Isidoro Rojas MD Primary Care Provider Active Bryson Seals DO Attending Provider Active Team Status: Inactive Member Role Status Dates Isidoro Rojas MD Primary Care Provider Active Start: September 24, 2023 End: September 24, 2023 Bryson Seals DO Attending Provider Active Start: September 24, 2023 End: September 24, 2023 Team Status: Inactive Member Role Status Dates Isidoro Rojas MD Primary Care Provider Active Start: February 25, 2024 End: February 25, 2024 Bryson Seals DO Attending Provider Active Start: February 25, 2024 End: February 25, 2024 Team Status: Inactive Member Role Status Dates Isidoro Rojas MD Primary Care Provider Active Start: February 25, 2025 End: February 25, 2025 Karyn Johnson DO Attending Provider Active S tart: February 25, 2025 End: February 25, 2025 Scientific Linguist Relationship Specialty Start Date End Date Isidoro Rojas MD PCP - General Family Medicine 02/21/23 Scientific Linguist Relationship Specialty Start Date End Date Isidoro Rojas MD PCP - General Family Medicine 02/21/23 Team Status: Inactive Member Role Status Dates Isidoro Rojas MD Primary Care Provider Active Start: March 24, 2025 End: March 24, 2025 Aram Varela DO Emergency Provider Active St art: March 24, 2025 End: March 24, 2025 Goals (unrecognized section and content) Goals may be documented in a n alternate section Reason for Visit (unrecogniz ed section and content) Reason Comments Gynecologic Exam Pt would like to dis cuss prolapse. Denies bowel/bladder/breast concerns. Pt up to date with mammogram. Denies vaginal bleeding/spotting. FOR RECORDS PERTAINING TO PATIENTS WHO ARE [...] BE BASED ON THE PRIMARY CLINICAL RECORDS. [facility] [employer] [facility]. provides no warranty or guarantee of the accuracy or completeness of information in this document.
--- OUTSIDE RECORDS SUMMARY | 2025-04-16 05:00 | XMS_ITS ---
Author Organization [facility] in [place] Address [address] [place] [address] Care Team Providers Care Financial Center Manager Name Role Phone Jose Antonio Rojas Primary Care Provider [phone] Allergies Allergen (clinical drug ingredient) Drug/Non Drug Allergy documented on EMR Reaction Allergy Type Onset Date Status sumatriptan Imitrex wheezing Drug Allergy Activ e Diclofenac abd pain Drug Allergy Active levofloxacin levoFLOXacin Insomnida Drug Allergy A ctive REASON FOR VISIT mental health, Going to get labs done when she leaves here today Medications Medication SIG (Take, Route, Frequency, Duration) Notes Start Date End Date Status Cqikieggba-TXLD-Soslfjah 50-325-40 MG TAKE 1 CAPSULE BY MOUTH EVERY 6 HOURS NEEDED; Duration: 30 12/04/2024 Active Adipex-P 37.5 MG 1 tablet before jessica kfast Orally Once a day 03/10/2025 Active Wellbutrin XL 300 MG 1 tablet in the mor steven Orally Once a day; Duration: 90 days 11/19/2023 Active SEROquel 25 MG 1 tablet at bedtime Orally Once a day; Duration: 30 days 04/16/2025 Active Viberzi 100 MG 1 tablet Oral Twice a day; Duration: 90 days 12/04/2024 Active Restasis 0.05 % Ophthalmic; Duration : 30 Days Active Relpax 40 MG 1 tablet Orally at o nset of migraine; may repeat at 2hrs if needed- max 2 per day; Duration: 30 days Active Protonix 40 MG 1 tablet Orally Once a day; Duration: 90 days 03/25/2025 Active Trokendi XR 200 mg TAKE 1 CAPSULE DAILY Active Synthroid 100 MCG 1 tablet Oral Once a day; Duration: 90 days Active Hyoscyamine Sulfate 0.125 MG 1-2 tabs SL SL every 4 hrs PRN abd pain 03/25/2025 Active Liothyronine Sodium 5 MCG 2 tablet on an empty stomach Orally Once a day; Duration: 90 days Active Social History Tobacco Use: Social History Observation Description Date Details (start date - stop date) Never Smoker NA - NA Tobacco Use/Smoking Question Answer Notes Patient is a nonsmoker Problems Problem Type SNOMED Code ICD Code Onset Dates Problem Status W/U Status Risk Notes Problem Anxiety ([id number]) Anxiety (F41.9) Active confirmed Vital Signs Weight 156.6 lbs 04/16/2025 Height 64 in 04/16/2025 Blood pressure systolic 164 mm Hg 04/16/20 25 Blood pressure diastolic 96 mm Hg 025 BMI 26.88 kg/m2 04/16/2025 Encounters Encounter Location Date Provider Diagnosis [facility] [address] [place] [address] 04/16/2025 Jose Antonio Rojas Benign essential hypertension I10 and Anxiety F41.9 Assessments Encounter Date Diagnosis (ICD Code) Assessment Notes Treatment Notes Treatment Clinical Notes Section Notes 04/16/2025 Benign essential hypertension (ICD-10 - I10) 04/16/2025 Anxiety (ICD-10 - F41.9) Plan Of Treatment Medication Medication Name Sig Start Date Stop Date Notes SEROquel 25 MG 1 tablet at bedtime Orally Once a day; Duration: 30 days 04/16/2025 Next Appt Details Provider Name:Jose Antonio Rojas, 11:15:00 AM, [address] [place], [address], Progress Notes * Mary RAY CDOB:[birth year] (49 yo F)Acc No.[id number]:04/16/2025 Progress Note Patient: Mary LAYTON Provider: Florence Rojas ([facility])MD :1975 A ge:49 Y S ex:Female Date:04/16/2025 Address:[address], [id number] Check In:08:52 AM ESTCheck O ut:09:26 AM EST Subjective: * Chief Complaints: * M ental healthGoing to get labs done when she leaves here today * HPI: G eneral: Discussed past hx - getting triggered fromthings happening at work Needs time off work - starting with 6 weeks. 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 Modified On:11/22/2022 Status:confirmed R53.82 Chronic fatigue Modified On:11/22/2022U Status:confirmed R06.83 Snoring Modified On:07/11/2023U Status:confirmed G43.909 Migraine Modified On:11/19/2023U Status:confirmed H66.90 Otitis media Modified On:03/10/2024U Status:confirmed K29.70 Gastritis Modified On:03/25/2025U Status:confirmed F41.9 Anxiety Modified On:04/16/2025U Status:confirmed * Medical History: * Surgical History: [...] tablet before breakfast Orally Once a day Gyvtubimof-ZZDU-Gnhgxwhs 50-325-40 MG Capsule TAKE 1 CAPSULE BY MOUTH EVERY 6 HOURS NEEDED Hyoscyamine Sulfate 0.125 MG Tablet Sublingual 1-2 tabs SL SL every 4 hrs PRN abd pain Liothyronine Sodium 5 MCG Tablet 2 tablet on an empty stomach Orally Once a day Protonix(Pantoprazole Sodium) 40 MG Tablet Delayed Release 1 tablet Orally Once a day Relpax(Eletriptan Hydrobromide) 40 [...] before breakfast Orally Once a day Taking Qmqehatfaj-JGKT-Suxcurrg 50-325-40 MG Capsule TAKE 1 CAPSULE BY MOUTH EVERY 6 HOURS NEEDED Taking Hyoscyamine Sulfate 0.125 MG Tablet Sublingual 1-2 tabs SL SL every 4 hrs PRN abd pain Taking Liothyronine Sodium 5 MCG Tablet 2 tablet on an empty stomach Orally Once a day Taking Protonix(Pantoprazole Sodium) 40 MG Tablet Delayed Release 1 tablet Orally Once a day Taking Relpax(Eletriptan Hydrobromide) [...] LowlevoFLOXacin: Insomnidano[Allergies Verified] Objective: * Vitals: W t:156.6lbs, Ht: 64 in, BP:164/96mm Hg, BMI:26.88Index, Wt-k.03 kg. * Examination: P hysical Exam: GENERAL: [...] both upper and lower bilateral extremities. NEUROLOGIC: skip torres normal. SKIN: n o rashes, ulcerations, or suspicious lesions. LYMPH NODES: n o cervical adenopathy, nodes normal. MENTAL STATUS: a lert and oriented x3, normal mood and affect. Assessment: * Assessment: 1. B enign essential hypertension - I10 (Primary) 2 . A nxiety - F41.9 Plan: * Treatment: * Procedure Codes: * Preventive Medicine: Screenings/Counseling: B HI ACTION PLAN Above Normal BMI Follow-up D ietary management education, guidance, and counseling * * Sign off status: Completed Visit Status: C HK (Check Out) true * Provider: Florence Rojas ([facility])MD Date: 04/16/2025 Generated for Printi ng/Faxing/eTransmitting on: 04/22/2025 11:26 AM EDT History and Physical Notes * HPI (History of Present Illness) Category Sub-Category Detail Notes Category Not es General Discussed past hx - getting triggered fromthings happening at work Needs time off work - starting with 6 weeks Examination Category Sub-Category Detail Notes Category Not [...]
--- OUTSIDE RECORDS SUMMARY | 2025-04-16 10:20 | XMS_ITS | Clinical Summary ---
Author Organization [facility] Healthcare Address [address] [place] [address] Care Team Providers Care Diesel Engine Fitter Name Role Phone Harish Rojas MD Primary Care Provider [phone] Allergies Active Allergy Reactions Criticality Noted Date [...] [address] [place] [phone] Karyn Johnson, Encounter for gynecological examination without abnormal finding; Encounter for screening for malignant neoplasm of vagina; Encounter for screening mammogram for breast cancer 03/10/2025 Bamboo flowsheet [place] [place] [address] [place] [address] Karyn Johnson DO 03/10/2025 Travel from Last [...] [address] [place] [phone] Karyn Johnson DO [address] [place] [address] Health Maintenance Due Date Last Done Comments [...] THIS SPECIMEN WAS RESCREENED PART OF OUR EQUINE DENTIST PROGRAM. Specimen Adequacy: Comment [facility] Comment: Satisfactory for evaluation. No endocervical cells are present. This is consistent with a history of hysterectomy. Clinician Provided ICD10: Comment [facility] Comment:Z12.72 Performed By: Comment [facility] Comment:Roberta monaco, Refrigeration Plant Cork Insulator (ASCP) QC Reviewed By: Comment [facility] Comment:Belkis [...] - 03/13/2025 3:07 PM EDT Performed at: [address] [place] [id number] Senior Property Accountant: Padmini Schulte MD, Phone: [phone] Specimen Comment: [id number] Specimen Comment: No. of containers..01 ThinPrep Vial [...] Paredes M.D. 02/25/2025 4:12 PM Dictation Location: [facility] Dictated By: Bhavin Paredes MD 02/25/25 1611 Signed By: <Electronically signed by Bhavin Paredes MD in OV> 02/25/25 1612 Narrative 02/25/2025 4:15 PM EDT [facility] [address] [place] [address] Mammography Report Signed Patient: Mary Granados MR#: [id number] : 1975 Acct:[id number] Age/Sex: 49 / F Adm Date: 02/25/25 Loc: [place] Room: Type: [facility] Attending Dr: Karyn Johnson DO Ordering Provider: Karyn Johnson DO Date of Service: 02/25/25 Procedure(s): MM screening mammo BI w/CAD Accession Number(s): ([id number]) MM/MM screening mammo BI w/CAD: screening Copies [...] w/CAD Procedure Note Radiology, Radiologist, - 02/25/2025 [facility] [address] [place] [address] Mammography Report Signed Patient: Mary Granados CMR#: [id number] : 1975Acct:[id number] Age/Sex: 49 / FAdm Date: 02/25/25 Loc: [place] Room:Type: [facility] Attending Dr: Karyn Johnson DO Ordering Provider: Karyn Johnson DO Date of Service: 02/25/25 Procedure(s): MM screening mammo BI w/CAD Accession Number(s): ([id number]) MM/MM screening mammo BI w/CAD:screening Copies to: [...] Paredes M.D. 02/25/2025 4:12 PM Dictation Location: [facility] Dictated By: Bhavin Paredes MD 02/25/25 1611 [...] has been evaluated with computer assisted technology. [facility] Comment: JEH, CT(ASCP) CT screening location: [place] [address]. (ALWAYS MESSAGE) [facility] Comment: EXPLANATORY NOTE: The [...] Performing Organization Information Site ID: [id number] Name: [facility] Address: [address] [place] [address], [address] [place] [phone] Director: Werner Hines MD Karyn Johnson DO LAB CYTOLOGY ORDERABLES Fin al Result Performing Organization Address City/State/[facility] Co de Phone Number [facility] * THINPREP TIS PAP W/REFL HPV MRNA E6/E7 (02/21/2023 3:51 PM EDT) CLINICAL INFORMATION [facility] Comment:None given LMP [facility] Comment:HYST PREV. PAP [facility] Comment:2021 PREV. BX [facility] Comment:NONE GIVEN SOURCE [facility] Comment:Vagina STATEMENT OF ADEQUACY [facility] Comment:SATISFACTORY FOR MELANIA LUATION INTERPRETATION/RESUL T [facility] Comment: Cytology Results: Negative for intraepithelial lesion or malignancy. [facility] Comment: LLT, CT(ASCP) CT screening location: [place], [address], [place] [address]. REVIEW [facility] Comment: Reference Range: ZL, CT(ASCP) CT screening location: [place], [address] [place] [address], [place] [address]. (ALWAYS MESSAGE) [facility] Comment: EXPLANATORY NOTE: The [...] Performing Organization Information Site ID: [id number] Name: [facility] Address: [address] [place] [address], [address] [place] [phone] Director: Werner Hines MD Karyn Johnson DO LAB CYTOLOGY ORDERABLES Fin al Result [facility] from Last 3 Months or Most Recently Relevant to Health Maintenance Insurance [employer] Care Teams Diesel Engine Fitter Relationship Specialty Start Date End Date Harish Rojas MD PCP - General Family Medicine 02/21/23
--- OUTSIDE RECORDS SUMMARY | 2025-04-16 10:20 | XMS_ITS | Patient Health Record ---
Author Organization [facility] in [place] Address [address] [place] [address] Care Team Providers Care Typewriters Functional Tester Name Role Phone Jose Antonio Trujillo Primary Care Provider [phone] Mona Ortiz [phone] Allergies Allergen (clinical drug ingredient) Drug/Non Drug Allergy documented on EMR Reaction Allergy Type Onset Date Status sumatriptan Imitrex wheezing Drug Allergy Activ e Diclofenac abd pain Drug Allergy Active levofloxacin levoFLOXacin Insomnida Drug Allergy A ctive Results Component Value Reference Range Notes IRON Reviewed date:07/08/2024 08:46:06 PM Interpretation: Performing Lab: Notes/Report: [facility] , Iron 62.0 50.0-170.0 ug/dL Performing Lab: see note ML - [facility] LB CBC AUTO DIFF Reviewed date:07/08/2024 08:46:06 PM Interpretation: Performing Lab: Notes/Report: [facility] , White Blood Count 6.5 4.0-11.0 10 3/uL Red Blood Count 4.85 4.20-5.40 10 6/uL Hemoglobin 14.0 12.0-16.0 g/dL Hematocrit 42.7 36.0-48.0 % Mean Corpuscular Volume 88.0 81.0-99.0 fL Mean Corpuscular Hemoglobin 28.9 26.7-34.0 pg Mean Corpuscular HGB Conc 32.8 29.9-35.2 g/dL Red Cell Distribution Width 13.1 11.0-15.0 % Platelet Count 267 150-450 10 3/uL Mean Platelet Volume 10.8 9.5-13.5 fL Neutrophils Percent Auto 66.3 43.0-75.0 % Lymphocytes Percent Auto 24.3 20.5-60.0 % Monocytes Percent Auto 6.7 1.7-12.0 % Eosinophils Percent Auto 1.4 0.9-7.0 % Basophils Percent Auto 1.1 0.2-2.0 % Immature Granulocytes Pct Auto 0.2 0.0-0.5 % Neutrophils Absolute Auto 4.3 1.4-6.5 10 3/uL Lymphocytes Absolute Auto 1.6 1.2-3.8 10 3/uL Monocytes Absolute Auto 0.4 0.3-0.8 10 3/uL Eosinophils Absolute Auto 0.1 0.0-0.7 10 3/uL Basophils Absolute Auto 0.1 0.0-0.1 10 3/uL Immature Granulocytes Abs Auto 0.01 0.00-0.03 10 3/uL Performing Lab: see note ML - [facility] LB INSULIN Reviewed date:01/29/2025 07:39:02 PM Interpretation: Performing Lab: Notes/Report: [facility] , Insulin 7.9 2.6-24.9 uIU/mL Continuous Improvement Manager: Satya Funk PhD, Phone: [phone] [address] [place], [place] [id number] [facility] Performing Lab: see note - [facility] LB CBC AUTO DIFF Reviewed date:03/24/2025 08:33:31 PM Interpretation: Performing Lab: Notes/Report: [facility] , White Blood Count 7.1 4.0-11.0 10 3/uL Red Blood Count 5.29 4.20-5.40 10 6/uL Hemoglobin 15.1 12.0-16.0 g/dL Hematocrit 45.7 36.0-48.0 % Mean Corpuscular Volume 86.4 81.0-99.0 fL Mean Corpuscular Hemoglobin 28.5 26.7-34.0 pg Mean Corpuscular HGB Conc 33.0 29.9-35.2 g/dL Red Cell Distribution Width 12.6 11.0-15.0 % Platelet Count 274 150-450 10 3/uL Mean Platelet Volume 11.5 9.5-13.5 fL Neutrophils Percent Auto 62.0 43.0-75.0 % Lymphocytes Percent Auto 26.5 20.5-60.0 % Monocytes Percent Auto 9.1 1.7-12.0 % Eosinophils Percent Auto 1.5 0.9-7.0 % Basophils Percent Auto 0.6 0.2-2.0 % Immature Granulocytes Pct Auto 0.3 0.0-0.5 % Neutrophils Absolute Auto 4.4 1.4-6.5 10 3/uL Lymphocytes Absolute Auto 1.9 1.2-3.8 10 3/uL Monocytes Absolute Auto 0.7 0.3-0.8 10 3/uL Eosinophils Absolute Auto 0.1 0.0-0.7 10 3/uL Basophils Absolute Auto 0.0 0.0-0.1 10 3/uL Immature Granulocytes Abs Auto 0.02 0.00-0.03 10 3/uL Performing Lab: see note ML - [facility] LB LIPID PROFILE Reviewed date:03/24/2025 08:33:31 PM Interpretation: Performing Lab: Notes/Report: [facility] , Triglycerides 42 <=150 mg/dL Cholesterol 146 <=200 mg/dL HDL Cholesterol 45 40-60 mg/dL > or =60 mg/dl - LOW CARDIOVASCULAR RISK <40 mg/dl - HIGH CARDIOVASCULAR RISK LDL Cholesterol Calculated 92.6 160-189 mg/dl HIGH <100 mg/dl OPTIMAL 100-129 mg/dl NEAR OR ABOVE OPTIMAL >190 mg/dl VERY HIGH 130-159 mg/dl BORDERLINE HIGH VLDL CHOLESTEROL 8.4 Chol HDL Ratio 3.2 3.3 - 4.4 LOW RISK 4.4 - 7.1 AVERAGE RISK 7.1 - 11.0 MODERATE RISK >11.0 HIGH RISK Performing Lab: see note ML - [facility] LB PROF 14(COMP METB) Reviewed date:03/24/2025 08:33:31 PM Interpretation: Performing Lab: Notes/Report: [facility] , Sodium 142 136-145 mmol/L Potassium 3.3 3.5-5.1 mmol/L Chloride 109 98-107 mmol/L Carbon Dioxide 24.4 21.0-32.0 mmol/L Anion Gap 11.9 Glucose 96 74-106 mg/dL Blood Urea Nitrogen 12.0 7.0-18.0 mg/dL Creatinine 1.00 0.55-1.02 mg/dL Estimated GFR ( Yvette >60 >=60 mL/min/1.73m 2 Estimated GFR (Non- Thea 59 >=60 mL/min/1.73m 2 BUN Creatinine Ratio 12.0 Calcium 8.4 8.5-10.1 mg/dL Bilirubin Total 0.4 0.2-1.0 mg/dL Aspartate Amino Transferase 16 15-37 U/L Alanine Aminotransferase 24 14-59 U/L Alkaline Phosphatase 80 46-116 U/L Total Protein 7.3 6.4-8.2 g/dL Albumin Level 3.7 3.4-5.0 g/dL Globulin 3.6 Albumin Globulin Ratio 1.0 Performing Lab: see note ML - [facility] LB TSH Reviewed date:03/24/2025 08:33:31 PM Interpretation: Performing Lab: Notes/Report: [facility] , Thyroid Stimulating Hormone 0.018 0.358-3.740 uIU/mL Performing Lab: see note ML - [facility] LB TSH Reviewed date:01/28/2025 09:28:04 PM Interpretation: Performing Lab: Notes/Report: [facility] , Thyroid Stimulating Hormone 0.026 0.358-3.740 uIU/mL Performing Lab: see note ML - [facility] LB T4 Reviewed date:01/28/2025 09:28:04 PM Interpretation: Performing Lab: Notes/Report: [facility] , T4 Thyroxine 6.30 4.80-13.90 ug/dL Performing Lab: see note ML - [facility] LB PROF 14(COMP METB) Reviewed date:01/28/2025 09:28:04 PM Interpretation: Performing Lab: Notes/Report: [facility] , Sodium 142 136-145 mmol/L Potassium 3.9 3.5-5.1 mmol/L Chloride 109 98-107 mmol/L Carbon Dioxide 25.5 21.0-32.0 mmol/L Anion Gap 11.4 Glucose 101 74-106 mg/dL Blood Urea Nitrogen 17.0 7.0-18.0 mg/dL Creatinine 1.04 0.55-1.02 mg/dL Estimated GFR ( Yvette >60 >=60 mL/min/1.73m 2 Estimated GFR (Non- Thea 57 >=60 mL/min/1.73m 2 BUN Creatinine Ratio 16.3 Calcium 9.0 8.5-10.1 mg/dL Bilirubin Total 0.5 0.2-1.0 mg/dL Aspartate Amino Transferase 12 15-37 U/L Alanine Aminotransferase 21 14-59 U/L Alkaline Phosphatase 71 46-116 U/L Total Protein 7.1 6.4-8.2 g/dL Albumin Level 3.7 3.4-5.0 g/dL Globulin 3.4 Albumin Globulin Ratio 1.1 Performing Lab: see note ML - [facility] LB IRON Reviewed date:01/28/2025 09:28:04 PM Interpretation: Performing Lab: Notes/Report: [facility] , Iron 55.0 50.0-170.0 ug/dL Performing Lab: see note ML - [facility] FREE T3 Reviewed date:01/28/2025 09:28:04 PM Interpretation: Performing Lab: Notes/Report: [facility] , Free T3 2.93 2.18-3.98 pg/mL Performing Lab: see note ML - [facility] LB BNP Reviewed date:01/28/2025 09:28:04 PM Interpretation: Performing Lab: Notes/Report: [facility] , NT Pro B Type Natriuretic Pept 66.0 <=450.0 pg/mL Performing Lab: see note ML - [facility] LB TSH Reviewed date:12/04/2024 08:14:21 PM Interpretation: Performing Lab: Notes/Report: [facility] , Thyroid Stimulating Hormone 0.048 0.358-3.740 uIU/mL Performing Lab: see note ML - [facility] LB FREE T4 Reviewed date:12/04/2024 08:14:21 PM Interpretation: Performing Lab: Notes/Report: [facility] , Free T4 1.13 0.76-1.46 ng/dL Performing Lab: see note ML - [facility] LB TSH Reviewed date:08/06/2024 03:39:32 PM Interpretation: Performing Lab: Notes/Report: [facility] , Thyroid Stimulating Hormone 0.075 0.358-3.740 uIU/mL Performing Lab: see note ML - [facility] LB T4 Reviewed date:08/06/2024 03:39:32 PM Interpretation: Performing Lab: Notes/Report: [facility] , T4 Thyroxine 8.20 4.80-13.90 ug/dL Performing Lab: see note ML - [facility] LB FREE T3 Reviewed date:08/06/2024 03:39:32 PM Interpretation: Performing Lab: Notes/Report: [facility] , Free T3 3.92 2.18-3.98 pg/mL Performing Lab: see note ML - [facility] LB US venous doppler UE RT Reviewed date:07/09/2024 05:36:47 PM Interpretation: Performing Lab: Notes/Report: Source Facility: [place] [address] [place] [address] Ultrasound Report Signed Patient: MARY RAY MR#: [id number] : 1975 Acct:[id number] Age/Sex: 49 / F ADM Date: 07/09/24 Loc: US Attending Dr: Isidoro Trujillo M.D. Ordering Physician: Isidoro Trujillo M.D. Date of Service: 07/09/24 Procedure(s): US venous doppler UE LT Accession Number(s): [id number] cc: Isidoro Trujillo M.D. [address] [place] [address] Patient Name: MARY RAY MRN: [id number] date: 1975 Sex: F Assigned Patient Location: Current Patient Location: US Accession/Order Number: [id number] Exam Date: 07/09/2024 16:10 Report Date: 07/09/2024 17:10 At the request of: ISIDORO TRUJILLO Procedure: US venous doppler UE LT GI EXAM: US venous doppler UE LT HISTORY: LEFT ARM PAIN M79.602 COMPARISON: None. TECHNIQUE: Sonographic evaluation of the deep venous system of the left upper extremity was performed utilizing B-mode, color Doppler, and spectral imaging. FINDINGS: The internal jugular vein shows normal flow without filling defects. Normal cardiac pulsations are seen. The subclavian vein also showed normal flow and respiratory phasicity. No filling defects are identified. The axillary, brachial, basilic, and cephalic veins all appear patent and are normally compressible. The ulnar and radial veins also showed normal flow and compressibility. Additional findings: None. US/US venous doppler UE LT IMPRESSION: No evidence of deep venous thrombosis of the left upper extremity. Electronically authenticated by: ESSENCE ROBLES Date: 07/09/2024 17:10 Dictated By: Essence Robles M.D. Signed By: 07/09/241711 DD/ 09 TD/TT: Registered Dietetic Technician: [place] [address] Ultrasound Report Signed Patient: AMARA RAY SE MR#: [id number] : 1975 Acct:[id number] Age/Sex: 49 / F ADM Date: 07/09/24 Loc: US Attending Dr: Clyde Trujillo M.D. Ordering Physician: Isidoro Trujillo M.D. Date of Service: 07/09/24 Procedure(s): US venous doppler UE LT Accession Number(s): [id number] cc: Isidoro Trujillo M.D. [place] [address] Patient Name: MARY RAY MRN: [id number] date: 1975 Sex: F Assigned Patient Location: Current Patient Location: US Accession/Order Number: [id number] Exam Date: 16:10 Report Date: 07/09/2024 17:10 At the request of: ISIDORO TRUJILLO Procedure: US venous doppler UE LT GI EXAM: US venous doppler UE LT HISTORY: LEFT ARM PA IN M79.602 COMPARISON: None. TECHNIQUE: Sonograph ic evaluation of the deep venous system of the left upper extremity was performed utilizing B-mode, color Doppler, and spectral imaging. FINDINGS: The financial analyst intern al jugular vein shows normal flow without filling defects. Normal cardiac pulsations are seen. The subclavian vein also showed normal flow and respiratory phasicity. No filling defects are identified. The axillary, brachial, basilic, a nd cephalic veins all appear patent and are normally compressible. The ulnar and radial veins also showed normal flow and compressibility. Additional findings: None. US/US venous doppler UE LT IMPRESSION: No evidence of deep venous thrombosis of the left upper extremity. Electronically authenticated by: ESSENCE ROBLES Date: 07/09/2024 17:10 Dictated By: Essence Robles M.D. Signed By: 07/09/241711 DD/ 09 TD/TT: Registered Dietetic Technician: TSH Reviewed date:07/08/2024 08:46:06 PM Interpretation: Performing Lab: Notes/Report: [facility] , Thyroid Stimulating Hormone 1.233 0.358-3.740 uIU/mL Performing Lab: see note ML - [facility] LB T4 Reviewed date:07/08/2024 08:46:06 PM Interpretation: Performing Lab: Notes/Report: [facility] , T4 Thyroxine 6.50 4.80-13.90 ug/dL Performing Lab: see note ML - [facility] LB FREE T3 Reviewed date:07/08/2024 08:46:06 PM Interpretation: Performing Lab: Notes/Report: [facility] , Free T3 2.04 2.18-3.98 pg/mL Performing Lab: see note ML - [facility] LB Reason For Referral No Information Medications Medication SIG (Take, Route, Frequency, Duration) Notes Start Date End Date Status Hyoscyamine Sulfate 0.125 MG 1-2 tabs SL SL every 4 hrs PRN abd pain 03/25/2025 Active Hmghfikjdv-YPPN-Plvvjurh 50-325-40 MG TAKE 1 CAPSULE BY MOUTH EVERY 6 HOURS NEEDED for 30 12/04/2024 Active Adipex-P 37.5 MG 1 tablet before jessica kfast Orally Once a day 03/10/2025 Active Wellbutrin XL 300 MG 1 tablet in the mor steven Orally Once a day for 90 days 11/19/2023 Active Restasis 0.05 % Ophthalmic for 30 Days Active SEROquel 25 MG 1 tablet at bedtime Orally Once a day for 30 days 04/16/2025 Active Relpax 40 MG 1 tablet Orally at o nset of migraine; may repeat at 2hrs if needed- max 2 per day for 30 days Active Protonix 40 MG 1 tablet Orally Once a day for 90 days 03/25/2025 Active Liothyronine Sodium 5 MCG 2 tablet on an empty stomach Orally Once a day for 90 days Active Viberzi 100 MG 1 tablet Oral Twice a day for 90 days 12/04/2024 Active Trokendi XR 200 mg TAKE 1 CAPSULE DAILY Active Synthroid 100 MCG 1 tablet Oral Once a day for 90 days Active Social History Tobacco Use: Social History Observation Description Date Details (start date - stop date) Never Smoker NA - NA Tobacco Use/Smoking Question Answer Notes Patient is a nonsmoker Alcohol Screen (Audit-C) Question Answer Notes Did you have a drink containing alcohol in the p ast year? No Points 0 Interpretation Negative AUDIT-C (Standard) Question Answer Notes Did you have a drink containing alcohol in the p ast year? No Points 0 Interpretation Negative Problems Problem Type SNOMED Code ICD Code Onset Dates Problem Status W/U Status Risk Notes Problem Allergic rhinitis (92789601) Allergic rhinitis, unspecified (J30.9) Active confirmed Problem Snoring (87838120) Snoring (R06.83) Active confirmed Problem Migraine variant with headache (disorder) (931192525) Migraine headache (G43.909) Active confirmed Problem Benign essential hypertension (5147111) Benign essential hypertension (I10) Active confirmed Problem Hypothyroidism (26834792) Hypothyroidism (E03.9) Active confirmed Problem Migraine (30106181) Migraine (G43.909) Active confirmed Problem 76998690 Chronic fatigue (R53.82) Active confirmed Problem Otitis media (15120560) Otitis media (H66.90) Active confirmed Problem Gastritis (9140151) Gastritis (K29.70) Active confirmed Problem Multiple thyroid nodules (663380478) Multiple thyroid nodules (E04.2) Active confirmed Problem Mary's thyroiditis (69592822) Mary's thyroiditis (E06.3) Active confirmed Problem Chronic eczema (73948736) Chronic eczema (L30.9) Active confirmed Problem Irritable bowel syndrome (29127657) Irritable bowel syndrome (IBS) (K58.9) Active confirmed Problem Tonsillar aspergillosis (599401064) 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 confirmed Problem Anxiety (69557885) Anxiety (F41.9) Active confirmed Vital Signs Blood pressure diastolic 96 mm Hg 04/16/2025 Height 64 in 04/16/2025 Blood pressure systolic 164 mm Hg 04/16/2025 Weight 156.6 lbs 04/16/2025 BMI 26.88 kg/m2 04/16/2025 Encounters Encounter Location Date Provider Diagnosis [facility] [address] [place] [address] 12/04/2024 Jose Antonio Hoy Migraine headache G43.909 and Irritable bowel syndrome (IBS) K58.9 [facility] [address] [place] [address] 01/09/2025 Jose Antonio Hoy Benign essential hypertension I10 and Hypothyroidism E03.9 [facility] [address] [place] [address] 02/04/2025 Jose Antonio Hoy Benign essential hypertension [address] [place] [address] 03/10/2025 Jose Antonio Hoy Benign essential hypertension [address] [place] [address] 04/16/2025 Jose Antonio Hoy Benign essential hypertension I10 and Anxiety F41.9 [facility] [address] [place] [address] 03/25/2025 Jose Antonio Hoy Gastritis K29.70 [address] [place] [address] 10/08/2024 Jose Antonio Hoy Acute non-recurrent sinusitis, unspecified location J01.90 and Nasal congestion R09.81 [facility] [address] [place] [address] 06/02/2024 Mona Angel Migraine G43.909 [address] [place] [address] 06/04/2024 Mona Angel Migraine G43.909 [address] [place] [address] 06/19/2024 Jose Antonio Hoy [facility] [address] [place] [address] 07/07/2024 Jose Antonio Hoy Fatigue R53.83 [facility] [address] [facility] [place] [address] 07/08/2024 Jose Antonio Hoy Left arm pain M79.60 2 and Hypothyroidism E03.9 [facility] [address] [place] [address] 07/09/2024 Jose Antonio Hubbardy Otitis media H66.90 [facility] [address] [place] [address] 08/01/2024 Jose Antonio Trujillo [facility] [address] [place] [address] 08/06/2024 Jose Antonio Trujillo [facility] [address] [place] [address] 09/01/2024 Jose Antonio Trujillo [facility] [address] [place] [address] 09/01/2024 Jose Antonio Trujillo [facility] [address] [place] [address] 10/02/2024 Jose Antonio Trujillo [facility] [address] [place] [address] 11/28/2024 Jose Antonio Trujillo Acute non-recurrent sinusitis, unspecified location J01.90 [facility] [address] [place] [address] 11/28/2024 Jose Antonio Trujillo [facility] [address] [place] [address] 12/04/2024 Jose Antonio Trujillo [facility] [address] [place] [address] 12/10/2024 Jose Antonio Trujillo Abnormal thyroid blo od test R79.89 [facility] [address] [place] [address] 01/28/2025 Jose Antonio Trujillo [facility] [address] [place] [address] 02/18/2025 Jose Antonio Trujillo [facility] [address] [place] [address] 02/19/2025 Jose Antonio Trujillo [facility] [address] [facility] [address] 03/24/2025 Jose Antonio Trujillo [facility] [address] [place] [facility] [place] [address] 03/31/2025 Jose Antonio Trujillo [facility] [address] [place] [facility] [address] 04/09/2025 Jose Antonio Trujillo Gastritis K29.70 [facility] [address] [place] [facility] [place] [address] 04/14/2025 Jose Antonio Trujillo Benign essential hypertension I10 and Fatigue R53.83 Assessments Encounter Date Diagnosis (ICD Code) Assessment Notes Treatment Notes Treatment Clinical Notes Section Notes 06/02/2024 Migraine (ICD-10 - G43.909) 06/04/2024 Migraine (ICD-10 - G43.909) 07/07/2024 Fatigue (ICD-10 - R53.83) 07/08/2024 Left arm pain (ICD-10 - M79.602) 07/08/2024 Hypothyroidism (ICD-10 - E03.9) 07/09/2024 Otitis media (ICD-10 - H66.90) 11/28/2024 Acute non-recurrent sinusitis, unspecified location (ICD-10 - J01.90) 12/10/2024 Abnormal thyroid blood test (ICD-10 - R79.89) 04/09/2025 Gastritis (ICD-10 - K29.70) 04/14/2025 Benign essential hypertension (ICD-10 - I10) 04/14/2025 Fatigue (ICD-10 - R53.83) 10/08/2024 Acute non-recurrent sinusitis, unspecified location (ICD-10 - J01.90) Rest and drink more liquids, especially water. You may use a humidifier or vaporizer to help keep the drainage moist. Lghs-len-brsyqcv Nasal Saline may help the stuffy and runny nose. Use Ibuprofen and or Tylenol as needed for fever, chills, body aches or pain. Children 5 years old should not be given aobi-lpr-wcpkder cough and cold medications such as guaifenesin and dextromethorphan. If you're over age 5, you may try xuew-vnh-hlvcvxc cold medications such as guaifenesin and dextromethorphan, or multi-symptom cold reliever such as Dayquil to help reduce the symptoms. Antibiotics have been prescribed. You should take these until completed and follow the directions. Antibiotics can sometimes cause upset stomach, and in rare cases, serious allergic reactions or serious gastrointestinal problems. If you start having severe abdominal pain, severe vomiting, or bloody diarrhea, you should be reevaluated by your physician or urgent care immediately. Follow up with your Primary Care Provider or return to clinic if symptoms do not improve within 3-5 days 12/04/2024 Migraine headache (ICD-10 - G43.909) 12/04/2024 Irritable bowel syndrome (IBS) (ICD-10 - K58.9) 01/09/2025 Benign essential hypertension (ICD-10 - I10) 01/09/2025 Hypothyroidism (ICD-10 - E03.9) 02/04/2025 Benign essential hypertension (ICD-10 - I10) 03/10/2025 Benign essential hypertension (ICD-10 - I10) 03/25/2025 Gastritis (ICD-10 - K29.70) 04/16/2025 Benign essential hypertension (ICD-10 - I10) 04/16/2025 Anxiety (ICD-10 - F41.9) 10/08/2024 Nasal congestion (ICD-10 - R09.81) Plan Of Treatment Pending Test Test Name Order Date CMP (COMPLETE METABOLIC PANEL) 3 CULTURE, STOOL 03/25/2025 Sleep study - Diagnostic Polysonogram COMPREHENSIVE METABOLIC PROFILE WITH GFR 04/14/2025 C DIFF TOX PCR STOOL 03/25/2025 CBC W/AUTO DIFF 07/07/2024 CBC W/AUTO DIFF 05/21/2023 BNP 01/09/2025 INSULIN 01/09/2025 IRON 01/09/2025 PROF 14(COMP METB) 01/09/2025 THYROID PROFILE WITH TSH 12/04/2024 US VENOUS DOPPLER L ARM 07/08/2024 THYROID PANEL (T4/TSH/FREE T3) 4 THYROID PANEL (T4/TSH/FREE T3) 5 THYROID PANEL (T4/TSH/FREE T3) 5 THYROID PANEL (T4/TSH/FREE T3) 4 THYROID PANEL (T4/TSH/FREE T3) 3 THYROID PANEL (T4/TSH/FREE T3) 5 THYROID PANEL (T4/TSH/FREE T3) 3 Next Appt Details Provider Name:Jose Antonio Trujillo, 11:15:00 AM, [address] [place], [address], Insurance Providers Payer Name Payer Address Payer Phone Subscriber Number Group Number Insured Name Patient Relationship to Insured Coverage Start Date Coverage End Date MMO [employer] [address] [place] [address] [id number] Mary Ray Self - patient is the insured 3 Medical (General) History Medical History History ICD Code Irritable bowel syndrome (IBS) K58.9 Migraine headache G43.909 Allergic rhinitis, unspecified J30.9 Anxiety disorder F41.9 Benign essential hypertension I10 Hypothyroidism E03.9 Mary's thyroiditis E06.3 Multiple thyroid nodules E04.2 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
--- OUTSIDE RECORDS SUMMARY | 2025-04-16 10:21 | XMS_ITS | Encounter Summary ---
Author Organization [facility] Address [address] [place] [address] Care Team Providers Care Senior Technical Support Engineer Name Role Phone Harish Rojas MD Primary Care Provider [phone] Encounter Details Date Type Department Care Team (Late Contact Info) Description 03/30/2023 External Result Encounter [facility] External Department Unsolicited Bryson Seals, DO [address] [facility] [address] [place] [address] Social History Tobacco Use Types [...] EDT Office Visit [place] [address] [facility] [address] [place] [phone] Karyn Johnson DO [address] [facility] [address] [place] [address] documented as of this encounter [...] Stroud Jr., D.OJessica03/30/2023 12:13 PM Dictation Location: [facility] Tech: Ce Farooq Castillo Transcribed By: NEGAR 03/30/23 1213 Dictated By: Yogesh Stroud Jr, DO 03/30/23 1104 Signed By: <Electronically signed by Yogesh Stroud Jr, DO in OV> 03/30/23 1213 Narrative 03/30/2023 1:57 PM EDT [facility] Main [place] [address] [place] [address] Ultrasound Report Signed Patient: Mary Granados MR#: [id number] : 1975 Acct:[id number] Age/Sex: 47 / F ADM Date: 03/19/23 Loc: [place] Room: Type: [facility] [place] Attending Dr: Bryson Seals DO Ordering Provider: Bryson Seals DO Date of Service: 03/30/23 US/US breast needle loc RT: RT BREAST SEED LOC ([id number]) MM/MM diagnostic mammo RT w/CAD: POST U/S [...] Procedure Note Radiology, Radiologist, MD - 04/02/2023 [facility] Main [place] [address] [place] [address] Ultrasound Report Signed Patient: Mary Granados CMR#: [id number] : 1975Acct:[id number] Age/Sex: 47 / FADM Date: 03/19/23 Loc: [place] Room:Type: [facility] [place] Attending Dr: Bryson Seals DO Ordering Provider: Bryson Seals DO Date of Service: 03/30/23 US/US breast needle loc RT: RT BREAST SEED LOC ([id number]) MM/MM diagnostic mammo RT w/CAD: POST U/S [...] Stroud Jr., D.O.03/30/2023 12:13 PM Dictation Location: [facility] Tech: Ce Lim; Therese Anna Transcribed By: NEGAR 03/30/23 1213 Dictated By: Yogesh Stroud Jr, DO 03/30/23 1104 Signed By: <Electronically signed by Yogesh Stroud Jr, DO inOV> 03/30/23 1213 us Bryson Seals DO IMG US PROCEDURES Edited Result - Final documented in this encounter Visit Diagnoses Not on filedocumented in this encounter Care Teams Senior Technical Support Engineer Relationship Specialty Start Date End Date Harish Rojas MD PCP - General Family Medicine 02/21/23 documented as of this encounter
--- OUTSIDE RECORDS SUMMARY | 2025-04-16 10:21 | XMS_ITS | Encounter Summary ---
Author Organization [facility] Address [address] [place] [address] Care Team Providers Care Engine Testing Supervisor Name Role Phone Harish Rojas MD Primary Care Provider [phone] Encounter Details Date Type Department Care Team (Late Contact Info) Description 04/03/2023 External Result Encounter [facility] External Department Unsolicited Bryson Seals, DO [address] [facility] 150 [place] [address] Social History Tobacco Use Types [...] 03/17/2026 1:45 PM EDT Office Visit [place] [address] [facility] [address] [place] [phone] Karyn Johnson DO [address] [facility] [address] [place] [address] documented as of this encounter Procedures Procedure Name Priority Date/Time Associated Diagnosis Comments BI MAMMOGRAM DIAGNOSTIC RIGHT 04/03/2023 11:32 AM EDT documented in this encounter Results * Right diagnostic mammogram (04/03/2023 11:32 AM EDT) Anatomical Region Laterality Modality Breast Right Mammography 04/03/2023 11:3 2 AM EDT Narrative 04/04/2023 9:23 AM EDT [place] [id number] Mammography Report Signed Patient: Mary Granados MR#: [id number] : 1975 Acct:[id number] Age/Sex: 47 / F ADM Date: 04/03/23 Loc: [place] Room: Type: [facility] Attending Dr: Bryson Seals DO Copies [...] Stroud Jr., D.O.04/03/2023 11:32 AM Dictation Location: [place] [address] Transcribed By: [facility] 04/03/23 1132 Dictated By: Yogesh Stroud Jr, DO 04/03/23 1132 Signed By: <Electronically signed by Yogesh Stroud Jr, DO in OV> 04/03/23 1132 Procedure Note Radiology, Radiologist, MD - 04/04/[address] [address] Mammography Report Signed Patient: Mary Granados CMR#: [id number] : 1975Acct:[id number] Age/Sex: 47 / FADM Date: 04/03/23 Loc: [place] Room:Type: [facility] Attending Dr: Bryson Seals DO Copies [...] Stroud Jr., D.OJessica04/03/2023 11:32 AM Dictation Location: [place] [address] Transcribed By: [facility] 04/03/23 1132 Dictated By: Yogesh Stroud Jr, DO 04/03/23 1132 Signed By: <Electronically signed by Yogesh Stroud Jr, DO inOV> 04/03/23 1132 us Bryson Seals DO IMG BI PROCEDURES Final R esult documented in this encounter Visit Diagnoses Not on filedocumented in this encounter Care Teams Engine Testing Supervisor Relationship Specialty Start Date End Date Harish Rojas MD PCP - General Family Medicine 02/21/23 documented as of this encounter
--- OUTSIDE RECORDS SUMMARY | 2025-04-16 10:21 | XMS_ITS | Encounter Summary ---
Author Organization [facility] Address [address] [place] [address] Care Team Providers Care Motor Equipment Commanding Officer Name Role Phone Harish Rojas MD Primary Care Provider [phone] Encounter Details Date Type Department Care Team (Late st Contact Info) Description 02/25/2024 External Result Encounter [facility] External Department Unsolicited Bryson Seals, DO [address] [facility] 150 [place] [address] Social History Tobacco Use Types Packs/Day Years [...] EDT Office Visit [place] [address] [facility] [address] [place] [address] Karyn Johnson DO [address] [facility] [address] [place] [address] documented as of this encounter [...] Javier Sellers M.D.02/25/2024 10:50 AM Dictation Location: [facility] Transcribed By: [facility] 02/25/24 1050 Dictated By: Francisco Javier Sellers DO 02/25/24 1043 Signed By: <Electronically signed by Francisco Javier Sellers DO in OV> 02/25/24 1050 Narrative 02/25/2024 10:53 AM EDT [facility] Main [place] [address] [place] [address] Mammography Report Signed Patient: Mary Granados MR#: [id number] : 1975 Acct:[id number] Age/Sex: 48 / F ADM Date: 02/25/24 Loc: [place] Room: Type: [facility] Attending Dr: Bryson Seals DO Copies to: [...] w/CAD Procedure Note Radiology, Radiologist, - 02/25/2024 [facility] Main [place] [address] [place], [place] [phone] Mammography Report Signed Patient: Mary Granados CMR#: [id number] : 1975Acct:[id number] Age/Sex: 48 / FADM Date: 02/25/24 Loc: [place] Room:Type: [facility] Attending Dr: Bryson Seals DO Copies to: [...] Javier Sellers M.D.02/25/2024 10:50 AM Dictation Location: [facility] Transcribed By: [facility] 02/25/24 1050 Dictated By: Francisco Javier Sellers DO 02/25/24 1043 Signed By: <Electronically signed by Francisco Javier Sellers DO in OV> 02/25/24 1050 us Bryson Seals DO IMG BI PROCEDURES Final R esult documented in this encounter Visit Diagnoses Not on filedocumented in this encounter Care Teams Motor Equipment Commanding Officer Relationship Specialty Start Date End Date Harish Rojas MD PCP - General Family Medicine 02/21/23 documented as of this encounter
--- OUTSIDE RECORDS SUMMARY | 2025-04-16 10:22 | XMS_ITS | Encounter Summary ---
Author Organization [facility] Address [address] [place] [address] Care Team Providers Care Strategic Procurement Manager Name Role Phone Harish Rojas MD Primary Care Provider [phone] Encounter Details Date Type Department Care Team (Late st Contact Info) Description 02/28/2023 External Result Encounter [facility]OMS External Department Unsolicited Karyn Johnson DO [address] [place] [address] Social History Tobacco Use Types Packs/Day Years [...] [place] [address] [place] [address] Karyn Johnson DO [address] [place] [address] documented as of this encounter Procedures Procedure [...] Stroud Jr., D.OJessica03/01/2023 12:38 PM Dictation Location: [facility] Tech: Meghan Flacogwenirma; Lyly Garcia Transcribed By: PWS 03/01/23 1238 Dictated By: Yogesh Stroud Jr, DO 02/28/23 0946 Signed By: <Electronically signed by Yogesh Stroud Jr, DO in OV> 03/01/23 1238 Narrative 02/28/2023 10:03 AM EDT [facility] Main [place] [address] [place] [address] Ultrasound Report Signed Patient: Mary Granados MR#: [id number] : 1975 Acct:[id number] Age/Sex: 47 / F ADM Date: 02/28/23 Loc: [place] Room: Type: [facility] Attending Dr: Karyn Johnson DO Ordering Provider: Karyn Johnson DO Date of Service: 02/28/23 MM/MM special view RT w/CAD: R92.8 ([id number]) US/US breast RT limited: R92.8 Copies to: [...] limited Procedure Note Radiology, Radiologist, - 03/06/2023 [facility] Main [place] [address] [place] [address] Ultrasound Report Signed Patient: Mary Granados CMR#: [id number] : 1975Acct:[id number] Age/Sex: 47 / FADM Date: 02/28/23 Loc: [place] Room:Type: [facility] Attending Dr: Karyn Johnson DO Ordering Provider: Karyn Johnson DO Date of Service: 02/28/23 MM/MM special view RT w/CAD: R92.8 ([id number]) US/US breast RT limited: R92.8 Copies to: [...] Stroud Jr., D.O.03/01/2023 12:38 PM Dictation Location: [facility] Tech: Meghan Garcia Transcribed By: NEGAR 03/01/23 1238 Dictated By: Yogesh Stroud Jr, DO 02/28/23 0946 Signed By: <Electronically signed by Yogesh Stroud Jr DO inOV> 03/01/23 1238 Karyn Johnson DO IMG BI PROCEDURES Edited Re sult - Final documented in this encounter Visit Diagnoses Not on filedocumented in this encounter Care Teams Strategic Procurement Manager Relationship Specialty Start Date End Date Harish Rojas MD PCP - General Family Medicine 02/21/23 documented as of this encounter
--- OUTSIDE RECORDS SUMMARY | 2025-04-16 10:22 | XMS_ITS | Encounter Summary ---
Author Organization [facility] Address [address] [place] [address] Care Team Providers Care Cork Floor Installer Name Role Phone Harish Rojas MD Primary Care Provider [phone] Encounter Details Date Type Department Care Team (Late st Contact Info) Description 03/09/2023 External Result Encounter [facility] External Department Unsolicited Bryson Seals, DO [address]03 [facility] 150 [place] [address] Social History Tobacco Use Types Packs/Day Years [...] EDT Office Visit [place] [address] [facility] [address] [place] [phone] Karyn Johnson, [address] [facility] [address] [place] [address] documented as of this encounter Procedures Procedure [...] Florence Small Jr..OJessica03/09/2023 11:51 AM Dictation Location: [facility] Transcribed By: [facility] 03/09/23 1151 Dictated By: Yogesh Stroud Jr, DO 03/09/23 1148 Signed By: <Electronically signed by Yogesh Stroud Jr, DO in OV> 03/09/23 1151 Narrative 03/20/2023 4:48 PM EDT [facility] Main [place] [address] [place] [address] Mammography Report Signed with Addenda Patient: Mary Granados MR#: [id number] : 1975 Acct:[id number] Age/Sex: 47 / F ADM Date: 03/09/23 Loc: [place] Room: Type: [facility] Attending Dr: Bryson Seals DO Copies to: MD Bryson Cuevas DO Ordering Provider: Bryson Seals DO Date of Service: 03/09/23 MM/MM biopsy RT vac assist stereo: RT BREAST ASYMMETRY ([id number]) MM/MM post biopsy RT w/CAD: POST BX [...] Stroud Jr. D.O.03/14/2023 3:19 PM Dictation Location: [place] [address] Addendum Dictated By: Yogesh Stroud Jr, DO [...] and local anesthetization with lidocaine, an 9-gauge [employer] vacuum assisted core biopsy needle was advanced [...] w/CAD Procedure Note Radiology, Radiologist, - 03/20/2023 [facility] [place] [address] Mammography Report Signed with Addenda Patient: Mary Granados CMR#: [id number] : 1975Acct:[id number] Age/Sex: 47 / FADM Date: 03/09/23 Loc: [place] Room:Type: [facility] Attending Dr: Bryson Seals DO Copies to: MD Bryson Cuevas DO Ordering Provider: Bryson Seals DO Date of Service: 03/09/23 MM/MM biopsy RT vac assist stereo: RT BREASTASYMMETRY ([id number]) MM/MM post biopsy RT w/CAD: POST BX [...] Paradise Small Jr.OJessica03/14/2023 3:19 PM Dictation Location: [place] [address] Addendum Dictated By: Yogesh Stroud Jr, DO [...] preparation and local anesthetizationwith lidocaine, an 9-gauge [employer] vacuum assisted core biopsy needle was advanced [...] Florence Small Jr..Marino03/09/2023 11:51 AM Dictation Location: [facility] Transcribed By: NEGAR 03/09/23 1151 Dictated By: Yogesh Stroud Jr, DO 03/09/23 1148 Signed By: <Electronically signed by Yogesh Stroud Jr, DO inOV> 03/09/23 1151 Bryson Seals DO IMG BI PROCEDURES Edited Result - Final documented in this encounter Visit Diagnoses Not on filedocumented in this encounter Care Teams Cork Floor Installer Relationship Specialty Start Date End Date Harish Rojas MD PCP - General Family Medicine 02/21/23 documented as of this encounter
--- OUTSIDE RECORDS SUMMARY | 2025-04-16 10:22 | XMS_ITS | Encounter Summary ---
Author Organization [facility] Address [address] [place] [address] Care Team Providers Care Assault Amphibious Vehicle Officer Name Role Phone Harish Rojas MD Primary Care Provider [phone] Encounter Details Date Type Department Care Team (Late st Contact Info) Description 02/23/2023 External Result Encounter [facility]S External Department Unsolicited Karyn Johnson, DO [address] [place] [address] Social History Tobacco Use Types Packs/Day Years [...] [place] [address] [place] [address] Karyn Johnson DO [address] [place] [address] documented as of this encounter Procedures Procedure [...] Stroud Jr., D.OJessica02/23/2023 2:11 PM Dictation Location: [facility] Transcribed By: NEGAR 02/23/23 1411 Dictated By: Yogesh Stroud Jr, DO 02/23/23 1401 Signed By: <Electronically signed by Yogesh Stroud Jr, DO in OV> 02/23/23 1411 Narrative 02/23/2023 2:30 PM EDT [facility] [place] [address] Mammography Report Signed Patient: Mary Granados MR#: [id number] : 1975 Acct:[id number] Age/Sex: 47 / F ADM Date: 02/23/23 Loc: [place] Room: Type: [facility] Attending Dr: Karyn Jonhson DO Copies to: MD Karyn Cuevas DO [...] w/CAD Procedure Note Radiology, Radiologist, - 02/23/[address] [facility] [place] [address] Mammography Report Signed Patient: Mary Granados CMR#: [id number] : 1975Acct:[id number] Age/Sex: 47 / FADM Date: 02/23/23 Loc: [place] Room:Type: [facility] Attending Dr: Karyn Johnson DO Copies [...] Stroud Jr., D.OJessica02/23/2023 2:11 PM Dictation Location: [facility] Transcribed By: NEGAR 02/23/23 1411 Dictated By: Yogesh Stroud Jr, DO 02/23/23 1401 Signed By: <Electronically signed by Yogesh Stroud Jr, DO inOV> 02/23/23 1411 us Karyn Johnson DO IMG BI PROCEDURES Final Res ult documented in this encounter Visit Diagnoses Not on filedocumented in this encounter Care Teams Assault Amphibious Vehicle Officer Relationship Specialty Start Date End Date Harish Rojas MD PCP - General Family Medicine 02/21/23 documented as of this encounter
--- OUTSIDE RECORDS SUMMARY | 2025-04-16 10:22 | XMS_ITS | Encounter Summary ---
Author Organization [facility] Address [address] [place] [address] Care Team Providers Care Fiberglass Boat Maker Name Role Phone Harish Rojas MD Primary Care Provider [phone] Encounter Details Date Type Department Care Team (Late Contact Info) Description 03/09/2023 [facility] [address] [facility] 150 [place] [address] Bryson Seals DO 703 [facility] 150 [place] [address] Social History Tobacco Use Types [...] EDT Office Visit [place] [address] [facility] 210 [place] [address] Karyn Johnson DO [address] [facility] [address] [place] [address] documented as of this encounter Visit Diagnoses Not on filedocumented in this encounter Care Teams Fiberglass Boat Maker Relationship Specialty Start Date End Date Harish Rojas MD PCP - General Family Medicine 7/19/23 documented as of this encounter
--- OUTSIDE RECORDS SUMMARY | 2025-04-16 10:22 | XMS_ITS | Encounter Summary ---
Author Organization [facility] Address [address] [place] [address] Care Team Providers Care Commissary Manager Name Role Phone Harish Rojas MD Primary Care Provider [phone] Encounter Details Date Type Department Care Team ([facility] Contact Info) Description 01/30/2024 [facility] [address] [place] [phone] Omar Castro, DPM [facility]AC[facility] [address] [place] [address] Social History Tobacco Use Types Packs/Day Years [...] [place] [address] [place] [address] Karyn Johnson DO [address] [place] [address] documented as of this encounter Visit Diagnoses Not on filedocumented in this encounter Care Teams Commissary Manager Relationship Specialty Start Date End Date Harish Rojas MD PCP - General Family Medicine 02/21/23 documented as of this encounter
--- OUTSIDE RECORDS SUMMARY | 2025-04-16 10:22 | XMS_ITS | Encounter Summary ---
Author Organization [facility] Address [address] [place] [address] Care Team Providers Care Safety Professional Name Role Phone Harish Rojas MD Primary Care Provider [phone] Source Comments In the event this information is protected by the Federal Confidentiality of Alcohol and Drug AbusePatient Records regulations: The Federal rules restrict any use of the information to criminally investigate or prosecute any alcohol or drug abuse patient.[facility] Encounter Details Date Type Department Care Team (Late st Contact Info) Description 11/04/2017 Patient Msg Endocrinology [address] [place], [place] [phone] Harvey Victor, DO [address] [place] [address] RE: Appointment Cancellation Request Social [...] 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
--- OUTSIDE RECORDS SUMMARY | 2025-04-16 10:22 | XMS_ITS | Encounter Summary ---
Author Organization [facility] Address [address] [place] [address] Care Team Providers Care Wheel Adjuster Name Role Phone Harish Rojas MD Primary Care Provider [phone] Source Comments In the event this information is protected by the Federal Confidentiality of Alcohol and Drug AbusePatient Records regulations: The Federal rules restrict any use of the information to criminally investigate or prosecute any alcohol or drug abuse patient.[facility] Encounter Details Date Type Department Care Team (Late st Contact Info) Description 09/17/2016 Patient Msg Endocrinology [address] [place] [address] Erika Fischer MD, PhD [address] [place] [address] RE: Appointment Cancellation Request Social History Tobacco [...] 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
--- OUTSIDE RECORDS SUMMARY | 2025-04-16 10:22 | XMS_ITS | Encounter Summary ---
Author Organization [facility] Address [address] [place] [address] Care Team Providers Care Application Architect Name Role Phone Harish Rojas MD Primary Care Provider [phone] Encounter Details Date Type Department Care Team ([facility] Contact Info) Description 03/15/2023 [facility] [address] [facility] 150 [place] [address] Bryson Seals, DO [address] [facility] 150 [place] [address] Social History Tobacco Use Types [...] EDT Office Visit [place] [address] [place] [address] Karyn Johnson DO [address] [facility] [address] [place] [address] documented as of this encounter Visit Diagnoses Not on filedocumented in this encounter Care Teams Application Architect Relationship Specialty Start Date End Date Harish Rojas MD PCP - General Family Medicine 02/21/23 documented as of this encounter
--- OUTSIDE RECORDS SUMMARY | 2025-04-16 10:22 | XMS_ITS | Clinical Summary ---
Author Organization [facility] Address [address] [place] [address] Care Team Providers Care Frame Runner Name Role Phone Harish Rojas MD Primary Care Provider [phone] Allergies Active Allergy Reactions Criticality Noted Date [...] N ot on file 07/12/2020 Data from: https://www.neighborhoodatlas.medicine.[facility].edu/. 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 Not on file [...] Protein, Total 7.3 6.0 - 8.4 g/dL [facility] Albumin 4.8 3.5 - 5.0 g/dL [facility] Calcium 9.9 8.5 - 10.5 mg/dL [facility] Bilirubin, Total 0.8 0.0 - 1.5 mg/dL [facility] Alkaline Phosphatase 51 40 - 150 U/L [facility] AST 17 7 - 40 U/L [facility] Glucose 84 65 - 100 mg/dL [facility] BUN 10 8 - 25 mg/dL [facility] Creatinine 0.89 0.70 - 1.40 mg/dL [facility] Sodium 138 132 - 148 mmol/L [facility] Potassium 4.1 3.5 - 5.0 mmol/L [facility] Chloride 104 98 - 110 mmol/L [facility] CO2 24 23 - 32 mmol/L [facility] Anion Gap 10 0 - 15 mmol/L [facility] ALT 10 0 - 45 U/L [facility] eGFR- >60 [facility] eGFR-All Other Races >60 . [facility] Comment: eGFR (Estimated GFR) [...] us Mala Mojica MD LABORATORY Final Result [facility] [address] [place] [address] from Last 3 Months or Most Recently Relevant to Health Maintenance Insurance [facility] PPO Care Teams Frame Runner Relationship Specialty Start Date End Date Harish Rojas MD PCP - General 11/30/09
--- OUTSIDE RECORDS SUMMARY | 2025-04-16 10:22 | XMS_ITS | Encounter Summary ---
Author Organization [facility] Address [address] [place] [address] Care Team Providers Care Parish Nurse Name Role Phone Harish Rojas MD Primary Care Provider [phone] Encounter Details Date Type Department Care Team ([facility] Contact Info) Description 03/12/2023 Abstract [facility] [address] [address] [address] [place] [address] Bryson Seals, DO [address] [facility] [address] [place] [address] Social History Tobacco Use Types [...] EDT Office Visit [place] [address] [place] [address] Karyn Johnson DO [address] [place] [address] documented as of this encounter Visit Diagnoses Not on filedocumented in this encounter Care Teams Parish Nurse Relationship Specialty Start Date End Date Harish Rojas MD PCP - General Family Medicine 02/21/23 documented as of this encounter
--- OUTSIDE RECORDS SUMMARY | 2025-04-16 10:39 | XMS_ITS | CCD ---
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 Name Role Phone HARVEY VICTOR Unavailable Unavailable [...] [phone] DO Bryson Seals Attending Provider [phone] MD Isidoro Rojas Primary Care Provider [phone] DO Bryson Seals Attending Provider [phone] Isidoro Rojas MD Primary Care Provider [phone] Karyn Johnson DO Attending Provider Isidoro Rojas MD Primary Care Provider [phone] KARYN JOHNSON E Attending Unavailable Aram Varela DO Emergency Provider [phone] Isidoro Rojas Primary Care Unavailable Karyn Johnson Attending Unavailable Karyn Johnson Admitting Unavailable Aram Varela Admitting Unavailable Isidoro Rojas Primary Care Unavailable Aram Varela Attending Unavailable Allergies Allergy Classification Reported Allergen(s) Allergy Type Date of Onset Reaction(s) Facility (11 sources) SUMAtriptan; Translations: [SUMATRIPTAN] Drug Allergy 1 Shortness of breath [facility] Repository (2 sources) Plasmin; Translations: [Imitrex] Drug Allergy [facility] Repository (3 sources) Diclofenac Drug [...] Start: 04-03-2023 take 4 tablets by mo 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] Onset: 10-02-2022 Episodic Other [...] lead ECGon 03-24-2025 ECG 12 lead ECG [facility] [place] [address] Electrocardiograph Report Signed Patient: Mary Granados MR#: [id number] : 1975 Acct:[id number] Age/Sex: 49 / F ADM Date: 03/24/25 Loc: ER Room: Type: [facility] ER Attending Dr: Ordering Provider: Aram Varela [...] By Aram Varela DO 2214 Normal [facility] MM screening mammo BI w/CADo n 02-25-2025 MM screening mammo BI w/CAD [facility] [address] [place], [place] [id number] Mammography Report Signed Patient: Mary Granados MR#: [id number] : 1975 Acct:[id number] Age/Sex: 49 / F Adm Date: 02/25/25 Loc: IN Room: Type: [facility] Attending Dr: Karyn Johnson DO Ordering Provider: Karyn Johnson DO Date of Service: 02/25/25 Procedure(s): MM screening mammo BI w/CAD Accession Number(s): ([id number]) MM/MM screening mammo BI w/CAD: screening Copies [...] Paredes M.D. 02/25/2025 4:12 PM Dictation Location: [facility] Dictated By: Bhavin Paredes MD 02/25/25 161 Signed By: 02/25/25 1612 Normal [facility] Mammography reportOrdered By : Bhavin Paredes on 02-25-2025 Diagnostic imaging study [facility] [address] [place] [address] Mammography Report Signed Patient: Mary Granados MR#: [id number] : 1975 Acct:[id number] Age/Sex: 49 / F Adm Date: 5 Loc: IN Room: Type: [facility] Attending Dr: Karyn Johnson DO Ordering Provider: Karyn Johnson DO Date of Service: 02/25/25 Procedure(s): MM screening mammo BI w/CAD Accession Number(s): ([id number]) MM/MM screening mammo BI w/CAD: screening Copies [...] Paredes M.D. 02/25/2025 4:12 PM Dictation Location: [facility] Dictated By: Bhavin Paredes MD 02/25/251610 Signed By: 02/25/25 161 [facility] Work Phone: [phone] Freeon 01-27-2023 Free T3 [Mass/Vol] 3.0 pg/mL Invalid Interpretation Code 2.0-4.4 [facility] Comment on above: Result Comment: Perf ormed at: [facility] [address] [place], [place] [id number] PhD Good Hernadez Performed By: #### 2 954386, 9273613, 04062785, 9632487, 4704982, 9297174, 80972946, 7430359, 647364270, 9008348, 0846398, 1841708, 1589085, 401712567 ####[facility] [address] [place] [address] Auto Diffon 01-25-2023 Basophils/100 WBC (Bld) 0.7 % Normal 0.0-2.0 [facility] Comment on above: Order Comment: Order Added by Discern Expert. Performed By: #### 2 148609, 0781756, 33122391, 3169872, 1339494, 5056173, 26005128, 0460760, 215924008, 5368520, 9149587, 3443179, 3033006, 089907040 #### [facility] [address] [place] [address] Basophils/Leukocytes Auto (Bld) [Pure # fraction] 0.0 E9/L Normal 0.0-0.2 [facility] Comment on above: Order Comment: Order Added by Discern Expert. Performed By: #### 2 265586, 1312000, 72425644, 1381359, 2928221, 8620220, 11546614, 7494613, 484870458, 1854236, 2222520, 6477247, 7000500, 820447183 #### [facility] [address] [place] [address] Eosinophils/100 WBC (Bld) 1.4 % Normal 0.0-8.0 [facility] Comment on above: Order Comment: Order Added by Discern Expert. Performed By: #### 2 967139, 4771037, 23671045, 1340848, 2048066, 7612552, 32755731, 1853297, 291599115, 4482860, 3792949, 7647481, 9227484, 234417279 #### [facility] [address] [place] [address] Eosinophils/Leukocyt es Auto (Bld) [Pure # fraction] 0.1 E9/L Normal 0.0-0.5 [facility] Comment on above: Order Comment: Order Added by Discern Expert. Performed By: #### 2 069980, 7879620, 42876100, 4210575, 3058806, 9871962, 72926275, 0055916, 015362655, 0881857, 5981756, 6524847, 8074032, 118828907 #### [facility] [address] [place] [address] Lymphocytes/100 WBC (Bld) 24.1 % Normal 14.0-50.0 [facility] Comment on above: Order Comment: Order Added by Discern Expert. Performed By: #### 2 693562, 0461355, 47795567, 3156115, 7276920, 1687390, 13061611, 4377341, 526462822, 9161067, 7865190, 7637744, 6277073, 099851599 #### [facility] [address] [place] [address] Lymphocytes/Leukocyt es Auto (Bld) [Pure # fraction] 1.6 E9/L Normal 1.0-4.0 [facility] Comment on above: Order Comment: Order Added by Discern Expert. Performed By: #### 2 509392, 9318871, 15677185, 0608309, 0012147, 0599609, 09365473, 7947690, 623705978, 1941838, 5999464, 7784737, 2505726, 692373919 #### [facility] [address] [place] [address] Monocytes/100 WBC (Bld) 6.3 % Normal 4.0-14.0 [facility] Comment on above: Order Comment: Order Added by Discern Expert. Performed By: #### 2 004548, 1045399, 09151632, 3985052, 3263917, 6710877, 67676677, 5302406, 514272714, 3673914, 9799302, 6570369, 1986679, 853620906 #### [facility] [address] [place] [address] Monocytes/Leukocytes Auto (Bld) [Pure # fraction] 0.4 E9/L Normal 0.2-1.0 [facility] Comment on above: Order Comment: Order Added by Discern Expert. Performed By: #### 2 202210, 9621823, 85370356, 7978944, 4155025, 1351331, 13702854, 6335665, 533999615, 8267879, 4583698, 8165775, 4119986, 291136459 #### [facility] [address] [place] [address] Neutrophils/100 WBC (Bld) 67.5 % Normal 36.0-75.0 [facility] Comment on above: Order Comment: Order Added by Discern Expert. Performed By: #### 2 995573, 3477450, 25135652, 1790100, 5276394, 0579779, 16326845, 9222134, 623323845, 8194203, 6821853, 5973069, 8806954, 264045626 #### [facility] [address] [place] [address] Neutrophils/Leukocyt es Auto (Bld) [Pure # fraction] 4.4 E9/L Normal 2.0-7.5 [facility] Comment on above: Order Comment: Order Added by Discern Expert. Performed By: #### 2 510970, 6349415, 71051201, 0801163, 3053961, 5242924, 99538417, 1712861, 561660686, 7735324, 3324299, 6550300, 6526404, 252177171 #### [facility] [address] [place] [address] CBC w/ Auto Diffon 3 Erythrocyte distribution width (RBC) [Ratio] 13.2 % Normal 10.9-14.2 [facility] Comment on above: Performed By: #### 2 190108, 3134771, 89772518, 5261846, 4300763, 2255303, 05727863, 5300087, 450858049, 7578078, 5708173, 7941439, 6682499, 293997455 #### [facility] [address] [place] [address] Hematocrit (Bld) [Volume fraction] 43.7 % Normal 34.0-46.0 [facility] Comment on above: Performed By: #### 2 355949, 7683442, 94573791, 6372601, 9221592, 2982857, 90726405, 5948540, 778981150, 7131333, 0164836, 5963405, 2381590, 902959887 #### [facility] [address] [place] [address] Hemoglobin (Bld) [Mass/Vol] 14.7 g/dL Normal 12.0-16.0 [facility] Comment on above: Performed By: #### 2 182576, 6164320, 19594360, 4040569, 9382887, 5163291, 96674539, 2505999, 330708301, 8985830, 0645062, 6340085, 0888092, 328770556 #### [facility] [address] [place] [address] MCH (RBC) [Entitic mass] 28.3 pg Normal 27.0-34.0 [facility] Comment on above: Performed By: #### 2 183561, 2771332, 48555460, 7281911, 4512765, 6301432, 29481764, 7917531, 759397943, 7862366, 3355371, 2953795, 1374083, 218185794 #### [facility] [address] [place] [address] MCHC (RBC) [Mass/Vol] 33.7 g/dL Normal 31.4-36.0 [facility] Comment on above: Performed By: #### 2 075659, 9762756, 19272767, 3211567, 4601137, 1366716, 59996547, 5005109, 236825024, 6765085, 4226284, 3319649, 7010483, 744401599 #### [facility] [address] [place] [address] MCV (RBC) [Entitic vol] 83.9 fL Normal 80.0-100.0 [facility] Comment on above: Performed By: #### 2 448412, 0842911, 04360949, 8905424, 5416071, 4198872, 79715702, 9943765, 278776516, 3936928, 3616194, 2370469, 8540996, 118214456 #### [facility] [address] [place] [address] Platelet mean volume (Bld) [Entitic vol] 9.1 fL Normal 6.4-10.8 [facility] Comment on above: Performed By: #### 2 967012, 9657041, 57237628, 6639514, 0958065, 7723399, 44620778, 2564483, 754298170, 7714703, 7950362, 4183606, 7105770, 955977111 #### [facility] [address] [place] [address] Platelets (Bld) [#/Vol] 256.0 E9/L Normal 150.0-500.0 [facility] Comment on above: Performed By: #### 2 608825, 1983132, 50611338, 2759874, 7768525, 3902377, 53703321, 1473421, 974179500, 3751319, 5482278, 9237138, 4898697, 209611217 #### [facility] [address] [place] [address] RBC (Bld) [#/Vol] 5.2 E12/L Normal 4.3-5.9 [facility] Comment on above: Performed By: #### 2 140867, 8917744, 97798302, 9259338, 2122849, 1150479, 26883171, 9863560, 674873881, 3296709, 2475585, 2960084, 9569119, 314385307 #### [facility] [address] [place] [address] WBC corrected for nucl RBC Auto (Bld) [#/Vol] 6.5 E9/L Normal 4.0-11.0 [facility] Comment on above: Performed By: #### 2 606507, 6160442, 49461954, 0928892, 8684799, 3368339, 92388232, 1414735, 631999296, 8808551, 7269380, 2747531, 7650095, 567589036 #### [facility] [address] [place] [address] CHEMISTRYOrdered By: SYSTEM SYSTEM on 01-25-2023 25-hydroxyvitamin [...] (Bld) [Mass fraction] 5.3 % Normal <=5.9% [facility] ChemAutoSS CMPon 01-25-2023 Albumin [Mass/Vol] 4.2 g/dL Normal 3.3-5.0 [facility] Comment on above: Performed By: #### 2 893033, 7051377, 54978848, 0679439, 6584291, 6086213, 42882309, 1315043, 956696910, 9199928, 0836584, 3536583, 8756537, 732928318 #### [facility] [address] [place] [address] Albumin/Globulin (S) [Mass conc ratio] 1.3 Normal 1.1-2.2 [facility] Comment on above: Performed By: #### 2 749185, 0400095, 19965672, 8962549, 5999059, 0297978, 51682370, 7649747, 862861271, 4692799, 4649459, 0053820, 1961052, 542721043 #### [facility] [address] [place] [address] ALP [Catalytic activity/Vol] 50 Int._Unit/L Normal 21-98 [facility] Comment on above: Performed By: #### 2 696117, 8788634, 14540370, 8405356, 1515801, 8066288, 51336752, 8475373, 760984026, 2639090, 3504865, 7105673, 6978305, 919024774 #### [facility] [address] [place] [address] ALT No additional P-5'-P [Catalytic activity/Vol] 12 Int._Unit/L Normal 6-46 [facility] Comment on above: Performed By: #### 2 742686, 4176152, 04614870, 0214134, 4744654, 9714658, 35759080, 0558269, 747038317, 1747412, 9509128, 2214931, 8848546, 392893232 #### [facility] [address] [place] [address] Anion gap [Moles/Vol] 10 mmol/L Normal 6-16 [facility] Comment on above: Performed By: #### 2 111175, 1875450, 91717210, 6942231, 4989198, 4290278, 53719592, 7278943, 741424782, 1679831, 8646299, 0714678, 4878900, 724265361 #### [facility] [address] [place] [address] AST [Catalytic activity/Vol] 16 Int._Unit/L Normal 5-43 [facility] Comment on above: Performed By: #### 2 692714, 9283573, 34559722, 7114668, 6591431, 9060351, 14604347, 6033686, 611345231, 5494792, 5359817, 4755059, 1074467, 617660169 #### [facility] [address] [place] [address] Bilirubin [Mass/Vol] 0.7 mg/dL Normal 0.0-1.1 [facility] Comment on above: Performed By: #### 2 591873, 1549155, 60557575, 2750623, 5103331, 2782789, 00986338, 8918567, 358304675, 5069156, 9580503, 9901643, 6985967, 743801270 #### [facility] [address] [place] [address] Calcium [Mass/Vol] 9.3 mg/dL Normal 8.9-11.1 [facility] Comment on above: Performed By: #### 2 846382, 5775904, 61367576, 5789429, 9795522, 5681477, 65819800, 1948769, 958820167, 0225340, 4264153, 6635049, 0729682, 329999180 #### [facility] [address] [place] [address] Chloride [Moles/Vol] 105 mmol/L Normal 101-111 [facility] Comment on above: Performed By: #### 2 160162, 2614146, 59201922, 2771147, 5847930, 1870865, 35642268, 7381376, 487595174, 1245623, 2432520, 4912594, 8609663, 727678678 #### [facility] [address] [place] [address] CO2 [Moles/Vol] 26 mmol/L Normal 21-31 [facility] Comment on above: Performed By: #### 2 390025, 2926613, 52830164, 4257548, 3218166, 6367259, 33345458, 4996623, 503701384, 7926356, 0206115, 0621529, 3226939, 225596274 #### [facility] [address] [place] [address] Creatinine [Mass/Vol] 0.9 mg/dL Normal 0.5-1.3 [facility] Comment on above: Performed By: #### 2 278673, 7449806, 94773027, 1018586, 4391416, 1488207, 60976330, 9113478, 282161566, 4210125, 8497965, 3126243, 8210862, 155352197 #### [facility] [address] [place] [address] Globulin (S) [Mass/Vol] 3.2 g/dL Normal 1.4-4.0 [facility] Comment on above: Performed By: #### 2 334365, 0964012, 19818396, 1439696, 1544483, 9949733, 79778509, 0024114, 031159382, 9709710, 0609942, 5727731, 0100600, 361140144 #### [facility] [address] [place] [address] Glucose [Mass/Vol] 95 mg/dL Normal 55-199 [facility] Comment on above: Result Comment: If t his glucose result represents a fasting glucose, interpretation should refer to the following reference range: 55-99 mg/dL Performed By: #### 2 272629, 6157086, 60188908, 2535332, 9126473, 1291203, 29068480, 5231463, 332539951, 2996647, 2773877, 7729638, 0508316, 159289534 #### [facility] [address] [place] [address] Potassium [Moles/Vol] 3.8 mmol/L Normal 3.5-5.3 [facility] Comment on above: Performed By: #### 2 577783, 6660408, 23502715, 7544927, 2445705, 0640898, 75677293, 3008537, 830487691, 6458272, 4604243, 2311644, 3291822, 688548008 #### [facility] [address] [place] [address] Protein [Mass/Vol] 7.4 g/dL Normal 6.0-7.8 [facility] Comment on above: Performed By: #### 2 040437, 1335082, 99034528, 6430062, 6012366, 4099269, 42230348, 5321166, 347984248, 8017433, 4239431, 8652221, 4291511, 860422895 #### [facility] [address] [place] [address] Sodium [Moles/Vol] 137 mmol/L Normal 135-145 [facility] Comment on above: Performed By: #### 2 850103, 2198443, 50980747, 5477962, 1013199, 4333797, 09978881, 1314879, 946851729, 9933620, 8604637, 8139666, 8326175, 339334699 #### [facility] [address] [place] [address] Urea nitrogen [Mass/Vol] 13 mg/dL Normal 5-21 [facility] Comment on above: Performed By: #### 2 911802, 6287263, 20448372, 2726862, 7918245, 1715583, 26440293, 5253671, 059874384, 9193355, 1547460, 5847554, 8622473, 560260532 #### [facility] [address] [place] [address] Urea nitrogen/Creatinine [Mass ratio] 14 No Units Normal 10-20 [facility] Comment on above: Performed By: #### 2 992193, 5392164, 89464123, 3409503, 2728759, 4526441, 23645552, 6705140, 282137870, 6711127, 6832343, 9952385, 3225197, 300900770 #### [facility] [address] [place] [address] Consent for Treatmenton 01-05 Consent for Treatment [id number]: 127 Normal [facility] Ferritinon 01-25-2023 Ferritin [Mass/Vol] 44 ng/mL Normal 11-307 [facility] Comment on above: Result Comment: NORM ALS MEN <30 YRS 16-132 ng/mL MEN >30 YRS 8-338 ng/mL WOMEN (PREMEN) 6-104 ng/mL WOMEN (POSTMEN) 12-210 ng/mL Performed By: #### 2 584404, 0229955, 63984167, 0308328, 0557188, 2696784, 26716940, 7100582, 788437195, 4697279, 2815757, 0015148, 1440805, 412736396 ####[facility] [address] [place] [address] Folateon 01-25-2023 Folate [Mass/Vol] 13.1 ng/mL Normal >=6.7 [facility] Comment on above: Performed By: #### 2 366011, 9812086, 26124101, 2408665, 8353832, 3244089, 01951710, 3547861, 135175742, 9342555, 2748715, 2331652, 9919770, 277686502 ####[facility] [address] [place] [address] Free T4on 01-25-2023 Free T4 [Mass/Vol] 1.00 ng/dL Normal 0.58-1.64 [facility] Comment on above: Performed By: #### 2 212863, 9956467, 01868046, 4214232, 0974136, 4901796, 31044818, 5295197, 996301332, 2548115, 0841074, 7492372, 8537574, 670678487 #### [facility] [address] [place] [address] HEMATOLOGYOrdered By: SYSTEM SYSTEM on 01-25-2023 Basophils/100 [...] Normal 4.0 - 11.0 E9/L FT HemeAutoSS [id number] 01-25-2023 HbA1c (Bld) [Mass fraction] 5.3 % Normal <=5.9 [facility] Comment on above: Performed By: #### 2 580201, 3878463, 50122260, 4935141, 4889886, 9752948, 36157569, 2804340, 666544457, 8506395, 0044590, 7599994, 8517107, 014910925 ####[facility] [address] [place] [address] Ironon 01-25-2023 Iron [Mass/Vol] 86 microgram/dL Normal 35-153 [facility] Comment on above: Performed By: #### 2 715898, 8310250, 11238837, 3089187, 5379240, 7713925, 83559358, 6866750, 671757675, 4994809, 3170011, 2706886, 6055057, 299096877 #### [facility] [address] [place] [address] Physician Orderon 01-25-2023 Physician Order [id number] :127 Normal [facility] TIBC Calculatedon 01-25-2023 Iron binding capacity [Mass/Vol] 341 microgram/dL Normal 250-[address] [facility] Comment on above: Performed By: #### 2 808107, 6383784, 76973522, 7903633, 4388523, 1430669, 44794288, 0897791, 268299649, 0781852, 1720372, 0745259, 3309977, 288650635 #### [facility] [address] [place] [address] Transferrin [Mass/Vol] 244 mg/dL Normal 200-370 [facility] Comment on above: Performed By: #### 2 251570, 9750394, 67513004, 5031318, 0292261, 7181258, 32867354, 0148568, 125562664, 5914393, 6300178, 5443795, 5530947, 368989509 #### [facility] [address] [place] [address] TSHon 01-25-2023 TSH Qn 0.75 m[IU]/L Normal 0.34-5.60 [facility] Comment on above: Performed By: #### 2 565678, 2624050, 75896191, 7414587, 5726313, 2350633, 72021546, 6658066, 882228509, 5948393, 7583817, 4147463, 1161882, 791665203 #### [facility] [address] [place] [address] Vit B12on 01-25-2023 Cobalamin (Vitamin B12) [Mass/Vol] 150 pg/mL Normal 50-1500 [facility] Comment on above: Performed By: #### 2 401790, 9896272, 27556865, 5891471, 2416744, 1433974, 71755595, 5576159, 552931232, 3742164, 4397710, 2543085, 8259220, 668109505 ####[facility] [address] [place] [address] Vitamin D 25 Hydroxyon 01-25 25-hydroxyvitamin D3 [Mass/Vol] 34.0 ng/mL Normal 30.0-100.0 [facility] Comment on above: Result Comment: Vit agudelo D deficiency has been defined as a level of serum 25-OH vitamin D less than 20 ng/mL (1,2) by the [place] of [employer] and an Endocrine Society practice guideline. The Endocrine Society further defined vitamin D insufficiency as a level between 21 and 29 ng/mL (2). 1. IOM ([place] of [employer]). 2010. Dietary reference intakes for calcium and D. [place]: The National Academies Press. 2. Sherry MF, Dereck NC, Rip HYDE, et al. Evaluation, treatment, and prevention of vitamin D deficiency: an Endocrine Society clinical practice guideline. JCEM. 2010; 96 (7):1911-30. Performed By: #### 2 064725, 4083074, 17467578, 4543476, 0358936, 4315368, 86663949, 6376149, 031847069, 2030859, 1581096, 4836941, 9792779, 374922643 ####[facility] [address] [place] [address] eGFRon 01-25-2023 GFR/1.73 sq M.predicted among non-blacks MDRD (S/P/Bld) [Vol rate/Area] 80 mL/min/1.73 m2 Normal >=59 [facility] Comment on above: Order Comment: Order added by Discern Expert. Result Comment: Jailkeeper jamaal kidney disease could be indicated at eGFR's of less than 60 mL/min/1.73m2. Kidney failure is indicated at less than 15 mL/min/1.73m2. Performed By: #### 2 184515, 0970208, 68038619, 3910161, 4538089, 0539706, 10548827, 1083718, 948914913, 2965018, 3910493, 0134604, 5059763, 021243273 #### [facility] [address] [place] [address] CBC AUTO DIFFon 11-23-2022 BASO # 0.1 103/ul Normal 0.0-0.1 [facility] Comment on above: Performed By: #### C BC #### [facility] [address] [place] [address] Dr. Riddhi Nix Basophils/100 WBC (Bld) 1.1 % Normal 0.2-2.0 [facility] Comment on above: Performed By: #### C BC #### [facility] [address] [place] [address] Dr. Riddhi Nix EO # 0.1 103/ul Normal 0.0-0.7 [facility] Comment on above: Performed By: #### C BC #### [facility] [address] [place] [address] Dr. Riddhi Nix Eosinophils/100 WBC (Bld) 2.5 % Normal 0.9-7.0 [facility] Comment on above: Performed By: #### C BC #### [facility] [address] [place] [address] Dr. Riddhi Nix Erythrocyte distribution width (RBC) [Ratio] 13.4 % Normal 11.0-15.0 [facility] Comment on above: Performed By: #### C BC #### [facility] [address] [place] [address] Dr. Riddhi Nix Hematocrit (Bld) [Volume fraction] 44.3 % Normal 36.0-48.0 [facility] Comment on above: Performed By: #### C BC #### [facility] [address] [place] [address] Dr. Riddhi Nix Hemoglobin (Bld) [Mass/Vol] 14.6 g/dL Normal 12.0-16.0 [facility] Comment on above: Performed By: #### C BC #### [facility] [address] [place] [address] Dr. Riddhi Nix IG # 0.01 [id number]/ul Normal 0.00-0.03 [facility] Comment on above: Performed By: #### C BC #### [facility] [address] [place] [address] Dr. Riddhi Nix IG % 0.2 % Normal 0.0-0.5 [facility] Comment on above: Performed By: #### C BC #### [facility] [address] [place] [address] Dr. Riddhi Nix LYMPH # 1.6 103/ul Normal 1.2-3.8 [facility] Comment on above: Performed By: #### C BC #### [facility] [address] [place] [address] Dr. Riddhi Nix Lymphocytes/100 WBC (Bld) 28.3 % Normal 20.5-60.0 [facility] Comment on above: Performed By: #### C BC #### [facility] [address] [place] [address] Dr. Riddhi Nix MANUAL DIFF REQ NO Normal [facility] Comment on above: Performed By: #### C BC #### [facility] [address] [place] [address] Dr. Riddhi Nix MCH (RBC) [Entitic mass] 28.1 pg Normal 26.7-34.0 [facility] Comment on above: Performed By: #### C BC #### [facility] [address] [place] [address] Dr. Riddhi Nix MCHC (RBC) [Mass/Vol] 33.0 g/dL Normal 29.9-35.2 [facility] Comment on above: Performed By: #### C BC #### [facility] [address] [place] [address] Dr. Riddhi iNx MCV (RBC) [Entitic vol] 85.2 fL Normal 81.0-99.0 [facility] Comment on above: Performed By: #### C BC #### [facility] [address] [place] [address] Dr. Riddhi Nix MONO # 0.4 103/ul Normal 0.3-0.8 [facility] Comment on above: Performed By: #### C BC #### [facility] [address] [place] [address] Dr. Riddhi Nix Monocytes/100 WBC (Bld) 7.4 % Normal 1.7-12.0 [facility] Comment on above: Performed By: #### C BC #### [facility] [address] [place] [address] Dr. Riddhi Nix NEUT # 3.4 103/ul Normal 1.4-6.5 [facility] Comment on above: Performed By: #### C BC #### [facility] [address] [place] [address] Dr. Riddhi Nix Neutrophils/100 WBC (Bld) 60.5 % Normal 43.0-75.0 [facility] Comment on above: Performed By: #### C BC #### [facility] [address] [place] [address] Dr. Riddhi Nix Platelet mean volume (Bld) [Entitic vol] 10.6 fL Normal 9.5-13.5 [facility] Comment on above: Performed By: #### C BC #### [facility] [address] [place] [address] Dr. Riddhi Nix PLT 242 103/ul Normal 150-450 [facility] Comment on above: Performed By: #### C BC #### [facility] [address] [place] [address] Dr. Riddhi Nix RBC 5.20 106/ul Normal 4.20-5.40 [facility] Comment on above: Performed By: #### C BC #### [facility] [address] [place] [address] Dr. Riddhi Nix WBC 5.7 103/ul Normal 4.0-11.0 [facility] Comment on above: Performed By: #### C BC #### [facility] [address] [place] [address] Dr. Riddhi Nix FREE T3on 11-23-2022 FREE T3 3.40 pg/mlL Normal 2.18-3.98 [facility] Comment on above: Performed By: #### S EDR #### [facility] [address] [place] [address] Dr. Riddhi Nix T4on 11-23-2022 T4 [Mass/Vol] 8.40 ug/dL Normal 4.80-13.90 [facility] Comment on above: Performed By: #### S EDR #### [facility] [address] [place] [address] Dr. Riddhi Nix TSHon 11-23-2022 TSH 0.665 uIU/mL Normal 0.358-3.740 [facility] Comment on above: Performed By: #### S EDR #### [facility] [address] [place] [address] Dr. Riddhi Nix AMYLASEon 09-28-2022 Amylase [Catalytic activity/Vol] 44 U/L Normal 25-115 [facility] Comment on above: Performed By: #### L IPA, ANTWON, CMP #### [facility] [address] [place] [address] Dr. Riddhi Nix CBC AUTO DIFFon 09-28-2022 BASO # 0.0 103/ul Normal 0.0-0.1 [facility] Comment on above: Performed By: #### L IPA, ANTWON, CMP #### [facility] [address] [place] [address] Dr. Riddhi Nix Basophils/100 WBC (Bld) 0.3 % Normal 0.2-2.0 [facility] Comment on above: Performed By: #### L IPA, ANTWON, CMP #### [facility] [address] [place] [address] Dr. Riddhi Nix EO # 0.0 103/ul Normal 0.0-0.7 [facility] Comment on above: Performed By: #### L IPA, ANTWON, CMP #### [facility] [address] [place] [address] Dr. Riddhi Nix Eosinophils/100 WBC (Bld) 0.1 % Critically low 0.9-7.0 [facility] Comment on above: Performed By: #### L ANTWON ZELAYA, CMP #### [facility] [address] [place] [address] Dr. Riddhi Nix Erythrocyte distribution width (RBC) [Ratio] 13.4 % Normal 11.0-15.0 [facility] Comment on above: Performed By: #### L ANTWON ZELAYA, CMP #### [facility] [address] [place] [address] Dr. Riddhi Nix Hematocrit (Bld) [Volume fraction] 39.4 % Normal 36.0-48.0 [facility] Comment on above: Performed By: #### L ANTWON ZELAYA, CMP #### [facility] [address] [place] [address] Dr. Riddhi Nix Hemoglobin (Bld) [Mass/Vol] 12.8 g/dL Normal 12.0-16.0 [facility] Comment on above: Performed By: #### L ANTWON ZELAYA, CMP #### [facility] [address] [place] [address] Dr. Riddhi Nix IG # 0.06 10e3/ul Critically high 0.00-0.03 [facility] Comment on above: Performed By: #### L ANTWON ZELAYA, CMP #### [facility] [address] [place] [address] Dr. Riddhi Nix IG % 0.5 % Normal 0.0-0.5 [facility] Comment on above: Performed By: #### L ANTWON ZELAYA, CMP #### [facility] [address] [place] [address] Dr. Riddhi Nix LYMPH # 1.3 103/ul Normal 1.2-3.8 [facility] Comment on above: Performed By: #### L ANTWON ZELAYA, CMP #### [facility] [address] [place] [address] Dr. Riddhi Nix Lymphocytes/100 WBC (Bld) 11.1 % Critically low 20.5-60.0 [facility] Comment on above: Performed By: #### L IPA, ANTWON, CMP #### [facility] [address] [address] [address] Riddhi Nix MANUAL DIFF REQ NO Normal [facility] Comment on above: Performed By: #### L IPA, ANTWON, CMP #### [facility] [address] [address] [address] Riddhi Nix MCH (RBC) [Entitic mass] 27.9 pg Normal 26.7-34.0 [facility] Comment on above: Performed By: #### L IPA, ANTWON, CMP #### [facility] [address] [address] [address] Riddhi Nix MCHC (RBC) [Mass/Vol] 32.5 g/dL Normal 29.9-35.2 [facility] Comment on above: Performed By: #### L IPA ANTWON, CMP #### [facility] [address] [place] [address] Dr. Riddhi Nix MCV (RBC) [Entitic vol] 85.8 fL Normal 81.0-99.0 [facility] Comment on above: Performed By: #### L IPA ANTWON, CMP #### [facility] [address] [place] [address] Dr. Riddhi Nix MONO # 0.7 103/ul Normal 0.3-0.8 [facility] Comment on above: Performed By: #### L NATHALIE ANTWON, CMP #### [facility] [address] [place] [address] Dr. Riddhi Nix Monocytes/100 WBC (Bld) 6.2 % Normal 1.7-12.0 [facility] Comment on above: Performed By: #### L IPA, ANTWON, CMP #### [facility] [address] [place] [address] Dr. Riddhi Nix NEUT # 9.7 103/ul Critically high 1.4-6.5 [facility] Comment on above: Performed By: #### L IPA, ANTWON, CMP #### [facility] [address] [place] [address] Dr. Riddhi Nix Neutrophils/100 WBC (Bld) 81.8 % Critically high 43.0-75.0 [facility] Comment on above: Performed By: #### L ANTWON ZELAYA, CMP #### [facility] [address] [place] [address] Dr. Riddhi Nix Platelet mean volume (Bld) [Entitic vol] 11.0 fL Normal 9.5-13.5 [facility] Comment on above: Performed By: #### L ANTWON ZELAYA, CMP #### [facility] [address] [place] [address] Dr. Riddhi Nix PLT 202 103/ul Normal 150-450 [facility] Comment on above: Performed By: #### L ANTWON ZELAYA, CMP #### [facility] [address] [place] [address] Dr. Riddhi Nix RBC 4.59 106/ul Normal 4.20-5.40 [facility] Comment on above: Performed By: #### L ANTWON ZELAYA, CMP #### [facility] [address] [place] [address] Dr. Riddhi Nix WBC 11.9 103/ul Critically high 4.0-11.0 [facility] Comment on above: Performed By: #### L ANTWON ZELAYA, CMP #### [facility] [address] [place] [address] Dr. Riddhi Nix LIPASEon 09-28-2022 Lipase [Catalytic activity/Vol] 54.0 U/L Critically low 73.0-393.0 [facility] Comment on above: Performed By: #### L ANTWON ZELAYA, CMP #### [facility] [address] [place] [address] Dr. Riddhi Nix PROF 14(COMP METB)on 023 Albumin [Mass/Vol] 3.0 g/dL Critically low 3.4-5.[address] [facility] Comment on above: Performed By: #### L ANTWON ZELAYA, CMP #### [facility] [address] [place] [address] Dr. Riddhi Nix Albumin/Globulin [Mass ratio] 0.9 {ratio} Normal [facility] Comment on above: Performed By: #### L IPA, ANTWON, CMP #### [facility] [address] [address] [address] Riddhi Nix ALP [Catalytic activity/Vol] 56 U/L Normal 46-116 [facility] Comment on above: Performed By: #### L IPA, ANTWON, CMP #### [facility] [address] [address] [address] Riddhi Nix ALT [Catalytic activity/Vol] 17 U/L Normal 14-59 [facility] Comment on above: Performed By: #### L IPA ANTWON, CMP #### [facility] [address] [address] [address] Riddhi Nix Anion gap [Moles/Vol] 11.0 mmol/L Normal [facility] Comment on above: Performed By: #### L NATHALIE ANTWON, CMP #### [facility] [address] [address] [address] Riddhi Nix AST [Catalytic activity/Vol] 16 U/L Normal 15-37 [facility] Comment on above: Performed By: #### L NATHALIE ANTWON, CMP #### [facility] [address] [address] [address] Riddhi Nix Bilirubin [Mass/Vol] 0.5 mg/dL Normal 0.2-1.0 [facility] Comment on above: Performed By: #### L NATHALIE ANTWON, CMP #### [facility] [address] [address] [address] Riddhi Nix Calcium [Mass/Vol] 8.1 mg/dL Critically low 8.5-10.[address] [facility] Comment on above: Performed By: #### L IPA ANTWON, CMP #### [facility] [address] [address] [address] Riddhi Nix Chloride [Moles/Vol] 107 mmol/L Normal 98-107 [facility] Comment on above: Performed By: #### L IPA ANTWON, CMP #### [facility] [address] [address] [address] Riddhi Nix CO2 [Moles/Vol] 25.1 mmol/L Normal 21.0-32.0 [facility] Comment on above: Performed By: #### L IPA, ANTWON, CMP #### [facility] [address] [address] [address] Riddhi Nix Creatinine [Mass/Vol] 0.79 mg/dL Normal 0.55-1.02 [facility] Comment on above: Performed By: #### L IPA, ANTWON, CMP #### [facility] [address] [address] [address] Riddhi Nix EGFR-AF [place] >60 Normal >=60 [facility] Comment on above: Performed By: #### L IPA, ANTWON, CMP #### [facility] [address] [address] [address] Riddhi Nix EGFR-NON AF [place] >60 Normal >=60 [facility] Comment on above: Performed By: #### L IPA, ANTWON, CMP #### [facility] [address] [address] [address] Riddhi Nix Globulin (S) [Mass/Vol] 3.2 g/dL Normal [facility] Comment on above: Performed By: #### L IPA, ANTWON, CMP #### [facility] [address] [address] [address] Riddhi Nix Glucose [Mass/Vol] 128 mg/dL Critically high 74-106 [facility] Comment on above: Performed By: #### L IPA ANTWON, CMP #### [facility] [address] [address] [address] Riddhi Nix Potassium [Moles/Vol] 3.1 mmol/L Critically low 3.5-5.1 [facility] Comment on above: Performed By: #### L IPA ANTWON, CMP #### [facility] [address] [address] [address] Riddhi Nix Protein [Mass/Vol] 6.2 g/dL Critically low 6.4-8.[address] [facility] Comment on above: Performed By: #### L IPA, ANTWON, CMP #### [facility] [address] [address] [address] Riddhi Nix Sodium [Moles/Vol] 140 mmol/L Normal 136-145 [facility] Comment on above: Performed By: #### L IPAANTWON, CMP #### [facility] [address] [place] [address] Dr. Riddhi Nix Urea nitrogen [Mass/Vol] 6.0 mg/dL Critically low 7.0-18.0 [facility] Comment on above: Performed By: #### L IPA ANTWON, CMP #### [facility] [address] [place] [address] Dr. Riddhi Nix Urea nitrogen/Creatinine [Mass ratio] 7.6 mg/mg Normal [facility] Comment on above: Performed By: #### L ANTWON ZELAYA, CMP #### [facility] [address] [place] [address] Dr. Riddhi Nix SED RATE WESTERGRENon 2022 SED RATE 11 mm/hr Normal <=20 [facility] Comment on above: Performed By: #### L ANTWON ZELAYA, CMP #### [facility] [address] [place] [address] Dr. Riddhi Nix AMMONIAon 09-27-2022 Ammonia (P) [Moles/Vol] 29 umol/L Normal 11-32 [facility] Comment on above: Performed By: #### L NATHALIE ANTWON, CMP #### [facility] [address] [place] [address] Dr. Riddhi Nix AMYLASEon 09-27-2022 Amylase [Catalytic activity/Vol] 57 U/L Normal 25-115 [facility] Comment on above: Performed By: #### C MP, ANTWON, LIPA #### [facility] [address] [place] [address] Dr. Riddhi Nix CBC AUTO DIFFon 09-27-2022 BASO # 0.1 103/ul Normal 0.0-0.1 [facility] Comment on above: Performed By: #### L IPA ANTWON, CMP #### [facility] [address] [place] [address] Dr. Riddhi Nix Basophils/100 WBC (Bld) 0.4 % Normal 0.2-2.0 [facility] Comment on above: Performed By: #### L ANTWON ZELAYA, CMP #### [facility] [address] [place] [address] Dr. Riddhi Nix EO # 0.0 103/ul Normal 0.0-0.7 [facility] Comment on above: Performed By: #### L ANTWON ZELAYA, CMP #### [facility] [address] [place] [address] Dr. Riddhi Nix Eosinophils/100 WBC (Bld) 0.0 % Critically low 0.9-7.0 [facility] Comment on above: Performed By: #### L ANTWON ZELAYA, CMP #### [facility] [address] [place] [address] Dr. Riddhi Nix Erythrocyte distribution width (RBC) [Ratio] 13.2 % Normal 11.0-15.0 [facility] Comment on above: Performed By: #### L ANTWON ZELAYA, CMP #### [facility] [address] [place] [address] Dr. Riddhi Nix Hematocrit (Bld) [Volume fraction] 41.2 % Normal 36.0-48.0 [facility] Comment on above: Performed By: #### L ANTWON ZELAYA, CMP #### [facility] [address] [place] [address] Dr. Riddhi Nix Hemoglobin (Bld) [Mass/Vol] 13.9 g/dL Normal 12.0-16.0 [facility] Comment on above: Performed By: #### L ANTWON ZELAYA, CMP #### [facility] [address] [place] [address] Dr. Riddhi Nix IG # 0.05 10e3/ul Critically high 0.00-0.03 [facility] Comment on above: Performed By: #### L ANTWON ZELAYA, CMP #### [facility] [address] [place] [address] Dr. Riddhi Nix IG % 0.4 % Normal 0.0-0.5 [facility] Comment on above: Performed By: #### L ANTWON ZELAYA, CMP #### [facility] [address] [place] [address] Dr. Riddhi Nix LYMPH # 0.9 103/ul Critically low 1.2-3.8 [facility] Comment on above: Performed By: #### L ANTWON ZELAYA, CMP #### [facility] [address] [place] [address] Dr. Riddhi Nix Lymphocytes/100 WBC (Bld) 6.7 % Critically low 20.5-60.0 [facility] Comment on above: Performed By: #### L ATNWON ZELAYA, CMP #### [facility] [address] [place] [address] Dr. Riddhi Nix MANUAL DIFF REQ NO Normal [facility] Comment on above: Performed By: #### L ANTWON ZELAYA, CMP #### [facility] [address] [place] [address] Dr. Riddhi Nix MCH (RBC) [Entitic mass] 28.4 pg Normal 26.7-34.0 [facility] Comment on above: Performed By: #### L ANTWON ZELAYA, CMP #### [facility] [address] [place] [address] Dr. Riddhi Nix MCHC (RBC) [Mass/Vol] 33.7 g/dL Normal 29.9-35.2 [facility] Comment on above: Performed By: #### L ANTWON ZELAYA, CMP #### [facility] [address] [place] [address] Dr. Riddhi Nix MCV (RBC) [Entitic vol] 84.3 fL Normal 81.0-99.0 [facility] Comment on above: Performed By: #### L ANTWON ZELAYA, CMP #### [facility] [address] [place] [address] Dr. Riddhi Nix MONO # 0.6 103/ul Normal 0.3-0.8 [facility] Comment on above: Performed By: #### L ANTWON ZELAYA, CMP #### [facility] [address] [place] [address] Dr. Riddhi Nix Monocytes/100 WBC (Bld) 4.6 % Normal 1.7-12.0 [facility] Comment on above: Performed By: #### L ANTWON ZELAYA, CMP #### [facility] [address] [place] [address] Dr. Riddhi Nix NEUT # 12.3 103/ul Critically high 1.4-6.5 [facility] Comment on above: Performed By: #### L IPA ANTWON, CMP #### [facility] [address] [place] [address] Dr. Riddhi Nix Neutrophils/100 WBC (Bld) 87.9 % Critically high 43.0-75.0 [facility] Comment on above: Performed By: #### L IPA ANTWON, CMP #### [facility] [address] [place] [address] Dr. Riddhi Nix Platelet mean volume (Bld) [Entitic vol] 10.6 fL Normal 9.5-13.5 [facility] Comment on above: Performed By: #### L NATHALIE ANTWON, CMP #### [facility] [address] [place] [address] Dr. Riddhi Nix PLT 224 103/ul Normal 150-450 [facility] Comment on above: Performed By: #### L IPA ANTWON, CMP #### [facility] [address] [place] [address] Dr. Riddhi Nix RBC 4.89 106/ul Normal 4.20-5.40 [facility] Comment on above: Performed By: #### L NATHALIE ANTWON, CMP #### [facility] [address] [place] [address] Dr. Riddhi Nix WBC 13.9 103/ul Critically high 4.0-11.0 [facility] Comment on above: Performed By: #### L IPA ANTWON, CMP #### [facility] [address] [place] [address] HEAD WO CONon [...] NAYE OCONNOR Date: 2022-09-27 19:34 Normal [facility] CULTURE BLOODon 09-27-2022 Microscopic examination of blood, culture Culture Observations: NO GROWTH AT 5 DAYS. Normal [facility] Comment on above: Performed By: #### L ANTWON ZELAYA CMP #### [facility] [address] [place] [address] Dr. Riddhi Nix Microscopic examination of blood, culture Culture Observations: NO GROWTH AT 5 DAYS. Normal [facility] Comment on above: Performed By: #### L ANTWON ZELAYA CMP #### [facility] [address] [place] [address] Dr. Riddhi Nix CULTURE URINEon 09-27-2022 CULTURE URINE Culture Observations : NO GROWTH. Normal [facility] Comment on above: Performed By: #### L ANTWON ZELAYA CMP #### [facility] [address] [place] [address] Dr. Riddhi Nix [facility] SARS-CoV-2 (COVID-19) RNA LORE+probe Ql (Unsp spec) Not detected Normal NOT DETECTED [facility] Comment on above: Result [...] for this test is supported by the Collector Of Port of Health and Human Service's declaration that [...] By: #### L ANTWON ZELAYA, CMP #### [facility] [address] [place] [address] Dr. Riddhi Nix INFLUENZA A AND B [facility] 09-27 [facility] SEE BELOW Normal [facility] Comment on above: Result Comment: Nega tive for Flu A protein angiten. Infection due to Flu A cannot be ruled out. Flu A angiten in the sample may be below the detection limit of the test. Performed By: #### L ANTWON ZELAYA, CMP #### [facility] [address] [place] [address] Dr. Riddhi Nix INFLUBNEG SEE BELOW Normal [facility] Comment on above: Result Comment: Nega tive for Flu B protein antigen. Infection due to Flu B cannot be ruled out. Flu B antigen in the sample may be below the detection limit of the test. Performed By: #### L ANTWON ZELAYA, CMP #### [facility] [address] [place] [address] Dr. Riddhi Nix INFLUENZA A AG Negative Normal NEGATIVE SEE COMMENT [facility] Comment on above: Performed By: #### L ANTWON ZELAYA, CMP #### [facility] [address] [place] [address] Dr. Riddhi Nix INFLUENZA B AG Negative Normal NEGATIVE SEE COMMENT [facility] Comment on above: Performed By: #### L ANTWON ZELAYA, CMP #### [facility] [address] [place] [address] Dr. Riddhi Nix LACTATE/LACTIC ACIDon 2022 Lactate [Moles/Vol] 0.8 mmol/L Normal 0.4-1.9 [facility] Comment on above: Performed By: #### L IPA, ANTWON, CMP #### [facility] [address] [place] [address] Dr. Riddhi Nix LIPASEon 09-27-2022 Lipase [Catalytic activity/Vol] 52.0 U/L Critically low 73.0-393.0 [facility] Comment on above: Performed By: #### C MP, ANTWON, LIPA #### [facility] [address] [place] [address] Dr. Riddhi Nix PROF 14(COMP METB)on 023 Albumin [Mass/Vol] 3.7 g/dL Normal 3.4-5.0 [facility] Comment on above: Performed By: #### C MP, ANTWON, LIPA #### [facility] [address] [place] [address] Dr. Riddhi Nix Albumin/Globulin [Mass ratio] 1.1 {ratio} Normal [facility] Comment on above: Performed By: #### C MP, ANTWON, LIPA #### [facility] [address] [place] [address] Dr. Riddhi Nix ALP [Catalytic activity/Vol] 63 U/L Normal 46-116 [facility] Comment on above: Performed By: #### C MP, ANTWON, LIPA #### [facility] [address] [place] [address] Dr. Riddhi Nix ALT [Catalytic activity/Vol] 20 U/L Normal 14-59 [facility] Comment on above: Performed By: #### C MP, ANTWON, LIPA #### [facility] [address] [place] [address] Dr. Riddhi Nix Anion gap [Moles/Vol] 12.1 mmol/L Normal [facility] Comment on above: Performed By: #### C MP, ANTWON, LIPA #### [facility] [address] [place] [address] Dr. Riddhi Nix AST [Catalytic activity/Vol] 19 U/L Normal 15-37 [facility] Comment on above: Performed By: #### C MP, ANTWON, LIPA #### [facility] [address] [place] [address] Dr. Riddhi Nix Bilirubin [Mass/Vol] 0.5 mg/dL Normal 0.2-1.0 [facility] Comment on above: Performed By: #### C MP, ANTWON, LIPA #### [facility] [address] [place] [address] Dr. Riddhi Nxi Calcium [Mass/Vol] 8.5 mg/dL Normal 8.5-10.1 [facility] Comment on above: Performed By: #### C MP, ANTWON, LIPA #### [facility] [address] [place] [address] Dr. Riddhi Nix Chloride [Moles/Vol] 103 mmol/L Normal 98-107 [facility] Comment on above: Performed By: #### C MP ANTWON, LIPA #### [facility] [address] [place] [address] Dr. Riddhi Nix CO2 [Moles/Vol] 25.1 mmol/L Normal 21.0-32.0 [facility] Comment on above: Performed By: #### C ALDA ANTWON, LIPA #### [facility] [address] [place] [address] Dr. Riddhi Nix Creatinine [Mass/Vol] 0.87 mg/dL Normal 0.55-1.02 [facility] Comment on above: Performed By: #### C MP ANTWON, LIPA #### [facility] [address] [place] [address] Dr. Riddhi Nix EGFR-AF [place]IZ[place] >60 Normal >=60 [facility] Comment on above: Performed By: #### C MP, ANTWON, LIPA #### [facility] [address] [place] [address] Dr. Riddhi Nix EGFR-NON AF [place]IZ[place] >60 Normal >=60 [facility] Comment on above: Performed By: #### C MP, ANTWON, LIPA #### [facility] [address] [place] [address] Dr. Riddhi Nix Globulin (S) [Mass/Vol] 3.5 g/dL Normal [facility] Comment on above: Performed By: #### C ALDA ANTWON, LIPA #### [facility] [address] [address] [address] Riddhi Nix Glucose [Mass/Vol] 103 mg/dL Normal 74-106 [facility] Comment on above: Performed By: #### C MP ANTWON, LIPA #### [facility] [address] [address] [address] Riddhi Nix Potassium [Moles/Vol] 3.2 mmol/L Critically low 3.5-5.1 [facility] Comment on above: Performed By: #### C ALDA ANTWON, LIPA #### [facility] [address] [place] [address] Dr. Riddhi Nix Protein [Mass/Vol] 7.2 g/dL Normal 6.4-8.2 [facility] Comment on above: Performed By: #### C ALDA ANTWON, LIPA #### [facility] [address] [place] [address] Dr. Riddhi Nix Sodium [Moles/Vol] 137 mmol/L Normal 136-145 [facility] Comment on above: Performed By: #### C ALDA ANTWON, LIPA #### [facility] [address] [place] [address] Dr. Riddhi Nix Urea nitrogen [Mass/Vol] 8.0 mg/dL Normal 7.0-18.0 [facility] Comment on above: Performed By: #### C MP ANTWON, LIPA #### [facility] [address] [place] [address] Dr. Riddhi Nix Urea nitrogen/Creatinine [Mass ratio] 9.2 mg/mg Normal [facility] Comment on above: Performed By: #### C ALDA ANTWON, LIPA #### [facility] [address] [place] [address] Dr. [facility]idd[facility] mm/hr Normal <=20 [facility] Comment on above: Performed By: #### S EDR #### [facility] [address] [address] [address] Riddhi Nix UA RANDOM W/MICROSCOPICon BACTERIA NONE SEEN Normal NONE SEEN The [facility] Comment on above: Performed By: #### U AMIC #### [facility] [address] [address] [address] Riddhi Nix Bilirubin Ql (U) Negative Normal NEGATIVE The [facility] Comment on above: Performed By: #### U AMIC #### [facility] [address] [address] [address] Riddhi Nix CAST NONE SEEN Normal NONE SEEN The [facility] Comment on above: Performed By: #### U AMIC #### [facility] [address] [address] [address] Riddhi Nix Clarity (U) CLEAR Normal CLEAR The [facility] Comment on above: Performed By: #### U AMIC #### [facility] [address] [place] [address] Dr. Riddhi Nix Color (U) LT. YELLOW Normal YELLOW The [facility] Comment on above: Performed By: #### U AMIC #### [facility] [address] [address] [address] Riddhi Nix Crystals LM Nom (Urine sed) NONE SEEN Normal NONE SEEN The [facility] Comment on above: Performed By: #### U AMIC #### [facility] [address] [place] [address] Dr. Riddhi Nix Epithelial cells LM Ql (Urine sed) FEW Abnormal NONE SEEN /RARE The [facility] Comment on above: Performed By: #### U AMIC #### [facility] [address] [place] [address] Dr. Riddhi Nix Glucose Ql (U) Negative Normal NEGATIVE The [facility] Comment on above: Performed By: #### U AMIC #### [facility] [address] [place] [address] Dr. Riddhi Nix Hemoglobin Ql (U) Negative Normal NEGATIVE The [facility] Comment on above: Performed By: #### U AMIC #### [facility] [address] [place] [address] Dr. Riddhi Nix Ketones Ql (U) 15 mg/dl Abnormal NEGATIVE The [facility] Comment on above: Performed By: #### U AMIC #### [facility] [address] [place] [address] Dr. Riddhi Nix LEUKOCYTES Negative Normal NEGATIVE [facility] Comment on above: Performed By: #### U AMIC #### [facility] [address] [place] [address] Dr. Riddhi Nix MUCOUS NONE SEEN Normal NONE SEEN [facility] Comment on above: Performed By: #### U AMIC #### [facility] [address] [place] [address] Dr. Riddhi Nix Nitrite Ql (U) Negative Normal NEGATIVE [facility] Comment on above: Performed By: #### U AMIC #### [facility] [address] [place] [address] Dr. Riddhi Nix pH (U) 6.0 [pH] Normal 5-9 The [facility] Comment on above: Performed By: #### U AMIC #### [facility] [address] [place] [address] Dr. Riddhi Nix RBC NONE SEEN Abnormal 0-2 The [facility] Comment on above: Performed By: #### U AMIC #### [facility] [address] [place] [address] Dr. Riddhi Nix SPEC GRAVITY <=1.005 Abnormal 1.005-<=1.02 5 [facility] Comment on above: Performed By: #### U AMIC #### [facility] [address] [place] [address] Dr. Riddhi Nix UA PROTEIN Negative Normal NEGATIVE/ TRACE The [facility] Comment on above: Performed By: #### U AMIC #### [facility] [address] [place] [address] Dr. Riddhi Nix Urobilinogen Qn (U) 0.2 {Shankar'U}/dL Normal 0.2 - 1. 0 [facility] Comment on above: Performed By: #### U AMIC #### [facility] [address] [place] [address] Dr. Riddhi Nix WBC NONE SEEN Normal NONE SEEN The [facility] Comment on above: Performed By: #### U AMIC #### [facility] [address] [place] [address] Dr. Riddhi Nix FREE T3on 07-15-2022 FREE T3 2.43 pg/mlL Normal 2.18-3.98 [facility] Comment on above: Performed By: #### L IPA ANTWON, CMP #### [facility] [address] [place] [address] Dr. Riddhi Nix T4on 07-15-2022 T4 [Mass/Vol] 7.80 ug/dL Normal 4.80-13.90 [facility] Comment on above: Performed By: #### L IPA ANTWON, CMP #### [facility] [address] [place] [address] Dr. Riddhi Nix TSHon 07-15-2022 TSH 0.811 uIU/mL Normal 0.358-3.740 [facility] Comment on above: Performed By: #### L IPA, ANTWON, CMP #### [facility] [address] [place] [address] Dr. Riddhi Nix [facility] CBC AUTO DIFFon 03-23-2022 BASO # 0.1 103/ul Normal 0.0-0.1 [facility] Comment on above: Performed By: #### L IPA ANTWON, CMP #### [facility] [address] [place] [address] Dr. Riddhi Nix Basophils/100 WBC (Bld) 1.0 % Normal 0.2-2.0 [facility] Comment on above: Performed By: #### L IPA, ANTWON, CMP #### [facility] [address] [place] [address] Dr. Riddhi Nix EO # 0.2 103/ul Normal 0.0-0.7 [facility] Comment on above: Performed By: #### L IPA, ANTWON, CMP #### [facility] [address] [place] [address] Dr. Riddhi Nix Eosinophils/100 WBC (Bld) 3.3 % Normal 0.9-7.0 [facility] Comment on above: Performed By: #### L ANTWON ZELAYA, CMP #### [facility] [address] [place] [address] Dr. Riddhi Nix Erythrocyte distribution width (RBC) [Ratio] 13.3 % Normal 11.0-15.0 [facility] Comment on above: Performed By: #### L ANTWON ZELAYA, CMP #### [facility] [address] [place] [address] Dr. Riddhi Nix Hematocrit (Bld) [Volume fraction] 46.2 % Normal 36.0-48.0 [facility] Comment on above: Performed By: #### L ANTWON ZELAYA, CMP #### [facility] [address] [place] [address] Dr. Riddhi Nix Hemoglobin (Bld) [Mass/Vol] 15.0 g/dL Normal 12.0-16.0 [facility] Comment on above: Performed By: #### L ANTWON ZELAYA, CMP #### [facility] [address] [place] [address] Dr. Riddhi Nix IG # 0.01 10e3/ul Normal 0.00-0.03 The [facility] Comment on above: Performed By: #### L ANTWON ZELAYA, CMP #### [facility] [address] [place] [address] Dr. Riddhi Nix IG % 0.2 % Normal 0.0-0.5 The [facility] Comment on above: Performed By: #### L ANTWON ZELAYA, CMP #### [facility] [address] [place] [address] Dr. Riddhi Nix LYMPH # 1.6 103/ul Normal 1.2-3.8 The [facility] Comment on above: Performed By: #### L ANTWON ZELAYA, CMP #### [facility] [address] [place] [address] Dr. Riddhi Nix Lymphocytes/100 WBC (Bld) 32.2 % Normal 20.5-60.0 [facility] Comment on above: Performed By: #### L ANTWON ZELAYA, CMP #### [facility] [address] [address] [address] Riddhi Nix MCH (RBC) [Entitic mass] 28.4 pg Normal 26.7-34.0 [facility] Comment on above: Performed By: #### L ANTWON ZELAYA, CMP #### [facility] [address] [place] [address] Dr. Riddhi Nix MCHC (RBC) [Mass/Vol] 32.5 g/dL Normal 29.9-35.2 [facility] Comment on above: Performed By: #### L NATHALIE ANTWON, CMP #### [facility] [address] [place] [address] Dr. Riddhi Nix MCV (RBC) [Entitic vol] 87.3 fL Normal 81.0-99.0 [facility] Comment on above: Performed By: #### L ANTWON ZELAYA, CMP #### [facility] [address] [place] [address] Dr. Riddhi Nix MONO # 0.4 103/ul Normal 0.3-0.8 [facility] Comment on above: Performed By: #### L ANTWON ZELAYA, CMP #### [facility] [address] [place] [address] Dr. Riddhi Nix Monocytes/100 WBC (Bld) 7.5 % Normal 1.7-12.0 [facility] Comment on above: Performed By: #### L ANTWON ZELAYA, CMP #### [facility] [address] [place] [address] Dr. Riddhi Nix NEUT # 2.9 103/ul Normal 1.4-6.5 [facility] Comment on above: Performed By: #### L ANTWON ZELAYA, CMP #### [facility] [address] [place] [address] Dr. Riddhi Nix Neutrophils/100 WBC (Bld) 55.8 % Normal 43.0-75.0 [facility] Comment on above: Performed By: #### L ANTWON ZELAYA, CMP #### [facility] [address] [place] [address] Dr. Riddhi Nix Platelet mean volume (Bld) [Entitic vol] 11.7 fL Normal 9.5-13.5 [facility] Comment on above: Performed By: #### L ANTWON ZELAYA, CMP #### [facility] [address] [place] [address] Dr. Riddhi Nix PLT 265 103/ul Normal 150-450 [facility] Comment on above: Performed By: #### L IPA ANTWON, CMP #### [facility] [address] [place] [address] Dr. Riddhi Nix RBC 5.29 106/ul Normal 4.20-5.40 [facility] Comment on above: Performed By: #### L ANTWON ZELAYA, CMP #### [facility] [address] [place] [address] Dr. Riddhi Nix WBC 5.1 103/ul Normal 4.0-11.0 [facility] Comment on above: Performed By: #### L ANTWON ZELAYA, CMP #### [facility] [address] [place] [address] Dr. Riddhi Nix [employer]on 022 Albumin [Mass/Vol] 4.2 g/dL Normal 3.4-5.0 [facility] Comment on above: Performed By: #### H FPF #### [facility] [address] [place] [address] Dr. Riddhi Nix Albumin/Globulin [Mass ratio] 1.2 {ratio} Normal [facility] Comment on above: Performed By: #### H FPF #### [facility] [address] [place] [address] Dr. Riddhi Nix ALP [Catalytic activity/Vol] 57 U/L Normal 46-116 [facility] Comment on above: Performed By: #### H FPF #### [facility] [address] [place] [address] Dr. Riddhi Nix ALT [Catalytic activity/Vol] 10 U/L Critically low 14-59 [facility] Comment on above: Performed By: #### H FPF #### [facility] [address] [place] [address] Dr. Riddhi Nix AST [Catalytic activity/Vol] 11 U/L Critically low 15-37 [facility] Comment on above: Performed By: #### H FPF #### [facility] [address] [address] [address] Riddhi Nix Bilirubin [Mass/Vol] 0.5 mg/dL Normal 0.2-1.0 [facility] Comment on above: Performed By: #### H FPF #### [facility] [address] [address] [address] Riddhi Nix Calcium [Mass/Vol] 8.5 mg/dL Normal 8.5-10.1 [facility] Comment on above: Performed By: #### H FPF #### [facility] [address] [place] [address] Dr. Riddhi Nix Chloride [Moles/Vol] 107 mmol/L Normal 98-107 [facility] Comment on above: Performed By: #### H FPF #### [facility] [address] [place] [address] Dr. Riddhi Nix CHOL-HDL RATIO NORM SEE BELOW Normal [facility] Comment on above: Result Comment: 3.3 - 4.4 LOW RISK 4.4 - 7.1 AVERAGE RISK 7.1 - 11.0 MODERATE RISK >11.0 HIGH RISK Performed By: #### H FPF #### [facility] [address] [place] [address] Dr. Riddhi Nix Cholesterol [Mass/Vol] 166 mg/dL Normal <=200 [facility] Comment on above: Performed By: #### H FPF #### [facility] [address] [place] [address] Dr. Riddhi Nix Cholesterol in HDL [Mass/Vol] 47 mg/dL Normal 40-60 [facility] Comment on above: Performed By: #### H FPF #### [facility] [address] [place] [address] Dr. Riddhi Nix Cholesterol in LDL [Mass/Vol] 106.6 mg/dL Normal [facility] Comment on above: Performed By: #### H FPF #### [facility] [address] [place] [address] Dr. Riddhi Nix Cholesterol.total/Ch olesterol in HDL [Mass ratio] 3.5 {ratio} Normal [facility] Comment on above: Performed By: #### H FPF #### [facility] [address] [address] [address] Riddhi Nix CO2 [Moles/Vol] 21.7 mmol/L Normal 21.0-32.0 [facility] Comment on above: Performed By: #### H FPF #### [facility] [address] [address] [address] Riddhi Nix Creatinine [Mass/Vol] 1.10 mg/dL Critically high 0.55-1.02 [facility] Comment on above: Performed By: #### H FPF #### [facility] [address] [place] [address] Dr. Riddhi Nix Globulin (S) [Mass/Vol] 3.4 g/dL Normal [facility] Comment on above: Performed By: #### H FPF #### [facility] [address] [place] [address] Dr. Riddhi Nix Glucose [Mass/Vol] 94 mg/dL Normal 74-106 [facility] Comment on above: Performed By: #### H FPF #### [facility] [address] [place] [address] Dr. Riddhi Nix HDL NORMAL > or = 60 mg/dl - LO W CARDIOVASCULAR RISK <40 mg/dl - HIGH CARDIOVASCULAR RISK Normal [facility] Comment on above: Performed By: #### H FPF #### [facility] [address] [place] [address] Dr. Riddhi Nix LDL CALC NORMAL SEE BELOW Normal [facility] Comment on above: Result Comment: <100 mg/dl OPTIMAL 100 - 129 mg/dl NEAR OR ABOVE OPTIMAL 130 - 159 mg/dl BORDERLINE HIGH 160 - 189 mg/dl HIGH >190 mg/dl VERY HIGH Performed By: #### H FPF #### [facility] [address] [place] [address] Dr. Riddhi Nix Potassium [Moles/Vol] 3.7 mmol/L Normal 3.5-5.1 [facility] Comment on above: Performed By: #### H FPF #### [facility] [address] [address] [address] Riddhi Nix Protein [Mass/Vol] 7.6 g/dL Normal 6.4-8.2 [facility] Comment on above: Performed By: #### H FPF #### [facility] [address] [address] [address] Riddhi Nix Sodium [Moles/Vol] 140 mmol/L Normal 136-145 [facility] Comment on above: Performed By: #### H FPF #### [facility] [address] [address] [address] Riddhi Nix Triglyceride [Mass/Vol] 62 mg/dL Normal <=150 [facility] Comment on above: Performed By: #### H FPF #### [facility] [address] [address] [address] iRddhi Nix TSH 4.611 uIU/mL Critically high 0.358-3.740 [facility] Comment on above: Performed By: #### H FPF #### [facility] [address] [address] [address] Riddhi Nix Urea nitrogen [Mass/Vol] 15.0 mg/dL Normal 7.0-18.0 [facility] Comment on above: Performed By: #### H FPF #### [facility] [address] [address] [address] Riddhi Nix Urea nitrogen/Creatinine [Mass ratio] 13.6 mg/mg Normal [facility] Comment on above: Performed By: #### H FPF #### [facility] [address] [address] [address] Riddhi Nix VLDL CALC 12.4 mg/dL Normal [facility] Comment on above: Performed By: #### H FPF #### [facility] [address] [address] [address] Riddhi Nix MRI BRAIN WO W [...] ALLI WEST Date: 2022-03-09 15:53 Normal [facility] T4 [facility]on 01-13-2022 T4 [Mass/Vol] 6.1 ug/dL Normal 4.5-12.0 [facility] Comment on above: Performed By: #### L ANTWON ZELAYA CMP #### [facility] [address] [place] [address] Dr. Riddhi Nix CBC AUTO DIFFon 01-12-2022 BASO # 0.1 103/ul Normal 0.0-0.1 [facility] Comment on above: Performed By: #### L ANTWON ZELAYA CMP #### [facility] [address] [place] [address] Dr. Riddhi Nix Basophils/100 WBC (Bld) 1.2 % Normal 0.2-2.0 [facility] Comment on above: Performed By: #### L ANTWON ZELAYA CMP #### [facility] [address] [place] [address] Dr. Riddhi Nix EO # 0.1 103/ul Normal 0.0-0.7 [facility] Comment on above: Performed By: #### L IPA, ANTWON, CMP #### [facility] [address] [place] [address] Dr. Riddhi Nix Eosinophils/100 WBC (Bld) 2.3 % Normal 0.9-7.0 [facility] Comment on above: Performed By: #### L IPA ANTWON, CMP #### [facility] [address] [place] [address] Dr. Riddhi Nix Erythrocyte distribution width (RBC) [Ratio] 13.1 % Normal 11.0-15.0 [facility] Comment on above: Performed By: #### L IPA ANTWON, CMP #### [facility] [address] [place] [address] Dr. Riddhi Nix Hematocrit (Bld) [Volume fraction] 42.4 % Normal 36.0-48.0 [facility] Comment on above: Performed By: #### L NATHALIE ANTWON, CMP #### [facility] [address] [place] [address] Dr. Riddhi Nix Hemoglobin (Bld) [Mass/Vol] 13.6 g/dL Normal 12.0-16.0 [facility] Comment on above: Performed By: #### L ANTWON ZELAYA, CMP #### [facility] [address] [place] [address] Dr. Riddhi Nix IG # 0.01 10e3/ul Normal 0.00-0.03 [facility] Comment on above: Performed By: #### L ANTWON ZELAYA, CMP #### [facility] [address] [place] [address] Dr. Riddhi Nix IG % 0.2 % Normal 0.0-0.5 [facility] Comment on above: Performed By: #### L NATHALIE ANTWON, CMP #### [facility] [address] [place] [address] Dr. Riddhi Nix LYMPH # 1.3 103/ul Normal 1.2-3.8 [facility] Comment on above: Performed By: #### L IPA ANTWON, CMP #### [facility] [address] [place] [address] Dr. Riddhi Nix Lymphocytes/100 WBC (Bld) 26.2 % Normal 20.5-60.0 [facility] Comment on above: Performed By: #### L ANTWON ZELAYA, CMP #### [facility] [address] [place] [address] Dr. Riddhi Nix MANUAL DIFF REQ NO Normal [facility] Comment on above: Performed By: #### L IPA ANTWON, CMP #### [facility] [address] [place] [address] Dr. Riddhi Nix MCH (RBC) [Entitic mass] 28.1 pg Normal 26.7-34.0 [facility] Comment on above: Performed By: #### L NATHALIE ANTWON, CMP #### [facility] [address] [place] [address] Dr. Riddhi Nix MCHC (RBC) [Mass/Vol] 32.1 g/dL Normal 29.9-35.2 [facility] Comment on above: Performed By: #### L NATHALIE ANTWON, CMP #### [facility] [address] [place] [address] Dr. Riddhi Nix MCV (RBC) [Entitic vol] 87.6 fL Normal 81.0-99.0 [facility] Comment on above: Performed By: #### L ANTWON ZELAYA, CMP #### [facility] [address] [place] [address] Dr. Riddhi Nix MONO # 0.4 103/ul Normal 0.3-0.8 [facility] Comment on above: Performed By: #### L NATHALIE ANTWON, CMP #### [facility] [address] [place] [address] Dr. Riddhi Nix Monocytes/100 WBC (Bld) 8.1 % Normal 1.7-12.0 [facility] Comment on above: Performed By: #### L IPA ANTWON, CMP #### [facility] [address] [place] [address] Dr. Riddhi Nix NEUT # 3.0 103/ul Normal 1.4-6.5 [facility] Comment on above: Performed By: #### L IPA ANTWON, CMP #### [facility] [address] [address] [address] Riddhi Nix Neutrophils/100 WBC (Bld) 62.0 % Normal 43.0-75.0 [facility] Comment on above: Performed By: #### L ANTWON ZELAYA, CMP #### [facility] [address] [place] [address] Dr. Riddhi Nix Platelet mean volume (Bld) [Entitic vol] 11.5 fL Normal 9.5-13.5 [facility] Comment on above: Performed By: #### L ANTWON ZELAYA, CMP #### [facility] [address] [address] [address] Riddhi Nix PLT 231 103/ul Normal 150-450 [facility] Comment on above: Performed By: #### L ANTWON ZELAYA, CMP #### [facility] [address] [place] [address] Dr. Riddhi Nix RBC 4.84 106/ul Normal 4.20-5.40 [facility] Comment on above: Performed By: #### L ANTWON ZELAYA, CMP #### [facility] [address] [place] [address] Dr. Riddhi Nix WBC 4.8 103/ul Normal 4.0-11.0 [facility] Comment on above: Performed By: #### L ANTWON ZELAYA, CMP #### [facility] [address] [place] [address] Dr. Riddhi Nix FREE T3on 01-12-2022 FREE T3 2.73 pg/mlL Normal 2.18-3.98 [facility] Comment on above: Performed By: #### L ANTWON ZELAYA, CMP #### [facility] [address] [place] [address] Dr. Riddhi Nix TSHon 01-12-2022 TSH 1.528 uIU/mL Normal 0.358-3.740 [facility] Comment on above: Performed By: #### L ANTWON ZELAYA, CMP #### [facility] [address] [place] [address] Dr. Riddhi Nix TSH RANGE SEE BELOW Normal [facility] Comment on above: Result Comment: <0.3 4 UIU/ml HYPERTHYROID 0.34-5.60 UIU/ml EUTHYROID >5.60 UIU/ml HYPOTHYROID Performed By: #### L ANTWON ZELAYA CMP #### [facility] [address] [place] [address] Dr. Riddhi MIGUELon 12-13-2017 CNOV Office Visit (ENDOAL) Florence GRANADOS ([id number]) 1975 FDa Time Provider Department12/13/17 9:00 AM [...] ago. Also has hx of nodular goiter [id number]. FNA at that time was benign. Size stable Mother had hx of thyroidectomy(nodular goiter). She went for blood work prior to this visit- here to reviewthese results. Severity, modifying factors, context and associated signs andsymptoms are as follows:? Thyroid pain: no? Mass effect: None? Energy: ++ fatigue? Sleep: Normal sleep pattern? Temperature Intolerance: Cold Intolerance? CONTINUING EDUCATION DEAN: Regular Menses for the most part (shorter [...] physical exam is noncontributory.DATA:No components found for: [id number] T4Date Value Ref Range Huuure2805/26/2016 1.4 0.7 - 1.8 ng/dL Final No components found for: [id number] Value Ref Range Npihzc6205/26/2016 2.870 0.400 - 5.500 uU/mL FinalComment:If the patient is , TSH reference range varies by gestational period:First Trimester 0.1-2.5 uU/mLSecond Trimester 0.2-3.0 uU/mLThird Trimester 0.3-3.0 uU/mL Free T3Date Value Ref Range Dvirqm6505/26/2016 2.7 1.8 - 4.6 pg/mL Final No [...] Visit Diagnosis:Elevated TSH [R94.6]Order(s):CONSULT TO FUNCTIONAL MEDICINE [7865427] Order #: [id number]: 1 COMP METABOLIC PANEL [SQCMP] Order #: [id number] FUTURE TSH BLD [SQTSH] Order #: [id number] FUTURE T4 FREE/FREE THYROX [SQFT4] Order #: [id number] FUTURE THYROID PEROXIDASE ANTIBODY BLOOD [SQMICRO] Order #: [id number] FUTUREPrescriptions as of 12/13/2017 Sig: MULTIVITAMIN ORAL [...] to improve.Follow-up and Disposition History RecordedEncounter Number: [id number] Status:Closed by HARVEY VICTOR DO on 12/13/17 [facility] PROGRESSon 12-12-2017 PROGRESS HNO ID: [id number]: Harvey Victor LService: (none)Author Type: PhysicianType: Progress [...] Normal sleep pattern? Temperature Intolerance: Cold Intolerance? CONTINUING EDUCATION DEAN: Regular Menses for the most part (shorter [...] Laterality Date- PAST SURGICAL HISTORY OF 1998 DANNY 10 weeks after delivery for residual placenta. [...] physical exam is noncontributory.DATA:No components found for: [id number] T4Date Value Ref Range Lrbgfe0905/26/2016 1.4 0.7 - 1.8 ng/dL Final No components found for: [id number] Value Ref Range Vofcgm4605/26/2016 2.870 0.400 - 5.500 uU/mL FinalComment:If the patient is , TSH reference range varies by gestationalperiod:First Trimester 0.1-2.5 uU/mLSecond Trimester 0.2-3.0 uU/mLThird Trimester 0.3-3.0 uU/mL Free T3Date Value Ref Range Vjqimr7405/26/2016 2.7 1.8 - 4.6 pg/mL Final No [...] time devotedto patient counseling.Harvey Victor, DO Normal [facility] Vital Signs Date Time Vital Sign Value Performing Clinician Facility 03-24-2025 21:42-0400 Body height 162.56 cm Isidoro Rojas MD Work Phone: [facility] 03-24-2025 21:42-0400 Body temperature 97.7 [degF] Isidoro Rojas MD Work Phone: [facility] 03-24-2025 21:42-0400 Body weight 71.9 kg Isidoro Rojas MD Work Phone: [facility] 03-24-2025 21:42-0400 Diastolic blood pressure 90 mm[Hg] Isidoro Rojas MD Work Phone: [facility] 03-24-2025 21:42-0400 Heart rate 88 /min Isidoro Rojas MD Work Phone: [facility] 03-24-2025 21:42-0400 Respiratory rate 16 /min Isidoro Rojas MD Work Phone: [facility] 03-24-2025 21:42-0400 SaO2% (BldA) [Mass fraction] 100 % Isidoro Rojas MD Work Phone: [facility] 03-24-2025 21:42-0400 Systolic blood pressure 139 mm[Hg] Isidoro Rojas MD Work Phone: [facility] 03-10-2025 12:07-0400 Body height 162.6 cm Karyn Rinkes DO Work Phone: [facility] 03-10-2025 12:07-0400 Body mass index (BMI) [Ratio] 26.95 kg/m2 Karyn Rinkes DO Work Phone: [facility] 03-10-2025 12:07-0400 Body weight 71.22 kg Karyn Rinkes DO Work Phone: [facility] 03-10-2025 12:07-0400 Diastolic blood pressure 84 mm[Hg] Karyn Rinkes DO Work Phone: [facility] 03-10-2025 12:07-0400 Systolic blood pressure 120 mm[Hg] Karyn Rinkes DO Work Phone: [facility] 04-03-2023 10:27-0400 Diastolic blood pressure 83 mm[Hg] MD Isidoro Rojas Work Phone: [facility] 04-03-2023 10:27-0400 Heart rate 75 /min MD Isidoro Rojas Work Phone: [facility] 04-03-2023 10:27-0400 Respiratory rate 16 /min MD Isidoro Rojas Work Phone: [facility] 04-03-2023 10:27-0400 SaO2% (BldA) [Mass fraction] 100 % MD Isidoro Rojas Work Phone: [facility] 04-03-2023 10:27-0400 Systolic blood pressure 126 mm[Hg] MD Isidoro Rojas Work Phone: [facility] 04-03-2023 09:52-0400 Body temperature 98.4 [degF] MD Isidoro Rojas Work Phone: [facility] 04-03-2023 09:22-0400 Inhaled oxygen flow rate 8 L/min MD Isidoro Rojas Work Phone: [facility] 04-03-2023 08:28-0400 Body height 162.56 cm MD Isidoro Rojas Work Phone: [facility] 04-03-2023 08:28-0400 Body mass index (BMI) [Ratio] 28.4 kg/m2 MD Isidoro Rojas Work Phone: [facility] 04-03-2023 08:28-0400 Body weight 75.2 kg MD Isidoro Rojas Work Phone: [facility] 03-09-2023 11:00-0400 Body temperature 98.4 [degF] MD Isidoro Rojas Work Phone: [facility] 03-09-2023 11:00-0400 Diastolic blood pressure 85 mm[Hg] MD Isidoro Rojas Work Phone: [facility] 03-09-2023 11:00-0400 Heart rate 85 /min MD Isidoro Rojas Work Phone: [facility] 03-09-2023 11:00-0400 Respiratory rate 20 /min MD Isidoro Rojas Work Phone: [facility] 03-09-2023 11:00-0400 SaO2% (BldA) [Mass fraction] 98 % MD Isidoro Rojas Work Phone: [facility] 03-09-2023 11:00-0400 Systolic blood pressure 127 mm[Hg] MD Isidoro Rojas Work Phone: [facility] Encounters Encounter Date Encounter Type Care Provider Facility Start: 03-24-2025 End: 03-24-2025 Emergency department patient visit Isidoro Rojas MD Work Phone: -Emergency Room Work Phone: Start: 03-10-2025 End: 03-10-2025 Bamboo flowsheet Karyn Luis Carlos [facility] [place] Start: 03-10-2025 End: 03-10-2025 Bamboo flowsheet Karyn E Rinkes DO Work Phone: [facility] [place] Start: 03-10-2025 End: 03-10-2025 Patient encounter status Karyn Luis Carlos Rinkes DO Work Phone: [facility] Start: 03-10-2025 End: 03-10-2025 Periodic preventive med est patient 40-64yrs Karyn Luis Carlos Limkes DO [facility] [place] Comment on above: Encounter for gyneco logical examination without abnormal finding; Encounter for screening for malignant neoplasm of vagina; Encounter for screening mammogram for breast cancer Start: 03-10-2025 End: 03-10-2025 ambulatory KARYN JOHNSON Not Available Start: 02-25-2025 End: 02-25-2025 Patient encounter procedure [facility] Work Phone: Start: 02-25-2025 End: 02-25-2025 ambulatory Isidoro Rojas MD Work Phone: [facility] Work Phone: Start: 02-25-2024 End: 02-25-2024 ambulatory MD Isidoro Rojas Work Phone: [facility] Work Phone: Start: 02-25-2024 End: 02-25-2024 Patient encounter procedure MD Isidoro Rojas Work Phone: [facility] Work Phone: Start: 09-24-2023 End: 09-24-2023 ambulatory MD Isidoro Rojas Work Phone: [facility] Work Phone: Start: 09-24-2023 End: 09-24-2023 Patient encounter procedure MD Isidoro Rojas Work Phone: [facility] Work Phone: Start: 04-03-2023 End: 04-03-2023 Admission to same day surgery center MD Isidoro Rojas Work Phone: [facility] [place] Start: 04-03-2023 End: 04-03-2023 ambulatory MD Isidoro Rojas Work Phone: [facility] Work Phone: Start: 03-21-2023 End: 03-21-2023 ambulatory MD Isidoro Rojas Work Phone: [facility] Work Phone: Start: 03-21-2023 End: 03-21-2023 Patient encounter procedure MD Isidoro Rojas Work Phone: [facility]-Pre-Surgical Testing Work Phone: Start: 03-15-2023 End: 03-15-2023 ambulatory MD Isidoro Rojas Work Phone: [facility] Work Phone: Start: 03-15-2023 End: 03-15-2023 Patient encounter procedure MD Isidoro Rojas Work Phone: [facility] Work Phone: Start: 03-09-2023 End: 03-09-2023 Admission to same day surgery center MD Isidoro Rojas Work Phone: [facility] Work Phone: Start: 03-01-2023 End: 03-01-2023 ambulatory MD Isidoro Rojas Work Phone: [facility] Work Phone: Start: 03-01-2023 End: 03-01-2023 Patient encounter procedure MD Isidoro Rojas Work Phone: [facility] Work Phone: Start: 02-28-2023 End: 02-28-2023 Patient encounter procedure MD Isidoro Rojas Work Phone: [facility] [facility] Work Phone: Start: 02-23-2023 End: 02-23-2023 ambulatory MD Isidoro Rojas Work Phone: [facility] Work Phone: Start: 02-23-2023 End: 02-23-2023 Patient encounter procedure MD Isidoro Rojsa Work Phone: [facility] Work Phone: Start: 01-25-2023 End: 01-26-2023 ambulatory ANANT BRANDON [place] Start: 01-25-2023 End: 01-25-2023 Patient encounter procedure ANANT BRANDON [facility] Start: 11-23-2022 End: 11-24-[address] ISIDORO [...] Start: 12-13-2017 End: 12-13-2017 Ambulatory HARVEY VICTOR [facility] Procedures Date Procedure Procedure Detail Performing [...] Screening for malign ant neoplasm of cervix [facility] Start: 03-17-2026 End: 03-17-2026 Patient encounter procedure 03/17/2026 1:45 PM EDT Office [place] [address] [place] [id number] Karyn Johnson, DO [address] [place] [address] [place] Start: 03-10-2026 End: 05-10-2026 DBT Breast - bilateral screening Bilateral screening mammogram with tomosynthesis Imaging Routine Encounter for screening mammogram for breast cancer Expected: 03/10/2026, Expires: 05/10/2026 [facility] Comment on above: Expected: 03/10/2026 , Expires: 05/10/2026 Start: 02-25-2026 Screening for malign ant neoplasm of breast Mammogram [facility] Start: 02-21-2026 Screening for malign ant neoplasm of cervix Pap Smear [facility] Start: 04-06-2025 Influenza vaccination Influenza Vacc ine (#1) [facility] Start: 03-24-2025 Hepatic function panel [facility] Start: 03-24-2025 [facility] Start: 03-10-2025 End: 03-10-2025 Patient encounter procedure 03/10/2025 11:45 AM EDT Office Visit [place] [address] [place] [id number] Karyn Johnson, DO [address] [place] [address] Encounter for gynecological examination without abnormal finding; Encounter for screening for malignant neoplasm of vagina; Encounter for screening mammogram for breast cancer [place] Comment on above: Encounter for gyneco logical examination without abnormal finding; Encounter for screening for malignant neoplasm of vagina; Encounter for screening mammogram for breast cancer Start: 04-03-2023 End: 04-03-2023 [facility] Start: 04-03-2023 Mammography of right breast specimen MM surgical specimen RT [facility] Start: 04-03-2023 MG Breast specimen - right Views [facility] Start: 1975 Screening for malign ant neoplasm of colon [facility] Albumin/Globulin ratio [facility] Anion gap measurement [facility] Basophils [#/volume] in Blood by Automated count [facility] Basophils/100 leukoc ytes in Blood by Automated count [facility] Bilirubin.indirect [Mass/volume] in Serum or Plasma [facility] Eosinophils/100 leukocytes in Blood by Automated count [facility] Erythrocyte distribu tion width [Ratio] by Automated count [facility] Erythrocytes [#/volu me] in Blood [facility] Globulin [Mass/volum e] in Serum [facility] Glomerular filtratio n rate [Volume Rate/Area] in Serum, Plasma or Blood by Creatinine [facility] Hematocrit [Volume Fraction] of Blood [facility] Hemoglobin [Mass/vol ume] in Blood [facility] IGP, RFX APTIMA HPV ASCU IGP, RF X APTIMA HPV ASCU Lab Routine Encounter for screening for malignant neoplasm of vagina Ordered: 03/10/2025 [facility] Work Phone: Comment on above: Ordered: 03/10/2025 Leukocytes [#/volume ] corrected for nucleated erythrocytes in Blood by Automated coun [facility] Leukocytes [#/volume ] in Blood [facility] Lymphocytes [#/volum e] in Blood by Automated count [facility] Lymphocytes/100 leukocytes in Blood by Automated count [facility] MCH [Entitic mass] b y Automated count [facility] MCHC [Mass/volume] b y Automated count [facility] MCV [Entitic volume] by Automated count [facility] Monocytes [#/volume] in Blood by Automated count [facility] Monocytes/100 leukoc ytes in Blood by Automated count [facility] Neutrophils [#/volum e] in Blood by Automated count [facility] Neutrophils/100 leukocytes in Blood by Automated count [facility] Nucleated erythrocyt es [Presence] in Blood by Automated count [facility] Patient referral [facility] Work Phone: Platelet mean volume [Entitic volume] in Blood by Automated count [facility] Platelets [#/volume] in Blood [facility] Immunizations Immunization Date Immunization Notes Care Provider Fa [facility] 06-03-2024 influenza virus vaccine, unspecified formulation Karyn Johnson DO Work Phone: [facility] 08-26-2021 COVID-19 mRNA Comirnaty (Pfizer) MD Isidoro Rojas Work Phone: [facility] 05-15-2021 Seasonal, quadrivale nt, recombinant, injectable influenza vaccine, preservative free Karyn Johnson DO Work Phone: [facility] 10-08-2020 COVID-19 mRNA Comirnaty (Pfizer) MD Isidoro Rojas Work Phone: [facility] 10-07-2020 Pfizer Purple Cap SARS-CoV-2 Vaccination Karyn Rinsenthil DO Work Phone: [facility] 09-17-2020 COVID-19 mRNA Comirnatkerry (Pfizer) MD Isidoro Rojas Work Phone: [facility] 09-16-2020 Pfizer Purple Cap SARS-CoV-2 Vaccination Karyn Rinsenthil DO Work Phone: [facility] 08-25-2020 Moderna SARS-CoV-2 Vaccination Karyn Rinsenthil DO Work Phone: [facility] Payers Date Payer Category Payer Self-pay [id number] 2023 Private Health Insurance [employer] [id number] 1975 Unknown [id number] 1975 Unknown [id number]. 593 1975 Unknown [id number]. 593 1975 Unknown [id number]. 593 1975 Unknown [id number]. 593 1975 Unknown [id number]. 727 1975 Unknown [id number]. 1259 1958 Self-pay [id number] 1958 Unknown [id number] Medicaid [id number] Unknown [id number] 593 Unknown [id number] Unknown [id number] 531 Social History Date Type Detail Facility Tobacco smoking status [facility] Start: 03-13-2024 Sex Assigned At Female F [facility] Start: 10-09-2018 End: 03-24-2025 Tobacco smoking status SCIS Never smoked tobacco (finding) [facility] Start: 1975 Sex Assigned At Female F [facility] Sex Female (finding) [facility] Start: 03-18-2023 Tobacco use and exposure Smokeless tobacco non-user [facility] Start: 03-04-2025 End: 03-10-2025 Alcoholic beverage intake Lifetime non-drinker (finding) [facility] Start: 03-13-2024 History of Social function [facility] Start: 1975 Sex assigned at Not [...] smear 03/05/24 wnl Mammogram 02/25/25 [place]nl [place] [facility] Review of Systems - General: Chills denies. [...] Review Audit Reviewed by Liz Reyes MA (Um Specialist) on 03/10/25 at 1205 Medication Order Taking? Sig Documenting Provider Last Dose Status Discontinued 03/10/25 1205 jycmeuuepb-hmltkglxwablb-cdjyweah (Esgic) 50-325-40 MG capsule [id number] No TAKE 1 CAPSULE BY MOUTH EVERY 6 HOURS NEEDED Bryson Seals DO Taking Active Cytomel 5 MCG tablet [id number] No 1 (one) time each day at the same time. Historical Provider, Taking Active diphenhydrAMINE (BENADryl) 25 MG tablet [id number] No Take by mouth. Historical Provider, Taking Active ibuprofen 600 MG tablet [id number] No EVERY 4-6 HOURS Bryson Seals DO Taking Active Relpax 40 MG tablet [id number] No 1 (one) time each day at the same time Bryson Seals DO Taking Active Restasis 0.05 % ophthalmic emulsion [id number] No Historical Provider, Taking Active Synthroid 75 MCG tablet [id number] No Historical Provider, Taking Active Trokendi XR 200 MG capsule sustained-release 24 hr [id number] No Omar Castro DPM FACADALI Taking Active Viberzi 100 MG tablet [id number] No every 12 (twelve) hours. 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 I had jaw surgery when I was 18 so my mouth does not open very far Hypothyroid Irritable bowel syndrome with both constipation and diarrhea Migraines PONV (postoperative nausea and vomiting) Retained placenta ([facility]) Past Surgical History: Procedure Laterality Date BI [...] breast cancer Z12.31 documented in this encounter [facility] Evaluation + Plan note 01-25-2023 Note Date & Type Note Facility 01-25-2023 Evaluation + Plan note Diagnostic Tests PendingT3 Free 01/25/23 [facility] Evaluation note Note Date & Type Note Facility Evaluation note No assessment information availjane silverman [facility] Work Phone: Evaluation note Note Date & Type Note Facility Evaluation note Diagnosis Onset Date Breast mass, right acute Breast mass, right acute [facility] Work Phone: Evaluation note Note Date & Type Note Facility Evaluation note Diagnosis Encounter for gynecological examination without abnormal finding Encounter for screening for malignant neoplasm of vagina Encounter for screening mammogram for breast cancer documented in this encounter [facility] Hospital course Narrative Note Date & Type Note Facility Hospital course Narrative No data available for this section [facility] Discharge instructions Note Date & Type Note [facility] Discharge instructions No data available for this section [facility] Discharge instructions Note Date & Type Note [facility] Discharge instructions Additional [...] for pain unless a prescription was provided. [facility] Work Phone: Progress note Note Date & Type Note Facility Progress note No data available for this section [facility] Reason for referral (narrative) Note Date & Type Note Facility Reason for referral (narrative) No reason for referral information available [facility] Work Phone: Summary Purpose Family [...] section and content) DATE CREATED AUTHOR 01/23/2018 [facility] DATE CREATED AUTHOR AUTHOR'S ORGANIZ ATION 11/27/2022 [facility] DATE CREATED AUTHOR AUTHOR'S ORGANIZ ATION 01/27/2023 [facility] DATE CREATED AUTHOR AUTHOR'S ORGANIZ ATION 03/13/2025 [facility] DATE CREATED AUTHOR AUTHOR'S ORGANIZ ATION 03/28/2025 [facility] Patient Care team informatio n [...] February 25, 2025 End: February 25, 2025 Concaving Machine Operator Relationship Specialty Start Date End Date Isidoro Rojas MD PCP - General Family Medicine 02/21/23 Concaving Machine Operator Relationship Specialty Start Date End Date Isidoro [...] BE BASED ON THE PRIMARY CLINICAL RECORDS. [facility] [employer] [facility]. provides no warranty or guarantee of the accuracy or completeness of information in this document.
--- OUTSIDE RECORDS SUMMARY | 2025-04-22 11:28 | XMS_ITS | Encounter Summary ---
Author Organization [facility] Address [address] [place] [address] Care Team Providers Care Information And Data Architect Analyst Name Role Phone Harish Rojas MD Primary Care Provider [phone] Encounter Details Date Type Department Care Team (Late st Contact Info) Description 02/23/2023 External Result Encounter [facility] External Department Unsolicited Karyn Johnson, DO [address] [place] [address] Social History Tobacco Use Types Packs/Day Years [...] [place] [address] [place] [phone] Karyn Johnson DO [address] [place] [address] documented as of this encounter Procedures Procedure [...] Stroud Jr., D.OJessica02/23/2023 2:11 PM Dictation Location: [facility] Transcribed By: NEGAR 02/23/23 1411 Dictated By: Yogesh Stroud Jr, DO 02/23/23 1401 Signed By: <Electronically signed by Yogesh Stroud Jr, DO in OV> 02/23/23 1411 Narrative 02/23/2023 2:30 PM EDT [facility] [place] [address] Mammography Report Signed Patient: Mary Granados MR#: [id number] : 1975 Acct:[id number] Age/Sex: 47 / F ADM Date: 02/23/23 Loc: [place] Room: Type: [facility] Attending Dr: Karyn Johnson DO Copies [...] Note Radiology, Radiologist, - 02/23/2023 [facility] [place] [place] [address] Mammography Report Signed Patient: Mary Granados CMR#: [id number] : 1975Acct:[id number] Age/Sex: 47 / FADM Date: 02/23/23 Loc: [place] Room:Type: [facility] Attending Dr: Karyn Johnson DO Copies [...] Stroud Jr., D.OJessica02/23/2023 2:11 PM Dictation Location: [facility] Transcribed By: NEGAR 02/23/23 1411 Dictated By: Yogesh Stroud Jr, DO 02/23/23 1401 Signed By: <Electronically signed by Yogesh Stroud Jr, DO inOV> 02/23/23 1411 us Karyn Johnson DO IMG BI PROCEDURES Final Res ult documented in this encounter Visit Diagnoses Not on filedocumented in this encounter Care Teams Information And Data Architect Analyst Relationship Specialty Start Date End Date Harish Rojas MD PCP - General Family Medicine 02/21/23 documented as of this encounter
--- OUTSIDE RECORDS SUMMARY | 2025-04-22 11:28 | XMS_ITS | Encounter Summary ---
Author Organization [facility] Address [address] [place] [address] Care Team Providers Care Soil Science Technical Officer Name Role Phone Harish Rojas MD Primary Care Provider [phone] Encounter Details Date Type Department Care Team (Late st Contact Info) Description 02/25/2024 External Result Encounter [facility] External Department Unsolicited Bryson Seals, DO [address] [facility] [address] [place] [address] Social History Tobacco Use Types Packs/Day Years [...] [place] [address] [facility] [address] [place] [address] Karyn Johnson DO [address] [facility] [address] [place] [address] documented as of this encounter [...] Javier Sellers M.D.02/25/2024 10:50 AM Dictation Location: [facility] Transcribed By: [facility] 02/25/24 1050 Dictated By: Francisco Javier Sellers DO 02/25/24 1043 Signed By: <Electronically signed by Francisco Javier Sellers DO in OV> 02/25/24 1050 Narrative 02/25/2024 10:53 AM EDT [facility] Main [place] [address] [place] [address] Mammography Report Signed Patient: Mary Granados MR#: [id number] : 1975 Acct:[id number] Age/Sex: 48 / F ADM Date: 02/25/24 Loc: [place] Room: Type: [facility] Attending Dr: Bryson Seals DO Copies to: [...] w/CAD Procedure Note Radiology, Radiologist, - 02/25/2024 [facility] Main [place] [address] [place], [place] [id number] Mammography Report Signed Patient: Mary Granados CMR#: [id number] : 1975Acct:[id number] Age/Sex: 48 / FADM Date: 02/25/24 Loc: [place] Room:Type: [facility] Attending Dr: Bryson Seals DO Copies to: [...] Javier Sellers M.D.02/25/2024 10:50 AM Dictation Location: [facility] Transcribed By: [facility] 02/25/24 1050 Dictated By: Francisco Javier Sellers DO 02/25/24 1043 Signed By: <Electronically signed by Francisco Javier Sellers DO in OV> 02/25/24 1050 us Bryson Seals DO IMG BI PROCEDURES Final R esult documented in this encounter Visit Diagnoses Not on filedocumented in this encounter Care Teams Soil Science Technical Officer Relationship Specialty Start Date End Date Harish Rojas MD PCP - General Family Medicine 02/21/23 documented as of this encounter
--- OUTSIDE RECORDS SUMMARY | 2025-04-22 11:28 | XMS_ITS | Clinical Summary ---
Author Organization [facility] Address [address] [place] [id number] Care Team Providers Care Automotive Brake Technician Name Role Phone Harish Rojas MD Primary Care Provider [phone] Allergies Active Allergy Reactions Criticality Noted Date [...] N ot on file 07/12/2020 Data from: https://[email or web address].medicine.[email or web address].edu/. 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 Not on [...] Protein, Total 7.3 6.0 - 8.4 g/dL [facility] Albumin 4.8 3.5 - 5.0 g/dL [facility] Calcium 9.9 8.5 - 10.5 mg/dL [facility] Bilirubin, Total 0.8 0.0 - 1.5 mg/dL [facility] Alkaline Phosphatase 51 40 - 150 U/L [facility] AST 17 7 - 40 U/L [facility] Glucose 84 65 - 100 mg/dL [facility] BUN 10 8 - 25 mg/dL [facility] Creatinine 0.89 0.70 - 1.40 mg/dL [facility] Sodium 138 132 - 148 mmol/L [facility] Potassium 4.1 3.5 - 5.0 mmol/L [facility] Chloride 104 98 - 110 mmol/L [facility] CO2 24 23 - 32 mmol/L [facility] Anion Gap 10 0 - 15 mmol/L [facility] ALT 10 0 - 45 U/L [facility] eGFR- >60 [facility] eGFR-All Other Races >60 . [facility] Comment: eGFR (Estimated GFR) [...] us Mala Mojica MD LABORATORY Final Result [facility] [address] [facility] [place] [address] from Last 3 Months or Most Recently Relevant to Health Maintenance Insurance [facility] PPO Care Teams Automotive Brake Technician Relationship Specialty Start Date End Date Harish Rojas MD PCP - General 11/30/09
--- OUTSIDE RECORDS SUMMARY | 2025-04-22 11:28 | XMS_ITS | Encounter Summary ---
Author Organization [facility] Address [address] [place] [address] Care Team Providers Care Grain Mill Worker Name Role Phone Harish Rojas MD Primary Care Provider [phone] Encounter Details Date Type Department Care Team (Late st Contact Info) Description 02/28/2023 External Result Encounter [facility] External Department Unsolicited Karyn Johnson DO [address] [place] [address] Social History Tobacco Use Types Packs/Day Years [...] [place] [address] [place] [phone] Karyn Johnson DO [address] [place] [address] documented as of this encounter Procedures Procedure [...] Stroud Jr., D.OJessica03/01/2023 12:38 PM Dictation Location: [facility] Tech: Meghan Flacogwenirma; Lyly Garcia Transcribed By: PWS 03/01/23 1238 Dictated By: Yogesh Stroud Jr, DO 02/28/23 0946 Signed By: <Electronically signed by Yogehs Stroud Jr, DO in OV> 03/01/23 1238 Narrative 02/28/2023 10:03 AM EDT [facility] Main [place] [address] [place] [address] Ultrasound Report Signed Patient: Mary Granados MR#: [id number] : 1975 Acct:[id number] Age/Sex: 47 / F ADM Date: 02/28/23 Loc: [place] Room: Type: [facility] Attending Dr: Karyn Johnson DO Ordering Provider: Karyn Johnson DO Date of Service: 02/28/23 MM/MM special view RT w/CAD: R92.8 ([id number]) US/US breast RT limited: R92.8 Copies to: [...] Radiology, Radiologist, - 03/06/2023 [facility] Main [place] [address] [place] [address] Ultrasound Report Signed Patient: Mary Granados CMR#: [id number] : 1975Acct:[id number] Age/Sex: 47 / FADM Date: 02/28/23 Loc: [place] Room:Type: [facility] Attending Dr: Karyn Johnson DO Ordering Provider: Karyn Johnson DO Date of Service: 02/28/23 MM/MM special view RT w/CAD: R92.8 ([id number]) US/US breast RT limited: R92.8 Copies to: [...] Stroud Jr., D.O.03/01/2023 12:38 PM Dictation Location: [facility] Tech: Meghan Garcia Transcribed By: NEGAR 03/01/23 1238 Dictated By: Yogesh Stroud Jr, DO 02/28/23 0946 Signed By: <Electronically signed by Yogesh Stroud Jr DO inOV> 03/01/23 1238 Karyn Johnson DO IMG BI PROCEDURES Edited Re sult - Final documented in this encounter Visit Diagnoses Not on filedocumented in this encounter Care Teams Grain Mill Worker Relationship Specialty Start Date End Date Harish Rojas MD PCP - General Family Medicine 02/21/23 documented as of this encounter
--- OUTSIDE RECORDS SUMMARY | 2025-04-22 11:28 | XMS_ITS | Encounter Summary ---
Author Organization [facility] Address [address] [place] [address] Care Team Providers Care Crop Insurance Claims Adjuster Name Role Phone Harish Rojas MD Primary Care Provider [phone] Encounter Details Date Type Department Care Team (Late Contact Info) Description 04/03/2023 External Result Encounter [facility] External Department Unsolicited Bryson Seals, DO [address] [facility] [address] [place] [address] Social History Tobacco Use Types [...] EDT Office Visit [place] [address] [facility] [address] [place] [phone] Karyn Johnson DO [address] [facility] [address] [place] [address] documented as of this encounter Procedures Procedure Name Priority Date/Time Associated Diagnosis Comments BI MAMMOGRAM DIAGNOSTIC RIGHT 04/03/2023 11:32 AM EDT documented in this encounter Results * Right diagnostic mammogram (04/03/2023 11:32 AM EDT) Anatomical Region Laterality Modality Breast Right Mammography 04/03/2023 11:3 2 AM EDT Narrative 04/04/2023 9:23 AM EDT [place] [id number] Mammography Report Signed Patient: Mary Granados MR#: [id number] : 1975 Acct:[id number] Age/Sex: 47 / F ADM Date: 04/03/23 Loc: [place] Room: Type: [facility] Attending Dr: Bryson Seals DO Copies to: [...] Stroud Jr., D.O.04/03/2023 11:32 AM Dictation Location: [place] [address] Transcribed By: [facility] 04/03/23 1132 Dictated By: Yogesh Stroud Jr, DO 04/03/23 1132 Signed By: <Electronically signed by Yogesh Stroud Jr, DO in OV> 04/03/23 1132 Procedure Note Radiology, Radiologist, MD - 04/04/[address] [address] Mammography Report Signed Patient: Mary Granados CMR#: [id number] : 1975Acct:[id number] Age/Sex: 47 / FADM Date: 04/03/23 Loc: [place] Room:Type: [facility] Attending Dr: Bryson Seals DO Copies to: [...] Stroud Jr., D.OJessica04/03/2023 11:32 AM Dictation Location: [place] [address] Transcribed By: [facility] 04/03/23 1132 Dictated By: Yogesh Stroud Jr, DO 04/03/23 1132 Signed By: <Electronically signed by Yogesh Stroud Jr, DO inOV> 04/03/23 1132 us Bryson Seals DO IMG BI PROCEDURES Final R esult documented in this encounter Visit Diagnoses Not on filedocumented in this encounter Care Teams Crop Insurance Claims Adjuster Relationship Specialty Start Date End Date Harish Rojas MD PCP - General Family Medicine 02/21/23 documented as of this encounter
--- OUTSIDE RECORDS SUMMARY | 2025-04-22 11:28 | XMS_ITS | Patient Health Record ---
Author Organization [facility] [place] Address [address] [place] [address] Care Team Providers Care Ad Operations Coordinator Name Role Phone Jose Antonio Trujillo Primary Care Provider [phone] Mona Ortiz [phone] Allergies Allergen (clinical drug ingredient) Drug/Non Drug Allergy documented on EMR Reaction Allergy Type Onset Date Status sumatriptan Imitrex wheezing Drug Allergy Activ e Diclofenac abd pain Drug Allergy Active levofloxacin levoFLOXacin Insomnida Drug Allergy A ctive Results Component Value Reference Range Notes IRON Reviewed date:07/08/2024 08:46:06 PM Interpretation: Performing Lab: Notes/Report: [facility] , Iron 62.0 50.0-170.0 ug/dL Performing Lab: see note ML - [facility] LB CBC AUTO DIFF Reviewed date:07/08/2024 08:46:06 PM Interpretation: Performing Lab: Notes/Report: [facility] , White Blood Count 6.5 4.0-11.0 10 [...] 3/uL Performing Lab: see note ML - [facility] FREE T3 Reviewed date:07/08/2024 08:46:06 PM Interpretation: Performing Lab: Notes/Report: [facility] , Free T3 2.04 2.18-3.98 pg/mL Performing Lab: see note ML - [facility] LB T4 Reviewed date:07/08/2024 08:46:06 PM Interpretation: Performing Lab: Notes/Report: [facility] , T4 Thyroxine 6.50 4.80-13.90 ug/dL Performing Lab: see note ML - [facility] LB TSH Reviewed date:07/08/2024 08:46:06 PM Interpretation: Performing Lab: Notes/Report: [facility] , Thyroid Stimulating Hormone 1.233 0.358-3.740 u IU/mL Performing Lab: see note ML - [facility] FREE T3 Reviewed date:08/06/2024 03:39:32 PM Interpretation: Performing Lab: Notes/Report: [facility] , Free T3 3.92 2.18-3.98 pg/mL Performing Lab: see note ML - [facility] LB T4 Reviewed date:08/06/2024 03:39:32 PM Interpretation: Performing Lab: Notes/Report: [facility] , T4 Thyroxine 8.20 4.80-13.90 ug/dL Performing Lab: see note ML - [facility] LB TSH Reviewed date:08/06/2024 03:39:32 PM Interpretation: Performing Lab: Notes/Report: [facility] , Thyroid Stimulating Hormone 0.075 0.358-3.740 u IU/mL Performing Lab: see note ML - [facility] LB CBC AUTO DIFF Reviewed date:03/24/2025 08:33:31 PM Interpretation: Performing Lab: Notes/Report: [facility] , White Blood Count 7.1 4.0-11.0 10 [...] 3/uL Performing Lab: see note ML - [facility] LB LIPID PROFILE Reviewed date:03/24/2025 08:33:31 PM Interpretation: Performing Lab: Notes/Report: [facility] , Triglycerides 42 <=150 mg/dL Cholesterol 146 <=200 mg/dL HDL Cholesterol 45 40-60 mg/dL > or =60 mg/dl - LOW CARDIOVASCULAR RISK <40 mg/dl - HIGH CARDIOVASCULAR RISK LDL Cholesterol Calculated 92.6 <100 mg/dl OPTIMAL 100-129 mg/dl NEAR OR ABOVE OPTIMAL 130-159 mg/dl BORDERLINE HIGH 160-189 mg/dl HIGH >190 mg/dl VERY HIGH VLDL CHOLESTEROL 8.4 Chol HDL Ratio 3.2 3.3 - 4.4 LOW RISK 4.4 - 7.1 AVERAGE RISK 7.1 - 11.0 MODERATE RISK >11.0 HIGH RISK Performing Lab: see note ML - [facility] PROF 14(COMP METB) Reviewed date:03/24/2025 08:33:31 PM Interpretation: Performing Lab: Notes/Report: [facility] , Sodium 142 136-145 mmol/L Potassium 3.3 [...] 1.0 Performing Lab: see note ML - [facility] LB TSH Reviewed date:03/24/2025 08:33:31 PM Interpretation: Performing Lab: Notes/Report: [facility] , Thyroid Stimulating Hormone 0.018 0.358-3.740 u IU/mL Performing Lab: see note ML - [facility] LB TSH Reviewed date:01/28/2025 09:28:04 PM Interpretation: Performing Lab: Notes/Report: [facility] , Thyroid Stimulating Hormone 0.026 0.358-3.740 u IU/mL Performing Lab: see note ML - [facility] LB T4 Reviewed date:01/28/2025 09:28:04 PM Interpretation: Performing Lab: Notes/Report: [facility] , T4 Thyroxine 6.30 4.80-13.90 ug/dL Performing Lab: see note - [facility] PROF 14(COMP METB) Reviewed date:01/28/2025 09:28:04 PM Interpretation: Performing Lab: Notes/Report: [facility] , Sodium 142 136-145 mmol/L Potassium 3.9 [...] 1.1 Performing Lab: see note ML - [facility] LB IRON Reviewed date:01/28/2025 09:28:04 PM Interpretation: Performing Lab: Notes/Report: [facility] , Iron 55.0 50.0-170.0 ug/dL Performing Lab: see note ML - [facility] INSULIN Reviewed date:01/29/2025 07:39:02 PM Interpretation: Performing Lab: Notes/Report: [facility] , Insulin 7.9 2.6-24.9 uIU/mL Performed at: [facility] [address] [id number] Manufacturing Support Engineer: Satya Funk PhD, Phone: [phone] Performing Lab: see note LC - [facility] LB FREE T3 Reviewed date:01/28/2025 09:28:04 PM Interpretation: Performing Lab: Notes/Report: [facility] , Free T3 2.93 2.18-3.98 pg/mL Performing Lab: see note ML - [facility] LB BNP Reviewed date:01/28/2025 09:28:04 PM Interpretation: Performing Lab: Notes/Report: [facility] , NT Pro B Type Natriuretic Pept 66.0 <=450.0 pg/mL Performing Lab: see note ML - [facility] LB TSH Reviewed date:12/04/2024 08:14:21 PM Interpretation: Performing Lab: Notes/Report: [facility] , Thyroid Stimulating Hormone 0.048 0.358-3.740 u IU/mL Performing Lab: see note ML - [facility] LB FREE T4 Reviewed date:12/04/2024 08:14:21 PM Interpretation: Performing Lab: Notes/Report: [facility] , Free T4 1.13 0.76-1.46 ng/dL Performing Lab: see note ML - [facility] LB US venous doppler UE RT Reviewed date:07/09/2024 05:36:47 PM Interpretation: Performing Lab: Notes/Report: Source Facility: [place] [address] [place] [address] Ultrasound Report Signed Patient: MARY RAY MR#: [id number] : 1975 Acct:[id number] Age/Sex: 49 / F ADM Date: 07/09/24 Loc: US Attending Dr: Isidoro Trujillo M.D. Ordering Physician: Isidoro Trujillo M.D. Date of Service: 07/09/24 Procedure(s): US venous doppler UE LT Accession Number(s): [id number] cc: Isidoro Trujillo M.D. [place] [id number] Patient Name: MARY RAY MRN: [facility]:[id number] date: 1975 Sex: F Assigned Patient Location: [place] Current Patient Location: [place] Accession/Order Number: [id number] Exam Date: 07/09/2024 16:10 Report Date: 07/09/2024 [...] M.D. 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 No Information Medications Medication SIG (Take, Route, Frequency, Duration) Notes Start Date End Date Status Hyoscyamine Sulfate 0.125 MG 1-2 tabs SL SL every 4 hrs PRN abd pain 03/25/2025 Active Iagwszhchx-XBBT-Ffnfbarc 50-325-40 MG TAKE 1 CAPSULE BY MOUTH EVERY 6 HOURS NEEDED; Duration: 30 12/04/2024 Active Adipex-P 37.5 MG 1 tablet before jessica kfast Orally Once a day 03/10/2025 Active Wellbutrin XL 300 MG 1 tablet in the mor steven Orally Once a day; Duration: 90 days 11/19/2023 Active Restasis 0.05 % Ophthalmic; Duration : 30 Days Active SEROquel 25 MG 1 tablet at bedtime Orally Once a day; Duration: 30 days 04/16/2025 Active Relpax 40 MG 1 tablet Orally at o nset of migraine; may repeat at 2hrs if needed- max 2 per day; Duration: 30 days Active Protonix 40 MG 1 tablet Orally Once a day; Duration: 90 days 03/25/2025 Active Liothyronine Sodium 5 MCG 2 tablet on an empty stomach Orally Once a day; Duration: 90 days Active Viberzi 100 MG 1 tablet Oral Twice a day; Duration: 90 days 12/04/2024 Active Trokendi XR 200 [...] W/U Status Risk Notes Problem Allergic rhinitis (95000048) Allergic rhinitis, unspecified (J30.9) Active confirmed Problem Snoring (85105904) Snoring (R06.83) Active confirmed Problem Migraine variant with headache (disorder) (606535489) Migraine headache (G43.909) Active confirmed Problem Benign essential hypertension (6064691) Benign essential hypertension (I10) Active confirmed Problem Hypothyroidism (18594043) Hypothyroidism (E03.9) Active confirmed Problem Migraine (76532353) Migraine (G43.909) Active confirmed Problem Chronic fatigue syndrome (71869369) Chronic fatigue (R53.82) Active confirmed Problem Otitis media (98360104) Otitis media (H66.90) Active confirmed Problem Gastritis (5401713) Gastritis (K29.70) Active confirmed Problem Multiple thyroid nodules (390418185) Multiple thyroid nodules (E04.2) Active confirmed Problem Mary's thyroiditis (30419385) Mary's thyroiditis (E06.3) Active confirmed Problem Chronic eczema (33418702) Chronic eczema (L30.9) Active confirmed Problem Irritable bowel syndrome (99538467) Irritable bowel syndrome (IBS) (K58.9) Active confirmed Problem Tonsillar aspergillosis (909678075) 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 confirmed Problem Anxiety (37819061) Anxiety (F41.9) Active confirmed Vital Signs Blood pressure diastolic 96 mm Hg 04/16/2025 Height 64 in 04/16/2025 Blood pressure systolic 164 mm Hg 04/16/2025 Weight 156.6 lbs 04/16/2025 BMI 26.88 kg/m2 04/16/2025 Encounters Encounter Location Date Provider Diagnosis [facility] [address] [place] [address] 06/02/2024 Mona Angel Migraine G43.909 [facility] [address] [place] [address] 06/04/2024 Mona Angel Migraine G43.909 [facility] [address] [facility] [place] [address] 06/19/2024 Jose Antonio Trujillo [facility] [address] [place] [address] 07/07/2024 Jose Antonio Hoy Fatigue R53.83 [facility] [address] [place] [address] 07/08/2024 Jose Antonio Hoy Left arm pain M79.60 2 and Hypothyroidism E03.9 [facility] [address] [place] [address] 07/09/2024 Jose Antonio Hoy Otitis media H66.90 [facility] [address] [place] [address] 08/01/2024 Jose Antonio Trujillo [facility] [address] [facility] [place] [address] 08/06/2024 Jose Antonio Trujillo [facility] [address] [facility] [place] [address] 09/01/2024 Jose Antonio Trujillo [facility] [address] [place] [address] 09/01/2024 Jose Antonio Trujillo [facility] [address] [facility] [place] [address] 10/02/2024 Jose Antonio Trujillo [facility] [address] [place] [address] 11/28/2024 Jose Antonio Trujillo Acute non-recurrent sinusitis, unspecified location J01.90 [facility] [address] [facility] [place] [address] 11/28/2024 Jose Antonio Hubbardy [facility] [address] [facility] [place] [address] 12/04/2024 Jose Antonio Crystal [facility] [address] [facility] [place] [address] 12/10/2024 Jose Antonio Trujillo Abnormal thyroid blo od test R79.89 [facility] [address] [facility] [place] [address] 01/28/2025 Jose Antonio Hubbardy [facility] [address] [facility] [place] [address] 02/18/2025 Jose Antonio Trujillo [facility] [address] [facility] [place] [address] 02/19/2025 Jose Antonio Crystal [facility] [address] [facility] [place] [address] 03/24/2025 Jsoe Antonio Hubbardy [facility] [address] [facility] [place] [address] 03/31/2025 Jose Antonio Hubbardkerry [facility] [address] [facility] [place] [address] 04/09/2025 Jose Antonio Hubbardy Gastritis K29.70 [facility] [address] [facility] [place] [address] 04/14/2025 Jose Antonio Hoy Benign essential hypertension I10 and Fatigue R53.83 [facility] [address] [facility] [place] [address] 12/04/2024 Jose Antonio Hubbardy Migraine headache G43.909 and Irritable bowel syndrome (IBS) K58.9 [facility] [address] [facility] [place] [address] 01/09/2025 Jose Antonio Hubbardy Benign essential hypertension I10 and Hypothyroidism E03.9 [facility] [address] [facility] [place] [address] 02/04/2025 Jose Antonio Hoy Benign essential hypertension I10 [facility] [address] [facility] [place] [address] 03/10/2025 Jose Antonio Hoy Benign essential hypertension I10 [facility] [address] [facility] [place] [address] 04/16/2025 Jose Antonio Hoy Benign essential hypertension I10 and Anxiety F41.9 [facility] [address] [facility] [place] [address] 03/25/2025 Jose Antonio Hoy Gastritis K29.70 [facility] [address] [place] [address] 10/08/2024 Jose Antonio Hoy Acute non-recurrent sinusitis, unspecified location J01.90 and Nasal congestion R09.81 Assessments Encounter Date Diagnosis (ICD Code) Assessment [...] vaporizer to help keep the drainage moist. Rbwi-yic-kzpracp Nasal Saline may help the stuffy and runny nose. Use Ibuprofen and or Tylenol as needed for fever, chills, body aches or pain. Children 5 years old should not be given rxfz-jil-hgjfeup cough and cold medications such as guaifenesin and dextromethorphan. If you're over age 5, you may try tbrf-ugt-aqletzq cold medications such as guaifenesin and dextromethorphan, [...] L ARM 07/08/2024 THYROID PANEL (T4/TSH/FREE T3) 12/03/202 4 THYROID PANEL (T4/TSH/FREE T3) 5 THYROID PANEL (T4/TSH/FREE T3) 5 THYROID PANEL (T4/TSH/FREE T3) 4 THYROID PANEL (T4/TSH/FREE T3) 3 THYROID PANEL (T4/TSH/FREE T3) 5 THYROID PANEL (T4/TSH/FREE T3) 3 Next Appt Details Provider Name:Jose Antonio Trujillo, 11:15:00 AM, [address] [place], [address], Insurance Providers Payer Name Payer Address Payer Phone Subscriber Number Group Number Insured Name Patient Relationship to Insured Coverage Start Date Coverage End Date MMO [employer] [address] [place] [phone] [id number] Mary Ray Self - patient is the insured 3 Medical (General) History Medical History History ICD Code Irritable bowel syndrome (IBS) K58.9 Migraine headache G43.909 Allergic rhinitis, unspecified J30.9 Anxiety disorder F41.9 Benign essential hypertension I10 Hypothyroidism E03.9 Mary's thyroiditis E06.3 Multiple thyroid nodules E04.2 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
--- OUTSIDE RECORDS SUMMARY | 2025-04-22 11:28 | XMS_ITS | Clinical Summary ---
Author Organization [facility] Healthcare Address [address] [place] [address] Care Team Providers Care Skinning Machine Feeder Name Role Phone Harish Rojas MD Primary Care Provider [phone] Allergies Active Allergy Reactions Criticality Noted Date [...] [address] [place] [address] Karyn Johnson, Encounter for gynecological examination without abnormal finding; Encounter for screening for malignant neoplasm of vagina; Encounter for screening mammogram for breast cancer 03/10/2025 [place]amboo flow[place] [facility] [place] [address] [place] [address] Karyn Johnson DO 03/10/2025 Travel from Last [...] [address] [place] [address] Karyn Johnson DO [address] [place] [address] Health Maintenance Due Date Last Done Comments [...] THIS SPECIMEN WAS RESCREENED PART OF OUR OIL TRANSPORT DRIVER PROGRAM. Specimen Adequacy: Comment [facility] Comment: Satisfactory for evaluation. No endocervical cells are present. This is consistent with a history of hysterectomy. Clinician Provided ICD10: Comment [facility] Comment:Z12.72 Performed By: Comment [facility] Comment:Roberta monaco, Hose Tubing Backer (ASCP) QC Reviewed By: Comment [facility] Comment:Belkis [...] - 03/13/2025 3:07 PM EDT Performed at: [address] [place] [id number] Solid Waste Manager: Padmini Schulte MD, Phone: [phone] Specimen Comment: [id number] Specimen Comment: No. of containers..01 ThinPrep Vial [...] M.D. 02/25/2025 4:12 PM Dictation Location: [facility] Dictated By: Bhavin Paredes MD 02/25/25 1611 Signed By: <Electronically signed by Bhavin Paredes MD in OV> 02/25/25 1612 Narrative 02/25/2025 4:15 PM EDT [facility] [address] [place] [address] Mammography Report Signed Patient: Mary [place] MR#: [id number] : 1975 Acct:[id number] Age/Sex: 49 / F Adm Date: 02/25/25 Loc: [place] Room: Type: [facility] Attending Dr: Karyn Johnson DO Ordering Provider: Karyn Johnson DO Date of Service: 02/25/25 Procedure(s): MM screening mammo BI w/CAD Accession Number(s): ([id number]) MM/MM screening mammo BI w/CAD: screening Copies [...] w/CAD Procedure Note Radiology, Radiologist, - 02/25/2025 [facility] [address] [place] [address] Mammography Report Signed Patient: Mary [place] CMR#: [id number] : 1975Acct:[id number] Age/Sex: 49 / FAdm Date: 02/25/25 Loc: [place] Room:Type: [facility] Attending Dr: Karyn Johnson DO Ordering Provider: Karyn Johnson DO Date of Service: 02/25/25 Procedure(s): MM screening mammo BI w/CAD Accession Number(s): ([id number]) MM/MM screening mammo BI w/CAD:screening Copies to: [...] M.D. 02/25/2025 4:12 PM Dictation Location: [facility] Dictated By: Bhavin Paredes MD 02/25/25 [...] has been evaluated with computer assisted technology. HOME WEATHERIZING WORK[facility] Comment: JEH, CT(ASCP) CT screening location: [place] [address]. (ALWAYS MESSAGE) [facility] Comment: EXPLANATORY NOTE: The [...] Performing Organization Information Site ID: [id number] Name: [facility] Address: [address] [place] [address], [address] [place] [phone] Director: Werner Hines MD Karyn Johnson DO [...] Results: Negative for intraepithelial lesion or malignancy. HOME WEATHERIZING WORKER [facility] Comment: LLT, CT(ASCP) CT screening location: [facility] [place], [address], [place] [address]. REVIEW HOME WEATHERIZING WORKER [facility] Comment: Reference Range: ZL, CT(ASCP) CT screening location: [facility] [place], [address] [place] [address], [place] [address]. (ALWAYS MESSAGE) [facility] Comment: EXPLANATORY NOTE: The [...] Performing Organization Information Site ID: [id number] Name: [facility] Address: [address] [place] [address], [address] [place] [phone] Director: Werner Hines MD Karyn Johnson DO LAB CYTOLOGY ORDERABLES Fin al Result [facility] from Last 3 Months or Most Recently Relevant to Health Maintenance Insurance [employer] Care Teams Skinning Machine Feeder Relationship Specialty Start Date End Date Harish Rojas MD PCP - General Family Medicine 02/21/23
--- OUTSIDE RECORDS SUMMARY | 2025-04-22 11:28 | XMS_ITS | Encounter Summary ---
Author Organization [facility] Address [address] [place] [address] Care Team Providers Care Hot Iron Worker Name Role Phone Harish Rojas MD Primary Care Provider [phone] Source Comments In the event this information is protected by the Federal Confidentiality of Alcohol and Drug AbusePatient Records regulations: The Federal rules restrict any use of the information to criminally investigate or prosecute any alcohol or drug abuse patient.[facility] Encounter Details Date Type Department Care Team (Late st Contact Info) Description 09/17/2016 Patient Msg Endocrinology [address] [place] [address] Erika Fischer MD, PhD [address] [place] [address] RE: Appointment Cancellation Request Social History Tobacco [...] 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
--- OUTSIDE RECORDS SUMMARY | 2025-04-22 11:28 | XMS_ITS | Encounter Summary ---
Author Organization [facility] Address [address] [place] [address] Care Team Providers Care Drawing Kiln Supervisor Name Role Phone Harish Rojas MD Primary Care Provider [phone] Encounter Details Date Type Department Care Team (Late Contact Info) Description 03/30/2023 External Result Encounter [facility] External Department Unsolicited Bryson Seals, DO [address] [facility] [address] [place] [address] Social History Tobacco Use Types [...] EDT Office Visit [place] [address] [facility] [address] [place] [address] Karyn Johnson DO [address] [facility] [address] [place] [address] documented as of this encounter [...] Stroud Jr., D.OJessica03/30/2023 12:13 PM Dictation Location: [facility] Tech: Ce Farooq Castillo Transcribed By: NEGAR 03/30/23 1213 Dictated By: Yogesh Stroud Jr, DO 03/30/23 1104 Signed By: <Electronically signed by Yogesh Stroud Jr, DO in OV> 03/30/23 1213 Narrative 03/30/2023 1:57 PM EDT [facility] Main [place] [address] [place] [address] Ultrasound Report Signed Patient: Mary [place] MR#: [id number] : 1975 Acct:[id number] Age/Sex: 47 / F ADM Date: 03/19/23 Loc: [place] Room: Type: [facility] Attending Dr: Bryson Seals DO Ordering Provider: Bryson Seals DO Date of Service: 03/30/23 US/US breast needle loc RT: RT BREAST SEED LOC ([id number]) MM/MM diagnostic mammo RT w/CAD: POST U/S [...] [facility] [place] [address] [place] [address] Ultrasound Report Signed Patient: Mary [place] CMR#: [id number] : 1975Acct:[id number] Age/Sex: 47 / FADM Date: 03/19/23 Loc: [place] Room:Type: [facility] Attending Dr: Bryson Seals DO Ordering Provider: Bryson Seals DO Date of Service: 03/30/23 US/US breast needle loc RT: RT BREAST SEED LOC ([id number]) MM/MM diagnostic mammo RT w/CAD: POST U/S [...] Stroud Jr., D.O.03/30/2023 12:13 PM Dictation Location: [facility] Tech: Ce Lim; Therese Anna Transcribed By: NEGAR 03/30/23 1213 Dictated By: Yogesh Stroud Jr, DO 03/30/23 1104 Signed By: <Electronically signed by Yogesh Stroud Jr, DO inOV> 03/30/23 1213 us Bryson Seals DO IMG US PROCEDURES Edited Result - Final documented in this encounter Visit Diagnoses Not on filedocumented in this encounter Care Teams Drawing Kiln Supervisor Relationship Specialty Start Date End Date Harish Rojas MD PCP - General Family Medicine 02/21/23 documented as of this encounter
--- OUTSIDE RECORDS SUMMARY | 2025-04-22 11:28 | XMS_ITS | Encounter Summary ---
Author Organization [facility] Address [address] [place] [address] Care Team Providers Care Account Resolution Specialist Name Role Phone Harish Rojas MD Primary Care Provider [phone] Source Comments In the event this information is protected by the Federal Confidentiality of Alcohol and Drug AbusePatient Records regulations: The Federal rules restrict any use of the information to criminally investigate or prosecute any alcohol or drug abuse patient.[facility] Encounter Details Date Type Department Care Team (Late st Contact Info) Description 11/04/2017 Patient Msg Endocrinology [address] [place], [place] [id number] Harvey Victor, DO [address] [place] [address] RE: Appointment Cancellation Request Social [...] 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
--- OUTSIDE RECORDS SUMMARY | 2025-04-22 11:28 | XMS_ITS | Encounter Summary ---
Author Organization [facility] Address [address] [place] [address] Care Team Providers Care Traffic Control Officer Name Role Phone Harish Rojas MD Primary Care Provider [phone] Encounter Details Date Type Department Care Team ([facility] Contact Info) Description 01/30/2024 Abstract [facility] [address] [place] [id number] Omar Castro, DPM FACFAS [address] [place] [address] Social History Tobacco Use Types Packs/Day Years [...] [place] [address] [place] [address] Karyn Johnson DO [address] [place] [address] documented as of this encounter Visit Diagnoses Not on filedocumented in this encounter Care Teams Traffic Control Officer Relationship Specialty Start Date End Date Harish Rojas MD PCP - General Family Medicine 02/21/23 documented as of this encounter
--- OUTSIDE RECORDS SUMMARY | 2025-04-22 11:28 | XMS_ITS | CCD ---
Author Organization [facility] Care Team Providers Care Astronautical Engineer Name Role Phone HARVEY VICTOR Unavailable Unavailable [...] CHAUDHRY Attending Unavailable ALLI WEST Consulting Unavailable Isdioro Rojas Primary Care Physician Kati Cobb Unavailable Unavailable MARTINEZN ANANT Admitting Unavailable ALEKSANDR, ANANT Attending Unavailable MD Isidoro Rojas Primary Care Provider [phone] DO Karyn Johnson Attending Provider DO Bryson Seals Attending Provider [phone] MD Isidoro Rojas Primary Care Provider [phone] DO Bryson Seals Attending Provider [phone] MD Isidoro Rojas Primary Care Provider [phone] DO Bryson Seals Attending Provider Isidoro Rojas MD Primary Care Provider [phone] Karyn Johnson DO Attending Provider Isidoro Rojas MD Primary Care Provider [phone] KARYN JOHNSON E Attending Unavailable Aram Varela DO Emergency Provider [phone] Isidoro Rojas Primary Care Unavailable Karyn Johnson Attending Unavailable Karyn Johnson Admitting Unavailable Aram Varela Admitting Unavailable Isidoro Rojas Primary Care Unavailable Aram Varela Attending Unavailable Allergies Allergy Classification Reported Allergen(s) Allergy Type Date of Onset Reaction(s) Facility (11 sources) SUMAtriptan; Translations: [SUMATRIPTAN] Drug Allergy 1 Shortness of breath [facility] Repository (2 sources) Plasmin; Translations: [Imitrex] Drug Allergy [facility] Repository (3 sources) Diclofenac Drug [...] Start: 04-03-2023 take 4 tablets by mo [facility] every twenty-four hours for pain Start: 10-10-2018 [...] hours as needed for pain Hydrocodone-Acetam inophen ([place]) 5-325 mg tablet Discontinued 1 TAB PO [...] Problem Classification Problem Date Documented Date Episodic/Chronic Abdominal pain (1 source) Upper abdominal pain, unspecified; Translations: [Upper abdominal pain, unspecified] Onset: 03-24-2025 Episodic Endometriosis (15 sources) Endometriosis (clinical); Translations: [Endometriosis, [...] EHR Cmte Other aftercare (1 source) Other group home (current) drug therapy; Translations: [OTH [facility] CURRENT DRUG THERAPY] Onset: 10-02-2022 Episodic Other [...] lead ECGon 03-24-2025 ECG 12 lead ECG [facility] [address] Electrocardiograph Report Signed Patient: Mary Granados MR#: [id number] : 1975 Acct:[id number] Age/Sex: 49 / F ADM Date: 03/24/25 Loc: ER Room: Type: [facility] ER Attending Dr: Ordering Provider: Aram [...] By: MUS Signed By Aram Varela DO 2215 Normal [facility] MM screening mammo BI w/CADo n 02-25-2025 MM screening mammo BI w/CAD [facility] [address] [place], [place] [address] Mammography Report Signed Patient: Mary Granados MR#: [id number] : 1975 Acct:[id number] Age/Sex: 49 / F Adm Date: 02/25/25 Loc: [place] Room: Type: [facility] Attending Dr: Karyn Johnson DO Ordering Provider: Karyn Johnson DO Date of Service: 02/25/25 Procedure(s): MM screening mammo BI w/CAD Accession Number(s): ([id number]) MM/MM screening mammo BI w/CAD: screening Copies [...] Paredes M.D. 02/25/2025 4:12 PM Dictation Location: [facility] Dictated By: Bhavin Paredes MD 02/25/25 1611 Signed By: 02/25/25 1612 Normal [facility] Mammography reportOrdered By : Bhavin Paredes on 02-25-2025 Diagnostic imaging study [facility] [address] [place] [address] Mammography Report Signed Patient: Mary Granados MR#: [id number] : 1975 Acct:[id number] Age/Sex: 49 / F Adm Date: 5 Loc: [place] Room: Type: [facility] Attending Dr: Karyn Johnson DO Ordering Provider: Karyn Johnson DO Date of Service: 02/25/25 Procedure(s): MM screening mammo BI w/CAD Accession Number(s): ([id number]) MM/MM screening mammo BI w/CAD: screening Copies [...] Paredes M.D. 02/25/2025 4:12 PM Dictation Location: [facility] Dictated By: Bhavin Paredes MD 02/25/251610 Signed By: 02/25/251611 [facility] Work Phone: [phone] Freeon 01-27-2023 Free T3 [Mass/Vol] 3.0 pg/mL Invalid Interpretation Code 2.0-4.4 [facility] Comment on above: Result Comment: Perf ormed at: [facility] [address] [place], [place] [id number] PhD Good Hernadez Performed By: #### 2 857568, 9344428, 77740512, 0336738, 7331850, 1589211, 68085184, 3941118, 504978632, 1874324, 7890247, 7660480, 5408286, 453260480 ####[facility] [address] [place] [address] Auto Diffon 01-25-2023 Basophils/100 WBC (Bld) 0.7 % Normal 0.0-2.0 [facility] Comment on above: Order Comment: Order Added by Discern Expert. Performed By: #### 2 830616, 3459318, 85826275, 4990449, 6721085, 9454787, 51966403, 0156839, 684128529, 6551450, 6466200, 8782883, 3870712, 302022965 #### [facility] [address] [place] [address] Basophils/Leukocytes Auto (Bld) [Pure # fraction] 0.0 E9/L Normal 0.0-0.2 [facility] Comment on above: Order Comment: Order Added by Discern Expert. Performed By: #### 2 591553, 7131925, 25070974, 1583422, 6525825, 6748648, 03851885, 0820667, 205553872, 1149142, 0808012, 4679517, 7844819, 012918704 #### [facility] [address] [place] [address] Eosinophils/100 WBC (Bld) 1.4 % Normal 0.0-8.0 [facility] Comment on above: Order Comment: Order Added by Discern Expert. Performed By: #### 2 419231, 3959061, 05687418, 3519061, 0935291, 2106990, 23262115, 4690987, 065693980, 9118154, 0662480, 7638389, 7544957, 654339352 #### [facility] [address] [place] [address] Eosinophils/Leukocyt es Auto (Bld) [Pure # fraction] 0.1 E9/L Normal 0.0-0.5 [facility] Comment on above: Order Comment: Order Added by Discern Expert. Performed By: #### 2 473725, 9011551, 04444419, 7095543, 4222744, 2725026, 47813136, 1830524, 030905065, 1218472, 7107941, 3288910, 5851094, 469250231 #### [facility] Laboratory [address] [place] [address] Lymphocytes/100 WBC (Bld) 24.1 % Normal 14.0-50.0 [facility] Comment on above: Order Comment: Order Added by Discern Expert. Performed By: #### 2 115872, 0573266, 00614452, 0433690, 2682810, 2685840, 38029982, 0314014, 233526207, 4465565, 5259743, 9602884, 1121193, 367173970 #### [facility] [address] [place] [address] Lymphocytes/Leukocyt es Auto (Bld) [Pure # fraction] 1.6 E9/L Normal 1.0-4.0 [facility] Comment on above: Order Comment: Order Added by Discern Expert. Performed By: #### 2 705282, 9394106, 86924011, 2708884, 1617632, 9043402, 80626314, 6642962, 879320020, 6333341, 7636913, 4556499, 0760127, 644295515 #### [facility] [address] [place] [address] Monocytes/100 WBC (Bld) 6.3 % Normal 4.0-14.0 [facility] Comment on above: Order Comment: Order Added by Discern Expert. Performed By: #### 2 119099, 2116115, 88679321, 3803733, 8033971, 5747086, 99984200, 0053164, 859341031, 9457019, 7583968, 2973048, 3710350, 022016688 #### [facility] [address] [place] [address] Monocytes/Leukocytes Auto (Bld) [Pure # fraction] 0.4 E9/L Normal 0.2-1.0 [facility] Comment on above: Order Comment: Order Added by Discern Expert. Performed By: #### 2 609544, 1140010, 07409216, 6884186, 0736238, 8736623, 44292531, 2954798, 647093442, 2229193, 7653767, 0000900, 7449369, 415599080 #### [facility] [address] [place] [address] Neutrophils/100 WBC (Bld) 67.5 % Normal 36.0-75.0 [facility] Comment on above: Order Comment: Order Added by Discern Expert. Performed By: #### 2 030394, 3639677, 18522301, 2881059, 7880856, 1586673, 12468326, 5626012, 074922122, 6055105, 5283632, 3521585, 7255956, 475872824 #### [facility] [address] [place] [address] Neutrophils/Leukocyt es Auto (Bld) [Pure # fraction] 4.4 E9/L Normal 2.0-7.5 [facility] Comment on above: Order Comment: Order Added by Discern Expert. Performed By: #### 2 446283, 7169886, 66054337, 0137747, 8822016, 3781588, 86887830, 5783649, 432051739, 8082261, 0804471, 6845537, 2769683, 006279585 #### [facility] [address] [place] [address] CBC w/ Auto Diffon 3 Erythrocyte distribution width (RBC) [Ratio] 13.2 % Normal 10.9-14.2 [facility] Comment on above: Performed By: #### 2 843856, 9313383, 28873763, 5464873, 6996423, 7813683, 73804492, 7548918, 997745325, 4206991, 0445745, 2238625, 3304944, 616221900 #### [facility] [address] [place] [address] Hematocrit (Bld) [Volume fraction] 43.7 % Normal 34.0-46.0 [facility] Comment on above: Performed By: #### 2 065107, 7999014, 54614684, 1046369, 5738836, 9609813, 21565171, 1948748, 662151754, 9884358, 2957216, 3910169, 8112598, 548896600 #### [facility] [address] [place] [address] Hemoglobin (Bld) [Mass/Vol] 14.7 g/dL Normal 12.0-16.0 [facility] Comment on above: Performed By: #### 2 449114, 4233967, 83707003, 7117500, 2024296, 9790609, 21709127, 0538082, 666022471, 1992395, 1598898, 5008998, 3358751, 728237817 #### [facility] [address] [place] [address] MCH (RBC) [Entitic mass] 28.3 pg Normal 27.0-34.0 [facility] Comment on above: Performed By: #### 2 840225, 1488882, 90935262, 5368440, 8207388, 2929429, 72430975, 8890222, 107007471, 1739725, 8528976, 6433033, 5485161, 419119166 #### [facility] [address] [place] [address] MCHC (RBC) [Mass/Vol] 33.7 g/dL Normal 31.4-36.0 [facility] Comment on above: Performed By: #### 2 457116, 3452223, 24533060, 6729761, 1445957, 7973239, 69432425, 5084237, 666564968, 0758526, 6898533, 1545050, 6391872, 705827758 #### [facility] [address] [place] [address] MCV (RBC) [Entitic vol] 83.9 fL Normal 80.0-100.0 [facility] Comment on above: Performed By: #### 2 900649, 5310533, 38451457, 0193752, 3094731, 1986700, 16924723, 3038711, 740645167, 4113875, 8276748, 3735464, 4868107, 669139118 #### [facility] [address] [place] [address] Platelet mean volume (Bld) [Entitic vol] 9.1 fL Normal 6.4-10.8 [facility] Comment on above: Performed By: #### 2 222603, 8655809, 30446944, 3064655, 2506970, 5206683, 90076745, 9003823, 057848837, 4410267, 4999443, 7332315, 0561423, 623071958 #### [facility] [address] [place] [address] Platelets (Bld) [#/Vol] 256.0 E9/L Normal 150.0-500.0 [facility] Comment on above: Performed By: #### 2 275223, 4436174, 47627612, 9407833, 6403437, 7275169, 99050484, 1845569, 506662706, 5020191, 8271962, 8838460, 0653608, 125086461 #### [facility] [address] [place] [address] RBC (Bld) [#/Vol] 5.2 E12/L Normal 4.3-5.9 [facility] Comment on above: Performed By: #### 2 847525, 3248626, 47714711, 9085075, 5804385, 4345438, 67654001, 7165314, 503165211, 3187376, 1630708, 4399436, 1690984, 538446137 #### [facility] [address] [place] [address] WBC corrected for nucl RBC Auto (Bld) [#/Vol] 6.5 E9/L Normal 4.0-11.0 [facility] Comment on above: Performed By: #### 2 299271, 8401898, 90531606, 3293103, 9820629, 8064030, 80483188, 5737189, 055971719, 7998411, 6782849, 3499866, 6718250, 956308071 #### [facility] [address] [place] [address] CHEMISTRYOrdered By: SYSTEM SYSTEM on 01-25-2023 25-hydroxyvitamin [...] ratio] 14 mg/mg Normal 10 - 20 [facility] Remisol CHEMISTRYOrdered By: Quin Felix on 01-25-2023 HbA1c (Bld) [Mass fraction] 5.3 % Normal <=5.9% [facility] ChemAutoSS CMPon 01-25-2023 Albumin [Mass/Vol] 4.2 g/dL Normal 3.3-5.0 [facility] Comment on above: Performed By: #### 2 232638, 5220445, 77542807, 6507429, 5415001, 1254888, 78169189, 2704345, 014692274, 1506447, 7948342, 2700765, 9505673, 369337260 #### [facility] [address] [place] [address] Albumin/Globulin (S) [Mass conc ratio] 1.3 Normal 1.1-2.2 [facility] Comment on above: Performed By: #### 2 389705, 0144871, 31775890, 6095926, 5471386, 2077563, 63998757, 9256729, 475508984, 9178462, 7101836, 5644009, 3828619, 509336989 #### [facility] [address] [place] [address] ALP [Catalytic activity/Vol] 50 Int._Unit/L Normal 21-98 [facility] Comment on above: Performed By: #### 2 810801, 9630905, 35307644, 7658898, 7148127, 3654409, 57742249, 2232393, 413154609, 9715973, 5348968, 9497443, 0182919, 670417036 #### [facility] [address] [place] [address] ALT No additional P-5'-P [Catalytic activity/Vol] 12 Int._Unit/L Normal 6-46 [facility] Comment on above: Performed By: #### 2 982668, 6325842, 74513843, 4539609, 5051970, 5838737, 13679235, 0566956, 307174597, 7771100, 4585707, 8045256, 8657740, 334593423 #### [facility] [address] [place] [address] Anion gap [Moles/Vol] 10 mmol/L Normal 6-16 [facility] Comment on above: Performed By: #### 2 371147, 9078022, 71750172, 2446096, 3499197, 0748284, 90552621, 1402226, 163980375, 9762553, 4220419, 0211457, 6944671, 719659945 #### [facility] [address] [place] [address] AST [Catalytic activity/Vol] 16 Int._Unit/L Normal 5-43 [facility] Comment on above: Performed By: #### 2 187813, 8475461, 56405931, 0660515, 4113975, 4917442, 17907772, 7514811, 910460226, 7901959, 9440026, 0328829, 4026234, 105340776 #### [facility] [address] [place] [address] Bilirubin [Mass/Vol] 0.7 mg/dL Normal 0.0-1.1 [facility] Comment on above: Performed By: #### 2 017992, 8224183, 40125185, 7546454, 3688495, 2367288, 49314110, 8732410, 473011856, 3331813, 3188623, 7038671, 8973033, 313991970 #### [facility] [address] [place] [address] Calcium [Mass/Vol] 9.3 mg/dL Normal 8.9-11.1 [facility] Comment on above: Performed By: #### 2 726605, 5458643, 83578998, 1435723, 1388012, 6269665, 92334567, 7215440, 535653537, 3527572, 5644449, 3207497, 0745296, 136043469 #### [facility] [address] [place] [address] Chloride [Moles/Vol] 105 mmol/L Normal 101-111 [facility] Comment on above: Performed By: #### 2 847674, 3647695, 34677250, 6987523, 6401408, 8362433, 25028178, 4385252, 124121622, 1531640, 4720372, 7310288, 9259897, 747242827 #### [facility] [address] [place] [address] CO2 [Moles/Vol] 26 mmol/L Normal 21-31 [facility] Comment on above: Performed By: #### 2 842093, 4229792, 06650028, 0215761, 8004630, 1487253, 46368043, 4059050, 638423899, 6829211, 0366046, 9837249, 0936513, 497449693 #### [facility] [address] [place] [address] Creatinine [Mass/Vol] 0.9 mg/dL Normal 0.5-1.3 [facility] Comment on above: Performed By: #### 2 361719, 1250618, 89485515, 1493857, 3934498, 3640328, 47763107, 9337570, 681855652, 1400195, 9288505, 8578622, 8569208, 966373870 #### [facility] [address] [place] [address] Globulin (S) [Mass/Vol] 3.2 g/dL Normal 1.4-4.0 [facility] Comment on above: Performed By: #### 2 838822, 0006322, 09806776, 4007942, 2583481, 1531543, 42932583, 8498634, 830387338, 1231486, 2197458, 2388445, 5315574, 552355016 #### [facility] [address] [place] [address] Glucose [Mass/Vol] 95 mg/dL Normal 55-199 [facility] Comment on above: Result Comment: If t his glucose result represents a fasting glucose, interpretation should refer to the following reference range: 55-99 mg/dL Performed By: #### 2 367618, 0817147, 19407006, 1048997, 7324422, 8533873, 43114355, 9859173, 289020221, 1667790, 5017287, 9363833, 3057610, 607123284 #### [facility] [address] [place] [address] Potassium [Moles/Vol] 3.8 mmol/L Normal 3.5-5.3 [facility] Comment on above: Performed By: #### 2 943887, 6483358, 85977246, 5654189, 3316970, 8874129, 84481724, 1608238, 590719648, 6196606, 2946088, 2070877, 8375012, 071536375 #### [facility] [address] [place] [address] Protein [Mass/Vol] 7.4 g/dL Normal 6.0-7.8 [facility] Comment on above: Performed By: #### 2 318366, 1009330, 78083472, 7967465, 6068088, 9080013, 91267749, 7143602, 225187032, 6835641, 9771075, 3705808, 9183502, 011404345 #### [facility] [address] [place] [address] Sodium [Moles/Vol] 137 mmol/L Normal 135-145 [facility] Comment on above: Performed By: #### 2 333934, 4165717, 23341875, 5336033, 4903098, 3032450, 66364360, 8348659, 692236858, 2582966, 2764497, 8838681, 6192651, 623405049 #### [facility] [address] [place] [address] Urea nitrogen [Mass/Vol] 13 mg/dL Normal 5-21 [facility] Comment on above: Performed By: #### 2 537723, 9363637, 39824408, 6743925, 6524245, 3532758, 95826706, 9653289, 159313395, 2088900, 3464058, 8684445, 5627327, 450555273 #### [facility] [address] [place] [address] Urea nitrogen/Creatinine [Mass ratio] 14 No Units Normal 10-20 [facility] Comment on above: Performed By: #### 2 851960, 3269587, 55018650, 1776373, 6169911, 9618581, 16023901, 3536109, 137887068, 9745523, 2127662, 6921464, 7329737, 697578619 #### [facility] [address] [place] [address] Consent for Treatmenton 01-05 Consent for Treatment [id number]: 127 Normal [facility] Ferritinon 01-25-2023 Ferritin [Mass/Vol] 44 ng/mL Normal 11-307 [facility] Comment on above: Result Comment: NORM ALS MEN <30 YRS 16-132 ng/mL MEN >30 YRS 8-338 ng/mL WOMEN (PREMEN) 6-104 ng/mL WOMEN (POSTMEN) 12-210 ng/mL Performed By: #### 2 199994, 3964176, 41353892, 4091653, 1922326, 8264448, 98592690, 0100814, 669310884, 3196210, 2203635, 3555304, 8109467, 901347453 ####[facility] [address] [place] [address] Folateon 01-25-2023 Folate [Mass/Vol] 13.1 ng/mL Normal >=6.7 [facility] Comment on above: Performed By: #### 2 681762, 8081651, 00810374, 5949927, 7991774, 6161169, 44549199, 0239693, 986000702, 4468942, 9331966, 1642856, 9289815, 604113454 ####[facility] [address] [place] [address] Free T4on 01-25-2023 Free T4 [Mass/Vol] 1.00 ng/dL Normal 0.58-1.64 [facility] Comment on above: Performed By: #### 2 423597, 2242130, 78062197, 2946342, 6911782, 1571724, 82648869, 3496170, 049440081, 9970205, 4980845, 6349132, 4486997, 645149063 #### [facility] [address] [place] [address] HEMATOLOGYOrdered By: SYSTEM SYSTEM on 01-25-2023 Basophils/100 [...] 4.4 E9/L Normal 2.0 - 7.5 E9/L FT HemeAutoSS HEMATOLOGYOrdered By: Kenycourtney crispin Rothman on 01-25-2023 Erythrocyte distribution width (RBC) [Ratio] 13.2 % Normal 10.9 - 14.2 % [facility]eAuto[facility] Hematocrit (Bld) [Volume fraction] 43.7 % Normal 34.0 - 46.0 % [facility] Hemoglobin (Bld) [Mass/Vol] 14.7 g/dL Normal 12.0 - 16.0 gm/dL [facility]eAutoSS MCH (RBC) [Entitic mass] 28.3 pg Normal 27.0 - 34.0 pg [facility] MCHC (RBC) [Mass/Vol] 33.7 g/dL Normal 31.4 - 36.0 gm/dL [facility]Auto[facility] MCV (RBC) [Entitic vol] 83.9 fL Normal 80.0 - 100.0 fL [facility]eAuto[facility] Platelet mean volume (Bld) [Entitic vol] 9.1 fL Normal 6.4 - 10.8 fL [facility]eAuto[facility] Platelets (Bld) [#/Vol] 256.0 E9/L Normal 150.0 - 500.0 E9/L [facility] RBC (Bld) [#/Vol] 5.2 E12/L Normal 4.3 - 5.9 E12/L [facility]eAuto[facility] WBC corrected for nucl RBC Auto (Bld) [#/Vol] 6.5 E9/L Normal 4.0 - 11.0 E9/L [facility]eAuto[facility] [id number] 01-25-2023 HbA1c (Bld) [Mass fraction] 5.3 % Normal <=5.9 [facility] Comment on above: Performed By: #### 2 279880, 8053471, 01774803, 6319254, 5009818, 9688789, 76561325, 5197054, 622147849, 2915925, 9806150, 2728461, 3303621, 082544936 ####[facility] [address] [place] [address] Ironon 01-25-2023 Iron [Mass/Vol] 86 microgram/dL Normal 35-153 [facility] Comment on above: Performed By: #### 2 207602, 4010324, 68061683, 1046779, 4237972, 9951008, 34457273, 2377950, 956624545, 0213147, 0049292, 6091239, 6729475, 324996840 #### [facility] [address] [place] [address] Physician Orderon 01-25-2023 Physician Order [id number] :127 Normal [facility] TIBC Calculatedon 01-25-2023 Iron binding capacity [Mass/Vol] 341 microgram/dL Normal 250-400 [facility] Comment on above: Performed By: #### 2 593748, 9382958, 14699457, 2050136, 6651646, 2019543, 53002626, 8571997, 389956713, 2610480, 7280219, 5007182, 9663953, 066931761 #### [facility] [address] [place] [address] Transferrin [Mass/Vol] 244 mg/dL Normal 200-370 [facility] Comment on above: Performed By: #### 2 902287, 8691247, 79218325, 1159275, 7231857, 4801720, 33208974, 1893797, 063103948, 0540803, 0362673, 6123927, 5821528, 156050858 #### [facility] [address] [place] [address] TSHon 01-25-2023 TSH Qn 0.75 m[IU]/L Normal 0.34-5.60 [facility] Comment on above: Performed By: #### 2 994795, 2972399, 86711350, 9465171, 9589379, 6028948, 35625839, 4109386, 738247222, 6010712, 7827333, 7192346, 7500216, 062459523 #### [facility] [address] [place] [address] Vit B12on 01-25-2023 Cobalamin (Vitamin B12) [Mass/Vol] 150 pg/mL Normal 50-1500 [facility] Comment on above: Performed By: #### 2 675256, 5279868, 23794422, 6070354, 7156319, 6909550, 27593972, 0965577, 573984828, 8135103, 6473069, 7403301, 5327139, 748402443 ####[facility] [address] [place] [address] Vitamin D 25 Hydroxyon 01-25 25-hydroxyvitamin D3 [Mass/Vol] 34.0 ng/mL Normal 30.0-100.0 [facility] Comment on above: Result Comment: Vit agudelo D deficiency has been defined as a level of serum 25-OH vitamin D less than 20 ng/mL (1,2) by the [place] [employer] and an Endocrine Society practice guideline. The Endocrine Society further defined vitamin D insufficiency as a level between 21 and 29 ng/mL (2). 1. IOM ([place] [employer]). 2010. Dietary reference intakes for calcium and D. [place]: The National Academies Press. 2. Sherry MF, Dereck NC, Rip HYDE, et al. Evaluation, treatment, and prevention of vitamin D deficiency: an Endocrine Society clinical practice guideline. JCEM. 2010; 96 (7):1911-30. Performed By: #### 2 [id number], [id number], [id number], [id number], 1398300, [id number], [id number], [id number], [id number], [id number], 2297498, [id number], [id number] ####[facility] [id number] [place] [address] eGFRon 01-25-2023 GFR/1.73 sq M.predicted among non-blacks MDRD (S/P/Bld) [Vol rate/Area] 80 mL/min/1.73 m2 Normal >=59 [facility] Comment on above: Order Comment: Order added by Discern Expert. Result Comment: Rotary Cutter Feeder jamaal kidney disease could be indicated at eGFR's of less than 60 mL/min/1.73m2. Kidney failure is indicated at less than 15 mL/min/1.73m2. Performed By: #### 2 [id number], [id number], [id number], [id number], 3175091, 3596814, [id number], [id number], [id number], 1882311, 2861891, 6909571, [id number], [id number] #### [facility] [address] [place] [address] CBC AUTO DIFFon 11-23-2022 BASO # 0.1 103/ul Normal 0.0-0.[address] [facility] Comment on above: Performed By: #### C BC #### [facility] [address] [place] [address] Dr. Riddhi Nix Basophils/100 WBC (Bld) 1.1 % Normal 0.2-2.[address] [facility] Comment on above: Performed By: #### C BC #### [facility] [address] [place] [address] Dr. Riddhi Nix EO # 0.1 103/ul Normal 0.0-0.[address] [facility] Comment on above: Performed By: #### C BC #### [facility] [address] [place] [address] Dr. Riddhi Nix Eosinophils/100 WBC (Bld) 2.5 % Normal 0.9-7.0 [facility] Comment on above: Performed By: #### C BC #### [facility] [address] [place] [address] Dr. Riddhi Nix Erythrocyte distribution width (RBC) [Ratio] 13.4 % Normal 11.0-15.0 [facility] Comment on above: Performed By: #### C BC #### [facility] [address] [place] [address] Dr. Riddhi Nix Hematocrit (Bld) [Volume fraction] 44.3 % Normal 36.0-48.[address] [facility] Comment on above: Performed By: #### C BC #### [facility] [address] [place] [address] Dr. Riddhi Nix Hemoglobin (Bld) [Mass/Vol] 14.6 g/dL Normal 12.0-16.0 [facility] Comment on above: Performed By: #### C BC #### [facility] [address] [place] [address] Dr. Riddhi Nix IG # 0.01 10e3/ul Normal 0.00-0.03 [facility] Comment on above: Performed By: #### C BC #### [facility] [address] [place] [address] Dr. Riddhi Nix IG % 0.2 % Normal 0.0-0.[address] [facility] Comment on above: Performed By: #### C BC #### [facility] [address] [place] [address] Dr. Riddhi Nix LYMPH # 1.6 103/ul Normal 1.2-3.8 [facility] Comment on above: Performed By: #### C BC #### [facility] [address] [place] [address] Dr. Riddhi Nix Lymphocytes/100 WBC (Bld) 28.3 % Normal 20.5-60.0 [facility] Comment on above: Performed By: #### C BC #### [facility] [address] [place] [address] Dr. Riddhi Nix MANUAL DIFF REQ NO Normal [facility] Comment on above: Performed By: #### C BC #### [facility] [address] [place] [address] Dr. Riddhi Nix MCH (RBC) [Entitic mass] 28.1 pg Normal 26.7-34.0 [facility] Comment on above: Performed By: #### C BC #### [facility] [address] [place] [address] Dr. Riddhi Nix MCHC (RBC) [Mass/Vol] 33.0 g/dL Normal 29.9-35.2 [facility] Comment on above: Performed By: #### C BC #### [facility] [address] [place] [address] Dr. Riddhi Nix MCV (RBC) [Entitic vol] 85.2 fL Normal 81.0-99.[address] [facility] Comment on above: Performed By: #### C BC #### [facility] [address] [place] [address] Dr. Riddhi Nix MONO # 0.4 103/ul Normal 0.3-0.8 [facility] Comment on above: Performed By: #### C BC #### [facility] [address] [place] [address] Dr. Riddhi Nix Monocytes/100 WBC (Bld) 7.4 % Normal 1.7-12.0 [facility] Comment on above: Performed By: #### C BC #### [facility] [address] [place] [address] Dr. Riddhi Nix NEUT # 3.4 103/ul Normal 1.4-6.5 [facility] Comment on above: Performed By: #### C BC #### [facility] [address] [place] [address] Dr. Riddhi Nix Neutrophils/100 WBC (Bld) 60.5 % Normal 43.0-75.[address] [facility] Comment on above: Performed By: #### C BC #### [facility] [address] [place] [address] Dr. Riddhi Nix Platelet mean volume (Bld) [Entitic vol] 10.6 fL Normal 9.5-13.5 [facility] Comment on above: Performed By: #### C BC #### [facility] [address] [place] [address] Dr. Riddhi Nix PLT 242 103/ul Normal 150-450 [facility] Comment on above: Performed By: #### C BC #### [facility] [address] [place] [address] Dr. Riddhi Nix RBC 5.20 106/ul Normal 4.20-5.40 [facility] Comment on above: Performed By: #### C BC #### [facility] [address] [place] [address] Dr. Riddhi Nix WBC 5.7 103/ul Normal 4.0-11.0 [facility] Comment on above: Performed By: #### C BC #### [facility] [address] [place] [address] Dr. Riddhi Nix FREE T3on 11-23-2022 FREE T3 3.40 pg/mlL Normal 2.18-3.[address] [facility] Comment on above: Performed By: #### S EDR #### [facility] [address] [place] [address] Dr. Riddhi Nix T4on 11-23-2022 T4 [Mass/Vol] 8.40 ug/dL Normal 4.80-13.90 [facility] Comment on above: Performed By: #### S EDR #### [facility] [address] [place] [address] Dr. Riddhi Nix TSHon 11-23-2022 TSH 0.665 uIU/mL Normal 0.358-3.740 [facility] Comment on above: Performed By: #### S EDR #### [facility] [address] [place] [address] Dr. Riddhi Nix AMYLASEon 09-28-2022 Amylase [Catalytic activity/Vol] 44 U/L Normal 25-115 [facility] Comment on above: Performed By: #### L ANTWON ZELAYA, CMP #### [facility] [address] [place] [address] Dr. Riddhi Nix CBC AUTO DIFFon 09-28-2022 BASO # 0.0 103/ul Normal 0.0-0.[address] [facility] Comment on above: Performed By: #### L ANTWON ZELAYA, CMP #### [facility] [address] [place] [address] Dr. Riddhi Nix Basophils/100 WBC (Bld) 0.3 % Normal 0.2-2.0 [facility] Comment on above: Performed By: #### L ANTWON ZELAYA, CMP #### [facility] [address] [place] [address] Dr. Riddhi Nix EO # 0.0 103/ul Normal 0.0-0.7 [facility] Comment on above: Performed By: #### L IPA, ANTWON, CMP #### [facility] [address] [place] [address] Dr. Riddhi Nix Eosinophils/100 WBC (Bld) 0.1 % Critically low 0.9-7.[address] [facility] Comment on above: Performed By: #### L IPA ANTWON, CMP #### [facility] [address] [place] [address] Dr. Riddhi Nix Erythrocyte distribution width (RBC) [Ratio] 13.4 % Normal 11.0-15.[address] [facility] Comment on above: Performed By: #### L IPA ANTWON, CMP #### [facility] [address] [place] [address] Dr. Riddhi Nix Hematocrit (Bld) [Volume fraction] 39.4 % Normal 36.0-48.[address] [facility] Comment on above: Performed By: #### L NATHALIE ANTWON, CMP #### [facility] [address] [place] [address] Dr. Riddhi Nix Hemoglobin (Bld) [Mass/Vol] 12.8 g/dL Normal 12.0-16.[address] [facility] Comment on above: Performed By: #### L ANTWON ZELAYA, CMP #### [facility] [address] [place] [address] Dr. Riddhi Nix IG # 0.06 10e3/ul Critically high 0.00-0.03 [facility] Comment on above: Performed By: #### L ANTWON ZELAYA, CMP #### [facility] [address] [place] [address] Dr. Riddhi Nix IG % 0.5 % Normal 0.0-0.[address] [facility] Comment on above: Performed By: #### L ANTWON ZELAYA, CMP #### [facility] [address] [place] [address] Dr. Riddhi Nix LYMPH # 1.3 103/ul Normal 1.2-3.[address] [facility] Comment on above: Performed By: #### L IPA ANTWON, CMP #### [facility] [address] [place] [address] Dr. Riddhi Nix Lymphocytes/100 WBC (Bld) 11.1 % Critically low 20.5-60.0 [facility] Comment on above: Performed By: #### L ANTWON ZELAYA, CMP #### [facility] [address] [place] [address] Dr. Riddhi Nix MANUAL DIFF REQ NO Normal [facility] Comment on above: Performed By: #### L ANTWON ZELAYA, CMP #### [facility] [address] [place] [address] Dr. Riddhi Nix MCH (RBC) [Entitic mass] 27.9 pg Normal 26.7-34.0 [facility] Comment on above: Performed By: #### L ANTWON ZELAYA, CMP #### [facility] [address] [place] [address] Dr. Riddhi Nix MCHC (RBC) [Mass/Vol] 32.5 g/dL Normal 29.9-35.2 [facility] Comment on above: Performed By: #### L ANTWON ZELAYA, CMP #### [facility] [address] [place] [address] Dr. Riddhi Nix MCV (RBC) [Entitic vol] 85.8 fL Normal 81.0-99.0 [facility] Comment on above: Performed By: #### L ANTWON ZELAYA, CMP #### [facility] [address] [place] [address] Dr. Riddhi Nix MONO # 0.7 103/ul Normal 0.3-0.8 [facility] Comment on above: Performed By: #### L ANTWON ZELAYA, CMP #### [facility] [address] [place] [address] Dr. Riddhi Nix Monocytes/100 WBC (Bld) 6.2 % Normal 1.7-12.0 [facility] Comment on above: Performed By: #### L ANTWON ZELAYA, CMP #### [facility] [address] [place] [address] Dr. Riddhi Nix NEUT # 9.7 103/ul Critically high 1.4-6.5 [facility] Comment on above: Performed By: #### L ANTWON ZELAYA, CMP #### [facility] [address] [place] [address] Dr. Riddhi Nix Neutrophils/100 WBC (Bld) 81.8 % Critically high 43.0-75.[address] [facility] Comment on above: Performed By: #### L ANTWON ZELAYA, CMP #### [facility] [address] [place] [address] Dr. Riddhi Nix Platelet mean volume (Bld) [Entitic vol] 11.0 fL Normal 9.5-13.[address] [facility] Comment on above: Performed By: #### L ANTWON ZELAYA, CMP #### [facility] [address] [place] [address] Dr. Riddhi Nix PLT 202 103/ul Normal 150-[address] [facility] Comment on above: Performed By: #### L ANTWON ZELAYA, CMP #### [facility] [address] [place] [address] Dr. Riddhi Nix RBC 4.59 106/ul Normal 4.20-5.[address] [facility] Comment on above: Performed By: #### L ANTWON ZELAYA, CMP #### [facility] [address] [place] [address] Dr. Riddhi Nix WBC 11.9 103/ul Critically high 4.0-11.0 [facility] Comment on above: Performed By: #### L ANTWON ZELAYA, CMP #### [facility] [address] [place] [address] Dr. Riddhi Nix LIPASEon 09-28-2022 Lipase [Catalytic activity/Vol] 54.0 U/L Critically low 73.0-393.[address] [facility] Comment on above: Performed By: #### L ANTWON ZELAYA, CMP #### [facility] [address] [place] [address] Dr. Riddhi Nix PROF 14(COMP METB)on 023 Albumin [Mass/Vol] 3.0 g/dL Critically low 3.4-5.0 [facility] Comment on above: Performed By: #### L ANTWON ZELAYA, CMP #### [facility] [address] [place] [address] Dr. Riddhi Nix Albumin/Globulin [Mass ratio] 0.9 {ratio} Normal [facility] Comment on above: Performed By: #### L ANTWON ZELAYA, CMP #### [facility] [address] [place] [address] Dr. Riddhi Nix ALP [Catalytic activity/Vol] 56 U/L Normal 46-[address] [facility] Comment on above: Performed By: #### L ANTWON ZELAYA, CMP #### [facility] [address] [place] [address] Dr. Riddhi Nix ALT [Catalytic activity/Vol] 17 U/L Normal 14-[address] [facility] Comment on above: Performed By: #### L ANTWON ZELAYA, CMP #### [facility] [address] [place] [address] Dr. Riddhi Nix Anion gap [Moles/Vol] 11.0 mmol/L Normal [facility] Comment on above: Performed By: #### L ANTWON ZELAYA, CMP #### [facility] [address] [place] [address] Dr. Riddhi Nix AST [Catalytic activity/Vol] 16 U/L Normal 15-[address] [facility] Comment on above: Performed By: #### L ANTWON ZELAYA, CMP #### [facility] [address] [place] [address] Dr. Riddhi Nix Bilirubin [Mass/Vol] 0.5 mg/dL Normal 0.2-1.[address] [facility] Comment on above: Performed By: #### L ANTWON ZELAYA, CMP #### [facility] [address] [place] [address] Dr. Riddhi Nix Calcium [Mass/Vol] 8.1 mg/dL Critically low 8.5-10.1 [facility] Comment on above: Performed By: #### L ANTWON ZELAYA, CMP #### [facility] [address] [place] [address] Dr. Riddhi Nix Chloride [Moles/Vol] 107 mmol/L Normal 98-[address] [facility] Comment on above: Performed By: #### L ANTWON ZELAYA, CMP #### [facility] [address] [place] [address] Dr. Riddhi Nix CO2 [Moles/Vol] 25.1 mmol/L Normal 21.0-32.0 [facility] Comment on above: Performed By: #### L ANTWON ZELAYA, CMP #### [facility] [address] [address] [address] Riddhi Nix Creatinine [Mass/Vol] 0.79 mg/dL Normal 0.55-1.[address] [facility] Comment on above: Performed By: #### L ANTWON ZELAYA, CMP #### [facility] [address] [address] [address] Riddhi Nix EGFR-AF NAURUAN >60 Normal >=60 [facility] Comment on above: Performed By: #### L ANTWON ZELAYA, CMP #### [facility] [address] [address] [address] Riddhi Nix EGFR-NON AF NAURUAN >60 Normal >=[address] [facility] Comment on above: Performed By: #### L ANTWON ZELAYA, CMP #### [facility] [address] [address] [address] Riddhi Nix Globulin (S) [Mass/Vol] 3.2 g/dL Normal [facility] Comment on above: Performed By: #### L ANTWON ZELAYA, CMP #### [facility] [address] [address] [address] Riddhi Nix Glucose [Mass/Vol] 128 mg/dL Critically high 74-106 T [facility] Comment on above: Performed By: #### L ANTWON ZELAYA, CMP #### [facility] [address] [address] [address] Riddhi Nix Potassium [Moles/Vol] 3.1 mmol/L Critically low 3.5-5.[address] [facility] Comment on above: Performed By: #### L ANTWON ZELAYA, CMP #### [facility] [address] [address] [address] Riddhi Nix Protein [Mass/Vol] 6.2 g/dL Critically low 6.4-8.2 Th [facility] Comment on above: Performed By: #### L ANTWON ZELAYA, CMP #### [facility] [address] [place] [address] Dr. Riddhi Nix Sodium [Moles/Vol] 140 mmol/L Normal 136-145 [facility] Comment on above: Performed By: #### L IPA, ANTWON, CMP #### [facility] [address] [place] [address] Dr. Riddhi Nix Urea nitrogen [Mass/Vol] 6.0 mg/dL Critically low 7.0-18.[address] [facility] Comment on above: Performed By: #### L IPA, ANTWON, CMP #### [facility] [address] [place] [address] Dr. Riddhi Nix Urea nitrogen/Creatinine [Mass ratio] 7.6 mg/mg Normal [facility] Comment on above: Performed By: #### L IPA, ANTWON, CMP #### [facility] [address] [place] [address] Dr. Riddhi Nix [facility] 11 mm/hr Normal <=[address] [facility] Comment on above: Performed By: #### L IPA, ANTWON, CMP #### [facility] [address] [place] [address] Dr. Riddhi Nix AMMONIAon 09-27-2022 Ammonia (P) [Moles/Vol] 29 umol/L Normal 11-[address] [facility] Comment on above: Performed By: #### L IPA, ANTWON, CMP #### [facility] [address] [place] [address] Dr. Riddhi Nix AMYLASEon 09-27-2022 Amylase [Catalytic activity/Vol] 57 U/L Normal 25-[address] [facility] Comment on above: Performed By: #### C MP, ANTWON, LIPA #### [facility] [address] [place] [address] Dr. Riddhi Nix CBC AUTO DIFFon 09-27-2022 BASO # 0.1 103/ul Normal 0.0-0.[address] [facility] Comment on above: Performed By: #### L IPA, ANTWON, CMP #### [facility] [address] [place] [address] Dr. Riddhi Nix Basophils/100 WBC (Bld) 0.4 % Normal 0.2-2.[address] [facility] Comment on above: Performed By: #### L ANTWON ZELAYA, CMP #### [facility] [address] [place] [address] Dr. Riddhi Nix EO # 0.0 103/ul Normal 0.0-0.[address] [facility] Comment on above: Performed By: #### L ANTWON ZELAYA, CMP #### [facility] [address] [place] [address] Dr. Riddhi Nix Eosinophils/100 WBC (Bld) 0.0 % Critically low 0.9-7.[address] [facility] Comment on above: Performed By: #### L ANTWON ZELAYA, CMP #### [facility] [address] [place] [address] Dr. Riddhi Nix Erythrocyte distribution width (RBC) [Ratio] 13.2 % Normal 11.0-15.[address] [facility] Comment on above: Performed By: #### L ANTWON ZELAYA, CMP #### [facility] [address] [place] [address] Dr. Riddhi Nix Hematocrit (Bld) [Volume fraction] 41.2 % Normal 36.0-48.[address] [facility] Comment on above: Performed By: #### L ANTWON ZELAYA, CMP #### [facility] [address] [place] [address] Dr. Riddhi Nix Hemoglobin (Bld) [Mass/Vol] 13.9 g/dL Normal 12.0-16.[address] [facility] Comment on above: Performed By: #### L ANTWON ZELAYA, CMP #### [facility] [address] [place] [address] Dr. Riddhi Nix IG # 0.05 10e3/ul Critically high 0.00-0.03 [facility] Comment on above: Performed By: #### L ANTWON ZELAYA, CMP #### [facility] [address] [place] [address] Dr. Riddhi Nix IG % 0.4 % Normal 0.0-0.[address] [facility] Comment on above: Performed By: #### L IPA, ANTWON, CMP #### [facility] [address] [address] [address] Riddhi Nix LYMPH # 0.9 103/ul Critically low 1.2-3.8 [facility] Comment on above: Performed By: #### L IPA, ANTWON, CMP #### [facility] [address] [address] [address] Riddhi Nix Lymphocytes/100 WBC (Bld) 6.7 % Critically low 20.5-60.[address] [facility] Comment on above: Performed By: #### L IPA, ANTWON, CMP #### [facility] [address] [address] [address] Riddhi Nix MANUAL DIFF REQ NO Normal [facility] Comment on above: Performed By: #### L IPA, ANTWON, CMP #### [facility] [address] [place] [address] Dr. Riddhi Nix MCH (RBC) [Entitic mass] 28.4 pg Normal 26.7-34.[address] [facility] Comment on above: Performed By: #### L IPA ANTWON, CMP #### [facility] [address] [place] [address] Dr. Riddhi Nix MCHC (RBC) [Mass/Vol] 33.7 g/dL Normal 29.9-35.[address] [facility] Comment on above: Performed By: #### L IPA ANTWON, CMP #### [facility] [address] [place] [address] Dr. Riddhi Nix MCV (RBC) [Entitic vol] 84.3 fL Normal 81.0-99.[address] [facility] Comment on above: Performed By: #### L IPA, ANTWON, CMP #### [facility] [address] [place] [address] Dr. Riddhi Nix MONO # 0.6 103/ul Normal 0.3-0.[address] [facility] Comment on above: Performed By: #### L IPA, ANTWON, CMP #### [facility] [address] [place] [address] Dr. Riddhi Nix Monocytes/100 WBC (Bld) 4.6 % Normal 1.7-12.0 [facility] Comment on above: Performed By: #### L ANTWON ZELAYA, CMP #### [facility] [address] [place] [address] Dr. Riddhi Nix NEUT # 12.3 103/ul Critically high 1.4-6.5 [facility] Comment on above: Performed By: #### L ANTWON ZELAYA, CMP #### [facility] [address] [place] [address] Dr. Riddhi Nix Neutrophils/100 WBC (Bld) 87.9 % Critically high 43.0-75.[address] [facility] Comment on above: Performed By: #### L ANTWON ZELAYA, CMP #### [facility] [address] [place] [address] Dr. Riddhi Nix Platelet mean volume (Bld) [Entitic vol] 10.6 fL Normal 9.5-13.[address] [facility] Comment on above: Performed By: #### L ANTWON ZELAYA, CMP #### [facility] [address] [place] [address] Dr. Riddhi Nix PLT 224 103/ul Normal 150-450 [facility] Comment on above: Performed By: #### L ANTWON ZELAYA, CMP #### [facility] [address] [place] [address] Dr. Riddhi Nix RBC 4.89 106/ul Normal 4.20-5.40 [facility] Comment on above: Performed By: #### L ANTWON ZELAYA, CMP #### [facility] [address] [place] [address] Dr. Riddhi Nix WBC 13.9 103/ul Critically high 4.0-11.0 [facility] Comment on above: Performed By: #### L ANTWON ZELAYA, CMP #### [facility] [address] [place] [address] HEAD WO CONon [...] NAYE OCONNOR Date: 2022-09-27 19:34 Normal [facility] CULTURE BLOODon 09-27-2022 Microscopic examination of blood, culture Culture Observations: NO GROWTH AT 5 DAYS. Normal [facility] Comment on above: Performed By: #### L ANTWON ZELAYA CMP #### [facility] [address] [place] [address] Dr. Riddhi Nix Microscopic examination of blood, culture Culture Observations: NO GROWTH AT 5 DAYS. Normal [facility] Comment on above: Performed By: #### L ANTWON ZELAYA CMP #### [facility] [address] [address] [address] Riddhi Nix CULTURE URINEon 09-27-2022 CULTURE URINE Culture Observations : NO GROWTH. Normal The [facility] Comment on above: Performed By: #### L ANTWON ZELAYA CMP #### [facility] [address] [place] [address] Dr. Riddhi Nix Covid-19 PCR ([facility])on 09-07 SARS-CoV-2 (COVID-19) RNA LORE+probe Ql (Unsp spec) Not detected Normal NOT DETECTED [facility] Comment on above: Result Comment: [...] for this test is supported by the [place] of Health and Human Service's declaration that [...] By: #### L ANTWON ZELAYA, CMP #### [facility] [address] [place] [address] Dr. Riddhi Nix INFLUENZA A AND B [facility] 09-27 [facility] SEE BELOW Normal [facility] Comment on above: Result Comment: Nega tive for Flu A protein angiten. Infection due to Flu A cannot be ruled out. Flu A angiten in the sample may be below the detection limit of the test. Performed By: #### L ANTWON ZELAYA, CMP #### [facility] [address] [place] [address] Dr. [facility] Normal [facility] Comment on above: Result Comment: Nega tive for Flu B protein antigen. Infection due to Flu B cannot be ruled out. Flu B antigen in the sample may be below the detection limit of the test. Performed By: #### L ANTWON ZELAYA, CMP #### [facility] [address] [place] [address] Dr. Riddhi Nix INFLUENZA A AG Negative Normal NEGATIVE SEE COMMENT [facility] Comment on above: Performed By: #### L ANTWON ZELAYA, CMP #### [facility] [address] [place] [address] Dr. Riddhi Nix INFLUENZA B AG Negative Normal NEGATIVE SEE COMMENT [facility] Comment on above: Performed By: #### L ANTWON ZELAYA, CMP #### [facility] [address] [place] [address] Dr. Riddhi Nix LACTATE/LACTIC ACIDon 2022 Lactate [Moles/Vol] 0.8 mmol/L Normal 0.4-1.9 [facility] Comment on above: Performed By: #### L IPA, ANTWON, CMP #### [facility] [address] [place] [address] Dr. Riddhi Nix LIPASEon 09-27-2022 Lipase [Catalytic activity/Vol] 52.0 U/L Critically low 73.0-393.[address] [facility] Comment on above: Performed By: #### C MP, ANTWON, LIPA #### [facility] [address] [place] [address] Dr. Riddhi Nix PROF 14(COMP METB)on 023 Albumin [Mass/Vol] 3.7 g/dL Normal 3.4-5.0 [facility] Comment on above: Performed By: #### C MP, ANTWON, LIPA #### [facility] [address] [place] [address] Dr. Riddhi Nix Albumin/Globulin [Mass ratio] 1.1 {ratio} Normal [facility] Comment on above: Performed By: #### C MP, ANTWON, LIPA #### [facility] [address] [place] [address] Dr. Riddhi Nix ALP [Catalytic activity/Vol] 63 U/L Normal 46-[address] [facility] Comment on above: Performed By: #### C MP, ANTWON, LIPA #### [facility] [address] [place] [address] Dr. Riddhi Nix ALT [Catalytic activity/Vol] 20 U/L Normal 14-[address] [facility] Comment on above: Performed By: #### C MP, ANTWON, LIPA #### [facility] [address] [place] [address] Dr. Riddhi Nix Anion gap [Moles/Vol] 12.1 mmol/L Normal [facility] Comment on above: Performed By: #### C MP, ANTWON, LIPA #### [facility] [address] [place] [address] Dr. Riddhi Nix AST [Catalytic activity/Vol] 19 U/L Normal 15-[address] [facility] Comment on above: Performed By: #### C ANTWON LIZAMA, LIPA #### [facility] [address] [address] [address] Riddhi Nix Bilirubin [Mass/Vol] 0.5 mg/dL Normal 0.2-1.[address] [facility] Comment on above: Performed By: #### C ALDA ANTWON, LIPA #### [facility] [address] [place] [address] Dr. Riddhi Nix Calcium [Mass/Vol] 8.5 mg/dL Normal 8.5-10.1 [facility] Comment on above: Performed By: #### C ANTWON LIZAMA, LIPA #### [facility] [address] [place] [address] Dr. Riddhi Nix Chloride [Moles/Vol] 103 mmol/L Normal 98-107 [facility] Comment on above: Performed By: #### C ALDA ANTWON, LIPA #### [facility] [address] [place] [address] Dr. Riddhi Nix CO2 [Moles/Vol] 25.1 mmol/L Normal 21.0-32.0 [facility] Comment on above: Performed By: #### C ALDA ANTWON, LIPA #### [facility] [address] [place] [address] Dr. Riddhi Nix Creatinine [Mass/Vol] 0.87 mg/dL Normal 0.55-1.[address] [facility] Comment on above: Performed By: #### C ALDA ANTWON, LIPA #### [facility] [address] [place] [address] Dr. Riddhi Nix EGFR-AF NAURUAN >60 Normal >=60 [facility] Comment on above: Performed By: #### C ALDA NATWON, LIPA #### [facility] [address] [place] [address] Dr. Riddhi Nix EGFR-NON AF NAURUAN >60 Normal >=[address] [facility] Comment on above: Performed By: #### C MP, ANTWON, LIPA #### [facility] [address] [address] [address] Riddhi Nix Globulin (S) [Mass/Vol] 3.5 g/dL Normal [facility] Comment on above: Performed By: #### C MP, ANTWON, LIPA #### [facility] [address] [address] [address] Riddhi Nix Glucose [Mass/Vol] 103 mg/dL Normal 74-106 [facility] Comment on above: Performed By: #### C MP, ANTWON, LIPA #### [facility] [address] [address] [address] Riddhi Nix Potassium [Moles/Vol] 3.2 mmol/L Critically low 3.5-5.[address] [facility] Comment on above: Performed By: #### C MP, ANTWON, LIPA #### [facility] [address] [place] [address] Dr. Riddhi Nix Protein [Mass/Vol] 7.2 g/dL Normal 6.4-8.2 [facility] Comment on above: Performed By: #### C MP, ANTWON, LIPA #### [facility] [address] [address] [address] Riddhi Nix Sodium [Moles/Vol] 137 mmol/L Normal 136-145 [facility] Comment on above: Performed By: #### C MP, ANTWON, LIPA #### [facility] [address] [address] [address] Riddhi Nix Urea nitrogen [Mass/Vol] 8.0 mg/dL Normal 7.0-18.[address] [facility] Comment on above: Performed By: #### C MP, ANTWON, LIPA #### [facility] [address] [address] [address] Riddhi Nix Urea nitrogen/Creatinine [Mass ratio] 9.2 mg/mg Normal [facility] Comment on above: Performed By: #### C MP, ANTWON, LIPA #### [facility] [address] [address] [address] Riddhi Nix SED RATE [facility] 2022 SED RATE 16 mm/hr Normal <=20 [facility] Comment on above: Performed By: #### S EDR #### [facility] [address] [place] [address] Dr. Riddhi Nix UA RANDOM W/MICROSCOPICon BACTERIA NONE SEEN Normal NONE SEEN [facility] Comment on above: Performed By: #### U AMIC #### [facility] [address] [place] [address] Dr. Riddhi Nix Bilirubin Ql (U) Negative Normal NEGATIVE [facility] Comment on above: Performed By: #### U AMIC #### [facility] [address] [place] [address] Dr. Riddhi Nix CAST NONE SEEN Normal NONE SEEN [facility] Comment on above: Performed By: #### U AMIC #### [facility] [address] [place] [address] Dr. Riddhi Nix Clarity (U) CLEAR Normal CLEAR [facility] Comment on above: Performed By: #### U AMIC #### [facility] [address] [place] [address] Dr. Riddhi Nix Color (U) LT. YELLOW Normal YELLOW [facility] Comment on above: Performed By: #### U AMIC #### [facility] [address] [place] [address] Dr. Riddhi Nix Crystals LM Nom (Urine sed) NONE SEEN Normal NONE SEEN [facility] Comment on above: Performed By: #### U AMIC #### [facility] [address] [place] [address] Dr. Riddhi Nix Epithelial cells LM Ql (Urine sed) FEW Abnormal NONE SEEN /RARE [facility] Comment on above: Performed By: #### U AMIC #### [facility] [address] [place] [address] Dr. Riddhi Nix Glucose Ql (U) Negative Normal NEGATIVE [facility] Comment on above: Performed By: #### U AMIC #### [facility] [address] [place] [address] Dr. Riddhi Nix Hemoglobin Ql (U) Negative Normal NEGATIVE [facility] Comment on above: Performed By: #### U AMIC #### [facility] [address] [address] [address] Riddhi Nix Ketones Ql (U) 15 mg/dl Abnormal NEGATIVE [facility] Comment on above: Performed By: #### U AMIC #### [facility] [address] [place] [address] Dr. Riddhi Nix LEUKOCYTES Negative Normal NEGATIVE [facility] Comment on above: Performed By: #### U AMIC #### [facility] [address] [address] [address] Riddhi Nix MUCOUS NONE SEEN Normal NONE SEEN [facility] Comment on above: Performed By: #### U AMIC #### [facility] [address] [place] [address] Dr. Riddhi Nix Nitrite Ql (U) Negative Normal NEGATIVE [facility] Comment on above: Performed By: #### U AMIC #### [facility] [address] [address] [address] Riddhi Nix pH (U) 6.0 [pH] Normal 5-9 [facility] Comment on above: Performed By: #### U AMIC #### [facility] [address] [place] [address] Dr. Riddhi Nix RBC NONE SEEN Abnormal 0-[address] [facility] Comment on above: Performed By: #### U AMIC #### [facility] [address] [place] [address] Dr. Riddhi Nix SPEC GRAVITY <=1.005 Abnormal 1.005-<=1.[address] [facility] Comment on above: Performed By: #### U AMIC #### [facility] [address] [address] [address] Riddhi Nix UA PROTEIN Negative Normal NEGATIVE/ TRACE [facility] Comment on above: Performed By: #### U AMIC #### [facility] [address] [place] [address] Dr. Riddhi Nix Urobilinogen Qn (U) 0.2 {Shankar'U}/dL Normal 0.2 - 1. [address] [facility] Comment on above: Performed By: #### U AMIC #### [facility] [address] [place] [address] Dr. Riddhi Nix WBC NONE SEEN Normal NONE SEEN [facility] Comment on above: Performed By: #### U AMIC #### [facility] [address] [place] [address] Dr. Riddhi Nix FREE T3on 07-15-2022 FREE T3 2.43 pg/mlL Normal 2.18-3.98 [facility] Comment on above: Performed By: #### L IPAANTWON, CMP #### [facility] [address] [place] [address] Dr. Riddhi Nix T4on 07-15-2022 T4 [Mass/Vol] 7.80 ug/dL Normal 4.80-13.90 [facility] Comment on above: Performed By: #### L IPAANTWON, CMP #### [facility] [address] [place] [address] Dr. Riddhi Nix TSHon 07-15-2022 TSH 0.811 uIU/mL Normal 0.358-3.740 [facility] Comment on above: Performed By: #### L IPA ANTWON, CMP #### [facility] [address] [place] [address] Dr. Riddhi Nix [facility] CBC AUTO DIFFon 03-23-2022 BASO # 0.1 103/ul Normal 0.0-0.1 [facility] Comment on above: Performed By: #### L IPA ANTWON, CMP #### [facility] [address] [place] [address] Dr. Riddhi Nix Basophils/100 WBC (Bld) 1.0 % Normal 0.2-2.0 [facility] Comment on above: Performed By: #### L IPA, ANTWON, CMP #### [facility] [address] [place] [address] Dr. Riddhi Nix EO # 0.2 103/ul Normal 0.0-0.7 [facility] Comment on above: Performed By: #### L IPA, ANTWON, CMP #### [facility] [address] [place] [address] Dr. Riddhi Nix Eosinophils/100 WBC (Bld) 3.3 % Normal 0.9-7.0 [facility] Comment on above: Performed By: #### L ANTWON ZELAYA, CMP #### [facility] [address] [place] [address] Dr. Riddhi Nix Erythrocyte distribution width (RBC) [Ratio] 13.3 % Normal 11.0-15.[address] [facility] Comment on above: Performed By: #### L NATHALIE ANTWON, CMP #### [facility] [address] [place] [address] Dr. Riddhi Nix Hematocrit (Bld) [Volume fraction] 46.2 % Normal 36.0-48.[address] [facility] Comment on above: Performed By: #### L ANTWON ZELAYA, CMP #### [facility] [address] [place] [address] Dr. Riddhi Nix Hemoglobin (Bld) [Mass/Vol] 15.0 g/dL Normal 12.0-16.[address] [facility] Comment on above: Performed By: #### L ANTWON ZELAYA, CMP #### [facility] [address] [place] [address] Dr. Riddhi Nix IG # 0.01 10e3/ul Normal 0.00-0.03 [facility] Comment on above: Performed By: #### L ANTWON ZELAYA, CMP #### [facility] [address] [place] [address] Dr. Riddhi Nix IG % 0.2 % Normal 0.0-0.5 [facility] Comment on above: Performed By: #### L ANTWON ZEALYA, CMP #### [facility] [address] [place] [address] Dr. Riddhi Nix LYMPH # 1.6 103/ul Normal 1.2-3.8 [facility] Comment on above: Performed By: #### L NATHALIE ANTWON, CMP #### [facility] [address] [place] [address] Dr. iRddhi Nix Lymphocytes/100 WBC (Bld) 32.2 % Normal 20.5-60.0 [facility] Comment on above: Performed By: #### L ANTWON ZELAYA, CMP #### [facility] [address] [place] [address] Dr. Riddhi Nix MCH (RBC) [Entitic mass] 28.4 pg Normal 26.7-34.[address] [facility] Comment on above: Performed By: #### L ANTWON ZELAYA, CMP #### [facility] [address] [place] [address] Dr. Riddhi Nix MCHC (RBC) [Mass/Vol] 32.5 g/dL Normal 29.9-35.2 [facility] Comment on above: Performed By: #### L ANTWON ZEALYA, CMP #### [facility] [address] [place] [address] Dr. Riddhi Nix MCV (RBC) [Entitic vol] 87.3 fL Normal 81.0-99.[address] [facility] Comment on above: Performed By: #### L ANTWON ZELAYA, CMP #### [facility] [address] [place] [address] Dr. Riddhi Nix MONO # 0.4 103/ul Normal 0.3-0.8 [facility] Comment on above: Performed By: #### L ANTWON ZELAYA, CMP #### [facility] [address] [place] [address] Dr. Riddhi Nix Monocytes/100 WBC (Bld) 7.5 % Normal 1.7-12.0 [facility] Comment on above: Performed By: #### L ANTWON ZELAYA, CMP #### [facility] [address] [place] [address] Dr. Riddhi Nix NEUT # 2.9 103/ul Normal 1.4-6.5 [facility] Comment on above: Performed By: #### L ANTWON ZELAYA, CMP #### [facility] [address] [place] [address] Dr. Riddhi Nix Neutrophils/100 WBC (Bld) 55.8 % Normal 43.0-75.0 [facility] Comment on above: Performed By: #### L NATHALIE ANTWON, CMP #### [facility] [address] [address] [address] Riddhi Nix Platelet mean volume (Bld) [Entitic vol] 11.7 fL Normal 9.5-13.[address] [facility] Comment on above: Performed By: #### L ANTWON ZELAYA, CMP #### [facility] [address] [address] [address] Riddhi Nix PLT 265 103/ul Normal 150-[address] [facility] Comment on above: Performed By: #### L ANTWON ZELAYA, CMP #### [facility] [address] [address] [address] Riddhi Nix RBC 5.29 106/ul Normal 4.20-5.40 [facility] Comment on above: Performed By: #### L ANTWON ZELAYA, CMP #### [facility] [address] [address] [address] Riddhi Nix WBC 5.1 103/ul Normal 4.0-11.[address] [facility] Comment on above: Performed By: #### L ANTWON ZELAYA, CMP #### [facility] [address] [address] [address] Riddhi Nix [employer] PROFILEon 022 Albumin [Mass/Vol] 4.2 g/dL Normal 3.4-5.0 [facility] Comment on above: Performed By: #### H FPF #### [facility] [address] [address] [address] Riddhi Nix Albumin/Globulin [Mass ratio] 1.2 {ratio} Normal [facility] Comment on above: Performed By: #### H FPF #### [facility] [address] [address] [address] Riddhi Nix ALP [Catalytic activity/Vol] 57 U/L Normal 46-116 [facility] Comment on above: Performed By: #### H FPF #### [facility] [address] [address] [address] Riddhi Nix ALT [Catalytic activity/Vol] 10 U/L Critically low 14-[address] [facility] Comment on above: Performed By: #### H FPF #### [facility] [address] [address] [address] Riddhi Nix AST [Catalytic activity/Vol] 11 U/L Critically low 15-[address] [facility] Comment on above: Performed By: #### H FPF #### [facility] [address] [address] [address] Riddhi Nix Bilirubin [Mass/Vol] 0.5 mg/dL Normal 0.2-1.[address] [facility] Comment on above: Performed By: #### H FPF #### [facility] [address] [address] [address] Riddhi Nix Calcium [Mass/Vol] 8.5 mg/dL Normal 8.5-10.1 [facility] Comment on above: Performed By: #### H FPF #### [facility] [address] [address] [address] Riddhi Nix Chloride [Moles/Vol] 107 mmol/L Normal 98-[address] [facility] Comment on above: Performed By: #### H FPF #### [facility] [address] [place] [address] Dr. Riddhi Nix CHOL-HDL RATIO NORM SEE BELOW Normal [facility] Comment on above: Result Comment: 3.3 - 4.4 LOW RISK 4.4 - 7.1 AVERAGE RISK 7.1 - 11.0 MODERATE RISK >11.0 HIGH RISK Performed By: #### H FPF #### [facility] [address] [address] [address] Riddhi Nix Cholesterol [Mass/Vol] 166 mg/dL Normal <=[address] [facility] Comment on above: Performed By: #### H FPF #### [facility] [address] [address] [address] Riddhi Nix Cholesterol in HDL [Mass/Vol] 47 mg/dL Normal 40-[address] [facility] Comment on above: Performed By: #### H FPF #### [facility] [address] [address] [address] Riddhi Nix Cholesterol in LDL [Mass/Vol] 106.6 mg/dL Normal [facility] Comment on above: Performed By: #### H FPF #### [facility] [address] [address] [address] Riddhi Nix Cholesterol.total/Ch olesterol in HDL [Mass ratio] 3.5 {ratio} Normal [facility] Comment on above: Performed By: #### H FPF #### [facility] [address] [address] [address] Riddhi Nix CO2 [Moles/Vol] 21.7 mmol/L Normal 21.0-32.0 [facility] Comment on above: Performed By: #### H FPF #### [facility] [address] [address] [address] Riddhi Nix Creatinine [Mass/Vol] 1.10 mg/dL Critically high 0.55-1.[address] [facility] Comment on above: Performed By: #### H FPF #### [facility] [address] [address] [address] Riddhi Nix Globulin (S) [Mass/Vol] 3.4 g/dL Normal [facility] Comment on above: Performed By: #### H FPF #### [facility] [address] [address] [address] Riddhi Nix Glucose [Mass/Vol] 94 mg/dL Normal 74-106 [facility] Comment on above: Performed By: #### H FPF #### [facility] [address] [address] [address] Riddhi Nix HDL NORMAL > or = 60 mg/dl - LO W CARDIOVASCULAR RISK <40 mg/dl - HIGH CARDIOVASCULAR RISK Normal [facility] Comment on above: Performed By: #### H FPF #### [facility] [address] [address] [address] Riddhi Nix LDL CALC NORMAL SEE BELOW Normal [facility] Comment on above: Result Comment: <100 mg/dl OPTIMAL 100 - 129 mg/dl NEAR OR ABOVE OPTIMAL 130 - 159 mg/dl BORDERLINE HIGH 160 - 189 mg/dl HIGH >190 mg/dl VERY HIGH Performed By: #### H FPF #### [facility] [address] [address] [address] Riddhi Nix Potassium [Moles/Vol] 3.7 mmol/L Normal 3.5-5.[address] [facility] Comment on above: Performed By: #### H FPF #### [facility] [address] [place] [address] Dr. Riddhi Nix Protein [Mass/Vol] 7.6 g/dL Normal 6.4-8.2 [facility] Comment on above: Performed By: #### H FPF #### [facility] [address] [place] [address] Dr. Riddhi Nix Sodium [Moles/Vol] 140 mmol/L Normal 136-145 [facility] Comment on above: Performed By: #### H FPF #### [facility] [address] [place] [address] Dr. Riddhi Nix Triglyceride [Mass/Vol] 62 mg/dL Normal <=[address] [facility] Comment on above: Performed By: #### H FPF #### [facility] [address] [place] [address] Dr. Riddhi Nix TSH 4.611 uIU/mL Critically high 0.358-3.740 [facility] Comment on above: Performed By: #### H FPF #### [facility] [address] [place] [address] Dr. Riddhi Nix Urea nitrogen [Mass/Vol] 15.0 mg/dL Normal 7.0-18.[address] [facility] Comment on above: Performed By: #### H FPF #### [facility] [address] [place] [address] Dr. Riddhi Nix Urea nitrogen/Creatinine [Mass ratio] 13.6 mg/mg Normal [facility] Comment on above: Performed By: #### H FPF #### [facility] [address] [place] [address] Dr. Riddhi Nix VLDL CALC 12.4 mg/dL Normal [facility] Comment on above: Performed By: #### H FPF #### [facility] [address] [place] [address] Dr. Riddhi Nix MRI BRAIN WO W [...] ALLI WEST Date: 2022-03-09 15:53 Normal [facility] T4 [facility]on 01-13-2022 T4 [Mass/Vol] 6.1 ug/dL Normal 4.5-12.0 [facility] Comment on above: Performed By: #### L ANTWON ZELAYA, CMP #### [facility] [address] [place] [address] Dr. Riddhi Nix CBC AUTO DIFFon 01-12-2022 BASO # 0.1 103/ul Normal 0.0-0.[address] [facility] Comment on above: Performed By: #### L NATHALIE ANTWON, CMP #### [facility] [address] [place] [address] Dr. Riddhi Nix Basophils/100 WBC (Bld) 1.2 % Normal 0.2-2.[address] [facility] Comment on above: Performed By: #### L IPA ANTWON, CMP #### [facility] [address] [place] [address] Dr. Riddhi Nix EO # 0.1 103/ul Normal 0.0-0.7 [facility] Comment on above: Performed By: #### L ANTWON ZELAYA, CMP #### [facility] [address] [place] [address] Dr. Riddhi Nix Eosinophils/100 WBC (Bld) 2.3 % Normal 0.9-7.0 [facility] Comment on above: Performed By: #### L ANTWON ZELAYA, CMP #### [facility] [address] [place] [address] Dr. Riddhi Nix Erythrocyte distribution width (RBC) [Ratio] 13.1 % Normal 11.0-15.0 [facility] Comment on above: Performed By: #### L ANTWON ZELAYA, CMP #### [facility] [address] [place] [address] Dr. Riddhi Nix Hematocrit (Bld) [Volume fraction] 42.4 % Normal 36.0-48.0 [facility] Comment on above: Performed By: #### L ANTWON ZELAYA, CMP #### [facility] [address] [place] [address] Dr. Riddhi Nix Hemoglobin (Bld) [Mass/Vol] 13.6 g/dL Normal 12.0-16.[address] [facility] Comment on above: Performed By: #### L ANTWON ZELAYA, CMP #### [facility] [address] [place] [address] Dr. Riddhi Nix IG # 0.01 10e3/ul Normal 0.00-0.03 [facility] Comment on above: Performed By: #### L ANTWON ZELAYA, CMP #### [facility] [address] [place] [address] Dr. Riddhi Nix IG % 0.2 % Normal 0.0-0.5 [facility] Comment on above: Performed By: #### L ANTWON ZELAYA, CMP #### [facility] [address] [place] [address] Dr. Riddhi Nix LYMPH # 1.3 103/ul Normal 1.2-3.8 [facility] Comment on above: Performed By: #### L ANTWON ZELAYA, CMP #### [facility] [address] [address] [address] Riddhi Nix Lymphocytes/100 WBC (Bld) 26.2 % Normal 20.5-60.[address] [facility] Comment on above: Performed By: #### L IPA, ANTWON, CMP #### [facility] [address] [address] [address] Riddhi Nix MANUAL DIFF REQ NO Normal [facility] Comment on above: Performed By: #### L IPA, ANTWON, CMP #### [facility] [address] [place] [address] Dr. Riddhi Nix MCH (RBC) [Entitic mass] 28.1 pg Normal 26.7-34.0 [facility] Comment on above: Performed By: #### L IPA ANTWON, CMP #### [facility] [address] [place] [address] Dr. Riddhi Nix MCHC (RBC) [Mass/Vol] 32.1 g/dL Normal 29.9-35.[address] [facility] Comment on above: Performed By: #### L IPA ANTWON, CMP #### [facility] [address] [place] [address] Dr. Riddhi Nix MCV (RBC) [Entitic vol] 87.6 fL Normal 81.0-99.[address] [facility] Comment on above: Performed By: #### L NATHALIE ANTWON, CMP #### [facility] [address] [place] [address] Dr. Riddhi Nix MONO # 0.4 103/ul Normal 0.3-0.8 [facility] Comment on above: Performed By: #### L IPA, ANTWON, CMP #### [facility] [address] [place] [address] Dr. Riddhi Nix Monocytes/100 WBC (Bld) 8.1 % Normal 1.7-12.[address] [facility] Comment on above: Performed By: #### L IPA, ANTWON, CMP #### [facility] [address] [place] [address] Dr. Riddhi Nix NEUT # 3.0 103/ul Normal 1.4-6.5 [facility] Comment on above: Performed By: #### L ANTWON ZELAYA, CMP #### [facility] [address] [place] [address] Dr. Riddhi Nix Neutrophils/100 WBC (Bld) 62.0 % Normal 43.0-75.[address] [facility] Comment on above: Performed By: #### L ANTWON ZELAYA, CMP #### [facility] [address] [place] [address] Dr. Riddhi Nix Platelet mean volume (Bld) [Entitic vol] 11.5 fL Normal 9.5-13.[address] [facility] Comment on above: Performed By: #### L ANTWON ZELAYA, CMP #### [facility] [address] [place] [address] Dr. Riddhi Nix PLT 231 103/ul Normal 150-[address] [facility] Comment on above: Performed By: #### L ANTWON EZLAYA, CMP #### [facility] [address] [place] [address] Dr. Riddhi Nix RBC 4.84 106/ul Normal 4.20-5.40 [facility] Comment on above: Performed By: #### L ANTWON ZELAYA, CMP #### [facility] [address] [place] [address] Dr. Riddhi Nix WBC 4.8 103/ul Normal 4.0-11.[address] [facility] Comment on above: Performed By: #### L ANTWON ZELAYA, CMP #### [facility] [address] [place] [address] Dr. Riddhi Nix FREE T3on 01-12-2022 FREE T3 2.73 pg/mlL Normal 2.18-3.98 [facility] Comment on above: Performed By: #### L ANTWON ZELAYA, CMP #### [facility] [address] [place] [address] Dr. Riddhi Nix TSHon 01-12-2022 TSH 1.528 uIU/mL Normal 0.358-3.740 [facility] Comment on above: Performed By: #### L ANTWON ZELAYA, CMP #### [facility] [address] [address] [address] Riddhi Nix TSH RANGE SEE BELOW Normal [facility] Comment on above: Result Comment: <0.3 4 UIU/ml HYPERTHYROID 0.34-5.60 UIU/ml EUTHYROID >5.60 UIU/ml HYPOTHYROID Performed By: #### L ANTWON ZELAYA CMP #### [facility] [address] [address] [address] Riddhi LOPEZOVon 12-13-2017 CNOV Office Visit (ENDOAL) CORY,D LATHA Angelo ([id number]) 1975 FDate Time Provider Department12/13/17 9:00 AM [...] ago. Also has hx of nodular goiter [id number]. FNA at that time was benign. Size stable Mother had hx of thyroidectomy(nodular goiter). She went for blood work prior to this visit- here to reviewthese results. Severity, modifying factors, context and associated signs andsymptoms are as follows:? Thyroid pain: no? Mass effect: None? Energy: ++ fatigue? Sleep: Normal sleep pattern? Temperature Intolerance: Cold Intolerance? 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 (shorter [...] physical exam is noncontributory.DATA:No components found for: [id number] T4Date Value Ref Range Gfrdnb2405/26/2016 1.4 0.7 - 1.8 ng/dL Final No components found for: GITHPV6CZFAwai Value Ref Range Csmfrc2905/26/2016 2.870 0.400 - 5.500 uU/mL FinalComment:If the patient is , TSH reference range varies by gestational period:First Trimester 0.1-2.5 uU/mLSecond Trimester 0.2-3.0 uU/mLThird Trimester 0.3-3.0 uU/mL Free T3Date Value Ref Range Htcbmh4905/26/2016 2.7 1.8 - 4.6 pg/mL Final No [...] 50% of the time devoted topatient counseling.[facility] Provider: SELF [200]Allergies As of Date: 12/13/2017 Noted Allergy ReactionIMITREX (SUMATRIPTAN) 07/12/2011 12 - Shortness of BreathDate Reviewed: 12/13/2017Reviewed by: Yvette Lynn Ma - Fully AssessedReason for Visit: Follow Up [171]Primary Visit Diagnosis:Multiple thyroid nodules [E04.2] Other Visit Diagnosis:Elevated TSH [R94.6]Order(s):CONSULT TO FUNCTIONAL MEDICINE [6049678] Order #: [id number]: 1 COMP METABOLIC PANEL [SQCMP] Order #: [id number] FUTURE TSH BLD [SQTSH] Order #: [id number] FUTURE T4 FREE/FREE THYROX [SQFT4] Order #: [id number] FUTURE THYROID PEROXIDASE ANTIBODY BLOOD [SQMICRO] Order #: [id number] FUTUREPrescriptions as of 12/13/2017 Sig: MULTIVITAMIN ORAL [...] to improve.Follow-up and Disposition History RecordedEncounter Number: [id number] Status:Closed by HARVEY VICTOR DO on 12/13/17 [facility] PROGRESSon 12-12-2017 PROGRESS HNO ID: [id number]: Harvey Victor LService: (none)Author Type: PhysicianType: Progress [...] Normal sleep pattern? Temperature Intolerance: Cold Intolerance? 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 [...] physical exam is noncontributory.DATA:No components found for: SKRENV6Nvrb T4Date Value Ref Range Wqriqe3905/26/2016 1.4 0.7 - 1.8 ng/dL Final No components found for: [id number] Value Ref Range Hkwusa4005/26/2016 2.870 0.400 - 5.500 uU/mL FinalComment:If the patient is , TSH reference range varies by gestationalperiod:First Trimester 0.1-2.5 uU/mLSecond Trimester 0.2-3.0 uU/mLThird Trimester 0.3-3.0 uU/mL Free T3Date Value Ref Range Gzzksu7205/26/2016 2.7 1.8 - 4.6 pg/mL Final No [...] time devotedto patient counseling.Harvey Victor, DO Normal [facility] Vital Signs Date Time Vital Sign Value Performing Clinician Facility 03-24-2025 21:42-0400 Body height 162.56 cm Isidoro Rojas MD Work Phone: [facility] 03-24-2025 21:42-0400 Body temperature 97.7 [degF] Isidoro Rojas MD Work Phone: [facility] 03-24-2025 21:42-0400 Body weight 71.9 kg Isidoro Rojas MD Work Phone: [facility] 03-24-2025 21:42-0400 Diastolic blood pressure 90 mm[Hg] Isidoro Rojas MD Work Phone: [facility] 03-24-2025 21:42-0400 Heart rate 88 /min Isidoro Rojas MD Work Phone: [facility] 03-24-2025 21:42-0400 Respiratory rate 16 /min Isidoro Rojas MD Work Phone: [facility] 03-24-2025 21:42-0400 SaO2% (BldA) [Mass fraction] 100 % Isidoro Rojas MD Work Phone: [facility] 03-24-2025 21:42-0400 Systolic blood pressure 139 mm[Hg] Isidoro Rojas MD Work Phone: [facility] 03-10-2025 12:07-0400 Body height 162.6 cm Karyn Rinkes DO Work Phone: [facility] 03-10-2025 12:07-0400 Body mass index (BMI) [Ratio] 26.95 kg/m2 Karyn Rinkes DO Work Phone: [facility] 03-10-2025 12:07-0400 Body weight 71.22 kg Karyn Rinkes DO Work Phone: [facility] 03-10-2025 12:07-0400 Diastolic blood pressure 84 mm[Hg] Karyn Rinkes DO Work Phone: [facility] 03-10-2025 12:07-0400 Systolic blood pressure 120 mm[Hg] Karyn Rinkes DO Work Phone: [facility] 04-03-2023 10:27-0400 Diastolic blood pressure 83 mm[Hg] MD Isidoro Rojas Work Phone: [facility] 04-03-2023 10:27-0400 Heart rate 75 /min MD Isidoro Rojas Work Phone: [facility] 04-03-2023 10:27-0400 Respiratory rate 16 /min MD Isidoro Rojas Work Phone: [facility] 04-03-2023 10:27-0400 SaO2% (BldA) [Mass fraction] 100 % MD Isidoro Rojas Work Phone: [facility] 04-03-2023 10:27-0400 Systolic blood pressure 126 mm[Hg] MD Isidoro Rojas Work Phone: [facility] 04-03-2023 09:52-0400 Body temperature 98.4 [degF] MD Isidoro Rojas Work Phone: [facility] 04-03-2023 09:22-0400 Inhaled oxygen flow rate 8 L/min MD Isidoro Rojas Work Phone: [facility] 04-03-2023 08:28-0400 Body height 162.56 cm MD Isidoro Rojas Work Phone: [facility] 04-03-2023 08:28-0400 Body mass index (BMI) [Ratio] 28.4 kg/m2 MD Isidoro Rojas Work Phone: [facility] 04-03-2023 08:28-0400 Body weight 75.2 kg MD Isidoro Rojas Work Phone: [facility] 03-09-2023 11:00-0400 Body temperature 98.4 [degF] MD Isidoro Rojas Work Phone: [facility] 03-09-2023 11:00-0400 Diastolic blood pressure 85 mm[Hg] MD Isidoro Rojas Work Phone: [facility] 03-09-2023 11:00-0400 Heart rate 85 /min MD Isdioro Rojas Work Phone: [facility] 03-09-2023 11:00-0400 Respiratory rate 20 /min MD Isidoro Rojas Work Phone: [facility] 03-09-2023 11:00-0400 SaO2% (BldA) [Mass fraction] 98 % MD Isidoro Rojas Work Phone: [facility] 03-09-2023 11:00-0400 Systolic blood pressure 127 mm[Hg] MD Isidoro Rojas Work Phone: [facility] Encounters Encounter Date Encounter Type Care Provider Facility Start: 03-24-2025 End: 03-24-2025 Emergency department patient visit Isidoro Rojas MD Work Phone: -Emergency Room Work Phone: Start: 03-10-2025 End: 03-10-2025 Bamboo flowsheet Karyn Luis Carlos Limkes DO Work Phone: [facility] [place] Start: 03-10-2025 End: 03-10-2025 Bamboo flowsheet Karyn Luis Carlos Limkes DO Work Phone: [facility] [place] Start: 03-10-2025 End: 03-10-2025 Patient encounter status Karyn Luis Carlos Limkes DO Work Phone: [facility] Start: 03-10-2025 End: 03-10-2025 Periodic preventive med est patient 40-64yrs Karyn Luis Carlos Limkes DO Work Phone: [facility] [place] Comment on above: Encounter for gyneco logical examination without abnormal finding; Encounter for screening for malignant neoplasm of vagina; Encounter for screening mammogram for breast cancer Start: 03-10-2025 End: 03-10-2025 ambulatory KARYN JOHNSON Not Available Start: 02-25-2025 End: 02-25-2025 Patient encounter procedure [facility] Work Phone: Start: 02-25-2025 End: 02-25-2025 ambulatory Isidoro Rojas MD Work Phone: [facility] Work Phone: Start: 02-25-2024 End: 02-25-2024 ambulatory MD Isidoro Rojas Work Phone: [facility] Work Phone: Start: 02-25-2024 End: 02-25-2024 Patient encounter procedure MD Isidoro Rojas Work Phone: [facility] Work Phone: Start: 09-24-2023 End: 09-24-2023 ambulatory MD Isidoro Rojas Work Phone: [facility] Work Phone: Start: 09-24-2023 End: 09-24-2023 Patient encounter procedure [facility] Start: 04-03-2023 End: 04-03-2023 Admission to same day surgery center MD Isidoro Rojas Work Phone: [facility] [place] Start: 04-03-2023 End: 04-03-2023 ambulatory MD Isidoro Rojas Work Phone: [facility] Work Phone: Start: 03-21-2023 End: 03-21-2023 ambulatory MD Isidoro Rojas Work Phone: [facility] Work Phone: Start: 03-21-2023 End: 03-21-2023 Patient encounter procedure MD Isidoro Rojas Work Phone: [facility] Work Phone: Start: 03-15-2023 End: 03-15-2023 ambulatory MD Isidoro Rojas Work Phone: [facility] Work Phone: Start: 03-15-2023 End: 03-15-2023 Patient encounter procedure MD Isidoro Rojas Work Phone: [facility] Work Phone: Start: 03-09-2023 End: 03-09-2023 Admission to same day surgery center MD Isidoro Rojas Work Phone: [facility] Work Phone: Start: 03-01-2023 End: 03-01-2023 ambulatory MD Isidoro Rojas Work Phone: [facility] Work Phone: Start: 03-01-2023 End: 03-01-2023 Patient encounter procedure MD Isidoro Rojas Work Phone: [facility] Work Phone: Start: 02-28-2023 End: 02-28-2023 Patient encounter procedure MD Isidoro Rojas Work Phone: [facility] Work Phone: Start: 02-23-2023 End: 02-23-2023 ambulatory MD Isidoro Rojas Work Phone: [facility] Work Phone: Start: 02-23-2023 End: 02-23-2023 Patient encounter procedure MD Isidoro Rojas Work Phone: [facility] Work Phone: Start: 01-25-2023 End: 01-26-2023 ambulatory ANANT BRANDON [place] Start: 01-25-2023 End: 01-25-2023 Patient encounter procedure ANANT BRANDON [facility] Start: 11-23-2022 End: 11-24-[address] [...] Start: 12-13-2017 End: 12-13-2017 Ambulatory HARVEY VICTOR [facility] Procedures Date Procedure Procedure Detail Performing [...] request of Phys. EHR Cmte Hysterectomy ANANT LUABIN Jaw sx ANANTJAVAN BRANDON Plan of Treatment Date Care Activity Detail Author Start: 03-05-2029 Screening for malign ant neoplasm of cervix [facility] Start: 03-17-2026 End: 03-17-2026 Patient encounter procedure 03/17/2026 1:45 PM EDT Office [place] [address] [place] [phone] Karyn Johnson, DO [address] [place] [address] [place] Start: 03-10-2026 End: 05-10-2026 DBT Breast - bilateral screening Bilateral screening mammogram with tomosynthesis Imaging Routine Encounter for screening mammogram for breast cancer Expected: 03/10/2026, Expires: 05/10/2026 [facility] Comment on above: Expected: 03/10/2026 , Expires: 05/10/2026 Start: 02-25-2026 Screening for malign ant neoplasm of breast Mammogram [facility] Start: 02-21-2026 Screening for malign ant neoplasm of cervix Pap Smear [facility] Start: 04-06-2025 Influenza vaccination Influenza Vacc ine (#1) [facility] Start: 03-24-2025 Hepatic function panel [facility] Start: 03-24-2025 [facility] Start: 03-10-2025 End: 03-10-2025 Patient encounter procedure 03/10/2025 11:45 AM EDT Office Visit [place] [address] [place] [phone] Karyn Johnson, DO [address] [place] [address] Encounter for gynecological examination without abnormal finding; Encounter for screening for malignant neoplasm of vagina; Encounter for screening mammogram for breast cancer [facility] Comment on above: Encounter for gyneco logical examination without abnormal finding; Encounter for screening for malignant neoplasm of vagina; Encounter for screening mammogram for breast cancer Start: 04-03-2023 End: 04-03-2023 [facility] Start: 04-03-2023 Mammography of right breast specimen MM surgical specimen RT [facility] Start: 04-03-2023 MG Breast specimen - right Views [facility] Start: 1975 Screening for malign ant neoplasm of colon [facility] Albumin/Globulin ratio [facility] Anion gap measurement [facility] Basophils [#/volume] in Blood by Automated count [facility] Basophils/100 leukoc ytes in Blood by Automated count [facility] Bilirubin.indirect [Mass/volume] in Serum or Plasma [facility] Eosinophils/100 leukocytes in Blood by Automated count [facility] Erythrocyte distribu tion width [Ratio] by Automated count [facility] Erythrocytes [#/volu me] in Blood [facility] Globulin [Mass/volum e] in Serum [facility] Glomerular filtratio n rate [Volume Rate/Area] in Serum, Plasma or Blood by Creatinine [facility] Hematocrit [Volume Fraction] of Blood [facility] Hemoglobin [Mass/vol ume] in Blood [facility] IGP, RFX APTIMA HPV ASCU IGP, RF X APTIMA HPV ASCU Lab Routine Encounter for screening for malignant neoplasm of vagina Ordered: 03/10/2025 [facility] Work Phone: Comment on above: Ordered: 03/10/2025 Leukocytes [#/volume ] corrected for nucleated erythrocytes in Blood by Automated coun [facility] Leukocytes [#/volume ] in Blood [facility] Lymphocytes [#/volum e] in Blood by Automated count [facility] Lymphocytes/100 leukocytes in Blood by Automated count [facility] MCH [Entitic mass] b y Automated count [facility] MCHC [Mass/volume] b y Automated count [facility] MCV [Entitic volume] by Automated count [facility] Monocytes [#/volume] in Blood by Automated count [facility] Monocytes/100 leukoc ytes in Blood by Automated count [facility] Neutrophils [#/volum e] in Blood by Automated count [facility] Neutrophils/100 leukocytes in Blood by Automated count [facility] Nucleated erythrocyt es [Presence] in Blood by Automated count [facility] Patient referral [facility] Work Phone: Platelet mean volume [Entitic volume] in Blood by Automated count [facility] Platelets [#/volume] in Blood [facility] Immunizations Immunization Date Immunization Notes Care Provider Fa [facility] 06-03-2024 influenza virus vaccine, unspecified formulation Karyn Johnson DO Work Phone: [facility] 08-26-2021 COVID-19 mRNA Comirnatkerry (Pfizer) MD Isidoro Rojas Work Phone: [facility] 05-15-2021 Seasonal, quadrivale nt, recombinant, injectable influenza vaccine, preservative free Karyn Johnson DO Work Phone: [facility] 10-08-2020 COVID-19 mRNA Comirnatkerry (Pfizer) MD Isidoro Rojas Work Phone: [facility] 10-07-2020 Pfizer Purple Cap SARS-CoV-2 Vaccination Karyn Rinsenthil DO Work Phone: [facility] 09-17-2020 COVID-19 mRNA Comirnatkerry (Pfizer) MD Isidoro Rojas Work Phone: [facility] 09-16-2020 Pfizer Purple Cap SARS-CoV-2 Vaccination Karyn Johnson DO Work Phone: [facility] 08-25-2020 Moderna SARS-CoV-2 Vaccination Karyn Rinsenthil DO Work Phone: [facility] Payers Date Payer Category Payer Self-pay [id number] 2023 Private Health Insurance [employer] [id number] 1975 Unknown [id number] [id number] 1975 Unknown [id number] [id number]. 593 1975 Unknown [id number] [id number]. 593 1975 Unknown [id number] [id number]. 593 1975 Unknown [id number] [id number]. 593 1975 Unknown [id number] [id number]. 727 1975 Unknown [id number] [id number]. 1259 1958 Self-pay [id number] 1958 Unknown [id number] Medicaid [id number] Unknown [id number] [id number]. 593 Unknown [id number] 531 Unknown [id number]. 531 Social History Date Type Detail Facility Tobacco smoking status [facility] Start: 03-13-2024 Sex Assigned At Female F [facility] Start: 10-09-2018 End: 03-24-2025 Tobacco smoking status NHIS Never smoked tobacco (finding) [facility] Start: 1975 Sex Assigned At Female F [facility] Sex Female (finding) [facility] Start: 03-18-2023 Tobacco use and exposure Smokeless tobacco non-user [facility] Start: 03-04-2025 End: 03-10-2025 Alcoholic beverage intake Lifetime non-drinker (finding) [facility] Start: 03-13-2024 History of Social function [facility] Start: 1975 Sex assigned at Not on file [facility] Goals Date Patient Goal Desired Activity /State History of Present illness Narrative 03-10-2025 Karyn Johnson, - 03/10/2025 11:45 AM EDT Note Date [...] smear 03/05/24 wnl Mammogram 02/25/25 wnl @ [facility] [place] Review of Systems - General: Chills denies. [...] Review Audit Reviewed by Liz Reyes MA (Phlebotomy Director) on 03/10/25 at 1205 Medication Order Taking? Sig Documenting Provider Last Dose Status Discontinued 03/10/25 1205 ktczcloevh-ivyfuuisflpud-yeicgbzu (Esgic) 50-325-40 MG capsule [id number] No TAKE 1 CAPSULE BY MOUTH EVERY 6 HOURS NEEDED Bryson Seals DO Taking Active Cytomel 5 MCG tablet [id number] No 1 (one) time each day at the same time. Historical Provider, Taking Active diphenhydrAMINE (BENADryl) 25 MG tablet [id number] No Take by mouth. Historical Provider, Taking Active ibuprofen 600 MG tablet [id number] No EVERY 4-6 HOURS Bryson Seals DO Taking Active Relpax 40 MG tablet [id number] No 1 (one) time each day at the same time Bryson Seals DO Taking Active Restasis 0.05 % ophthalmic emulsion [id number] No Historical Provider, Taking Active Synthroid 75 MCG tablet [id number] No Historical Provider, Taking Active Trokendi XR 200 MG capsule sustained-release 24 hr [id number] No Omar Castro DPM FACADALI Taking Active Viberzi 100 MG tablet [id number] No every 12 (twelve) hours. 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18 so my mouth does not open very far Hypothyroid Irritable bowel syndrome with both constipation and diarrhea Migraines PONV (postoperative nausea and vomiting) Retained placenta ([facility]) Past Surgical History: Procedure Laterality Date [...] breast cancer Z12.31 documented in this encounter [facility] Evaluation + Plan note 01-25-2023 Note Date & Type Note Facility 01-25-2023 Evaluation + Plan note Diagnostic Tests PendingT3 Free 01/25/23 [facility] Evaluation note Note Date & Type Note Facility Evaluation note No assessment information [facility] [facility] Work Phone: Evaluation note Note Date & Type Note Facility Evaluation note Diagnosis Onset Date Breast mass, right acute Breast mass, right acute [facility] Work Phone: Evaluation note Note Date & Type Note Facility Evaluation note Diagnosis Encounter for gynecological examination without abnormal finding Encounter for screening for malignant neoplasm of vagina Encounter for screening mammogram for breast cancer documented in this encounter [facility] Hospital course Narrative Note Date & Type Note Facility Hospital course Narrative No data available for this section [facility] Discharge instructions Note Date & Type Note [facility] Discharge instructions No data available for this section [facility] Discharge instructions Note Date & Type Note [facility] Discharge instructions Additional Instructions [...] for pain unless a prescription was provided. [facility] Work Phone: Progress note Note Date & Type Note Facility Progress note No data available for this section [facility] Reason for referral (narrative) Note Date & Type Note Facility Reason for referral (narrative) No reason for referral information available [facility] Work Phone: Summary Purpose Family History No [...] Chief Complaint N63.11 Chief Complaint Admit Date Z.February 25, 2025 11:0 2am Chief Complaint Admit Date .February 25, 2025 11:0 2am Upper abd pain March 24, 2025 9: 18pm Additional Source Comments INFORMATION SOURCE (unrecogn ized section and content) DATE CREATED AUTHOR 01/23/2018 [facility] DATE CREATED AUTHOR AUTHOR'S ORGANIZ ATION 11/27/2022 [facility] DATE CREATED AUTHOR AUTHOR'S ORGANIZ ATION 01/27/2023 [facility] DATE CREATED AUTHOR AUTHOR'S ORGANIZ ATION 03/13/2025 [facility] DATE CREATED AUTHOR AUTHOR'S ORGANIZ ATION 04/20/2025 [facility] Patient Care team informatio n [...] February 25, 2025 End: February 25, 2025 Astronautical Engineer Relationship Specialty Start Date End Date Isidoro Rojas MD PCP - General Family Medicine 02/21/23 Astronautical Engineer Relationship Specialty Start Date End Date Isidoro [...] BE BASED ON THE PRIMARY CLINICAL RECORDS. [facility] [employer] [facility]. provides no warranty or guarantee of the accuracy or completeness of information in this document.
--- OUTSIDE RECORDS SUMMARY | 2025-04-22 11:29 | XMS_ITS | Encounter Summary ---
Author Organization [facility] Address [address] [place] [address] Care Team Providers Care Billing Customer Service Representative Name Role Phone Harish Rojas MD Primary Care Provider [phone] Encounter Details Date Type Department Care Team ([facility] Contact Info) Description 03/15/2023 Abstract [facility] [address] [facility] [address] [place] [address] Bryson Seals, DO [address] [facility] [address] [place] [address] Social History Tobacco Use Types [...] Office Visit [place] [address] [place] [address] Karyn Johnson DO [address] [place] [address] documented as of this encounter Visit Diagnoses Not on filedocumented in this encounter Care Teams Billing Customer Service Representative Relationship Specialty Start Date End Date Harish Rojas MD PCP - General Family Medicine 02/21/23 documented as of this encounter
--- OUTSIDE RECORDS SUMMARY | 2025-04-22 11:29 | XMS_ITS | Encounter Summary ---
Author Organization [facility] Address [address] [place] [address] Care Team Providers Care Third Cook Name Role Phone Harish Rojas MD Primary Care Provider [phone] Encounter Details Date Type Department Care Team ([facility] Contact Info) Description 03/12/2023 Abstract [facility] [address] [facility] [address] [place] [address] Bryson Seals, DO [address] [facility] [address] [place] [address] Social History Tobacco Use Types [...] EDT Office Visit [place] [address] [place] [address] Karyn Johnson DO [address] [place] [address] documented as of this encounter Visit Diagnoses Not on filedocumented in this encounter Care Teams Third Cook Relationship Specialty Start Date End Date Harish Rojas MD PCP - General Family Medicine 02/21/23 documented as of this encounter
--- OUTSIDE RECORDS SUMMARY | 2025-04-22 11:29 | XMS_ITS | Encounter Summary ---
Author Organization [facility] Address [address] [place] [address] Care Team Providers Care Oilfield Plant And Field Operator Name Role Phone Harish Rojas MD Primary Care Provider [phone] Encounter Details Date Type Department Care Team (Late Contact Info) Description 03/09/2023 Abstract [facility] [address] [facility] [address] [place] [address] Bryson Seals DO [address] [facility] [address] [place] [address] Social History Tobacco Use Types [...] [place] [address] [facility] [address] [place] [address] Karyn Johnson DO [address] [facility] [address] [place] [address] documented as of this encounter Visit Diagnoses Not on filedocumented in this encounter Care Teams Oilfield Plant And Field Operator Relationship Specialty Start Date End Date Harish Rojas MD PCP - General Family Medicine 7/19/23 documented as of this encounter
--- OUTSIDE RECORDS SUMMARY | 2025-04-22 11:29 | XMS_ITS | Encounter Summary ---
Author Organization [facility] Address [address] [place] [address] Care Team Providers Care Utility Bill Collector Name Role Phone Harish Rojas MD Primary Care Provider [phone] Encounter Details Date Type Department Care Team (Late st Contact Info) Description 03/09/2023 External Result Encounter [facility] External Department Unsolicited Bryson Seals, DO [address] [facility] [address] [place] [address] Social History Tobacco Use Types Packs/Day Years [...] EDT Office Visit [place] [address] [place] [id number] Karyn Johnson, [address] [place] [address] documented as of this encounter Procedures Procedure [...] Florence Small Jr..OJessica03/09/2023 11:51 AM Dictation Location: [facility] Transcribed By: [facility] 03/09/23 1151 Dictated By: Yogesh Stroud Jr, DO 03/09/23 1148 Signed By: <Electronically signed by Yogesh Stroud Jr, DO in OV> 03/09/23 1151 Narrative 03/20/2023 4:48 PM EDT [facility] [place] [address] [place] [address] Mammography Report Signed with Addenda Patient: Mary Granados MR#: [id number] : 1975 Acct:[id number] Age/Sex: 47 / F ADM Date: 03/09/23 Loc: [place] Room: Type: [facility] Attending Dr: Bryson Seals DO Copies to: MD Bryson Cuevas DO Ordering Provider: Bryson Seals DO Date of Service: 03/09/23 MM/MM biopsy RT vac assist stereo: RT BREAST ASYMMETRY ([id number]) MM/MM post biopsy RT w/CAD: POST BX [...] Stroud Jr. D.O.03/14/2023 3:19 PM Dictation Location: [place] [address] Addendum Dictated By: Yogesh Stroud Jr, DO [...] and local anesthetization with lidocaine, an 9-gauge Bettyvision vacuum assisted core biopsy needle was advanced [...] w/CAD Procedure Note Radiology, Radiologist, - 03/20/2023 [facility] [place] [address] Mammography Report Signed with Addenda Patient: Mary Granados CMR#: [id number] : 1975Acct:[id number] Age/Sex: 47 / FADM Date: 03/09/23 Loc: [place] Room:Type: [facility] Attending Dr: Bryson Seals DO Copies to: MD Bryson Cuevas DO Ordering Provider: Bryson Seals DO Date of Service: 03/09/23 MM/MM biopsy RT vac assist stereo: RT BREASTASYMMETRY ([id number]) MM/MM post biopsy RT w/CAD: POST BX [...] Paradise Small Jr.OJessica03/14/2023 3:19 PM Dictation Location: [place] [address] Addendum Dictated By: Yogesh Stroud Jr, DO [...] preparation and local anesthetizationwith lidocaine, an 9-gauge Bettyvision vacuum assisted core biopsy needle was advanced [...] Florence Small Jr..Marino03/09/2023 11:51 AM Dictation Location: [facility] Transcribed By: NEGAR 03/09/23 1151 Dictated By: Yogesh Stroud Jr, DO 03/09/23 1148 Signed By: <Electronically signed by Yogesh Stroud Jr, DO inOV> 03/09/23 1151 Bryson Seals DO IMG BI PROCEDURES Edited Result - Final documented in this encounter Visit Diagnoses Not on filedocumented in this encounter Care Teams Utility Bill Collector Relationship Specialty Start Date End Date Harish Rojas MD PCP - General Family Medicine 02/21/23 documented as of this encounter
[2025-04-22 12:49] LABS: Alanine Aminotransferase 15 U/L (14-59); Albumin Globulin Ratio 1.1; Albumin Level 3.8 g/dL (3.4-5.0); Alkaline Phosphatase 66 U/L (46-116); Anion Gap 12.3; Aspartate Amino Transferase 13 U/L (15-37); Blood Urea Nitrogen 14.0 mg/dL (7.0-18.0); Calcium 8.6 mg/dL (8.5-10.1); Carbon Dioxide 23.0 mmol/L (21.0-32.0); Chloride 108 mmol/L (98-107); Estimated GFR (African America >60 (>=60 mL/min/1.73m^2); Estimated GFR (Non-African Ame 60 (>=60 mL/min/1.73m^2); Free T3 3.12 pg/mL (2.18-3.98); Globulin 3.5 g/dL; Glucose 118 mg/dL (74-106); Potassium 4.3 mmol/L (3.5-5.1); Sodium 139 mmol/L (136-145); Thyroid Stimulating Hormone 0.017 uIU/mL (0.358-3.740); Total Protein 7.3 g/dL (6.4-8.2)
== END 2025-04-22 11:23 | disposition home or self-care (01) ==
LOC: LAB 11:22
PROVIDERS: PCP Family Medicine; Visit Provider Family Medicine
DX: I10 Essential (primary) hypertension (principal); R53.83 Other fatigue
CPT/HCPCS: 36415; 80053; 84436; 84443; 84481

== ENCOUNTER 2025-05-06 08:58 | Outpatient (OUT) | payer OTHER, SELFPAY ==
--- OUTSIDE RECORDS SUMMARY | 2025-04-29 04:12 | XMS_ITS ---
Author Name Auto Generated Organization [facility] Care Team Providers Care Healthcare Advisory Services Manager Name Role Phone Harvey Simeon. Attending Unavailable Harvey Simeon Attending Unavailable KARYN JOHNSON Attending Unavailable Karyn Johnson Attending Unavailable Harish Rojas Primary Care Unavailable Karyn Johnson Admitting Unavailable Harish Rojas Primary Care Unavailable Aram Varela Admitting Unavailable Aram Varela Attending Unavailable PROBLEMS DATE TYPE CONDITION / CODE ATTENDING STATUS [facility] 03/24/2025 Unknown Upper abdominal pain, unspecified / R10.10(ICD-10) Aram Varela [facility] 02/25/2025 Unknown Encounter for screening mammogram for malignant neoplasm of breast / Z12.31(ICD-10) Karyn Johnson [facility] PROCEDURES No Procedure Records Found RESULTS ED PATIENT EDUCATION NOTE Observed: 04/07 5:40 AM Status: C Source: [facility] ED Patient Education Note Caregiving Antibiotic Medicine, Adult Antibiotic medicines are used to treat infections caused by bacteria. These medicines do not work for illnesses caused by viruses. Antibiotics work by killing the bacteria that are making you sick, but they can also have serious side effects. Antibiotics must be used safely and only when needed. When do I need to take antibiotics? You may need antibiotics for: ??? A urinary tract infection (UTI). ??? Strep throat. ??? Bacterial sinus infection. ??? Meningitis. ??? Serious lung infections. Your health care provider may start you on antibiotics while you are waiting for test results. Tests may include a culture of the throat, urine, blood, or mucus. Your health care provider may change or stop your antibiotic depending on your test results. When are antibiotics not needed? You do not need antibiotics for most common illnesses. These illnesses may be caused by a virus, not by bacteria. You do not need antibiotics for: ??? The common cold. ??? The flu (influenza). ??? Sore throat. ??? Discolored mucus. ??? Bronchitis. Antibiotics are not always needed for all infections caused by bacteria. Many of these infections clear up on their own. Do not take antibiotics when they are not needed. How long should I take my antibiotic? You must take the entire amount prescribed to you. Take your antibiotics as told by your health care provider. Do not stop taking your antibiotics even if you start to feel better. If you stop taking them too soon: ??? You may feel sick again. ??? Your infection may get harder to treat. Each course of antibiotics needs a different length of time to work. The length of time may vary from a few days to a few weeks. What if I miss a dose? Try not to miss any doses of medicine. If you miss a dose, call your health care provider or pharmacist for help. Sometimes, it is okay to take the missed dose as soon as possible. Do not take double or extra doses. What are the risks of taking antibiotics? Antibiotics can cause: ??? Allergic reactions. ??? Nausea. ??? Yeast infections. ??? Liver problems. Antibiotics can also cause an infection called Clostridioides difficile (C. difficile or C. diff), which causes severe diarrhea. This infection happens when the antibiotics kill the healthy bacteria in your intestines. This allows C. diff to grow. C. diff needs to be treated right away. Let your health care provider know if: ??? You have diarrhea while taking an antibiotic. ??? You have diarrhea after you stop taking an antibiotic. C. diff infection can start weeks after stopping the antibiotic. Taking an antibiotic also puts you at risk for getting sick in the future with bacteria that do not respond to medicine (antibiotic-resistant infection). Antibiotics can cause bacteria to change so that if the antibiotic is taken again, the medicine cannot kill the bacteria. These infections can be more serious because they are hard, or sometimes impossible, to treat. Do antibiotics affect control? control pills may not work while you are taking antibiotics. If you are taking control pills: ??? Keep taking them as usual. ??? Use a second form of control, such as a condom, to avoid unwanted . Do this for as long as told by your health care provider. What else should I know about taking antibiotics? Take antibiotics exactly as told. ??? Take the correct amount of medicine at the same time each day. ??? Ask your health care provider: ? How long to wait between doses. ? If you should take your antibiotic with food or water. ? If you should avoid certain foods, drinks, or medicines while taking your antibiotics. ? If you need to watch for any side effects. ??? Use only the antibiotics prescribed to you by your health care provider. Do not use antibiotics prescribed for someone else. ??? Drink a large glass of water when taking your antibiotics unless told otherwise. Drink enough fluid to keep your urine pale yellow. ??? Ask your pharmacist for a dosage syringe, cup, or spoon that correctly measures your antibiotics. ??? Ask your pharmacist or health care provider how to safely get rid of leftover medicine. Follow these instructions at home: ??? Take your antibiotics as told by your health care provider. Do not stop taking your antibiotics even if you start to feel better. ??? Return to your normal activities as told by your health care provider. Ask your health care provider what activities are safe for you. Contact a health care provider if: ??? Your symptoms get worse. ??? You have new joint pain or muscle aches that begin after starting your antibiotic. ??? You have side effects from your antibiotic, such as: ? Stomach pain. ? Diarrhea. ? Nausea. ? White patches in your mouth or throat. Get help right away if: ??? You have signs of a severe allergic reaction to antibiotics. If you have any of these signs, stop taking the antibiotic right away. Signs may include: ? Raised, itchy, red bumps on your skin (hives). ? Skin rash. ? Trouble breathing. ? High-pitched whistling sounds when you breathe, most often when you breathe out (wheezing). ? Swelling anywhere on your body. ? Feeling dizzy. ? Vomiting. ??? You have signs of liver problems, such as: ? Dark or blood-colored urine. ? Yellow color to your skin. ? Bruising or bleeding easily. ??? You have severe diarrhea, bloody diarrhea, or stomach cramps. ??? You have a severe headache. These symptoms may be an emergency. Get help right away. Call 911. ??? Do not wait to see if the symptoms will go away. ??? Do not drive yourself to the hospital. This information is not intended to replace advice given to you by your health care provider. Make sure you discuss any questions you have with your health care provider. Document Revised: 02/20/2023 Document Reviewed: 02/20/2023 [employer] Patient Education ? 2023 [employer]Obstetrics and Gynecology Urinary Tract Infection, Adult A urinary tract infection (UTI) is an infection of any part of the urinary tract. The urinary tract includes the kidneys, ureters, bladder, and urethra. These organs make, store, and get rid of urine in the body. An upper UTI affects the ureters and kidneys. A lower UTI affects the bladder and urethra. What are the causes? Most urinary tract infections are caused by bacteria in your genital area around your urethra, where urine leaves your body. These bacteria grow and cause inflammation of your urinary tract. What increases the risk? You are more likely to develop this condition if: ??? You have a urinary catheter that stays in place. ??? You are not able to control when you urinate or have a bowel movement (incontinence). ??? You are female and you: ? Use a spermicide or diaphragm for control. ? Have low estrogen levels. ? Are . ??? You have certain genes that increase your risk. ??? You are sexually active. ??? You take antibiotic medicines. ??? You have a condition that causes your flow of urine to slow down, such as: ? An enlarged prostate, if you are male. ? Blockage in your urethra. ? A kidney stone. ? A nerve condition that affects your bladder control (neurogenic bladder). ? Not getting enough to drink, or not urinating often. ??? You have certain medical conditions, such as: ? Diabetes. ? A weak disease-fighting system (immunesystem). ? Sickle cell disease. ? Gout. ? Spinal cord injury. What are the signs or symptoms? Symptoms of this condition include: ??? Needing to urinate right away (urgency). ??? Frequent urination. This may include small amounts of urine each time you urinate. ??? Pain or burning with urination. ??? Blood in the urine. ??? Urine that smells bad or unusual. ??? Trouble urinating. ??? Cloudy urine. ??? Vaginal discharge, if you are female. ??? Pain in the abdomen or the lower back. You may also have: ??? Vomiting or a decreased appetite. ??? Confusion. ??? Irritability or tiredness. ??? A fever or chills. ??? Diarrhea. The first symptom in older adults may be confusion. In some cases, they may not have any symptoms until the infection has worsened. How is this diagnosed? This condition is diagnosed based on your medical history and a physical exam. You may also have other tests, including: ??? Urine tests. ??? Blood tests. ??? Tests for STIs (sexually transmitted infections). If you have had more than one UTI, a cystoscopy or imaging studies may be done to determine the cause of the infections. How is this treated? Treatment for this condition includes: ??? Antibiotic medicine. ??? Prni-rci-jyonclu medicines to treat discomfort. ??? Drinking enough water to stay hydrated. If you have frequent infections or have other conditions such as a kidney stone, you may need to see a health care provider who specializes in the urinary tract (urologist). In rare cases, urinary tract infections can cause sepsis. Sepsis is a life-threatening condition that occurs when the body responds to an infection. Sepsis is treated in the hospital with IV antibiotics, fluids, and other medicines. Follow these instructions at home: Medicines ??? Take maix-hlr-pjsecbw and prescription medicines only as told by your health care provider. ??? If you were prescribed an antibiotic medicine, take it as told by your health care provider. Do not stop using the antibiotic even if you start to feel better. General instructions ??? Make sure you: ? Empty your bladder often and completely. Do not hold urine for long periods of time. ? Empty your bladder after sex. ? Wipe from front to back after urinating or having a bowel movement if you are female. Use each tissue only one time when you wipe. ??? Drink enough fluid to keep your urine pale yellow. ??? Keep all follow-up visits. This is important. Contact a health care provider if: ??? Your symptoms do not get better after 1?2 days. ??? Your symptoms go away and then return. Get help right away if: ??? You have severe pain in your back or your lower abdomen. ??? You have a fever or chills. ??? You have nausea or vomiting. Summary ??? A urinary tract infection (UTI) is an infection of any part of the urinary tract, which includes the kidneys, ureters, bladder, and urethra. ??? Most urinary tract infections are caused by bacteria in your genital area. ??? Treatment for this condition often includes antibiotic medicines. ??? If you were prescribed an antibiotic medicine, take it as told by your health care provider. Do not stop using the antibiotic even if you start to feel better. ??? Keep all follow-up visits. This is important. This information is not intended to replace advice given to you by your health care provider. Make sure you discuss any questions you have with your health care provider. Document Revised: 02/27/2021 Document Reviewed: 03/04/2021 [employer] Patient Education ? 2023 [employer] ED PATIENT SUMMARY Observed: 04/29/2025 5:40 AM Status: C Source: [facility] ED Patient Summary [place] [id number] Patient Discharge Instructions Person Information Name: MARY GRANADOS Age: 49 Years Arrival Date: 04/29/2025 04:12:48 Discharge Diagnosis: Acute lower UTI Primary Care Physician: Harish Rojas MD Provider Information Primary Provider: Harvey Simeon DO Advanced Auxiliary Powerplant Operator:None The exam and treatment you received in the Emergency Department were for an urgent problem and are not intended as complete care. It is important that you follow up with a doctor, nurse practitioner, or physician???s hospital administrative assistant for ongoing care. If your symptoms become worse or you do not improve as expected and you are unable to reach your usual health care provider, you should return to the Emergency Department. We are available 24 hours a day. MARY GRANADOS has been given the following list of patient education materials, prescriptions and follow-up instructions: Follow-up Instructions: With: Address: When: Harish Rojas [facility], [address] [place] [phone] Business (1) In 3 days 05/02/2025 Comments: Call the office of your primary care doctor to arrange for follow-up within the above-stated timeframe. Follow-up with your primary care doctor about this ED visit. You should review your labs, imaging, and diagnoses from this ED visit with your primary care physician. There are occasionally non-emergent findings that require additional follow-up after your ED visit. If you were prescribed medications you should discuss possible side-effects and drug interactions with your pharmacist. Call 911 or go to the nearest Emergency Department if you develop any new or worsening symptoms. Seek immediate medical attention if you develop: worsening abdominal pain, new or worsening nausea, new or worsening vomiting, new or worsening diarrhea, chest pain, shortness of breath, pain with urination, problems urinating, fever, chills, weakness, or any new or worsening symptoms. In the event that this physician does not participate in your insurance network, please consult with your insurance company to find a nearby participating provider. Patient Education Materials: Urinary Tract Infection, Adult; Antibiotic Medicine, Adult A MESSAGE TO ALL PATIENTS REGARDING OPIOIDS PRESCRIPTION OPIOIDS: WHAT YOU NEED TO KNOW Prescription opioids can be used to help relieve zivtffdg-jg-yntond pain and are often prescribed following a surgery or injury, or for certain health conditions. These medications can be an important part of the treatment but also come with serious risks. It is important to work with your healthcare provider to make sure you are getting the safest, most effective care. WHAT ARE THE RISKS AND SIDE EFFECTS OF OPIOID USE? Prescription opioids carry serious risks of addiction and overdose, especially with prolonged use. An opioid overdose, often marked by slowed breathing, can cause sudden . The use of prescription opioids can have a number of side effects as well, even when taken as directed: ??? Tolerance???meaning you might need to take more of the medication for the same pain relief ??? Physical dependence???meaning you have symptoms of withdrawal when a medication is stopped ??? Increased sensitivity to pain ??? Constipation ??? Nausea, vomiting, and dry mouth ??? Sleepiness and dizziness ??? Confusion ??? Depression ??? Low levels of testosterone that can result in lower sex drive, energy, and strength ??? Itching and sweating RISKS ARE GREATER WITH: ??? History of drug misuse, substance use disorder, or overdose ??? Mental health conditions (such as depression or anxiety) ??? Sleep apnea ??? Older age (65 years and older) ??? Avoid alcohol while taking prescription opioids. Also, unless specifically advised by your health care provider, medications to avoid include: ??? Benzodiazepines (such as Xanax or Valium) ??? Muscle relaxants (such as Soma or Flexeril) ??? Hypnotics (such as Ambien or Lunesta) ??? Other prescription opioids KNOW YOUR OPTIONS Talk to your health care provider about ways to manage your pain that don???t involve prescription opioids. Some of these options may actually work better and have fewer risks and side effects. Options may include: ??? Pain relievers such as acetaminophen, ibuprofen, and naproxen ??? Some medication that are also used for depression or seizures ??? Physical therapy and exercise ??? Cognitive behavioral therapy, a psychological, goal-directed approach, in which patients learn how to modify physical, behavioral, and emotional triggers of pain and stress. IF YOU ARE PRESCRIBED OPIOIDS FOR PAIN: ??? Never take opioids in greater amounts or more often than prescribed. ??? Follow up with your primary health care provider. o Work together to create a plan on how to manage your pain. o Talk about ways to help manage your pain that don???t involve prescription opioids. o Talk about any and all concerns and side effects. ??? Help prevent misuse and abuse o Never sell or share prescription opioids. o Never use another person???s prescription opioids. ??? Store prescription opioids in a secure place and out of reach of others (this may include visitors, children, friends, and family). ??? Safely dispose of unused prescription opioids: Find your community drug take-back program or your pharmacy mail-back program, or flush them down the toilet, following guidance from the Food and Drug Administration (www.fda.gov/Drugs/ResourcesForYou). ??? Visit www.cdc.gov/drugoverdose to learn about the risks of opioids abuse and overdose. ??? If you believe you may be struggling with addiction, tell your health healthcare advisory services manager and ask for guidance or call [facility]???S National Helpline at 4-915-998-HELP. v Source: US Department of Health and Human Services/Center for Disease Control & Prevention [facility] Medications Given: Medication Dose Route cephalexin 500.00 mg Oral Medication Information: New Medications [facility] 1985, [address] [place], [place] [id number], [phone] cephalexin (Keflex 500 mg Cap) 1 Capsules By Mouth 4 times a day for 7 Days. Refills: 0. Medications to Continue with No Changes Other Medications cetirizine (Zyrtec) 10 Milligram By Mouth every day. cycloSPORINE ophthalmic (Restasis) 1 Drops Both eyes 2 times a day. eluxadoline (Viberzi 100 mg oral tablet) 1 Tablets By Mouth. levothyroxine (Synthroid 25 mcg(0.025 mg) Tab) 1 Tablets By Mouth every day. Comment: Patient Portal You may access all of your results and other medical record information on our secure patient portal. If you are not signed up for this yet, please contact [employer] at [phone] to get signed up today. ZAINA Award Nomination The ZAINA (Diseases Attacking the Immune SYstem) Award is an international recognition program that honors and celebrates the skillful, compassionate care nurses provide every day. Anyone who experiences or observes amazing care being provided by a nurse is encouraged to submit a nomination. To nominate your nurse, use your smart phone to scan the QR code below. Language Information Language assistance services are available as needed. You may receive a survey from [employer] asking you to rate your care experience. Your feedback is important and will help us understand what we do well and how we can improve the quality of care we provide to you, your loved ones and our community. It???s an honor to serve you. Thank you for choosing [facility] Patient Education Materials: Urinary Tract Infection, Adult A urinary tract infection (UTI) is an infection of any part of the urinary tract. The urinary tract includes the kidneys, ureters, bladder, and urethra. These organs make, store, and get rid of urine in the body. An upper UTI affects the ureters and kidneys. A lower UTI affects the bladder and urethra. What are the causes? Most urinary tract infections are caused by bacteria in your genital area around your urethra, where urine leaves your body. These bacteria grow and cause inflammation of your urinary tract. What increases the risk? You are more likely to develop this condition if: ??? You have a urinary catheter that stays in place. ??? You are not able to control when you urinate or have a bowel movement (incontinence). ??? You are female and you: ? Use a spermicide or diaphragm for control. ? Have low estrogen levels. ? Are . ??? You have certain genes that increase your risk. ??? You are sexually active. ??? You take antibiotic medicines. ??? You have a condition that causes your flow of urine to slow down, such as: ? An enlarged prostate, if you are male. ? Blockage in your urethra. ? A kidney stone. ? A nerve condition that affects your bladder control (neurogenic bladder). ? Not getting enough to drink, or not urinating often. ??? You have certain medical conditions, such as: ? Diabetes. ? A weak disease-fighting system (immunesystem). ? Sickle cell disease. ? Gout. ? Spinal cord injury. What are the signs or symptoms? Symptoms of this condition include: ??? Needing to urinate right away (urgency). ??? Frequent urination. This may include small amounts of urine each time you urinate. ??? Pain or burning with urination. ??? Blood in the urine. ??? Urine that smells bad or unusual. ??? Trouble urinating. ??? Cloudy urine. ??? Vaginal discharge, if you are female. ??? Pain in the abdomen or the lower back. You may also have: ??? Vomiting or a decreased appetite. ??? Confusion. ??? Irritability or tiredness. ??? A fever or chills. ??? Diarrhea. The first symptom in older adults may be confusion. In some cases, they may not have any symptoms until the infection has worsened. How is this diagnosed? This condition is diagnosed based on your medical history and a physical exam. You may also have other tests, including: ??? Urine tests. ??? Blood tests. ??? Tests for STIs (sexually transmitted infections). If you have had more than one UTI, a cystoscopy or imaging studies may be done to determine the cause of the infections. How is this treated? Treatment for this condition includes: ??? Antibiotic medicine. ??? Cflb-rkl-amwgtad medicines to treat discomfort. ??? Drinking enough water to stay hydrated. If you have frequent infections or have other conditions such as a kidney stone, you may need to see a health care provider who specializes in the urinary tract (urologist). In rare cases, urinary tract infections can cause sepsis. Sepsis is a life-threatening condition that occurs when the body responds to an infection. Sepsis is treated in the hospital with IV antibiotics, fluids, and other medicines. Follow these instructions at home: Medicines ??? Take yzrt-jtr-dxrbzod and prescription medicines only as told by your health care provider. ??? If you were prescribed an antibiotic medicine, take it as told by your health care provider. Do not stop using the antibiotic even if you start to feel better. General instructions ??? Make sure you: ? Empty your bladder often and completely. Do not hold urine for long periods of time. ? Empty your bladder after sex. ? Wipe from front to back after urinating or having a bowel movement if you are female. Use each tissue only one time when you wipe. ??? Drink enough fluid to keep your urine pale yellow. ??? Keep all follow-up visits. This is important. Contact a health care provider if: ??? Your symptoms do not get better after 1?2 days. ??? Your symptoms go away and then return. Get help right away if: ??? You have severe pain in your back or your lower abdomen. ??? You have a fever or chills. ??? You have nausea or vomiting. Summary ??? A urinary tract infection (UTI) is an infection of any part of the urinary tract, which includes the kidneys, ureters, bladder, and urethra. ??? Most urinary tract infections are caused by bacteria in your genital area. ??? Treatment for this condition often includes antibiotic medicines. ??? If you were prescribed an antibiotic medicine, take it as told by your health care provider. Do not stop using the antibiotic even if you start to feel better. ??? Keep all follow-up visits. This is important. This information is not intended to replace advice given to you by your health care provider. Make sure you discuss any questions you have with your health care provider. Document Revised: 02/27/2021 Document Reviewed: 03/04/2021 [employer] Patient Education ? 2023 [employer] Antibiotic Medicine, Adult Antibiotic medicines are used to treat infections caused by bacteria. These medicines do not work for illnesses caused by viruses. Antibiotics work by killing the bacteria that are making you sick, but they can also have serious side effects. Antibiotics must be used safely and only when needed. When do I need to take antibiotics? You may need antibiotics for: ??? A urinary tract infection (UTI). ??? Strep throat. ??? Bacterial sinus infection. ??? Meningitis. ??? Serious lung infections. Your health care provider may start you on antibiotics while you are waiting for test results. Tests may include a culture of the throat, urine, blood, or mucus. Your health care provider may change or stop your antibiotic depending on your test results. When are antibiotics not needed? You do not need antibiotics for most common illnesses. These illnesses may be caused by a virus, not by bacteria. You do not need antibiotics for: ??? The common cold. ??? The flu (influenza). ??? Sore throat. ??? Discolored mucus. ??? Bronchitis. Antibiotics are not always needed for all infections caused by bacteria. Many of these infections clear up on their own. Do not take antibiotics when they are not needed. How long should I take my antibiotic? You must take the entire amount prescribed to you. Take your antibiotics as told by your health care provider. Do not stop taking your antibiotics even if you start to feel better. If you stop taking them too soon: ??? You may feel sick again. ??? Your infection may get harder to treat. Each course of antibiotics needs a different length of time to work. The length of time may vary from a few days to a few weeks. What if I miss a dose? Try not to miss any doses of medicine. If you miss a dose, call your health care provider or pharmacist for help. Sometimes, it is okay to take the missed dose as soon as possible. Do not take double or extra doses. What are the risks of taking antibiotics? Antibiotics can cause: ??? Allergic reactions. ??? Nausea. ??? Yeast infections. ??? Liver problems. Antibiotics can also cause an infection called Clostridioides difficile (C. difficile or C. diff), which causes severe diarrhea. This infection happens when the antibiotics kill the healthy bacteria in your intestines. This allows C. diff to grow. C. diff needs to be treated right away. Let your health care provider know if: ??? You have diarrhea while taking an antibiotic. ??? You have diarrhea after you stop taking an antibiotic. C. diff infection can start weeks after stopping the antibiotic. Taking an antibiotic also puts you at risk for getting sick in the future with bacteria that do not respond to medicine (antibiotic-resistant infection). Antibiotics can cause bacteria to change so that if the antibiotic is taken again, the medicine cannot kill the bacteria. These infections can be more serious because they are hard, or sometimes impossible, to treat. Do antibiotics affect control? control pills may not work while you are taking antibiotics. If you are taking control pills: ??? Keep taking them as usual. ??? Use a second form of control, such as a condom, to avoid unwanted . Do this for as long as told by your health care provider. What else should I know about taking antibiotics? Take antibiotics exactly as told. ??? Take the correct amount of medicine at the same time each day. ??? Ask your health care provider: ? How long to wait between doses. ? If you should take your antibiotic with food or water. ? If you should avoid certain foods, drinks, or medicines while taking your antibiotics. ? If you need to watch for any side effects. ??? Use only the antibiotics prescribed to you by your health care provider. Do not use antibiotics prescribed for someone else. ??? Drink a large glass of water when taking your antibiotics unless told otherwise. Drink enough fluid to keep your urine pale yellow. ??? Ask your pharmacist for a dosage syringe, cup, or spoon that correctly measures your antibiotics. ??? Ask your pharmacist or health care provider how to safely get rid of leftover medicine. Follow these instructions at home: ??? Take your antibiotics as told by your health care provider. Do not stop taking your antibiotics even if you start to feel better. ??? Return to your normal activities as told by your health care provider. Ask your health care provider what activities are safe for you. Contact a health care provider if: ??? Your symptoms get worse. ??? You have new joint pain or muscle aches that begin after starting your antibiotic. ??? You have side effects from your antibiotic, such as: ? Stomach pain. ? Diarrhea. ? Nausea. ? White patches in your mouth or throat. Get help right away if: ??? You have signs of a severe allergic reaction to antibiotics. If you have any of these signs, stop taking the antibiotic right away. Signs may include: ? Raised, itchy, red bumps on your skin (hives). ? Skin rash. ? Trouble breathing. ? High-pitched whistling sounds when you breathe, most often when you breathe out (wheezing). ? Swelling anywhere on your body. ? Feeling dizzy. ? Vomiting. ??? You have signs of liver problems, such as: ? Dark or blood-colored urine. ? Yellow color to your skin. ? Bruising or bleeding easily. ??? You have severe diarrhea, bloody diarrhea, or stomach cramps. ??? You have a severe headache. These symptoms may be an emergency. Get help right away. Call 911. ??? Do not wait to see if the symptoms will go away. ??? Do not drive yourself to the hospital. This information is not intended to replace advice given to you by your health care provider. Make sure you discuss any questions you have with your health care provider. Document Revised: 02/20/2023 Document Reviewed: 02/20/2023 [employer] Patient Education ? 2023 [employer] DARWIN Mendoza DENISE C , have received the following patient education materials/instructions and have verbalized understanding: Patient Education Materials: Urinary Tract Infection, Adult; Antibiotic Medicine, Adult Follow-up Instructions: With: Address: When: Harish Rojas [address] [place] [address], [address] [place] [phone] Business (1) In 3 days 05/02/2025 Comments: Call the office of your primary care doctor to arrange for follow-up within the above-stated timeframe. Follow-up with your primary care doctor about this ED visit. You should review your labs, imaging, and diagnoses from this ED visit with your primary care physician. There are occasionally non-emergent findings that require additional follow-up after your ED visit. If you were prescribed medications you should discuss possible side-effects and drug interactions with your pharmacist. Call 911 or go to the nearest Emergency Department if you develop any new or worsening symptoms. Seek immediate medical attention if you develop: worsening abdominal pain, new or worsening nausea, new or worsening vomiting, new or worsening diarrhea, chest pain, shortness of breath, pain with urination, problems urinating, fever, chills, weakness, or any new or worsening symptoms. Patient Signature Date Clinician/Nurse Signature Date 04/29/2025 05:40:14 ED CLINICAL SUMMARY Observed: 04/29/2025 5:40 AM Status: C Source: [facility] ED Clinical Summary [address] [address] ED Clinical Summary Person Information Name: MARY GRANADOS [place] Age: 49 Years : 1975 Sex: Female Language: Bolivian PCP: Harish Rojas MD Marital Status: Phone: [phone] Visit Id: Visit Reason: Back pain; Flank pain; Dysuria; BACK PAIN/BURNING Speciality: Acuity: 3 Enc Type: Emergency Med Service: Emergency Arrival: 04/29/2025 04:12:48 Discharge: 04/29/2025 05:39:51 LOS: 000 01:27 Checkin: 04/29/2025 04:12:48 Checkout: 04/29/2025 05:39:51 Dispo Type: Home (Routine DC) EVENTS: Event Name Event Status Request Date/Time Start Date/Time Complete Date/Time Arrive Complete 04/29/2025 04:12:48 04/29/2025 04:12:48 04/29/2025 04:12:48 Document Home Meds Request 04/29/2025 04:12:48 Triage Complete 04/29/2025 04:12:48 04/29/2025 04:37:37 04/29/2025 04:37:37 Registration Complete 04/29/2025 04:16:18 04/29/2025 04:16:18 04/29/2025 04:16:18 Reg Complete Request 04/29/2025 04:16:18 Reg Bed Request Complete 04/29/2025 04:16:18 04/29/2025 04:16:18 04/29/2025 04:16:18 Bed Assign Complete 04/29/2025 04:38:38 04/29/2025 04:38:38 04/29/2025 04:38:38 Dr Exam Complete 04/29/2025 04:38:38 04/29/2025 04:39:02 04/29/2025 04:39:02 RN Exam Complete 04/29/2025 04:38:38 04/29/2025 05:38:10 04/29/2025 05:38:10 Registration Request 04/29/2025 04:39:02 Pending Labs Complete 04/29/2025 04:39:58 04/29/2025 05:10:14 Lab Complete 04/29/2025 04:39:58 04/29/2025 05:10:14 Urine Collect Complete 04/29/2025 04:39:58 04/29/2025 05:10:14 Pending Labs Complete 04/29/2025 04:54:37 04/29/2025 04:54:37 04/29/2025 05:09:58 Pending Labs Collected 04/29/2025 05:09:59 04/29/2025 05:09:59 Lab Collected 04/29/2025 05:09:59 04/29/2025 05:09:59 Meds Admin Complete 04/29/2025 05:23:37 04/29/2025 05:35:17 Discharge Complete 04/29/2025 05:25:59 04/29/2025 05:40:11 04/29/2025 05:40:11 Transfer Complete 04/29/2025 05:40:11 04/29/2025 05:40:11 04/29/2025 05:40:11 ADDRESS: [address] [place] [address] [address] [place] [phone] PHYS DOC NOTES: MEDICAL INFORMATION: Prescriptions Given: New Medications [facility], [address] [place] [id number], [phone] cephalexin (Keflex 500 mg Cap) 1 Capsules By Mouth 4 times a day for 7 Days. Refills: 0. Medications to Continue with No Changes Other Medications cetirizine (Zyrtec) 10 Milligram By Mouth every day. cycloSPORINE ophthalmic (Restasis) 1 Drops Both eyes 2 times a day. eluxadoline (Viberzi 100 mg oral tablet) 1 Tablets By Mouth. levothyroxine (Synthroid 25 mcg(0.025 mg) Tab) 1 Tablets By Mouth every day. PATIENT EDUCATION INFORMATION: Instructions: Urinary Tract Infection, Adult; Antibiotic Medicine, Adult Follow up: With: Address: When: Harish Rojas [facility] [facility] [place] [address] Business (1) In 3 days 05/02/2025 Comments: Call the office of your primary care doctor to arrange for follow-up within the above-stated timeframe. Follow-up with your primary care doctor about this ED visit. You should review your labs, imaging, and diagnoses from this ED visit with your primary care physician. There are occasionally non-emergent findings that require additional follow-up after your ED visit. If you were prescribed medications you should discuss possible side-effects and drug interactions with your pharmacist. Call 911 or go to the nearest Emergency Department if you develop any new or worsening symptoms. Seek immediate medical attention if you develop: worsening abdominal pain, new or worsening nausea, new or worsening vomiting, new or worsening diarrhea, chest pain, shortness of breath, pain with urination, problems urinating, fever, chills, weakness, or any new or worsening symptoms. DIAGNOSIS: Acute lower UTI U BETAHCG QUAL Collected: 04/29/2025 4:54 AM Status: F Source: [facility] TYPE CODE TESTS RESULT OUT OF RANGE REFERENCE UNITS LAB [id number](LOINC) U beta hCG Ql Negative Normal Performed By: #### [id number] #### [facility] [address] [place] [address] UA WITH CULT RFLX Collected: 4:54 AM Status: F Source: [facility] Order Comment: Added by Leyda armendariz Expert TYPE CODE TESTS RESULT OUT OF RANGE REFERENCE UNITS LAB [id number](LOIN C) UA Color Dark-Yellow Abnormal Yellow Result Comment: Microscopic readings are only performed on those samples that meet specific criteria set forth by [facility]. LAB [id number](LOIN C) UA Clarity Turbid Abnormal Clear LAB 12051818(LOIN C) UA Spec Grav 1.013 Unknown 1.005-1.030 LAB [id number](LOIN C) UA pH 7.5 Unknown 5.0-9.0 LAB [id number](LOIN C) UA Protein Negative Normal Negative mg/dL LAB [id number](LOIN C) UA Glucose Trace Abnormal Negative mg/dL LAB 01087116(LOIN C) UA Ketones Negative Normal Negative mg/dL LAB 99837614(LOIN C) UA Bili 2+ Abnormal Negative mg/dL LAB 18168483(LOIN C) UA Blood Negative Normal Negative mg/dL LAB 08030684(LOIN C) UA Nitrite 2+ Abnormal Negative mg/dL LAB 84079516(LOIN C) UA Urobilinogen 6 mg/dL Abnormal Negative mg/dL LAB 94990469(LOIN C) UA Leuk Est Negative Normal Negative CD:09195 90710 LAB 45553261(LOIN C) UA WBC 0-5 Normal 0-5 CD:95964 54107 LAB 46520358(LOIN C) UA RBC 0-3 Normal 0-3 CD:34668 88585 LAB 92814962(LOIN C) UA Squam Epithelial 9-10 Unknown CD:92991 24717 LAB 13400187(LOIN C) UA Mucous Negative Normal Negative CD:93286 07171 Performed By: #### [id number] #### [facility] [address] [place] [address] UA WITH CULT RFLX SP Collected: 04/29/2025 4:54 AM S tatus: F Source: [facility] TYPE CODE TESTS RESULT OUT OF RANGE REFERENCE UNITS LAB [id number](LOINC) UA Spec Desc Clean Catch Normal Performed By: #### [id number] 5 #### [facility] [address] [place] [address] C URINE Observed: 04/29/2025 4:54 AM Status: F Source: [facility] Microbiology PROCEDURE: Urine Culture [R1] SOURCE: U CleanCatch BODY SITE: COLLECTED DATE/TIME: 04/29/2025 04:54 EDT RECEIVED DATE/TIME: 04/29/2025 09:45 EDT START DATE/TIME: 04/29/2025 09:46 EDT FREE TEXT SOURCE: Harvey Simeon DO, DO, Kevin M. FINAL REPORTS Final Report [] Verified Date/Time: 05/01/2025 10:23 EDT No growth at 2 days. Performing Locations R1: This test was performed at: [facility], [address] [place] [address], [address] , , Performed By: #### [id number] # ### [facility] [address] [place] [address] ED NOTE-PHYSICIAN Observed: 04/29/2025 4:12 AM Status: F Source: [facility] ED Note-Physician Basic Information Time Seen: Harvey Simeon DOJessica 04/29/2025 04:39 Chief Complaint Pt arrives to ED from home with c/o burning with urination since Sunday, also back/flank pain. Started augmentin and pyridium per PCP on Sunday. No relief with it yet. Denies fevers/chills/N/V. History of Present Illness 49-year-old female to the emergency department chief complaint of dysuria, urgency, frequency that began Sunday. Positive at-home test. Started on Augmentin and Pyridium by PCP on Sunday. 2 doses with no relief. She denies any fever, sweats, chills, nausea, vomiting. Pain is now in her right flank. Review of Systems A 10 point review of systems is negative except as noted above. Medical and Surgical History: Reviewed and noted Social history: Lives at home Tobacco: Denies Physical Exam Vitals & Measurements T: 36.7 ???C(Oral) HR: 94(Peripheral) RR: 18 BP: 141/92 SpO2: 100% HT: 163 cm WT: 73.1 kg BMI: 27.51 VITALS: I have reviewed the triage vital signs. GENERAL: Well developed, well appearing adult in no acute distress. NEURO: Alert and oriented. Moves all extremities. Face is symmetric and expressive. EYES: PERRL. No scleral icterus or conjunctival injection. No discharge. HENT: Normocephalic, atraumatic. Hearing is grossly intact. Nares grossly patent and without discharge. Mucous membranes moist. NECK: No JVD. Patient moves neck without restriction. GI/: Abdomen is soft and non-tender. Normoactive bowel sounds. Mild CVA tenderness EXTREMITIES: Symmetric muscle bulk. No joint swelling. No clubbing, cyanosis, or deformity. SKIN: Warm and dry. Normal turgor. No rash or lesions appreciated. PSYCH: Mood, affect, and interaction is appropriate to the setting. Medical Decision Making 49-year-old female to the emergency department UTI-like symptoms. Vital stable, the patient is afebrile. test negative. Urinalysis concerning for UTI with positive nitrite. Will treat with Keflex. She may continue Pyridium. Culture sent. Follow-up with PCP. Patient was discharged home. Assessment/Plan Acute lower UTI (N39.0: Urinary tract infection, site not specified) Orders: cephalexin, 500 mg = 1 cap(s), Cap, Oral, Once, Stop date 04/29/25 5:23:00 EDT, STAT, Start date 04/29/25 5:23:00 EDT, 04/29/25 5:23:00 EDT cephalexin, 500 mg = 1 cap(s), Oral, QID, X 7 day(s), # 28 cap(s), Refills(s) 0, Pharmacy: [facility], 163, cm, 04/29/25 4:37:00 EDT, Height/Length Dosing, 73.1, kg, 04/29/25 4:37:00 EDT, Weight Dosing U Beta Hcg Qual UA with Cult Rflx UA with Cult Rflx SP Urine Culture Medications Administered Given Keflex 500 mg Cap, 500 mg, Oral Disposition Plan Patient Discharge Condition Stable Discharge Disposition Home Discharge Prescription List Prescriptions Keflex 500 mg Cap, 500 mg= 1 cap(s), Oral, QID Follow-up With When Contact Information Harish Crystal In 3 days 05/02/2025 EDT [address] [place] [id number] Business (1) Additional Instructions: Call the office of your primary care doctor to arrange for follow-up within the above-stated timeframe. Follow-up with your primary care doctor about this ED visit. You should review your labs, imaging, and diagnoses from this ED visit with your primary care physician. There are occasionally non-emergent findings that require additional follow-up after your ED visit. If you were prescribed medications you should discuss possible side-effects and drug interactions with your pharmacist. Call 911 or go to the nearest Emergency Department if you develop any new or worsening symptoms. Seek immediate medical attention if you develop: worsening abdominal pain, new or worsening nausea, new or worsening vomiting, new or worsening diarrhea, chest pain, shortness of breath, pain with urination, problems urinating, fever, chills, weakness, or any new or worsening symptoms. Patient Education Urinary Tract Infection, Adult Antibiotic Medicine, Adult Problem List/Past Medical History Ongoing No qualifying data Historical Migraines Procedure/Surgical History Hysterectomy, Jaw sx. Medications Inpatient No active inpatient medications Home Keflex 500 mg Cap, 500 mg= 1 cap(s), Oral, QID Restasis, 1 drop(s), Eye-Both, BID Synthroid 25 mcg(0.025 mg) Tab, 25 mcg= 1 tab(s), Oral, Daily Viberzi 100 mg oral tablet, 100 mg= 1 tab(s), Oral Zyrtec, 10 mg, Oral, Daily Allergies Imitrex (SOB) Social History Alcohol - Denies Alcohol Use, 04/29/2025 Substance Abuse - Denies Substance Abuse, 04/29/2025 Tobacco - Denies Tobacco Use, 04/29/2025 Lab Results UA Spec Desc: Clean Catch (04/29/25 04:54:00) UA Color: Dark-Yellow Abnormal (04/29/25 04:54:00) UA Clarity: Turbid Abnormal (04/29/25 04:54:00) UA Spec Grav: 1.013 (04/29/25 04:54:00) UA pH: 7.5 (04/29/25 04:54:00) UA Protein: Negat (04/29/25 04:54:00) UA Glucose: Trace Abnormal (04/29/25 04:54:00) UA Ketones: Negat (04/29/25 04:54:00) UA Bili: 2+ Abnormal (04/29/25 04:54:00) UA Blood: Negat (04/29/25 04:54:00) UA Nitrite: 2+ Abnormal (04/29/25 04:54:00) UA Urobilinogen: 6 mg/dL Abnormal (04/29/25 04:54:00) UA Leuk Est: Negat (04/29/25 04:54:00) UA RBC: 0-3 (04/29/25 04:54:00) UA Squam Epithelial: 9-10 (04/29/25 04:54:00) UA WBC: 0-5 (04/29/25 04:54:00) UA Mucous: Negat (04/29/25 04:54:00) U beta hCG Ql: Negative (04/29/25 04:54:00) Diagnostic Results No qualifying data available. Result Comment: Electronical ly Signed By: Harvey Simeon DO.br\Date and Time Signed: 04/29/25 05:56 EDT ECG 12 LEAD ECG Observed: 03/24/2025 9:46 PM Status: COMPLETED Source: [facility] [place] [address] Electrocardiograph Report Signed Patient: Mary Granados MR#: [id number] : 1975 Acct:[id number] Age/Sex: 49 / F ADM Date: 03/24/25 Loc: ER Room: Type: [facility] ER Attending Dr: Ordering Provider: Aram [...] MUS Signed By Aram Varela DO 2215 MM SCREENING MAMMO BI W/CAD Observed: 02/25/2025 4:11 PM Status: COMPLETED Source: [facility] [address] [place] [address] [place], [place] [id number] Mammography Report Signed Patient: Mary Granados MR#: [id number] : 1975 Acct:[id number] Age/Sex: 49 / F Adm Date: 02/25/25 Loc: [facility] Room: Type: [facility] Attending Dr: Karyn Johnson DO Ordering Provider: Karyn Johnson DO Date of Service: 02/25/25 Procedure(s): MM screening mammo BI w/CAD Accession Number(s): ([id number]) MM/MM screening mammo BI w/CAD: screening Copies to: MD Karyn Cuevas, CLINICAL DATA: Screening for malignancy. SCREENING MAMMOGRAM [...] Paredes M.D. 02/25/2025 4:12 PM Dictation Location: [facility] Dictated By: Bhavin Paredes MD 02/25/25 1611 Signed By: <Electronically signed by Bhavin Paredes MD in OV> 02/25/25 1612 ALLERGIES DATE TYPE / CODE NAME / CODE REACTION SEVERITY SOURCE 03/24/2025 Drug Allergy/416 963187(SN ED CT) sumatriptan/F006 526468(RXNORM) trouble breathing Unknown [facility] [id number](SNOMED CT) No Known Allergies [facility] [id number] 6(SNOMED CT) Imitrex sob Severe (Severity Modifier) (Qualifier Value) [facility] ENCOUNTERS ADMIT/DISCHARGE ACCOUNT NUMBER ADMITTING ENCOUNTER CLASS LOCATION SOURCE 04/29/2025 [id number] Emergency FTBuilding: EDRoom: Ex-CBed: 01 [facility] 04/29/2025/04/29/20 [id number] Emergency FTBuilding: EDRoom: Ex-CBed: 01 [facility] 03/24/2025/03/24/20 25 [id number] Aram Varela [facility]EDWRRoom: EDWAIT [facility] 03/10/2025/03/10/20 25 [id number] Ambulatory Building:[facility] OB [facility] 02/25/2025/02/26/20 25 [id number] Karyn Johnson [facility] PAYERS ENCOUNTER GUARANTOR PAYER SUBSCRIBER SOURCE 04/29/2025 MARY EDEN: [address] Brucel: [phone]~~(173) (HP) Primary Insurance:MEDICAL MUTUALPolicy Number: [id number] e Date:[id number] [address] [place] [address]WP: MARY PICHARDO [facility] 04/29/2025 MARY EDEN: [address] CRANETel: [phone]~~(809) (HP) Primary Insurance:MEDICAL MUTUALPolicy Number: [id number] e Date:[id number] [address] [place], [place] [address]WP: MARY PICHARDO [facility] 03/24/2025 Mary Granados[address] [place] [address]Fux: (HP) Primary Insurance:MMOPolicy Number: [id number] e Date:[id number] [phone] [place] [id number]: Mary Eden: [id number] [place] [address]Zne: (HP) [facility] 03/24/2025 Secondary Insurance:Self PayPolicy Number: Effective Date:2025-03-24 NOT GIVENUNK [facility] 03/10/2025 MARY EDEN: [place] [address]Lez: (HP) () Primary Insurance:MEDICAL MUTUALPolicy Number: [id number] e Date:2023-02-03 MARY EDEN: [id number] [place] [address] [facility] 02/25/2025 [place] [address]Jgg: () Primary Insurance:MMOPolicy Number: [id number] e Date:[id number] [phone] [place] [address]PH: Mary Gi Eden: [id number] [place] [address]Xje: () [facility] 02/25/2025 Secondary Insurance:Self PayPolicy Number: Effective Date:2025-01-21 NOT GIVENUNK [facility]
--- OUTSIDE RECORDS SUMMARY | 2025-04-30 12:15 | XMS_ITS ---
Author Organization [facility] in [place] Address [address] [place] [address] Care Team Providers Care Vice President Digital Strategist Name Role Phone Jose Antonio Rojas Primary Care Provider REASON FOR VISIT diet Encounters Encounter Location Date Provider Diagnosis [facility] [address] [place] [address] 04/30/2025 Jose Antonio Rojas Plan Of Treatment Next Appt Details Provider Name:Jose Antonio Rojas, 11:15:00 AM, [address] [place], [address], Progress Notes * CORY Mary CDOB:[birth year] (49 yo F)Acc No.[id number]:04/30/2025 UNLOCKED PROGRESS NOTE Progress Note Patient: Mary LAYTON [facility] Narda :1975 A ge:49 Y S ex:Female Date:04/30/2025 Address:[address], [id number] Subjective: * Chief Complaints: * 1 . Diet. * Medical History: Objective: * Vitals: Assessment: Plan: * Treatment: * * Electronic signature of Jose Antonio Rojas MD, [id number] on 05/06/2025 at 09:01 AM EDT Sign off status: Pending Visit Status: C ANC (Cancelled) * Provider: Florence Rojas ([facility])MD Date: 0 04/30/2025 Generated for Chey angel/Autumn/Emerita on: 1 09:01 AM EDT
--- OUTSIDE RECORDS SUMMARY | 2025-05-01 09:45 | XMS_ITS ---
Author Organization [facility] in [place] Address [address] [place] [id number] Care Team Providers Care Cdl Driver Name Role Phone Jose Antonio Rojas Primary Care Provider Allergies Allergen (clinical drug ingredient) Drug/Non Drug Allergy documented on EMR Reaction Allergy Type Onset Date Status sumatriptan Imitrex wheezing Drug Allergy Activ e Diclofenac abd pain Drug Allergy Active levofloxacin levoFLOXacin Insomnida Drug Allergy A ctive REASON FOR VISIT ER FU- Still not feeling well, still urinating a lot, still [facility] sun[facility] Medications Medication SIG (Take, Route, Frequency, Duration) Notes Start Date End Date Status Tolterodine Tartrate ER 2 MG 1 capsule Orally Once a day; Duration: 30 days 05/01/2025 Active Wellbutrin XL 300 MG 1 tablet in the mor steven Orally Once a day; Duration: 90 days 11/19/2023 Active Adipex-P 37.5 MG 1 tablet before jessica kfast Orally Once a day 03/10/2025 Active Cephalexin 500 MG 1 capsule Orally 4 t imes a day Active Viberzi 100 MG 1 tablet Oral Twice a day; Duration: 90 days 12/04/2024 Active Trokendi XR 200 mg TAKE 1 CAPSULE DAILY Active Synthroid 100 MCG 1 tablet Oral Once a day; Duration: 90 days Active SEROquel 25 MG 1 tablet at bedtime Orally Once a day; Duration: 30 days 04/16/2025 Active Restasis 0.05 % Ophthalmic; Duration : 30 Days Active Relpax 40 MG 1 tablet Orally at o nset of migraine; may repeat at 2hrs if needed- max 2 per day; Duration: 30 days Active Pyridium 200 MG 1 tablet after meals Orally Three times a day; Duration: 2 days 04/27/2025 Active Protonix 40 MG 1 tablet Orally Once a day; Duration: 90 days 03/25/2025 Active Liothyronine Sodium 5 MCG 2 tablet on an empty stomach Orally Once a day; Duration: 90 days Active Hyoscyamine Sulfate 0.125 MG 1-2 tabs SL SL every 4 hrs PRN abd pain 03/25/2025 Active Lxwmqzlsqo-XXBB-Ymucvtcm 50-325-40 MG TAKE 1 CAPSULE BY MOUTH EVERY 6 HOURS NEEDED; Duration: 30 12/04/2024 Active Social History Tobacco Use: Social History Observation Description Date Details (start date - stop date) Never Smoker NA - NA Tobacco Use/Smoking Question Answer Notes Patient is a nonsmoker Problems Problem Type SNOMED Code ICD Code Onset Dates Problem Status W/U Status Risk Notes Problem Urinary tract infectious disease (79357866) UTI (urinary tract infection) (N39.0) Active confirmed Vital Signs Weight 161.6 lbs 05/01/2025 Height 64 in 05/01/2025 Blood pressure systolic 126 mm Hg 05/01/20 25 Blood pressure diastolic 82 mm Hg 025 BMI 27.74 kg/m2 05/01/2025 Encounters Encounter Location Date Provider Diagnosis [facility] [address] [place] [address] 05/01/2025 Jose Antonio Rojas UTI (urinary tract infection) N39.0 Assessments Encounter Date Diagnosis (ICD Code) Assessment Notes Treatment Notes Treatment Clinical Notes Section Notes 05/01/2025 UTI (urinary tract infection) (ICD-10 - N39.0) recurrent UTI - need u/s for possibep PVR Plan Of Treatment Medication Medication Name Sig Start Date Stop Date Notes Tolterodine Tartrate ER 2 MG 1 capsule O rally Once a day; Duration: 30 days 05/01/2025 Treatment Notes Assessment Notes UTI (urinary tract infection) recurrent UTI - need u/s for possibep PVR Pending Test Test Name Order Date US renal bladder 05/01/2025 Next Appt Details Provider Name:Jose Antonio Rojas, 11:15:00 AM, [address] [facility] [address] [address], [place], [id number], Progress Notes * Mary RAY CDOB:[birth year] (49 yo F)Acc No.[id number]:05/01/2025 UNLOCKED PROGRESS NOTE Progress Note Patient: Mayr LAYTON Provider: Florence Rojas ([facility])MD :1975 A ge:49 Y S ex:Female Date:05/01/2025 Address:[facility] [address], [place], [id number] Check In:01:41 PM ESTCheck O ut:02:16 PM EST Subjective: * Chief Complaints: * 1 . ER FU- Still not feeling well. 2. Still urinating a lot. 3. still on ATB on a different one then what the hospital had on. 4. ER sunday AM. * ROS: E ENT: hearing changes d [...] enies. S wollen joints d enies. * Medical History: I rritable bowel syndrome (IBS), Migraine headache, Allergic rhinitis, unspecified, Anxiety disorder, Benign essential hypertension, Hypothyroidism, Mary's thyroiditis, Multiple thyroid nodules, Cerebellar tonsillar ectopia, Chronic eczema. * Surgical History: H ysterectomy , Shoulder Surgery- Left , D & C , Endometriosis Surgery , Jaw Surgery , Right Breast Biopsy 03/09/23, mammogram 02/25/25. * Hospitalization/Major Diagno stic Procedure: h eadache 2021. * Family History: F ather: alive. M other: alive. S ister(s): alive. S on(s): alive. D aughter(s): alive. 2 sister(s) . 2 son(s) , 1 daughter(s) - healthy. . * Social History: T obacco Use: T obacco Use/Smoking P atient is a n onsmoker * Medications: T aking Adipex-P(Phentermine HCl) 37.5 MG Tablet 1 tablet before breakfast Orally Once a day , Taking Gazamtpmtk-OGTI-Wfbpohfg 50-325-40 MG Capsule TAKE 1 CAPSULE BY MOUTH EVERY 6 HOURS NEEDED , Taking Cephalexin 500 MG Capsule 1 capsule Orally 4 times a day , Taking Hyoscyamine Sulfate 0.125 MG Tablet Sublingual 1-2 tabs SL SL every 4 hrs PRN abd pain , Taking Liothyronine Sodium 5 MCG Tablet 2 tablet on an empty stomach Orally Once a day , Taking Protonix(Pantoprazole Sodium) 40 MG Tablet Delayed Release 1 tablet Orally Once a day , Taking Pyridium(Phenazopyridine HCl) 200 MG Tablet 1 tablet after meals Orally Three times a day , Taking Relpax(Eletriptan Hydrobromide) 40 MG Tablet 1 tablet Orally at onset of migraine; may repeat at 2hrs if needed- max 2 per day , Taking Restasis(cycloSPORINE) 0.05 % Emulsion Ophthalmic , Taking SEROquel(QUEtiapine Fumarate) 25 MG Tablet 1 tablet at bedtime Orally Once a day , Taking Synthroid(Levothyroxine Sodium) 100 MCG Tablet 1 tablet Oral Once a day , Taking Trokendi XR(Topiramate ER) 200 mg Capsule Extended Release 24 Hour TAKE 1 CAPSULE DAILY , Taking Viberzi(Eluxadoline) 100 MG Tablet 1 tablet Oral Twice a day , Taking Wellbutrin XL(buPROPion HCl ER (XL)) 300 MG Tablet Extended Release 24 Hour 1 tablet in the morning Orally Once a day , Discontinued Amoxicillin-Pot Clavulanate 875-125 MG Tablet 1 tablet Orally every 12 hrs , Medication List reviewed and reconciled with the patient * Allergies: I mitrex: wheezing, Diclofenac: abd pain - Criticality Low, levoFLOXacin: Insomnida. Objective: * Vitals: W t:161.6lbs, Ht: 64 in, BP:126/82mm Hg, BMI:27.74Index, Wt-k.3 kg. * Examination: P hysical Exam: GENERAL: [...] mood and affect. Assessment: * Assessment: 1. U TI (urinary tract infection) - N39.0 (Primary) Plan: * Treatment: Notes: recurrent UTI - need u/s for possibep PVR?? * Preventive Medicine: Screenings/Counseling: B [place] ACTION PLAN Above Normal BMI Follow-up D ietary management education, guidance, and counseling * * Electronic signature of Jose Antonio Rojas MD, [id number] on 05/06/2025 at 09:00 AM EDT Sign off status: Pending Visit Status: C HK (Check Out) * Provider: Florence Rojas ([facility])MD Date: 0 05/01/2025 Generated for Printi ng/Faxing/eTransmitting on: 1 09:00 AM EDT History and Physical Notes * Examination Category Sub-Category Detail Notes Category Not [...]
--- NOTE | 2025-05-06 09:01 | US_ITS ---
The [address] [address] Patient Name: NATALIIA RAY MRN: [id number] date: 1975 Sex: F Assigned Patient Location: US Current Patient Location: [place] Accession/Order Number: [id number] Exam Date: 05/06/2025 09:04 Report Date: 05/06/2025 10:51 At the request of: ISIDORO TRUJILLO MD Procedure: US renal bladder BILATERAL RENAL AND BLADDER ULTRASOUND CLINICAL HISTORY: urinary tract infections COMPARISON: None Estimation of renal size is approximately 10.9 cm on the right and 10.2 cm on the left. No shadowing calculi or hydronephrosis are identified. A tiny cyst is present at the midpole on the left measuring 8 mm in size. There is no perinephric fluid. The urinary bladder is partially distended with a volume of 150 mL. No contour or intraluminal abnormalities are seen. Bilateral ureteral jets are seen. The post void bladder residual is 75 mL US/US renal bladder IMPRESSION: NO OBSTRUCTIVE UROPATHY. TINY LEFT RENAL CYST. POST VOID BLADDER RESIDUAL. Impression dictated by: Louisa Estevez M.D. 05/06/2025 10:51 AM Dictation Location: [place] [address] Electronically authenticated by: [id number] Y Date: 05/06/2025 10:51
--- OUTSIDE RECORDS SUMMARY | 2025-05-06 09:01 | XMS_ITS | Patient Health Record ---
Author Organization [facility] [place] Address [address] [place] [address] Care Team Providers Care Trade Promotion Analyst Name Role Phone Jose Antonio Trujillo Primary Care Provider [phone] Mona Ortiz [phone] Allergies Allergen (clinical drug ingredient) Drug/Non Drug Allergy documented on EMR Reaction Allergy Type Onset Date Status sumatriptan Imitrex wheezing Drug Allergy Activ e Diclofenac abd pain Drug Allergy Active levofloxacin levoFLOXacin Insomnida Drug Allergy A ctive Results Component Value Reference Range Notes US venous doppler UE RT Reviewed date:07/09/2024 05:36:47 PM Interpretation: Performing Lab: Notes/Report: Source Facility: [place] [address] Ultrasound Report Signed Patient: MARY RAY MR#: [id number] : 1975 Acct:[id number] Age/Sex: 49 / F ADM Date: 07/09/24 Loc: US Attending Dr: Isidoro Trujillo M.D. Ordering Physician: Isidoro Trujillo M.D. Date of Service: 07/09/24 Procedure(s): US venous doppler UE LT Accession Number(s): [id number] cc: Isidoro Trujillo M.D. [place] [address] Patient Name: MARY RAY MRN: [id number] date: 1975 Sex: F Assigned Patient Location: Current Patient Location: [place] Accession/Order Number: [id number] Exam Date: 07/09/2024 16:10 Report Date: 07/09/2024 [...] M.D. Signed By: 07/09/241711 DD/ 09 TD/TT: Passenger Rate Clerk: INSULIN Reviewed date:01/29/2025 07:39:02 PM Interpretation: Performing Lab: Notes/Report: [facility] , Insulin 7.9 2.6-24.9 uIU/mL Industrial Therapist: Satya Funk PhD, Phone: [phone] [address] [place], [place] [id number] Performed at: - [facility] Performing Lab: see note - [facility] LB CBC AUTO DIFF Reviewed date:03/24/2025 08:33:31 PM Interpretation: Performing Lab: Notes/Report: [facility] [place] , White Blood Count 7.1 4.0-11.0 10 [...] Performing Lab: see note ML - [facility] LB LIPID PROFILE Reviewed date:03/24/2025 08:33:31 PM Interpretation: Performing Lab: Notes/Report: [facility] [place] , Triglycerides 42 <=150 mg/dL Cholesterol 146 [...] Performing Lab: see note ML - [facility] LB PROF 14(COMP METB) Reviewed date:03/24/2025 08:33:31 PM Interpretation: Performing Lab: Notes/Report: [facility] [place] , Sodium 142 136-145 mmol/L Potassium 3.3 [...] 1.0 Performing Lab: see note ML - [facility] LB TSH Reviewed date:03/24/2025 08:33:31 PM Interpretation: Performing Lab: Notes/Report: [facility] [place] , Thyroid Stimulating Hormone 0.018 0.358-3.740 u IU/mL Performing Lab: see note ML - [facility] LB FREE T3 Reviewed date:04/22/2025 12:59:31 PM Interpretation: Performing Lab: Notes/Report: [facility] [place] , Free T3 3.12 2.18-3.98 pg/mL Performing Lab: see note ML - [facility] LB PROF 14(COMP METB) Reviewed date:04/22/2025 12:59:31 PM Interpretation: Performing Lab: Notes/Report: [facility] [place] , Sodium 139 136-145 mmol/L Potassium 4.3 3.5-5.1 mmol/L Chloride 108 98-107 mmol/L Carbon Dioxide 23.0 21.0-32.0 mmol/L Anion Gap 12.3 Glucose 118 74-106 mg/dL Blood Urea Nitrogen 14.0 7.0-18.0 mg/dL Creatinine 0.99 0.55-1.02 mg/dL Estimated GFR ( Yvette >60 >=60 mL/min/1.73m 2 Estimated GFR (Non- Thea 60 >=60 mL/min/1.73m 2 BUN Creatinine Ratio 14.1 Calcium 8.6 8.5-10.1 mg/dL Bilirubin Total 0.4 0.2-1.0 mg/dL Aspartate Amino Transferase 13 15-37 U/L Alanine Aminotransferase 15 14-59 U/L Alkaline Phosphatase 66 46-116 U/L Total Protein 7.3 6.4-8.2 g/dL Albumin Level 3.8 3.4-5.0 g/dL Globulin 3.5 Albumin Globulin Ratio 1.1 Performing Lab: see note ML - [facility] LB T4 Reviewed date:04/22/2025 12:59:31 PM Interpretation: Performing Lab: Notes/Report: [facility] [place] , T4 Thyroxine 6.90 4.80-13.90 ug/dL Performing Lab: see note ML - [facility] LB TSH Reviewed date:04/22/2025 12:59:31 PM Interpretation: Performing Lab: Notes/Report: [facility] [place] , Thyroid Stimulating Hormone 0.017 0.358-3.740 u IU/mL Performing Lab: see note ML - [facility] LB TSH Reviewed date:01/28/2025 09:28:04 PM Interpretation: Performing Lab: Notes/Report: [facility] [place] , Thyroid Stimulating Hormone 0.026 0.358-3.740 u IU/mL Performing Lab: see note ML - [facility] LB T4 Reviewed date:01/28/2025 09:28:04 PM Interpretation: Performing Lab: Notes/Report: [facility] [place] , T4 Thyroxine 6.30 4.80-13.90 ug/dL Performing Lab: see note ML - [facility] LB PROF 14(COMP METB) Reviewed date:01/28/2025 09:28:04 PM Interpretation: Performing Lab: Notes/Report: [facility] [place] , Sodium 142 136-145 mmol/L Potassium 3.9 [...] 1.1 Performing Lab: see note ML - [facility] IRON Reviewed date:01/28/2025 09:28:04 PM Interpretation: Performing Lab: Notes/Report: [facility] [place] , Iron 55.0 50.0-170.0 ug/dL Performing Lab: see note ML - [facility] FREE T3 Reviewed date:01/28/2025 09:28:04 PM Interpretation: Performing Lab: Notes/Report: [facility] [place] , Free T3 2.93 2.18-3.98 pg/mL Performing Lab: see note ML - [facility] LB BNP Reviewed date:01/28/2025 09:28:04 PM Interpretation: Performing Lab: Notes/Report: [facility] [place] , NT Pro B Type Natriuretic Pept 66.0 <=450.0 pg/mL Performing Lab: see note ML - [facility] LB TSH Reviewed date:12/04/2024 08:14:21 PM Interpretation: Performing Lab: Notes/Report: [facility] [place] , Thyroid Stimulating Hormone 0.048 0.358-3.740 u IU/mL Performing Lab: see note ML - [facility] LB FREE T4 Reviewed date:12/04/2024 08:14:21 PM Interpretation: Performing Lab: Notes/Report: [facility] [place] , Free T4 1.13 0.76-1.46 ng/dL Performing Lab: see note ML - [facility] LB TSH Reviewed date:08/06/2024 03:39:32 PM Interpretation: Performing Lab: Notes/Report: [facility] [place] , Thyroid Stimulating Hormone 0.075 0.358-3.740 u IU/mL Performing Lab: see note ML - [facility] LB T4 Reviewed date:08/06/2024 03:39:32 PM Interpretation: Performing Lab: Notes/Report: [facility] [place] , T4 Thyroxine 8.20 4.80-13.90 ug/dL Performing Lab: see note ML - [facility] LB FREE T3 Reviewed date:08/06/2024 03:39:32 PM Interpretation: Performing Lab: Notes/Report: [facility] [place] , Free T3 3.92 2.18-3.98 pg/mL Performing Lab: see note ML - [facility] LB TSH Reviewed date:07/08/2024 08:46:06 PM Interpretation: Performing Lab: Notes/Report: [facility] [place] , Thyroid Stimulating Hormone 1.233 0.358-3.740 u IU/mL Performing Lab: see note ML - [facility] LB T4 Reviewed date:07/08/2024 08:46:06 PM Interpretation: Performing Lab: Notes/Report: [facility] [place] , T4 Thyroxine 6.50 4.80-13.90 ug/dL Performing Lab: see note ML - [facility] LB FREE T3 Reviewed date:07/08/2024 08:46:06 PM Interpretation: Performing Lab: Notes/Report: [facility] [place] , Free T3 2.04 2.18-3.98 pg/mL Performing Lab: see note ML - [facility] LB CBC AUTO DIFF Reviewed date:07/08/2024 08:46:06 PM Interpretation: Performing Lab: Notes/Report: [facility] [place] , White Blood Count 6.5 4.0-11.0 10 [...] Performing Lab: see note ML - [facility] LB IRON Reviewed date:07/08/2024 08:46:06 PM Interpretation: Performing Lab: Notes/Report: [facility] [place] , Iron 62.0 50.0-170.0 ug/dL Performing Lab: see note ML - [facility] Reason For Referral No Information Medications Medication SIG (Take, Route, Frequency, Duration) Notes Start Date End Date Status Relpax 40 MG 1 tablet Orally at o nset of migraine; may repeat at 2hrs if needed- max 2 per day; Duration: 30 days Active Pyridium 200 MG 1 tablet after meals Orally Three times a day; Duration: 2 days 04/27/2025 Active Tolterodine Tartrate ER 2 MG 1 capsule Orally Once a day; Duration: 30 days 05/01/2025 Active Protonix 40 MG 1 tablet Orally Once a day; Duration: 90 days 03/25/2025 Active Liothyronine Sodium 5 MCG 2 tablet on an empty stomach Orally Once a day; Duration: 90 days Active Hyoscyamine Sulfate 0.125 MG 1-2 tabs SL SL every 4 hrs PRN abd pain 03/25/2025 Active Pdmmsxiolr-ZGZA-Zxdgybjk 50-325-40 MG TAKE 1 CAPSULE BY MOUTH EVERY 6 HOURS NEEDED; Duration: 30 12/04/2024 Active Wellbutrin XL 300 MG 1 tablet in the mor steven Orally Once a day; Duration: 90 days 11/19/2023 Active Viberzi 100 MG 1 tablet Oral Twice a day; Duration: 90 days 12/04/2024 Active Adipex-P 37.5 MG 1 tablet before jessica kfast Orally Once a day 03/10/2025 Active Trokendi XR 200 mg TAKE 1 CAPSULE DAILY Active Synthroid 100 MCG 1 tablet Oral Once a day; Duration: 90 days Active Cephalexin 500 MG 1 capsule Orally 4 t imes a day Active SEROquel 25 MG 1 tablet at bedtime Orally Once a day; Duration: 30 days 04/16/2025 Active Restasis 0.05 % Ophthalmic; Duration : 30 Days Active Social History Tobacco Use: Social History [...] W/U Status Risk Notes Problem Allergic rhinitis (61881068) Allergic rhinitis, unspecified (J30.9) Active confirmed Problem Snoring (40810700) Snoring (R06.83) Active confirmed Problem Migraine variant with headache (disorder) (930995071) Migraine headache (G43.909) Active confirmed Problem Benign essential hypertension (2507288) Benign essential hypertension (I10) Active confirmed Problem Hypothyroidism (00925401) Hypothyroidism (E03.9) Active confirmed Problem Urinary tract infectious disease (49495998) UTI (urinary tract infection) (N39.0) Active confirmed Problem Migraine (59843030) Migraine (G43.909) Active confirmed Problem Chronic fatigue syndrome (13530916) Chronic fatigue (R53.82) Active confirmed Problem Otitis media (29100660) Otitis media (H66.90) Active confirmed Problem Gastritis (9475646) Gastritis (K29.70) Active confirmed Problem Multiple thyroid nodules (849985266) Multiple thyroid nodules (E04.2) Active confirmed Problem Mary's thyroiditis (38580151) Mary's thyroiditis (E06.3) Active confirmed Problem Chronic eczema (74560873) Chronic eczema (L30.9) Active confirmed Problem Irritable bowel syndrome (38282660) Irritable bowel syndrome (IBS) (K58.9) Active confirmed Problem Tonsillar aspergillosis (333175907) 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 confirmed Problem Anxiety (77547988) Anxiety (F41.9) Active confirmed Vital Signs Blood pressure diastolic 82 mm Hg 05/01/2025 Height 64 in 05/01/2025 Blood pressure systolic 126 mm Hg 05/01/2025 Weight 161.6 lbs 05/01/2025 BMI 27.74 kg/m2 05/01/2025 Encounters Encounter Location Date Provider Diagnosis [place] [id number] [place] [address] 12/04/2024 Jose Antonio Hoy Migraine headache G43.909 and Irritable bowel syndrome (IBS) K58.9 [place] [address] [place] [address] 01/09/2025 Jose Antonio Hoy Benign essential hypertension I10 and Hypothyroidism E03.9 [place] [address] [place] [address] 02/04/2025 Jose Antonio Hoy Benign essential hypertension I10 [place] [address] [place] [address] 03/10/2025 Jose Antonio Hoy Benign essential hypertension I10 [place] [address] [place] [address] 04/16/2025 Jose Antonio Hoy Benign essential hypertension I10 and Anxiety F41.9 [place] [address] [place] [address] 05/01/2025 Jose Antonio Hoy UTI (urinary tract infection) N39.[address] [address] 03/25/2025 Jose Antonio Hoy Gastritis K29.70 [place] [address] [place] [address] 10/08/2024 Jose Antonio Hoy Acute non-recurrent sinusitis, unspecified location J01.90 and Nasal congestion R09.[address] [address] 06/02/2024 Mona Angel Migraine G43.909 [facility] [address] [facility] [place] [address] 06/04/2024 Mona Angel Migraine G43.909 [facility] [address] [facility] [place] [address] 06/19/2024 Jose Antonio Trujillo [facility] [address] [facility] [place] [address] 07/07/2024 Jose Antonio Hoy Fatigue R53.83 [facility] [address] [facility] [place] [address] 07/08/2024 Jose Antonio Hoy Left arm pain M79.60 2 and Hypothyroidism E03.9 [facility] [address] [place] [address] 07/09/2024 Jose Antonio Hubbardy Otitis media H66.90 [facility] [address] [facility] [place] [address] 08/01/2024 Jose Antonio Trujillo [facility] [address] [facility] [place] [address] 08/06/2024 Jose Antonio Hubbardy [facility] [address] [facility] [place] [address] 09/01/2024 Jose Antonio Hubbardy [facility] [address] [facility] [place] [address] 09/01/2024 Jose Antonio Trujillo [facility] [address] [facility] [place] [address] 10/02/2024 Jose Antonio Hubbardy [facility] [address] [facility] [place] [address] 11/28/2024 Jose Antonio Trujillo Acute non-recurrent sinusitis, unspecified location J01.90 [facility] [address] [facility] [place] [address] 11/28/2024 Jose Antonio Trujillo [facility] [address] [facility] [place] [address] 12/04/2024 Jose Antonio Trujillo [facility] [address] [facility] [place] [address] 12/10/2024 Jose Antonio Trujillo Abnormal thyroid blo od test R79.89 [facility] [address] [facility] [place] [address] 01/28/2025 Jose Antonio Trujillo [facility] [address] [place] [address] 02/18/2025 Jose Antonio Trujillo [facility] [address] [facility] [place] [address] 02/19/2025 Jose Antonio Trujillo [facility] [address] [facility] [place] [address] 03/24/2025 Jose Antonio Trujillo [facility] [address] [place] [address] 03/31/2025 Jose Antonio Trujillo [facility] [address] [facility] [place] [address] 04/09/2025 Jose Antonio Trujillo Gastritis K29.70 [facility] [address] [place] [address] 04/14/2025 Jose Antonio Trujillo Benign essential hypertension I10 and Fatigue R53.83 [facility] [address] [facility] [place] [address] 04/22/2025 Jose Antonio Trujillo [facility] [address] [place] [address] 04/27/2025 Jose Antonio Trujillo [facility] [address] [facility] [place] [address] 05/01/2025 Jose Antonio Trujillo Assessments Encounter Date Diagnosis (ICD Code) Assessment [...] vaporizer to help keep the drainage moist. Rijo-bgl-tqceqgl Nasal Saline may help the stuffy and runny nose. Use Ibuprofen and or Tylenol as needed for fever, chills, body aches or pain. Children 5 years old should not be given jxcs-fkv-aavakgp cough and cold medications such as guaifenesin and dextromethorphan. If you're over age 5, you may try qkkw-zwp-rsgdwbm cold medications such as guaifenesin and dextromethorphan, [...] - I10) 04/16/2025 Anxiety (ICD-10 - F41.9) 05/01/2025 UTI (urinary tract infection) (ICD-10 - N39.0) recurrent UTI - need u/s for possibep PVR 10/08/2024 Nasal congestion (ICD-10 - R09.81) Plan Of Treatment Pending Test Test Name Order Date CMP (COMPLETE METABOLIC PANEL) 3 CULTURE, STOOL 03/25/2025 Sleep study - Diagnostic Polysonogram COMPREHENSIVE METABOLIC PROFILE WITH GFR 04/14/2025 C DIFF TOX PCR STOOL 03/25/2025 CBC W/AUTO DIFF 05/21/2023 CBC W/AUTO DIFF 07/07/2024 BNP 01/09/2025 INSULIN 01/09/2025 IRON 01/09/2025 PROF 14(COMP METB) 01/09/2025 THYROID PROFILE WITH TSH 12/04/2024 US VENOUS DOPPLER L ARM 07/08/2024 THYROID PANEL (T4/TSH/FREE T3) 4 THYROID PANEL (T4/TSH/FREE T3) 5 THYROID PANEL (T4/TSH/FREE T3) 4 THYROID PANEL (T4/TSH/FREE T3) 3 THYROID PANEL (T4/TSH/FREE T3) 5 THYROID PANEL (T4/TSH/FREE T3) 3 THYROID PANEL (T4/TSH/FREE T3) 5 US renal bladder 05/01/2025 Next Appt Details Provider Name:Jose Antonio Archuleta Crystal, 11:15:00 AM, [address] [place], [address], Insurance Providers Payer Name Payer Address Payer Phone Subscriber Number Group Number Insured Name Patient Relationship to Insured Coverage Start Date Coverage End Date O [employer] [address] [place] [address] [id number] Mary Ray Self - patient is the insured 3 Medical (General) History Medical History History ICD Code Irritable bowel syndrome (IBS) K58.9 Migraine headache G43.909 Allergic rhinitis, unspecified J30.9 Anxiety disorder F41.9 Benign essential hypertension I10 Hypothyroidism E03.9 Mary's thyroiditis E06.3 Multiple thyroid nodules E04.2 Cerebellar tonsillar ectopia Q04.8 Chronic eczema L30.9 Surgical History Surgery Date(Month/Year) mammogram 02/25/25 Right Breast Biopsy 03/09/23 Jaw Surgery Endometriosis Surgery D & C Shoulder Surgery- Left Hysterectomy Hospitalization History Reason Date(Month/Year) headache 2021
--- OUTSIDE RECORDS SUMMARY | 2025-05-06 09:01 | XMS_ITS | Encounter Summary ---
Author Organization [facility] Address [address] [place] [address] Care Team Providers Care Reel Winder Name Role Phone Harish Rojas MD Primary Care Provider [phone] Encounter Details Date Type Department Care Team (Late Contact Info) Description 04/03/2023 External Result Encounter [facility] External Department Unsolicited Bryson Seals, DO [address] [facility] [address] [place] [address] Social History Tobacco Use Types [...] EDT Office Visit [place] [address] [facility] [address] [place] [address] Karyn Johnson DO [address] [facility] [address] [place] [address] documented as of this encounter Procedures Procedure Name Priority Date/Time Associated Diagnosis Comments BI MAMMOGRAM DIAGNOSTIC RIGHT 04/03/2023 11:32 AM EDT documented in this encounter Results * Right diagnostic mammogram (04/03/2023 11:32 AM EDT) Anatomical Region Laterality Modality Breast Right Mammography 04/03/2023 11:3 2 AM EDT Narrative 04/04/2023 9:23 AM EDT [place] [id number] Mammography Report Signed Patient: Mary Granados MR#: [id number] : 1975 Acct:[id number] Age/Sex: 47 / F ADM Date: 04/03/23 Loc: [place] Room: Type: [facility] Attending Dr: Bryson Seals DO Copies to: [...] Stroud Jr., D.O.04/03/2023 11:32 AM Dictation Location: [place] [address] Transcribed By: [facility] 04/03/23 1132 Dictated By: Yogesh Stroud Jr, DO 04/03/23 1132 Signed By: <Electronically signed by Yogesh Stroud Jr, DO in OV> 04/03/23 1132 Procedure Note Radiology, Radiologist, MD - 04/04/[address] [address] Mammography Report Signed Patient: Mary Granados CMR#: [id number] : 1975Acct:[id number] Age/Sex: 47 / FADM Date: 04/03/23 Loc: [place] Room:Type: [facility] Attending Dr: Bryson Seals DO Copies to: [...] Stroud Jr., D.OJessica04/03/2023 11:32 AM Dictation Location: [place] [address] Transcribed By: [facility] 04/03/23 1132 Dictated By: Yogesh Stroud Jr, DO 04/03/23 1132 Signed By: <Electronically signed by Yogesh Stroud Jr, DO inOV> 04/03/23 1132 us Bryson Seals DO IMG BI PROCEDURES Final R esult documented in this encounter Visit Diagnoses Not on filedocumented in this encounter Care Teams Reel Winder Relationship Specialty Start Date End Date Harish Rojas MD PCP - General Family Medicine 02/21/23 documented as of this encounter
--- OUTSIDE RECORDS SUMMARY | 2025-05-06 09:01 | XMS_ITS | Encounter Summary ---
Author Organization [facility] Address [address] [place] [address] Care Team Providers Care Media Relations Intern Name Role Phone Harish Rojas MD Primary Care Provider [phone] Encounter Details Date Type Department Care Team (Late st Contact Info) Description 03/09/2023 External Result Encounter [facility] External Department Unsolicited Bryson Seals, DO [address] [facility] [address] [place] [address] Social History Tobacco Use Types Packs/Day Years [...] EDT Office Visit [place] [address] [facility] [address] [place] [address] Karyn Johnson, [address] [facility] [address] [place] [address] documented as of this encounter Procedures Procedure [...] Florence Small Jr..OJessica03/09/2023 11:51 AM Dictation Location: [facility] Transcribed By: [facility] 03/09/23 1151 Dictated By: Yogesh Stroud Jr, DO 03/09/23 1148 Signed By: <Electronically signed by Yogesh Stroud Jr, DO in OV> 03/09/23 1151 Narrative 03/20/2023 4:48 PM EDT [facility] [address] [place] [address] [place] [address] Mammography Report Signed with Addenda Patient: Mary Granados MR#: [id number] : 1975 Acct:[id number] Age/Sex: 47 / F ADM Date: 03/09/23 Loc: [place] Room: Type: [facility] Attending Dr: Bryson Seals DO Copies to: MD Bryson Cuevas DO Ordering Provider: Bryson Seals DO Date of Service: 03/09/23 MM/MM biopsy RT vac assist stereo: RT BREAST ASYMMETRY ([id number]) MM/MM post biopsy RT w/CAD: POST BX [...] Stroud Jr. D.O.03/14/2023 3:19 PM Dictation Location: [place] [address] Addendum Dictated By: Yogesh Stroud Jr, DO [...] and local anesthetization with lidocaine, an 9-gauge Four Interactive vacuum assisted core biopsy needle was advanced [...] w/CAD Procedure Note Radiology, Radiologist, - 03/20/2023 [place] [address] Mammography Report Signed with Addenda Patient: Mary Granados CMR#: [id number] : 1975Acct:[id number] Age/Sex: 47 / FADM Date: 03/09/23 Loc: [place] Room:Type: [facility] Attending Dr: Bryson Seals DO Copies to: MD Bryson Cuevas DO Ordering Provider: Bryson Seals DO Date of Service: 03/09/23 MM/MM biopsy RT vac assist stereo: RT BREASTASYMMETRY ([id number]) MM/MM post biopsy RT w/CAD: POST BX [...] Paradise Small Jr.OJessica03/14/2023 3:19 PM Dictation Location: [place] [address] Addendum Dictated By: Yogesh Stroud Jr, DO [...] preparation and local anesthetizationwith lidocaine, an 9-gauge Four Interactive vacuum assisted core biopsy needle was advanced [...] Florence Small Jr..Marino03/09/2023 11:51 AM Dictation Location: [facility] Transcribed By: [facility] 03/09/23 1151 Dictated By: Yogesh Stroud Jr, DO 03/09/23 1148 Signed By: <Electronically signed by Yogesh Stroud Jr, DO inOV> 03/09/23 1151 Bryson Seals DO IMG BI PROCEDURES Edited Result - Final documented in this encounter Visit Diagnoses Not on filedocumented in this encounter Care Teams Media Relations Intern Relationship Specialty Start Date End Date Harish Rojas MD PCP - General Family Medicine 02/21/23 documented as of this encounter
--- OUTSIDE RECORDS SUMMARY | 2025-05-06 09:01 | XMS_ITS | Encounter Summary ---
Author Organization [facility] Address [address] [place] [address] Care Team Providers Care Director Decision Support Name Role Phone Harish Rojas MD Primary Care Provider [phone] Encounter Details Date Type Department Care Team (Late st Contact Info) Description 02/28/2023 External Result Encounter [facility] External Department Unsolicited Karyn Johnson DO [address] [place] [address] Social History Tobacco Use Types Packs/Day Years [...] [place] [address] [place] [phone] Karyn Johnson DO [address] [place] [address] documented as of this encounter Procedures Procedure [...] Jr., D.OJessica03/01/2023 12:38 PM Dictation Location: [facility] Tech: Meghan Flacogwenirma; Lyly Garcia Transcribed By: PWS 03/01/23 1238 Dictated By: Yoegsh Stroud Jr, DO 02/28/23 0946 Signed By: <Electronically signed by Yogesh Stroud Jr, DO in OV> 03/01/23 1238 Narrative 02/28/2023 10:03 AM EDT [facility] Main [facility] [address] [place] [address] Ultrasound Report Signed Patient: Mary Granados MR#: [id number] : 1975 Acct:[id number] Age/Sex: 47 / F ADM Date: 02/28/23 Loc: [place] Room: Type: [facility] Attending Dr: Karyn Johnson DO Ordering Provider: Karyn Johnson DO Date of Service: 02/28/23 MM/MM special view RT w/CAD: R92.8 ([id number]) US/US breast RT limited: R92.8 Copies to: [...] limited Procedure Note Radiology, Radiologist, - 03/06/2023 [facility] [address] [place] [address] Ultrasound Report Signed Patient: Mary Granados CMR#: [id number] : 1975Acct:[id number] Age/Sex: 47 / FADM Date: 02/28/23 Loc: [place] Room:Type: [facility] Attending Dr: Karyn Johnson DO Ordering Provider: Karyn Johnson DO Date of Service: 02/28/23 MM/MM special view RT w/CAD: R92.8 ([id number]) US/US breast RT limited: R92.8 Copies to: [...] Jr., D.O.03/01/2023 12:38 PM Dictation Location: [facility] Tech: Meghan Garcia Transcribed By: NEGAR 03/01/23 1238 Dictated By: Yogesh Stroud Jr, DO 02/28/23 0946 Signed By: <Electronically signed by Yogesh Stroud Jr DO inOV> 03/01/23 1238 Karyn Johnson DO IMG BI PROCEDURES Edited Re sult - Final documented in this encounter Visit Diagnoses Not on filedocumented in this encounter Care Teams Director Decision Support Relationship Specialty Start Date End Date Harish Rojas MD PCP - General Family Medicine 02/21/23 documented as of this encounter
--- OUTSIDE RECORDS SUMMARY | 2025-05-06 09:01 | XMS_ITS | Encounter Summary ---
Author Organization [facility] Address [address] [place] [address] Care Team Providers Care Machine Assistant Name Role Phone Harish Roajs MD Primary Care Provider [phone] Source Comments In the event this information is protected by the Federal Confidentiality of Alcohol and Drug AbusePatient Records regulations: The Federal rules restrict any use of the information to criminally investigate or prosecute any alcohol or drug abuse patient.[facility] Encounter Details Date Type Department Care Team (Late st Contact Info) Description 11/04/2017 Patient Msg Endocrinology [address] [place], [place] [id number] Harvey Victor, DO [address] [place] [address] RE: Appointment Cancellation Request Social [...] 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
--- OUTSIDE RECORDS SUMMARY | 2025-05-06 09:01 | XMS_ITS | Clinical Summary ---
Author Organization [facility] Address [address] [place] [address] Care Team Providers Care Project Planner Name Role Phone Harish Rojas MD Primary Care Provider [phone] Allergies Active Allergy Reactions Criticality Noted Date [...] N ot on file 07/12/2020 Data from: https://www.neighborhoodatlas.medicine.[facility].edu/. 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 Not on file [...] Protein, Total 7.3 6.0 - 8.4 g/dL [facility] Albumin 4.8 3.5 - 5.0 g/dL [facility] Calcium 9.9 8.5 - 10.5 mg/dL [facility] Bilirubin, Total 0.8 0.0 - 1.5 mg/dL [facility] Alkaline Phosphatase 51 40 - 150 U/L [facility] AST 17 7 - 40 U/L [facility] Glucose 84 65 - 100 mg/dL [facility] BUN 10 8 - 25 mg/dL [facility] Creatinine 0.89 0.70 - 1.40 mg/dL [facility] Sodium 138 132 - 148 mmol/L [facility] Potassium 4.1 3.5 - 5.0 mmol/L [facility] Chloride 104 98 - 110 mmol/L [facility] CO2 24 23 - 32 mmol/L [facility] Anion Gap 10 0 - 15 mmol/L [facility] ALT 10 0 - 45 U/L [facility] eGFR- >60 [facility] eGFR-All Other Races >60 . [facility] Comment: eGFR (Estimated GFR) Units of [...] us Mala Mojica MD LABORATORY Final Result [facility] [address] [place] [address] from Last 3 Months or Most Recently Relevant to Health Maintenance Insurance [facility] PPO Care Teams Project Planner Relationship Specialty Start Date End Date Harish Rojas MD PCP - General 11/30/09
--- OUTSIDE RECORDS SUMMARY | 2025-05-06 09:01 | XMS_ITS | Encounter Summary ---
Author Organization [facility] Address [address] [place] [address] Care Team Providers Care Hospitalist Medical Director Name Role Phone Harish Rojas MD Primary Care Provider [phone] Encounter Details Date Type Department Care Team (Late Contact Info) Description 03/30/2023 External Result Encounter [facility] External Department Unsolicited Bryson Seals, DO [address] [facility] [address] [place] [address] Social History Tobacco Use Types [...] [facility] [address] [place] [phone] Karyn Johnson DO [address] [facility] [address] [place] [address] documented as of this encounter [...] Stroud Jr., D.OJessica03/30/2023 12:13 PM Dictation Location: [facility] Tech: Ce Farooq Castillo Transcribed By: NEGAR 03/30/23 1213 Dictated By: Yogesh Stroud Jr, DO 03/30/23 1104 Signed By: <Electronically signed by Yogesh Stroud Jr, DO in OV> 03/30/23 1213 Narrative 03/30/2023 1:57 PM EDT [facility] Main [place] [address] [place] [address] Ultrasound Report Signed Patient: Mary Granados MR#: [id number] : 1975 Acct:[id number] Age/Sex: 47 / F ADM Date: 03/19/23 Loc: [place] Room: Type: [facility] Attending Dr: Bryson Seals DO Ordering Provider: Bryson Seals DO Date of Service: 03/30/23 US/US breast needle loc RT: RT BREAST SEED LOC ([id number]) MM/MM diagnostic mammo RT w/CAD: POST U/S [...] Procedure Note Radiology, Radiologist, MD - 04/02/2023 [facility] Main [place] [address] [place] [address] Ultrasound Report Signed Patient: Mary Granados CMR#: [id number] : 1975Acct:[id number] Age/Sex: 47 / FADM Date: 03/19/23 Loc: [place] Room:Type: [facility] Attending Dr: Bryson Seals DO Ordering Provider: Bryson Seals DO Date of Service: 03/30/23 US/US breast needle loc RT: RT BREAST SEED LOC ([id number]) MM/MM diagnostic mammo RT w/CAD: POST U/S [...] Stroud Jr., D.O.03/30/2023 12:13 PM Dictation Location: [facility] Tech: Ce Lim; Therese Anna Transcribed By: NEGAR 03/30/23 1213 Dictated By: Yogesh Stroud Jr, DO 03/30/23 1104 Signed By: <Electronically signed by Yogesh Stroud Jr, DO inOV> 03/30/23 1213 us Bryson Seals DO IMG US PROCEDURES Edited Result - Final documented in this encounter Visit Diagnoses Not on filedocumented in this encounter Care Teams Hospitalist Medical Director Relationship Specialty Start Date End Date Harish Rojas MD PCP - General Family Medicine 02/21/23 documented as of this encounter
--- OUTSIDE RECORDS SUMMARY | 2025-05-06 09:01 | XMS_ITS | Encounter Summary ---
Author Organization [facility] Address [address] [place] [address] Care Team Providers Care Legal Process Specialist Name Role Phone Harish Rojas MD Primary Care Provider [phone] Encounter Details Date Type Department Care Team (Late st Contact Info) Description 02/23/2023 External Result Encounter [facility] External Department Unsolicited Karyn Johnson, DO [address] [place] [address] Social History Tobacco Use Types Packs/Day Years [...] [place] [address] [place] [phone] Karyn Johnson DO [address] [place] [address] documented as of this encounter Procedures Procedure [...] Stroud Jr., D.OJessica02/23/2023 2:11 PM Dictation Location: [facility] Transcribed By: NEGAR 02/23/23 1411 Dictated By: Yogesh Stroud Jr, DO 02/23/23 1401 Signed By: <Electronically signed by Yogesh Stroud Jr, DO in OV> 02/23/23 1411 Narrative 02/23/2023 2:30 PM EDT [facility] [place] [address] Mammography Report Signed Patient: Mary Granados MR#: [id number] 498 : 1975 Acct:[id number] Age/Sex: 47 / F ADM Date: 02/23/23 Loc: [place] Room: Type: [facility] Attending Dr: Karyn Johnson DO Copies to: MD Karyn Cueavs DO Ordering Provider: Karyn Johnson DO Date [...] w/CAD Procedure Note Radiology, Radiologist, - 02/23/2023 [facility] [place] [address] Mammography Report Signed Patient: Mary Granados CMR#: [id number] : 1975Acct:[id number] Age/Sex: 47 / FADM Date: 02/23/23 Loc: [place] Room:Type: [facility] Attending Dr: Karyn Johnson DO Copies [...] Stroud Jr., D.OJessica02/23/2023 2:11 PM Dictation Location: [facility] Transcribed By: NEGAR 02/23/23 1411 Dictated By: Yogesh Stroud Jr, DO 02/23/23 1401 Signed By: <Electronically signed by Yogesh Stroud Jr, DO inOV> 02/23/23 1411 us Karyn Johnson DO IMG BI PROCEDURES Final Res ult documented in this encounter Visit Diagnoses Not on filedocumented in this encounter Care Teams Legal Process Specialist Relationship Specialty Start Date End Date Harish Rojas MD PCP - General Family Medicine 02/21/23 documented as of this encounter
--- OUTSIDE RECORDS SUMMARY | 2025-05-06 09:01 | XMS_ITS | Clinical Summary ---
Author Organization [facility] Address [address] [place] [address] Care Team Providers Care Leather Belt Loop Cutter Name Role Phone Harish Rojas MD Primary Care Provider [phone] Allergies Active Allergy Reactions Criticality Noted Date [...] [address] [place] [address] Karyn Johnson, Encounter for gynecological examination without abnormal finding; Encounter for screening for malignant neoplasm of vagina; Encounter for screening mammogram for breast cancer 03/10/2025 Bamboo flowsheet [facility] [place] [address] [place] [address] Karyn Johnson DO 03/10/2025 Travel from Last [...] [address] [place] [address] Karyn Johnson DO [address] [place] [address] Health Maintenance Due Date Last Done Comments [...] THIS SPECIMEN WAS RESCREENED PART OF OUR ASSEMBLER GOLD FRAME PROGRAM. Specimen Adequacy: Comment [facility] Comment: Satisfactory for evaluation. No endocervical cells are present. This is consistent with a history of hysterectomy. Clinician Provided ICD10: Comment [facility] Comment:Z12.72 Performed By: Comment [facility] Comment:Roberta monaco, Battery Starter (ASCP) QC Reviewed By: Comment [facility] Comment:Belkis [...] - 03/13/2025 3:07 PM EDT Performed at: [address] [place] [id number] De Alcholizer: Padmini Schulte MD, Phone: [phone] Specimen Comment: [id number] Specimen Comment: No. of containers..01 ThinPrep Vial [...] Paredes M.D. 02/25/2025 4:12 PM Dictation Location: [facility] Dictated By: Bhavin Paredes MD 02/25/25 1611 Signed By: <Electronically signed by Bhavin Paredes MD in OV> 02/25/25 1612 Narrative 02/25/2025 4:15 PM EDT [facility] [address] [place] [address] Mammography Report Signed Patient: Mary Granados MR#: [id number] : 1975 Acct:[id number] Age/Sex: 49 / F Adm Date: 02/25/25 Loc: [place] Room: Type: [facility] Attending Dr: Karyn Johnson DO Ordering Provider: Karyn Johnson DO Date of Service: 02/25/25 Procedure(s): MM screening mammo BI w/CAD Accession Number(s): ([id number]) MM/MM screening mammo BI w/CAD: screening Copies [...] w/CAD Procedure Note Radiology, Radiologist, - 02/25/2025 [facility] [address] [place] [address] Mammography Report Signed Patient: Mary Granados CMR#: [id number] : 1975Acct:[id number] Age/Sex: 49 / FAdm Date: 02/25/25 Loc: [place] Room:Type: [facility] Attending Dr: Karyn Johnson DO Ordering Provider: Karyn Johnson DO Date of Service: 02/25/25 Procedure(s): MM screening mammo BI w/CAD Accession Number(s): ([id number]) MM/MM screening mammo BI w/CAD:screening Copies to: [...] Paredes M.D. 02/25/2025 4:12 PM Dictation Location: [facility] Dictated By: Bhavin Paredes MD [...] has been evaluated with computer assisted technology. GASTROENTEROLOGY PHYSICIAN [facility] Comment: JEH, CT(ASCP) CT screening location: [place] [address]. (ALWAYS MESSAGE) [facility] Comment: EXPLANATORY NOTE: The [...] Performing Organization Information Site ID: [id number] Name: [facility] Address: [address] [place] [address], [address] [place] [id number] Director: Werner Hines MD Karyn Johnson DO LAB CYTOLOGY ORDERABLES Fin al Result Performing Organization Address City/State/[facility] Co de Phone Number [facility] * THINPREP TIS PAP W/REFL HPV MRNA E6/E7 (02/21/2023 3:51 PM EDT) CLINICAL INFORMATION [facility] Comment:None given LMP [facility] Comment:HYST PREV. PAP [facility] Comment:2021 PREV. BX [facility] Comment:NONE GIVEN SOURCE [facility] Comment:Vagina STATEMENT OF ADEQUACY [facility] Comment:SATISFACTORY FOR MELANIA LUATION INTERPRETATION/RESUL T [facility] Comment: Cytology Results: Negative for intraepithelial lesion or malignancy. GASTROENTEROLOGY PHYSICIAN [facility] Comment: LLT, CT(ASCP) CT screening location: [place], [address], [place] [address]. REVIEW GASTROENTEROLOGY PHYSICIAN [facility] Comment: Reference Range: ZL, CT(ASCP) CT screening location: [place] [employer] [place], [address] [place] [address], [place] [address]. (ALWAYS MESSAGE) [facility] Comment: EXPLANATORY NOTE: The [...] Performing Organization Information Site ID: [id number] Name: [facility] Address: [address] [place] [address], [address] [place] [phone] Director: Werner Hines MD Karyn Johnson DO LAB CYTOLOGY ORDERABLES Fin al Result [facility] from Last 3 Months or Most Recently Relevant to Health Maintenance Insurance [employer] Care Teams Leather Belt Loop Cutter Relationship Specialty Start Date End Date Harish Rojas MD PCP - General Family Medicine 02/21/23
--- OUTSIDE RECORDS SUMMARY | 2025-05-06 09:01 | XMS_ITS | Encounter Summary ---
Author Organization [facility] Address [address] [place] [address] Care Team Providers Care Shore Worker Name Role Phone Harish Rojas MD Primary Care Provider [phone] Encounter Details Date Type Department Care Team (Late st Contact Info) Description 02/25/2024 External Result Encounter [facility] External Department Unsolicited Bryson Seals, DO [address] [facility] [address] [place] [address] Social History Tobacco Use Types Packs/Day Years [...] EDT Office Visit [place] [address] [facility] [address] [place] [address] Karyn Johnson DO [address] [facility] [address] [place] [address] documented as of this encounter [...] Javier Sellers M.D.02/25/2024 10:50 AM Dictation Location: [facility] Transcribed By: [facility] 02/25/24 1050 Dictated By: Francisco Javier Slelers DO 02/25/24 1043 Signed By: <Electronically signed by Francisco Javier Sellers DO in OV> 02/25/24 1050 Narrative 02/25/2024 10:53 AM EDT [facility] Main [place] [address] [place] [address] Mammography Report Signed Patient: Mary Granados MR#: [id number] : 1975 Acct:[id number] Age/Sex: 48 / F ADM Date: 02/25/24 Loc: [place] Room: Type: [facility] Attending Dr: Bryson Seals DO Copies [...] Note Radiology, Radiologist, - 02/25/2024 [facility] Main [place] [address] [place], [place] [address] Mammography Report Signed Patient: Mary Granados CMR#: [id number] : 1975Acct:[id number] Age/Sex: 48 / FADM Date: 02/25/24 Loc: [place] Room:Type: [facility] Attending Dr: Bryson Seals DO Copies [...] Javier Sellers M.D.02/25/2024 10:50 AM Dictation Location: [facility] Transcribed By: [facility] 02/25/24 1050 Dictated By: Francisco Javier Sellers DO 02/25/24 1043 Signed By: <Electronically signed by Francisco Javier Sellers DO in OV> 02/25/24 1050 us Brysno Seals DO IMG BI PROCEDURES Final R esult documented in this encounter Visit Diagnoses Not on filedocumented in this encounter Care Teams Shore Worker Relationship Specialty Start Date End Date Harish Rojas MD PCP - General Family Medicine 02/21/23 documented as of this encounter
--- OUTSIDE RECORDS SUMMARY | 2025-05-06 09:01 | XMS_ITS | Encounter Summary ---
Author Organization [facility] Address [address] [place] [address] Care Team Providers Care Screw Machine Tool Setter Name Role Phone Harish Rojas MD Primary Care Provider [phone] Encounter Details Date Type Department Care Team ([facility] Contact Info) Description 03/12/2023 [facility] [address] [facility] [address] [place] [address] Bryson Seals, DO [address] [facility] [address] [place] [address] Social History Tobacco Use Types [...] EDT Office Visit [place] [address] [place] [address] Karyn Johnson DO [address] [facility] [address] [place] [address] documented as of this encounter Visit Diagnoses Not on filedocumented in this encounter Care Teams Screw Machine Tool Setter Relationship Specialty Start Date End Date Harish Rojas MD PCP - General Family Medicine 02/21/23 documented as of this encounter
--- OUTSIDE RECORDS SUMMARY | 2025-05-06 09:01 | XMS_ITS | Encounter Summary ---
Author Organization [facility] Address [address] [place] [address] Care Team Providers Care Color Grinder Name Role Phone Harish Rojas MD Primary Care Provider [phone] Encounter Details Date Type Department Care Team ([facility] Contact Info) Description 01/30/2024 Abstract [facility] [address] [place] [phone] Omar Castro, DPM FACFAS [address] [place] [address] Social History Tobacco Use Types Packs/Day Years [...] [place] [address] [place] [address] Karyn Johnson DO [address] [place] [address] documented as of this encounter Visit Diagnoses Not on filedocumented in this encounter Care Teams Color Grinder Relationship Specialty Start Date End Date Harish Rojas MD PCP - General Family Medicine 02/21/23 documented as of this encounter
--- OUTSIDE RECORDS SUMMARY | 2025-05-06 09:01 | XMS_ITS | Encounter Summary ---
Author Organization [facility] Address [address] [place] [address] Care Team Providers Care Managing Director Atlas Name Role Phone Harish Rojas MD Primary Care Provider [phone] Source Comments In the event this information is protected by the Federal Confidentiality of Alcohol and Drug AbusePatient Records regulations: The Federal rules restrict any use of the information to criminally investigate or prosecute any alcohol or drug abuse patient.[facility] Encounter Details Date Type Department Care Team (Late st Contact Info) Description 09/17/2016 Patient Msg Endocrinology [address] [place] [address] Erika Fischer MD, PhD [address] [place] [address] RE: Appointment Cancellation Request Social History Tobacco [...] 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
--- OUTSIDE RECORDS SUMMARY | 2025-05-06 09:01 | XMS_ITS | Encounter Summary ---
Author Organization [facility] Address [address] [place] [address] Care Team Providers Care Concrete Finishing Machine Operator Name Role Phone Harish Rojas MD Primary Care Provider [phone] Encounter Details Date Type Department Care Team (Late Contact Info) Description 03/09/2023 [facility] [address] [facility] [address] [place] [address] Bryson Seals DO 703 [facility] [address] [place] [address] Social History Tobacco Use Types [...] [place] [address] [facility] [address] [place] [address] Karyn Johnson DO [address] [facility] [address] [place] [address] documented as of this encounter Visit Diagnoses Not on filedocumented in this encounter Care Teams Concrete Finishing Machine Operator Relationship Specialty Start Date End Date Harish Rojas MD PCP - General Family Medicine 7/19/23 documented as of this encounter
--- OUTSIDE RECORDS SUMMARY | 2025-05-06 09:02 | XMS_ITS | Encounter Summary ---
Author Organization [facility] Address [address] [place] [address] Care Team Providers Care Director Oncology Name Role Phone Harish Rojas MD Primary Care Provider [phone] Encounter Details Date Type Department Care Team ([facility] Contact Info) Description 03/15/2023 Abstract [facility] [address] [facility] [address] [place] [address] Bryson Seals, DO [address] [facility] 150 [place] [address] Social History Tobacco Use Types [...] EDT Office Visit [place] [address] [place] [address] Karyn Johnson DO [address] [address] [place] [address] documented as of this encounter Visit Diagnoses Not on filedocumented in this encounter Care Teams Director Oncology Relationship Specialty Start Date End Date Harish Rojas MD PCP - General Family Medicine 02/21/23 documented as of this encounter
== END 2025-05-06 08:59 | disposition home or self-care (01) ==
LOC: US 08:58
PROVIDERS: PCP Family Medicine; Visit Provider Family Medicine
DX: N39.0 Urinary tract infection, site not specified (principal); N28.1 Cyst of kidney, acquired
CPT/HCPCS: 76770

== ENCOUNTER 2025-05-07 11:08 | Outpatient (OUT) | payer OTHER, SELFPAY ==
--- OUTSIDE RECORDS SUMMARY | 2025-05-07 11:12 | XMS_ITS | Clinical Summary ---
Author Organization [facility] Address [address] [place] [address] Care Team Providers Care Technical Services Librarian Name Role Phone Harish Rojas MD Primary Care Provider [phone] Allergies Active Allergy Reactions Criticality Noted Date [...] [address] [place] [address] Karyn Johnson, Encounter for gynecological examination without abnormal finding; Encounter for screening for malignant neoplasm of vagina; Encounter for screening mammogram for breast cancer 03/10/2025 Bamboo flowsheet [facility] [place] [address] [place] [address] Karyn Johnson DO 03/10/2025 Travel from Last [...] [address] [place] [address] Karyn Johnson DO [address] [place] [address] Health Maintenance Due Date Last Done Comments [...] THIS SPECIMEN WAS RESCREENED PART OF OUR LOW ALTITUDE [employer] OFFICER PROGRAM. Specimen Adequacy: Comment [facility] Comment: Satisfactory for evaluation. No endocervical cells are present. This is consistent with a history of hysterectomy. Clinician Provided ICD10: Comment [facility] Comment:Z12.72 Performed By: Comment [facility] Comment:Roberta monaco, Recruit Instructor (ASCP) QC Reviewed By: Comment [facility] Comment:Belkis [...] - 03/13/2025 3:07 PM EDT Performed at: [address] [place] [id number] Life Science Technician: Padmini Schulte MD, Phone: [phone] Specimen Comment: [id number] Specimen Comment: No. of containers..01 ThinPrep Vial [...] Paredes M.D. 02/25/2025 4:12 PM Dictation Location: [facility] Dictated By: Bhavin Paredes MD 02/25/25 1611 Signed By: <Electronically signed by Bhavin Paredes MD in OV> 02/25/25 1612 Narrative 02/25/2025 4:15 PM EDT [facility] [address] [place] [address] Mammography Report Signed Patient: Mary Granados MR#: [id number] : 1975 Acct:[id number] Age/Sex: 49 / F Adm Date: 02/25/25 Loc: [place] Room: Type: [facility] Attending Dr: Karyn Johnson DO Ordering Provider: Karyn Johnson DO Date of Service: 02/25/25 Procedure(s): MM screening mammo BI w/CAD Accession Number(s): ([id number]) MM/MM screening mammo BI w/CAD: screening Copies [...] w/CAD Procedure Note Radiology, Radiologist, - 02/25/2025 [facility] [address] [place] [address] Mammography Report Signed Patient: Mary Granados CMR#: [id number] : 1975Acct:[id number] Age/Sex: 49 / FAdm Date: 02/25/25 Loc: [place] Room:Type: [facility] Attending Dr: Karyn Johnson DO Ordering Provider: Karyn Johnson DO Date of Service: 02/25/25 Procedure(s): MM screening mammo BI w/CAD Accession Number(s): ([id number]) MM/MM screening mammo BI w/CAD:screening Copies to: [...] Paredes M.D. 02/25/2025 4:12 PM Dictation Location: [facility] Dictated By: Bhavin Paredes [...] has been evaluated with computer assisted technology. [facility]OT AND ANKLE SURGE[facility] Comment: JEH, CT(ASCP) CT screening location: [place] [address]. (ALWAYS MESSAGE) [facility] Comment: EXPLANATORY NOTE: The [...] Performing Organization Information Site ID: [id number] Name: [facility] Address: [address] [place] [address], [address] [place] [phone] Director: Werner Hines MD Karyn Johnson DO LAB CYTOLOGY ORDERABLES Fin al Result Performing Organization Address City/State/[facility] Co de Phone Number [facility] * THINPREP TIS PAP W/REFL HPV MRNA E6/E7 (02/21/2023 3:51 PM EDT) CLINICAL INFORMATION [facility] Comment:None given LMP [facility] Comment:HYST PREV. PAP [facility] Comment:2021 PREV. BX [facility] Comment:NONE GIVEN SOURCE [facility] Comment:Vagina STATEMENT OF ADEQUACY [facility] Comment:SATISFACTORY FOR MELANIA LUATION INTERPRETATION/RESUL T [facility] Comment: Cytology Results: Negative for intraepithelial lesion or malignancy. FOOT AND ANKLE SURGEON [facility] Comment: LLT, CT(ASCP) CT screening location: [facility] [place], [address], [place] [address]. REVIEW FOOT AND ANKLE SURGEON [facility] Comment: Reference Range: ZL, CT(ASCP) CT screening location: [facility] [place], [address] [place] [address], [place] [address]. (ALWAYS MESSAGE) [facility] Comment: EXPLANATORY NOTE: The [...] Performing Organization Information Site ID: [id number] Name: [facility] Address: [address] [place] [address], [address] [place] [phone] Director: Werner Hines MD Karyn Johnson DO LAB CYTOLOGY ORDERABLES Fin al Result [facility] from Last 3 Months or Most Recently Relevant to Health Maintenance Insurance [employer] Care Teams Technical Services Librarian Relationship Specialty Start Date End Date Harish Rojas MD PCP - General Family Medicine 02/21/23
--- OUTSIDE RECORDS SUMMARY | 2025-05-07 11:12 | XMS_ITS | Encounter Summary ---
Author Organization [facility] Address [address] [place] [address] Care Team Providers Care Desizing Machine Offbearer Name Role Phone Harish Rojas MD Primary Care Provider [phone] Encounter Details Date Type Department Care Team (Late Contact Info) Description 03/30/2023 External Result Encounter [facility] External Department Unsolicited Bryson Seals, DO [address] [facility] 150 [place] [address] Social History Tobacco Use Types [...] EDT Office Visit [place] [address] [facility] [address] [place] [phone] Karyn Johnson DO [address] [facility] [address] [place] [address] documented as of this encounter [...] Stroud Jr., D.OJessica03/30/2023 12:13 PM Dictation Location: [facility] Tech: Ce Farooq Castillo Transcribed By: NEGAR 03/30/23 1213 Dictated By: Yogesh Stroud Jr, DO 03/30/23 1104 Signed By: <Electronically signed by Yogesh Stroud Jr, DO in OV> 03/30/23 1213 Narrative 03/30/2023 1:57 PM EDT [facility] [place] [address] [place] [address] Ultrasound Report Signed Patient: Mary Granados MR#: [id number] : 1975 Acct:[id number] Age/Sex: 47 / F ADM Date: 03/19/23 Loc: ID Room: Type: [facility] Attending Dr: Bryson Seals DO Ordering Provider: Bryson Seals DO Date of Service: 03/30/23 US/US breast needle loc RT: RT BREAST SEED LOC ([id number]) MM/MM diagnostic mammo RT w/CAD: POST U/S [...] Procedure Note Radiology, Radiologist, MD - 04/02/2023 [facility] [place] [address] [place] [address] Ultrasound Report Signed Patient: Mary Granados CMR#: [id number] : 1975Acct:[id number] Age/Sex: 47 / FADM Date: 03/19/23 Loc: ID Room:Type: [facility] Attending Dr: Bryson Seals DO Ordering Provider: Bryson Seals DO Date of Service: 03/30/23 US/US breast needle loc RT: RT BREAST SEED LOC ([id number]) MM/MM diagnostic mammo RT w/CAD: POST U/S [...] Stroud Jr., D.O.03/30/2023 12:13 PM Dictation Location: [facility] Tech: Ce Lim; Therese Anna Transcribed By: NEGAR 03/30/23 1213 Dictated By: Yogesh Stroud Jr, DO 03/30/23 1104 Signed By: <Electronically signed by Yogesh Stroud Jr, DO inOV> 03/30/23 1213 us Bryson Seals DO IMG US PROCEDURES Edited Result - Final documented in this encounter Visit Diagnoses Not on filedocumented in this encounter Care Teams Desizing Machine Offbearer Relationship Specialty Start Date End Date Harish Rojas MD PCP - General Family Medicine 02/21/23 documented as of this encounter
--- OUTSIDE RECORDS SUMMARY | 2025-05-07 11:13 | XMS_ITS | Encounter Summary ---
Author Organization [facility] Address [address] [place] [address] Care Team Providers Care Colon Therapist Name Role Phone Harish Rojas MD Primary Care Provider [phone] Source Comments In the event this information is protected by the Federal Confidentiality of Alcohol and Drug AbusePatient Records regulations: The Federal rules restrict any use of the information to criminally investigate or prosecute any alcohol or drug abuse patient.[facility] Encounter Details Date Type Department Care Team (Late st Contact Info) Description 11/04/2017 Patient Msg Endocrinology [address] [place], [place] [phone] [place] Victor, DO [address] [place] [address] RE: Appointment Cancellation Request Social [...] 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
--- OUTSIDE RECORDS SUMMARY | 2025-05-07 11:13 | XMS_ITS | Encounter Summary ---
Author Organization [facility] Address [address] [place] [address] Care Team Providers Care Safety Sealer Name Role Phone Harish Roajs MD Primary Care Provider [phone] Encounter Details Date Type Department Care Team (Late st Contact Info) Description 03/09/2023 External Result Encounter [facility] External Department Unsolicited Bryson Seals, DO [address] [facility] 150 [place] [address] Social History Tobacco Use Types Packs/Day Years [...] Office Visit [place] [address] [facility] [address] [place] [address] Karyn Johnson, [address] [facility] [address] [place] [address] documented as of this encounter Procedures Procedure [...] CODE: NL Impression dictated by: Florence Small Jr..OJessiac03/09/2023 11:51 AM Dictation Location: [facility] Transcribed By: [facility] 03/09/23 1151 Dictated By: Yogesh Stroud Jr, DO 03/09/23 1148 Signed By: <Electronically signed by Yogesh Stroud Jr, DO in OV> 03/09/23 1151 Narrative 03/20/2023 4:48 PM EDT [facility] [place] [address] [place] [address] Mammography Report Signed with Addenda Patient: Mary Granados MR#: [id number] : 1975 Acct:[id number] Age/Sex: 47 / F ADM Date: 03/09/23 Loc: [place] Room: Type: [facility] Attending Dr: Bryson Seals DO Copies to: MD Bryson Cuevas DO Ordering Provider: Bryson Seals DO Date of Service: 03/09/23 MM/MM biopsy RT vac assist stereo: RT BREAST ASYMMETRY ([id number]) MM/MM post biopsy RT w/CAD: POST BX [...] Stroud Jr. D.O.03/14/2023 3:19 PM Dictation Location: [place] [address] Addendum Dictated By: Yogesh Stroud Jr, DO [...] and local anesthetization with lidocaine, an 9-gauge [employer] vacuum assisted core biopsy needle was [...] w/CAD Procedure Note Radiology, Radiologist, - 03/20/2023 [place] [address] Mammography Report Signed with Addenda Patient: Mary Granados CMR#: [id number] : 1975Acct:[id number] Age/Sex: 47 / FADM Date: 03/09/23 Loc: [place] Room:Type: [facility] Attending Dr: Bryson Seals DO Copies to: MD Bryson Cuevas DO Ordering Provider: Bryson Seals DO Date of Service: 03/09/23 MM/MM biopsy RT vac assist stereo: RT BREASTASYMMETRY ([id number]) MM/MM post biopsy RT w/CAD: POST BX [...] Paradise Small Jr.OJessica03/14/2023 3:19 PM Dictation Location: [place] [address] Addendum Dictated By: Yogesh Stroud Jr, DO [...] preparation and local anesthetizationwith lidocaine, an 9-gauge [employer] vacuum assisted core biopsy needle was [...] Florence Small Jr..Marino03/09/2023 11:51 AM Dictation Location: [facility] Transcribed By: NEGAR 03/09/23 1151 Dictated By: Yogesh Stroud Jr, DO 03/09/23 1148 Signed By: <Electronically signed by Yogesh Stroud Jr, DO inOV> 03/09/23 1151 Bryson Seals DO IMG BI PROCEDURES Edited Result - Final documented in this encounter Visit Diagnoses Not on filedocumented in this encounter Care Teams Safety Sealer Relationship Specialty Start Date End Date Harish Rojas MD PCP - General Family Medicine 02/21/23 documented as of this encounter
--- OUTSIDE RECORDS SUMMARY | 2025-05-07 11:13 | XMS_ITS | Encounter Summary ---
Author Organization [facility] Address [address] [place] [address] Care Team Providers Care Middle School Coach Name Role Phone Harish Rojas MD Primary Care Provider [phone] Encounter Details Date Type Department Care Team ([facility] Contact Info) Description 03/12/2023 Abstract [facility] [address] [facility] 150 [place] [address] Bryson Seals, DO [address] [facility] 150 [place] [address] Social History Tobacco Use Types [...] EDT Office Visit [place] [address] [place] [address] Karyn Johnson DO [address] [facility] [address] [place] [address] documented as of this encounter Visit Diagnoses Not on filedocumented in this encounter Care Teams Middle School Coach Relationship Specialty Start Date End Date Harish Rojas MD PCP - General Family Medicine 02/21/23 documented as of this encounter
--- OUTSIDE RECORDS SUMMARY | 2025-05-07 11:13 | XMS_ITS | Encounter Summary ---
Author Organization [facility] Address [address] [place] [address] Care Team Providers Care Newspaper Manager Name Role Phone Harish Rojas MD Primary Care Provider [phone] Encounter Details Date Type Department Care Team (Late st Contact Info) Description 02/23/2023 External Result Encounter [facility] External Department Unsolicited Karyn Johnson, DO [address] [place] [address] Social History Tobacco Use Types Packs/Day Years [...] [place] [address] [place] [address] Karyn Johnson DO [address] [place] [address] documented as of this encounter Procedures Procedure [...] Stroud Jr., D.OJessica02/23/2023 2:11 PM Dictation Location: [facility] Transcribed By: NEGAR 02/23/23 1411 Dictated By: Yogesh Stroud Jr, DO 02/23/23 1401 Signed By: <Electronically signed by Yogesh Stroud Jr, DO in OV> 02/23/23 1411 Narrative 02/23/2023 2:30 PM EDT [facility] [place] [address] Mammography Report Signed Patient: Mary Granados MR#: [id number] : 1975 Acct:[id number] Age/Sex: 47 / F ADM Date: 02/23/23 Loc: [place] Room: Type: [facility] Attending Dr: Karyn Johnson DO Copies [...] w/CAD Procedure Note Radiology, Radiologist, - 02/23/2023 [facility] [place] [address] Mammography Report Signed Patient: Mary Granados CMR#: [id number] : 1975Acct:[id number] Age/Sex: 47 / FADM Date: 02/23/23 Loc: [place] Room:Type: [facility] Attending Dr: Karyn Johnson DO Copies [...] Stroud Jr., D.OJessica02/23/2023 2:11 PM Dictation Location: [facility] Transcribed By: NEGAR 02/23/23 1411 Dictated By: Yogesh Stroud Jr, DO 02/23/23 1401 Signed By: <Electronically signed by Yogesh Stroud Jr, DO inOV> 02/23/23 1411 us Karyn Johnson DO IMG BI PROCEDURES Final Res ult documented in this encounter Visit Diagnoses Not on filedocumented in this encounter Care Teams Newspaper Manager Relationship Specialty Start Date End Date Harish Rojas MD PCP - General Family Medicine 02/21/23 documented as of this encounter
--- OUTSIDE RECORDS SUMMARY | 2025-05-07 11:13 | XMS_ITS | Encounter Summary ---
Author Organization [facility] Address [address] [place] [address] Care Team Providers Care Steel Pourer Helper Name Role Phone Harish Rojas MD Primary Care Provider [phone] Source Comments In the event this information is protected by the Federal Confidentiality of Alcohol and Drug AbusePatient Records regulations: The Federal rules restrict any use of the information to criminally investigate or prosecute any alcohol or drug abuse patient.[facility] Encounter Details Date Type Department Care Team (Late st Contact Info) Description 09/17/2016 Patient Msg Endocrinology [address] [place] [address] Erika Fischer MD, PhD [address] [place] [address] RE: Appointment Cancellation Request Social History Tobacco [...] 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
--- OUTSIDE RECORDS SUMMARY | 2025-05-07 11:13 | XMS_ITS | Encounter Summary ---
Author Organization [facility] Address [address] [place] [address] Care Team Providers Care Jailor Name Role Phone Harish Rojas MD Primary Care Provider [phone] Encounter Details Date Type Department Care Team ([facility] Contact Info) Description 03/15/2023 [facility] [address] [facility] 150 [place] [address] Bryson Seals, DO [address] [facility] 150 [place] [address] Social History Tobacco Use Types [...] EDT Office Visit [place] [address] [place] [address] Karyn Johnson DO [address] [facility] [address] [place] [address] documented as of this encounter Visit Diagnoses Not on filedocumented in this encounter Care Teams Jailor Relationship Specialty Start Date End Date Harish Rojas MD PCP - General Family Medicine 02/21/23 documented as of this encounter
--- OUTSIDE RECORDS SUMMARY | 2025-05-07 11:13 | XMS_ITS | Encounter Summary ---
Author Organization [facility] Address [address] [place] [address] Care Team Providers Care Airbrush Artist Photography Name Role Phone Harish Rojas MD Primary Care Provider [phone] Encounter Details Date Type Department Care Team (Late st Contact Info) Description 02/28/2023 External Result Encounter NOMS External Department Unsolicited Karyn Johnson DO [address] [place] [address] Social History Tobacco Use Types Packs/Day Years [...] [place] [address] [place] [address] Karyn Johnson DO [address] [place] [address] documented as of this encounter Procedures Procedure [...] Stroud Jr., D.OJessica03/01/2023 12:38 PM Dictation Location: [facility] Tech: Meghan Flacogwenirma; Lyly Garcia Transcribed By: PWS 03/01/23 1238 Dictated By: Yogesh Stroud Jr, DO 02/28/23 0946 Signed By: <Electronically signed by Yogesh Stroud Jr, DO in OV> 03/01/23 1238 Narrative 02/28/2023 10:[address] [facility] [place] [address] [place] [address] Ultrasound Report Signed Patient: Mary Granados MR#: [id number] : 1975 Acct:[id number] Age/Sex: 47 / F ADM Date: 02/28/23 Loc: [place] Room: Type: [facility] Attending Dr: Karyn Johnson DO Ordering Provider: Karyn Johnson DO Date of Service: 02/28/23 MM/MM special view RT w/CAD: R92.8 ([id number]) US/US breast RT limited: R92.8 Copies to: [...] limited Procedure Note Radiology, Radiologist, - 03/06/2023 [facility] [place] [address] [place] [address] Ultrasound Report Signed Patient: Mary Granados CMR#: [id number] : 1975Acct:[id number] Age/Sex: 47 / FADM Date: 02/28/23 Loc: [place] Room:Type: [facility] Attending Dr: Karyn Johnson DO Ordering Provider: Karyn Johnson DO Date of Service: 02/28/23 MM/MM special view RT w/CAD: R92.8 ([id number]) US/US breast RT limited: R92.8 Copies to: [...] Stroud Jr., D.O.03/01/2023 12:38 PM Dictation Location: [facility] Tech: Meghan Garcia Transcribed By: NEGAR 03/01/23 1238 Dictated By: Yogesh Stroud Jr, DO 02/28/23 0946 Signed By: <Electronically signed by Yogesh Stroud Jr DO inOV> 03/01/23 1238 Karyn Johnson DO IMG BI PROCEDURES Edited Re sult - Final documented in this encounter Visit Diagnoses Not on filedocumented in this encounter Care Teams Airbrush Artist Photography Relationship Specialty Start Date End Date Harish Rojas MD PCP - General Family Medicine 02/21/23 documented as of this encounter
--- OUTSIDE RECORDS SUMMARY | 2025-05-07 11:13 | XMS_ITS | Clinical Summary ---
Author Organization [facility] Address [address] [place] [address] Care Team Providers Care Nutrition Worker Name Role Phone Harish Rojas MD Primary Care Provider [phone] Allergies Active Allergy Reactions Criticality Noted Date [...] N ot on file 07/12/2020 Data from: https://www.neighborhoodatlas.medicine.[facility].edu/. 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 Not on file [...] Protein, Total 7.3 6.0 - 8.4 g/dL [facility] Albumin 4.8 3.5 - 5.0 g/dL [facility] Calcium 9.9 8.5 - 10.5 mg/dL [facility] Bilirubin, Total 0.8 0.0 - 1.5 mg/dL [facility] Alkaline Phosphatase 51 40 - 150 U/L [facility] AST 17 7 - 40 U/L [facility] Glucose 84 65 - 100 mg/dL [facility] BUN 10 8 - 25 mg/dL [facility] Creatinine 0.89 0.70 - 1.40 mg/dL [facility] Sodium 138 132 - 148 mmol/L [facility] Potassium 4.1 3.5 - 5.0 mmol/L [facility] Chloride 104 98 - 110 mmol/L [facility] CO2 24 23 - 32 mmol/L [facility] Anion Gap 10 0 - 15 mmol/L [facility] ALT 10 0 - 45 U/L [facility] eGFR- >60 [facility] eGFR-All Other Races >60 . [facility] Comment: eGFR (Estimated [...] us Mala Mojica MD LABORATORY Final Result [facility] [address] [facility], [place] [address] from Last 3 Months or Most Recently Relevant to Health Maintenance Insurance [facility] PPO Care Teams Nutrition Worker Relationship Specialty Start Date End Date Harish Rojas MD PCP - General 11/30/09
--- OUTSIDE RECORDS SUMMARY | 2025-05-07 11:13 | XMS_ITS | Encounter Summary ---
Author Organization [facility] Address [address] [place] [address] Care Team Providers Care Data Center Manager Name Role Phone Harish Rojas MD Primary Care Provider [phone] Encounter Details Date Type Department Care Team ([facility] Contact Info) Description 01/30/2024 Abstract [facility] [address] [place] [id number] Omar Castro, DPM FACFAS [address] [place] [address] Social History Tobacco Use Types Packs/Day Years [...] [place] [address] [place] [address] Karyn Johnson DO [address] [place] [address] documented as of this encounter Visit Diagnoses Not on filedocumented in this encounter Care Teams Data Center Manager Relationship Specialty Start Date End Date Harish Rojas MD PCP - General Family Medicine 02/21/23 documented as of this encounter
--- OUTSIDE RECORDS SUMMARY | 2025-05-07 11:13 | XMS_ITS | Encounter Summary ---
Author Organization [facility] Address [address] [place] [address] Care Team Providers Care Feller Operator Name Role Phone Harish Rojas MD Primary Care Provider [phone] Encounter Details Date Type Department Care Team (Late st Contact Info) Description 02/25/2024 External Result Encounter [facility] External Department Unsolicited Bryson Seals, DO [address] [facility] [address] [place] [address] Social History Tobacco Use Types Packs/Day Years [...] EDT Office Visit [place] [address] [facility] [address] [place] [address] Karyn Johnson DO [address] [facility] [address] [place] [address] documented as of this encounter [...] Javier Sellers M.D.02/25/2024 10:50 AM Dictation Location: [facility] Transcribed By: [facility] 02/25/24 1050 Dictated By: Francisco Javier Sellers DO 02/25/24 1043 Signed By: <Electronically signed by Francisco Javier Sellers DO in OV> 02/25/24 1050 Narrative 02/25/2024 10:53 AM EDT [facility] Main [place] [address] [place] [address] Mammography Report Signed Patient: Mary Granados MR#: [id number] : 1975 Acct:[id number] Age/Sex: 48 / F ADM Date: 02/25/24 [...] w/CAD Procedure Note Radiology, Radiologist, - 02/25/2024 [facility] Main [place] [address] [place], [place] [id number] Mammography Report Signed Patient: Mary Granados CMR#: [id number] : 1975Acct:[id number] Age/Sex: 48 / FADM Date: 02/25/24 Loc: [...] Javier Sellers M.D.02/25/2024 10:50 AM Dictation Location: [facility] Transcribed By: [facility] 02/25/24 1050 Dictated By: Francisco Javier Sellers DO 02/25/24 1043 Signed By: <Electronically signed by Francisco Javier Sellers DO in OV> 02/25/24 1050 us Bryson Seals DO IMG BI PROCEDURES Final R esult documented in this encounter Visit Diagnoses Not on filedocumented in this encounter Care Teams Feller Operator Relationship Specialty Start Date End Date Harish Rojas MD PCP - General Family Medicine 02/21/23 documented as of this encounter
--- OUTSIDE RECORDS SUMMARY | 2025-05-07 11:13 | XMS_ITS | Encounter Summary ---
Author Organization [facility] Address [address] [place] [address] Care Team Providers Care Clinical Research Technician Name Role Phone Harish Rojas MD Primary Care Provider [phone] Encounter Details Date Type Department Care Team (Late Contact Info) Description 04/03/2023 External Result Encounter [facility] External Department Unsolicited Bryson Seals, DO [address] [facility] [address] [place] [address] Social History Tobacco Use Types [...] [place] [address] [facility] [address] [place] [phone] Karyn Johnson, [address] [facility] [address] [place] [address] documented as of this encounter Procedures Procedure Name Priority Date/Time Associated Diagnosis Comments BI MAMMOGRAM DIAGNOSTIC RIGHT 04/03/2023 11:32 AM EDT documented in this encounter Results * Right diagnostic mammogram (04/03/2023 11:32 AM EDT) Anatomical Region Laterality Modality Breast Right Mammography 04/03/2023 11:3 2 AM EDT Narrative 04/04/2023 9:23 AM EDT [place] [id number] Mammography Report Signed Patient: Mary Granados MR#: [id number] : 1975 Acct:[id number] Age/Sex: 47 / F ADM Date: 04/03/23 Loc: [place] Room: Type: [facility] Attending Dr: Bryson Seals DO Copies to: [...] Stroud Jr., D.O.04/03/2023 11:32 AM Dictation Location: [place] [address] Transcribed By: [facility] 04/03/23 1132 Dictated By: Yogesh Stroud Jr, DO 04/03/23 1132 Signed By: <Electronically signed by Yogesh Stroud Jr, DO in OV> 04/03/23 1132 Procedure Note Radiology, Radiologist, MD - 04/04/[address] [address] Mammography Report Signed Patient: Mary Granados CMR#: [id number] : 1975Acct:[id number] Age/Sex: 47 / FADM Date: 04/03/23 Loc: [place] Room:Type: [facility] Attending Dr: Bryson Seals DO Copies to: [...] Stroud Jr., D.OJessica04/03/2023 11:32 AM Dictation Location: [place] [address] Transcribed By: [facility] 04/03/23 1132 Dictated By: Yogesh Stroud Jr, DO 04/03/23 1132 Signed By: <Electronically signed by Yogesh Stroud Jr, DO inOV> 04/03/23 1132 us Bryson Seals DO IMG BI PROCEDURES Final R esult documented in this encounter Visit Diagnoses Not on filedocumented in this encounter Care Teams Clinical Research Technician Relationship Specialty Start Date End Date Harish Rojas MD PCP - General Family Medicine 02/21/23 documented as of this encounter
--- OUTSIDE RECORDS SUMMARY | 2025-05-07 11:13 | XMS_ITS | Encounter Summary ---
Author Organization [facility] Address [address] [facility] [place] [address] Care Team Providers Care Roving Changer Name Role Phone Harish Rojas MD Primary Care Provider [phone] Encounter Details Date Type Department Care Team (Late Contact Info) Description 03/09/2023 Abstract [facility] [address] [facility] [address] [place] [address] Bryson eSals DO [address] [facility] [address] [place] [address] Social History Tobacco Use Types [...] EDT Office Visit [place] [address] [facility] [address] [place] [address] Karyn Johnson DO [address] [facility] [address] [place] [address] documented as of this encounter Visit Diagnoses Not on filedocumented in this encounter Care Teams Roving Changer Relationship Specialty Start Date End Date Harish Rojas MD PCP - General Family Medicine 7/19/23 documented as of this encounter
[2025-05-07 12:19] LABS: Glucose Urine UA NEGATIVE (NEGATIVE)
[2025-05-07 14:10] LABS: Cast Seen? NONE SEEN #/LPF (NONE SEEN); Crystals Seen? None Seen #/HPF (None Seen)
== END 2025-05-07 11:09 | disposition home or self-care (01) ==
LOC: LAB 11:09
PROVIDERS: PCP Family Medicine; Visit Provider Family Medicine
DX: N39.0 Urinary tract infection, site not specified (principal)
CPT/HCPCS: 81001; 87086; 87088; 87186